=== PATIENT | female | born 1950 | race Caucasian/White ===

== ENCOUNTER 2017-07-25 12:55 | Observation (INO) | payer OTHER ==
[~2017-07-25] VITALS: Ht 172.7 cm; Wt 62.7 kg
[~2017-07-25 12:55] MED LIST: ASPI1TAB PO; ATEN25TA PO; BYDU1INJ SC; EXCETAB81 PO; SYNT150T PO
[2017-07-25] MEDS ORDERED: NS 1,000 ML IV ONE (13:15)
--- NOTE | 2017-07-25 13:31 | REP ---
Clinical: Altered mental status. Comparison: 06/29/2016 . Findings: Age-related atrophy and microvascular ischemic changes are appreciated. The ventricles and sulci are symmetric. Kim-white differentiation is maintained. There is no evidence for acute intracranial hemorrhage, mass/mass effect, pathology or infarction. No extra-axial fluid collection. Calvarium is intact. Paranasal sinuses and mastoid air cells are clear. Impression: Age related atrophy and microvascular ischemic changes. No acute intracranial hemorrhage, infarction, or mass/mass effect. Signed by Dex Howell MD 07/25/2017 01:22 P
--- NOTE | 2017-07-25 13:32 | REP ---
Clinical: Altered mental status. Chest pain . Comparison: 05/27/2017 . Findings: The mediastinum and cardiac silhouette are stable and within normal limits for portable technique. The lung jackson demonstrate chronic stable changes without acute consolidation, effusion, or pneumothorax. Skeletal structures are intact. Evidence for prior mammoplasty. Impression: No acute cardiopulmonary process appreciated. Signed by Dex Howell MD 07/25/2017 01:23 P
[2017-07-25] MEDS ORDERED: LEVO175T2 PO (14:12)
[2017-07-25] MEDS ORDERED: VITA500T PO (14:14)
[2017-07-25] MEDS ORDERED: VITATAB11 PO (14:14)
[2017-07-25 14:31] LABS: BASO % 0.3 % (0.0-1.0); EOS # 0.1 10^3/uL (0.0-0.50); EOS % 0.5 % (0.0-3.0); IMMATURE GRANULOCYTE % 0.3 % (0-0); LYMPH # 1.5 10^3/uL (1.5-4.5); LYMPH % 12.7 % (24.0-44.0); MEAN CORPUSCULAR HEMOGLOBIN 30.2 pg (27.0-33.0); MEAN CORPUSCULAR HGB CONC 33.4 g/dl (32.0-36.5); MEAN CORPUSCULAR VOLUME 90.4 fl (80.0-96.0); MONO # 0.8 10^3/uL (0.0-0.8); MONO % 6.9 % (0.0-5.0); NEUTROPHILS # 9.1 10^3/uL (1.8-7.7); NEUTROPHILS % 79.3 % (36.0-66.0); PLATELET COUNT, AUTOMATED 272 10^3/uL (150-450); RED CELL DISTRIBUTION WIDTH 13.2 % (11.5-14.5); WHITE BLOOD COUNT 11.4 10^3/uL (4.0-10.0)
[2017-07-25] MEDS ORDERED: ATOR1TAB21 PO (14:34)
[2017-07-25 15:01] LABS: ALBUMIN 3.5 GM/DL (3.2-5.2); ALBUMIN/GLOBULIN RATIO 1.13 (1.00-1.93); ALKALINE PHOSPHATASE 90 U/L (45-117); ALT/SGPT 56 U/L (12-78); ANION GAP 6 MEQ/L (8-16); AST/SGOT 75 U/L (7-37); BILIRUBIN,DIRECT 0.1 MG/DL (0.0-0.2); BILIRUBIN,TOTAL 0.4 MG/DL (0.2-1.0); BLOOD UREA NITROGEN 19 MG/DL (7-18); CALCIUM LEVEL 8.1 MG/DL (8.8-10.2); CARBON DIOXIDE LEVEL 28 MEQ/L (21-32); CHLORIDE LEVEL 106 MEQ/L (98-107); CREATININE FOR GFR 0.53 MG/DL (0.55-1.02); GLOMERULAR FILTRATION RATE > 60.0 (>45); GLUCOSE, FASTING 131 MG/DL (80-110); POTASSIUM SERUM 3.9 MEQ/L (3.5-5.1); SODIUM LEVEL 140 MEQ/L (136-145); TOTAL PROTEIN 6.6 GM/DL (6.4-8.2)
[2017-07-25 15:09] LABS: MUCUS, URINE RFX SMALL (NEGATIVE); SPECIFIC GRAVITY UR AUTO RFX 1.019 (1.002-1.035); SQUAM EPITHELIAL CELL UR AURFX 4 /HPF (0-6)
[2017-07-25] MEDS ORDERED: BISACODYL 5 MG TAB PO PRN (15:45)
[2017-07-25] MEDS ORDERED: ONDANSETRON 4MG/2ML VIAL (J2405) IV PRN (15:45)
[2017-07-25] MEDS ORDERED: LORazepam 2 MG/ML VIAL (J2060) IV PRN (16:15)
[2017-07-25 17:42] VITALS: BP 108/53
--- NOTE | 2017-07-25 19:50 | ECGEPIP ---
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
[2017-07-25 20:00] VITALS: BP 122/57
[2017-07-25] MEDS: SENOKOT S TAB PO SCH (20:32)
[2017-07-25 23:59] VITALS: BP_SYST 111; BP_SYST 112; BP_SYST 132; BP_DIAS 57; BP_DIAS 58; BP_DIAS 61
[2017-07-26 04:00] VITALS: BP 113/56
[2017-07-26 04:14] LABS: BASO % 0.4 % (0.0-1.0); EOS # 0.3 10^3/uL (0.0-0.50); EOS % 2.8 % (0.0-3.0); IMMATURE GRANULOCYTE % 0.3 % (0-0); LYMPH # 3.1 10^3/uL (1.5-4.5); LYMPH % 34.5 % (24.0-44.0); MEAN CORPUSCULAR HEMOGLOBIN 30.3 pg (27.0-33.0); MEAN CORPUSCULAR HGB CONC 33.2 g/dl (32.0-36.5); MEAN CORPUSCULAR VOLUME 91.3 fl (80.0-96.0); MONO % 11.2 % (0.0-5.0); NEUTROPHILS # 4.5 10^3/uL (1.8-7.7); NEUTROPHILS % 50.8 % (36.0-66.0); PLATELET COUNT, AUTOMATED 240 10^3/uL (150-450); RED CELL DISTRIBUTION WIDTH 13.3 % (11.5-14.5); WHITE BLOOD COUNT 8.9 10^3/uL (4.0-10.0)
[2017-07-26 04:34] LABS: ANION GAP 6 MEQ/L (8-16); BLOOD UREA NITROGEN 16 MG/DL (7-18); CALCIUM LEVEL 7.8 MG/DL (8.8-10.2); CARBON DIOXIDE LEVEL 29 MEQ/L (21-32); CHLORIDE LEVEL 107 MEQ/L (98-107); CREATININE FOR GFR 0.51 MG/DL (0.55-1.02); GLOMERULAR FILTRATION RATE > 60.0 (>45); GLUCOSE, FASTING 120 MG/DL (80-110); POTASSIUM SERUM 3.6 MEQ/L (3.5-5.1); SODIUM LEVEL 142 MEQ/L (136-145)
[2017-07-26] MEDS ORDERED: LEVOTHYROXINE 150MCG TABLET (0.15MG) PO SCH (06:00)
[2017-07-26 08:00] VITALS: BP 102/52
[2017-07-26 08:49] VITALS: BP_SYST 120; BP_SYST 123; BP_SYST 128; BP_DIAS 56; BP_DIAS 57; BP_DIAS 59
[2017-07-26] MEDS ORDERED: ATORVASTATIN 20 MG TAB PO SCH (09:00)
[2017-07-26] MEDS: SENOKOT S TAB PO SCH (09:01)
[2017-07-26 09:10] LABS: FREE T4 1.14 NG/DL (0.76-1.46)
[2017-07-26] MEDS ORDERED: LEVO150T7 PO (10:01)
--- NOTE | 2017-07-26 10:32 | HPE ---
DATE OF ADMISSION: 07/25/2017 PRIMARY CARE PROVIDER: Juancarlos Dewey MD CHIEF COMPLAINT: Syncopal episode this afternoon around noon with some seizure-like activity on the left side. PAST MEDICAL HISTORY: 1. Diabetes. 2. Hypertension. 3. Hypothyroidism. 4. Syncopal episodes since childhood. 5. History of right transient global amnesia in 2016. HISTORY OF PRESENT ILLNESS: This is a 67-year-old female who has been having episodes of syncope since her childhood from the age of around 15 years, which was attributed to all vasovagal episodes. Her last episode was about 3-4 months ago. She says she has these episodes more in the summer and if she gets too much exposure to heat. Last time she was admitted to the hospital was in June 2016 for transient global amnesia. At that time, she had a full workup including an electroencephalogram (EEG), which was negative. Carotid ultrasound, which showed 60-79% blockage on the right internal carotid and less than 50% blockage on the left carotid artery. MRI of the brain was negative. MRA showed chronic ischemic disease. Patient was also seen by neurologist and follows with neurologist n the clinic. This time, around noon today, her daughter was visiting her and patient was sitting in a rocking chair with little reclination when she suddenly passed out as witness by her daughter with her head rolling to the left and her eyes rolling backwards. There was stiffening of left side of the body and some tonic-clonic movements on the left side. She was shaken by her daughter. She did not wake up and then, after about 2-3 minutes, she slowly started coming around. By that time, Emergency Medical Services (EMS) had already been called. By time the EMS got to the house, she was more awake and coherent, although still seemed a little confused. She did not have any tongue biting, did not have any bowel or bladder incontinence. However, as per daughter, her color was very jane. When EMS stood her up to walk to the stretcher, she again complained of dizziness and lightheadedness. At that time, did repeat her vital signs, which showed her systolic had dropped to 75. She was started on IV fluids, 1 liter bolus and was brought to the emergency room. In the emergency room, her vital signs did not show any orthostatic changes and there was no episodes of hypotension. Patient also tells me that her stomach has been a little upset since last night. She was feeling wheezy and had one episode of vomiting last night and this morning she only had half a banana because her stomach was still queasy. She also had one episode of diarrhea in the morning and one episode of soft stool in the emergency room. The patient had a CT scan done in the emergency department (ED), which was negative for acute events. Her electrocardiogram (EKG) was sinus rhythm with no changes. Her lab tests were all at baseline except for the low thyroid-stimulating hormone (TSH) of 0.014 and her white count was 11.4. Patient is admitted to the hospitalist service for syncope versus seizure. PAST SURGICAL HISTORY: 1. Hysterectomy. 2. Tubal ligation. 3. Breast implants. SOCIAL HISTORY: Patient is a smoker. Drinks about one glass of wine per day. Does not use any illicit drugs. She lives alone recently. Her in March. FAMILY HISTORY: Nothing significant. ALLERGIES: SULFA DRUGS. HOME MEDICATIONS: - vitamin C 500 mg by mouth daily - atenolol 25 mg by mouth daily - atorvastatin 20 mg by mouth daily - vitamin B complex one tablet by mouth daily - Excedrin Extra Strength one tablet by mouth twice a day as needed, pain - Synthroid 175 mcg by mouth daily REVIEW OF SYSTEMS: All 10-point review of systems negative except as mentioned in the HPI. PHYSICAL EXAMINATION: VITAL SIGNS: Temperature 96.9, pulse 58, respiratory rate 18, blood pressure 119/58, pulse oximetry 90% in room air. GENERAL: Patient awake, alert, oriented times three, sitting up in bed in no acute distress. HEENT: Normocephalic, atraumatic. Moist mucous membranes. Anicteric eyes. CHEST: Clear to auscultation. CARDIOVASCULAR: S1, S2, regular. No rub, murmur or gallop. ABDOMEN: Soft, nontender. Bowel sounds present. EXTREMITIES: No edema. LABORATORY DATA: WBC 11.4, hemoglobin 13.5, platelets 272. Sodium 140, potassium 3.9, chloride 106, bicarbonate 28, BUN 19, creatinine 0.53, glucose 131, lactate 1.1. Liver function tests are normal. TSH 0.014. ASSESSMENT AND PLAN: 1. This is a 67-year-old female admitted for syncope versus seizure. This episode seems more in the favor of syncope, though it seems to be more severe than her previous episodes. Patient also did have orthostatic positive through EMS, though we could not document orthostatic here. So probably patient has orthostatic syncope. Patient may have been mildly dehydrated because of not eating well last night and this morning as well as one episode of diarrhea. Will monitor the patient on telemetry for any acute cardiac events. Patient last year had carotid ultrasound done, MRI/MRA brain done and EEG done, so will not order any further workup at this point. 2. Possible seizure, though unlikely because there is no significant episode of confusion or postictal state. However, will keep the patient under seizure precautions and will put her on Ativan as needed. 3. Hypotension. Patient's blood pressure was low with orthostatic changes with EMS. Will hold her atenolol today. 4. Hypothyroid. Patient's TSH is very low. We will reduce the dose of Synthroid. 5. Diabetes. Sugars are well controlled. Patient is not on any medication. 6. Hyperlipidemia. Will continue with atorvastatin. 7. Deep venous thrombosis (DVT) prophylaxis has been ordered. MTDD
--- NOTE | 2017-07-26 12:18 | DS.PDOC ---
Discharge Summary General Date of Admission Jul 25, 2017 at 15:37 Date of Discharge 07/26/17 Primary Care Physician: UBALDO GEIGER M.D. Attending Physician: JOSE MINAYA MD Discharge Summary PROCEDURES PERFORMED DURING STAY: None. ADMITTING/DISCHARGE DIAGNOSES: 1. Syncope 2. Orthostatic hypotension 3. Hypothyroidism COMPLICATIONS/CHIEF COMPLAINT: Syncope. HISTORY OF PRESENT ILLNESS/HOSPITAL COURSE: This is a 67-year-old female who has been having episodes of syncope since her childhood from the age of around 15 years, which was attributed to orthostatic hypotension, possibly vasovagal episodes. Her last episode was about 3-4 months ago. She was last admitted to the hospital in June 2016 for transient global amnesia. At that time, she had a full workup including a negative electroencephalogram (EEG), carotid ultrasound, which showed 60-79% blockage on the right internal carotid and less than 50% blockage on the left carotid artery. MRI of the brain was negative. MRA showed chronic ischemic disease. Patient was also seen by neurologist and follows with neurologist n the clinic. She presented for this admission after her daughter witness her pass out with her head rolling to the left and her eyes rolling backwards. She was arousable after 2-3 by her daughter. EMS was called and on their initial assessment, she was awake, coherent, however she appeared a little confused. She did not have any tongue biting, did not have any bowel or bladder incontinence. EMS noticed she was orthostatic positive. She was started on IV fluids, 1 liter bolus and was brought to the emergency room. On evaluation in the ED, she did not show any orthostatic changes and there was no episodes of hypotension. A CT scan done in the emergency department (ED), which was negative for acute events. Her electrocardiogram ( EKG) was sinus rhythm with no changes. Her lab tests were unremarkable except for the low thyroid-stimulating hormone ( TSH) of 0.014 and her white count was 11.4. Patient is admitted to the hospitalist service for syncope most likely vasovagal, secondary to orthostatic hypotension, from dehydration. Unlikely to be seizure activity . During the hospital stay, she did not experience any episodes of syncope. Her thyroid medications was reduced because of her low TSH. She was monitored overnight on telemetry and she had no cardiac events. Patient was discharged with instruction follow-up with her PCP for her thyroid medication management. Her WBC was normal on day of discharge. Her syncope was most likely secondary to orthostatic hypotension from dehydration, possibly vasovagal, unlikely seizure related. Patient was discharge in high spirit. Patient was excited to go home and had no issues or complaints on day of discharge DISCHARGE MEDICATIONS: Please see below. ALLERGIES: Please see below. PHYSICAL EXAMINATION ON DISCHARGE: Vitals: (see below) General: No acute distress, laying comfortably in bed. HEENT: Moist mucous membranes. Neck: No JVD or lymphadenopathy Cardiac: RRR, No murmurs Pulm: Clear to auscultation b/l. No wheezing, rhonchi Abd: NT/ND + BS Ext: No edema or cyanosis LABORATORY DATA: Please see below. IMAGING: Chest x-ray: 07/25/2017, no acute cardiopulmonary process is appreciated Head CT without contrast, , age-related atrophy and microvascular ischemic changes. No acute intracranial hemorrhages, infarctions, or masses/ mass effect PROGNOSIS: Fair ACTIVITY: As Tolerated. DIET: As tolerated DISCHARGE PLAN: Discharge home DISPOSITION: Home, Self-Care. DISCHARGE INSTRUCTIONS: 1. Stay hydrated 2. Return if she develops any neurological symptoms 3. Follow-up with PCP ITEMS TO FOLLOWUP ON ON OUTPATIENT: 1. Syncope 2. Thyroid medication management DISCHARGE CONDITION: Stable. TIME SPENT ON DISCHARGE: Greater than 30 minutes. Vital Signs/I&Os Vital Signs Date Time Temp Pulse Resp B/P (MAP) Pulse Ox O2 Delivery O2 Flow Rate FiO2 07/26/17 08:49 65 120/56 (77) 60 128/57 (80) 64 123/59 (80) 07/26/17 08:00 98.4 16 96 Room Air I&O- Last 24 Hours up to 6 AM 07/26/17 06:00 Intake Total 0 ml Output Total 0 ml Balance 0 ml Laboratory Data Labs 24H Laboratory Tests 2 07/25/17 14:20: Immature Granulocyte % (Auto) 0.3H, White Blood Count 11.4H, Red Blood Count 4.47, Hemoglobin 13.5, Hematocrit 40.4, Mean Corpuscular Volume 90.4, Mean Corpuscular Hemoglobin 30.2, Mean Corpuscular Hemoglobin Concent 33.4, Red Cell Distribution Width 13.2, Platelet Count 272, Neutrophils (%) (Auto) 79.3H, Lymphocytes (%) (Auto) 12.7L, Monocytes (%) (Auto) 6.9H, Eosinophils (%) (Auto) 0.5, Basophils (%) (Auto) 0.3, Neutrophils # (Auto) 9.1H, Lymphocytes # (Auto) 1.5, Monocytes # (Auto) 0.8, Eosinophils # (Auto) 0.1, Basophils # (Auto) 0.0, Immature Granulocyte # (Auto) 0.0, Nucleated Red Blood Cells % (auto) 0.0, Anion Gap 6L, Glomerular Filtration Rate > 60.0, Lactic Acid Level 1.1, Calcium Level 8.1L, Aspartate Amino Transf (AST/SGOT) 75H, Alanine Aminotransferase (ALT /SGPT) 56, Alkaline Phosphatase 90, Total Bilirubin 0.4, Direct Bilirubin 0.1, Total Creatine Kinase 65, Creatine Kinase MB 1.2, Creatine Kinase MB Relative Index 1.84, Troponin I < 0.02, Total Protein 6.6, Albumin 3.5, Albumin/Globulin Ratio 1.13, Thyroid Stimulating Hormone (TSH) 0.014L 07/25/17 14:58: Urine Color YELLOW, Urine Appearance CLOUDYH, Urine pH 5.0, Urine Specific [place] 1.019, Urine Protein NEGATIVE, Urine Glucose (UA) NEGATIVE, Urine Ketones NEGATIVE, Urine Blood 1+H, Urine Nitrite NEGATIVE, Urine Bilirubin NEGATIVE, Urine Urobilinogen 0.2, Urine Leukocyte Esterase 2+H, Urine WBC (Auto ) 2, Urine RBC (Auto) 2, Urine Hyaline Casts (Auto) 0, Urine Bacteria (Auto) 1+H , Urine Squamous Epithelial Cells 4, Urine Mucus (Auto) SMALL, Urine Sperm (Auto ) 07/26/17 03:14: Immature Granulocyte % (Auto) 0.3H, White Blood Count 8.9, Red Blood Count 3.89L , Hemoglobin 11.8L, Hematocrit 35.5L, Mean Corpuscular Volume 91.3, Mean Corpuscular Hemoglobin 30.3, Mean Corpuscular Hemoglobin Concent 33.2, Red Cell Distribution Width 13.3, Platelet Count 240, Neutrophils (%) (Auto) 50.8, Lymphocytes (%) (Auto) 34.5, Monocytes (%) (Auto) 11.2H, Eosinophils (%) (Auto) 2.8, Basophils (%) (Auto) 0.4, Neutrophils # (Auto) 4.5, Lymphocytes # (Auto) 3.1, Monocytes # (Auto) 1.0H, Eosinophils # (Auto) 0.3, Basophils # (Auto) 0.0, Immature Granulocyte # (Auto) 0.0, Nucleated Red Blood Cells % (auto) 0.0, Anion Gap 6L, Glomerular Filtration Rate > 60.0, Calcium Level 7.8L, Thyroid Stimulating Hormone (TSH) 0.021L, Blood Urea Nitrogen 16, Creatinine 0.51L, Sodium Level 142, Potassium Level 3.6, Chloride Level 107, Carbon Dioxide Level 29, Free Thyroxine 1.14 CBC/BMP Laboratory Tests 07/25/17 14:20 Red Blood Count 4.47, Mean Corpuscular Volume 90.4, Mean Corpuscular Hemoglobin 30.2, Mean Corpuscular Hemoglobin Concent 33.4, Red Cell Distribution Width 13.2 , Neutrophils (%) (Auto) 79.3 H, Lymphocytes (%) (Auto) 12.7 L, Monocytes (%) ( Auto) 6.9 H, Eosinophils (%) (Auto) 0.5, Basophils (%) (Auto) 0.3, Neutrophils # (Auto) 9.1 H, Lymphocytes # (Auto) 1.5, Monocytes # (Auto) 0.8, Eosinophils # (Auto) 0.1, Basophils # (Auto) 0.0 07/26/17 03:14 Red Blood Count 3.89 L, Mean Corpuscular Volume 91.3, Mean Corpuscular Hemoglobin 30.3, Mean Corpuscular Hemoglobin Concent 33.2, Red Cell Distribution Width 13.3, Neutrophils (%) (Auto) 50.8, Lymphocytes (%) (Auto) 34.5, Monocytes (%) (Auto) 11.2 H, Eosinophils (%) (Auto) 2.8, Basophils (%) ( Auto) 0.4, Neutrophils # (Auto) 4.5, Lymphocytes # (Auto) 3.1, Monocytes # (Auto ) 1.0 H, Eosinophils # (Auto) 0.3, Basophils # (Auto) 0.0, Calcium Level 7.8 L Microbiology Microbiology 07/25/17 Urine Culture - Final, Complete Discharge Medications Scheduled Ascorbic Acid (Vitamin C) 500 Mg Tab, 500 MG PO DAILY, (Reported) Atenolol (Atenolol) 25 Mg Tab, 25 MG PO DAILY, (Reported) Atorvastatin Calcium (Atorvastatin Calcium) 20 Mg Tab, 20 MG PO DAILY, (Reported ) B1/B2/B3/B5/B6 (Vitamin B Complex) 1 Tab Tab, 1 TAB PO DAILY, (Reported) Levothyroxine Sodium (Synthroid) 150 Mcg Tab, 150 MCG PO DAILY@06 Scheduled PRN (Excedrin Extra Strength 250-250-65 mg) 1 Tab Tab, 1 TAB PO BID PRN for PAIN, ( Reported) Allergies Coded Allergies: Sulfa Drugs (Unverified Adverse Reaction, Mild, upset stomach, 06/29/16) Sulfa Drugs Cross Reactors (Unverified Adverse Reaction, Mild, upset stomach, 06/29/16) GME ATTESTATION GME ATTESTATION My faculty preceptor for this patient encounter was physically present during the encounter and was fully available. All aspects of the patient interview, examination, medical decision making process, and medical care plan development were reviewed and approved by the faculty preceptor. The faculty preceptor is aware and concurs with the plan as stated in the body of this note and will attest to such by his/her cosignature. ATTENDING NOTE I, Jose Minaya, have both independently examined this patient as well as reviewed the documentation. I have discussed in detail with the resident the findings and plan of treatment as documented in the residents documentation. I will continue to follow the patient and offer further guidance to the patients care as necessary during this hospital stay. CHRISTOPHER RHODES DO Jul 26, 2017 12:17 JOSE MINAYA MD Jul 26, 2017 15:31
== END 2017-07-26 11:20 | disposition home or self-care (01) ==
LOC: M ED 12:55 → EDBD 12:55 → M ED INP 15:37 → M PCU 17:35
PROVIDERS: ADMIT Internal Medicine Nephrology; ATTEND Internal Medicine
DX: I95.1 Orthostatic hypotension (principal); E11.9 Type 2 diabetes mellitus without complications; I10 Essential (primary) hypertension; E03.9 Hypothyroidism, unspecified; E78.5 Hyperlipidemia, unspecified; F17.210 Nicotine dependence, cigarettes, uncomplicated; Z88.2 Allergy status to sulfonamides; Z79.899 Other long term (current) drug therapy
CPT/HCPCS: 36415; 70450; 71010; 80048; 80076; 81001; 82550; 82553; 83605; 84439; 84443; 84480; 84484; 85025; 87086; 93005; 93041; 94760; 99285; G0378

== ENCOUNTER → 2019-02-24 | Outpatient (CLI) | payer MEDICARE ==
[~2019-02-24] MED LIST changes: -ASPI1TAB PO; +ASPI81TA26 PO; +ATOR1TAB21 PO; +LEVO150T7 PO; +LEVO175T2 PO; +VITA500T PO; +VITATAB11 PO
--- NOTE | 2019-02-24 09:27 | REP ---
Clinical: Abnormal liver function tests. Technique: Real time jane scale ultrasound examination using curved array transducer. Findings: Liver and visualized pancreas are normal in appearance and without focal hepatic or pancreatic lesion identified. The gallbladder is unremarkable and without gallstones, wall thickening, or pericholecystic fluid. No biliary ductal dilatation is appreciated and the common bile duct measures 4.8 mm diameter. The right kidney is normal in reniform shape without hydronephrosis and measures 10.2 x 4.9 x 4.2 cm. No ascites. Impression: Normal limited abdominal ultrasound. Electronically Signed by Dex Howell MD 02/24/2019 09:19 A
--- NOTE | 2019-02-24 12:30 | REP ---
BILATERAL MAMMOGRAM WITH 3D TOMOSYNTHESIS, WITH RIGHT BREAST ULTRASOUND: There is no family history of breast cancer. Tyrer-Cuzick lifetime risk of breast cancer 4.2%. The patient complains of pain and some degree of contour abnormality in the upper outer quadrant of the right breast. Bilateral ML and CC views are performed including implant displaced views with 3D tomosynthesis. Comparison made with prior studies, most recently 12/27/2015. There is mild fibroglandular tissue bilaterally. I see no suspicious mass or architectural distortion. No clustered microcalcifications are seen. There is new somewhat ill-defined dense material along the surface of the right breast implant having an appearance compatible with extracapsular rupture of the right breast implant. Real-time sonographic evaluation of the upper outer quadrant of the right breast does demonstrate ill-defined hypoechoic and anechoic areas along the upper outer aspect of the implant compatible with extracapsular rupture. There is no adjacent mass in the visualized parenchyma. IMPRESSION: BIRADS 2: BI-RADS/ACR category 2 mammogram. Benign Findings. ACR 2 benign. No suspicious mass or clustered microcalcifications. There are mammographic and sonographic findings compatible with extracapsular rupture of the right breast implant. This mammogram was interpreted with the aid of an FDA-approved computer-aided detection system. The patient states that she or he has not had a clinical breast exam in over a year. Patient letter requested is M2. Electronically Signed by Blake Kim MD 02/28/2019 05:31 P
== END ==
LOC: M RAD 08:03
PROVIDERS: ATTEND Family Medicine
DX: R94.5 Abnormal results of liver function studies (principal); N64.4 Mastodynia
CPT/HCPCS: 76642; 76705; 77066; G0279

== ENCOUNTER 2019-03-23 17:14 | Emergency (ER) | payer MEDICARE, MEDICAID ==
[~2019-03-23] VITALS: Ht 170.2 cm; Wt 60.9 kg
[2019-03-23] MEDS ORDERED: LEVO112T2 (17:29)
[2019-03-23] MEDS ORDERED: MEMA28CA (17:29)
[2019-03-23] MEDS ORDERED: SERT-155 (17:29)
[2019-03-23] MEDS ORDERED: BUPR300T34 (17:29)
[2019-03-23] MEDS ORDERED: RAMI1CAP24 (17:29)
[2019-03-23 18:38] LABS: BASO # 0.1 10^3/uL (0.0-0.2); BASO % 0.4 % (0.0-1.0); EOS # 0.1 10^3/uL (0.0-0.50); EOS % 0.5 % (0.0-3.0); HEMATOCRIT 41.3 % (36.0-47.0); LYMPH % 7.7 % (24.0-44.0); MEAN CORPUSCULAR HEMOGLOBIN 33.3 pg (27.0-33.0); MEAN CORPUSCULAR HGB CONC 33.9 g/dl (32.0-36.5); MEAN CORPUSCULAR VOLUME 98.3 fl (80.0-96.0); MONO # 1.5 10^3/uL (0.0-0.8); MONO % 11.9 % (0.0-5.0); NEUTROPHILS # 10.1 10^3/uL (1.8-7.7); NEUTROPHILS % 79.1 % (36.0-66.0); PLATELET COUNT, AUTOMATED 261 10^3/uL (150-450); WHITE BLOOD COUNT 12.8 10^3/uL (4.0-10.0)
--- NOTE | 2019-03-23 19:00 | REPVR ---
EXAM: CT Head Without Contrast EXAM DATE/TIME: 03/23/2019 6:31 PM CLINICAL HISTORY: 69 years old, female; Altered mental status/memory loss TECHNIQUE: Imaging protocol: Computed tomography images of the head without contrast. Radiation optimization: All CT scans at this facility use at least one of these dose optimization techniques: automated exposure control; mA and/or kV adjustment per patient size (includes targeted exams where dose is matched to clinical indication); or iterative reconstruction. COMPARISON: CT Head without contrast 07/25/2017 1:07 PM FINDINGS: Brain: Moderate parenchymal atrophy most pronounced in the frontotemporal regions. Mild white matter disease likely age-related. Ventricles: Normal. No ventriculomegaly. Bones/joints: Unremarkable. No acute fracture. Sinuses: Visualized sinuses are unremarkable. No fluid levels. Mastoid air cells: Visualized mastoid air cells are well aerated. No mastoid effusion. Soft tissues: Unremarkable. IMPRESSION: No acute findings. Electronically signed by: Salinas Manriquez On 03/23/2019 19:00:17 PM
[2019-03-23 19:14] LABS: ALBUMIN 3.6 GM/DL (3.2-5.2); ALT/SGPT 41 U/L (12-78); BILIRUBIN,DIRECT 0.4 MG/DL (0.0-0.2); BILIRUBIN,TOTAL 0.8 MG/DL (0.2-1.0); BLOOD UREA NITROGEN 37 MG/DL (7-18); CALCIUM LEVEL 9.7 MG/DL (8.8-10.2); CARBON DIOXIDE LEVEL 23 MEQ/L (21-32); CHLORIDE LEVEL 105 MEQ/L (98-107); CK-MB VALUE MASS 19.6 NG/ML (<3.6); CPK CREATINE PHOSPHOKINASE 707 U/L (26-192); ETHYL ALCOHOL (ETHANOL) < 0.003 % (0.000-0.010); GLOMERULAR FILTRATION RATE > 60.0 (>39); GLUCOSE, FASTING 99 MG/DL (70-100); MB/CK RELATIVE INDEX 2.77 (< OR =4); POTASSIUM SERUM 4.4 MEQ/L (3.5-5.1); SODIUM LEVEL 140 MEQ/L (136-145); THYROID STIMULATING HORMONE 0.011 uIU/ML (0.358-3.740); TOTAL PROTEIN 6.9 GM/DL (6.4-8.2); TROPONIN I < 0.02 NG/ML (< 0.10)
--- NOTE | 2019-03-23 19:52 | REP ---
HISTORY: Altered mental status. COMPARISON: Portable exam of 07/25/2017. AP and lateral views were obtained. There is no change from the prior exam. The technique utilized in obtaining the radiograph has magnified the cardiac silhouette and accentuated the interstitial markings. The superior mediastinal structures are midline. The cardiac silhouette is unremarkable in size, shape, and position. The diaphragmatic surfaces of the lungs are regular, and the costophrenic angles are clear. The pulmonary jackson are clear. The imaged osseous structures are intact. IMPRESSION: There is no acute cardiopulmonary disease. Electronically Signed by Leo Blanco DO 03/24/2019 02:19 P
[2019-03-23 20:42] LABS: AMPHETAMINES LEVEL URINE NEGATIVE (NEGATIVE); BARBITURATES URINE NEGATIVE (NEGATIVE); BENZODIAZEPINES URINE NEGATIVE (NEGATIVE); CANNABINOIDS URINE NEGATIVE (NEGATIVE); COCAINE METABOLITE URINE NEGATIVE (NEGATIVE); METHADONE URINE NEGATIVE (NEGATIVE); OPIATES URINE NEGATIVE (NEGATIVE); PHENCYCLIDINE URINE NEGATIVE (NEGATIVE)
[2019-03-23] MEDS ORDERED: NS 1,000 ML IV ONE (22:00)
[2019-03-23 22:53] VITALS: BP 112/59
--- NOTE | 2019-03-24 05:31 | ECGEPIP ---
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
== END 2019-03-24 00:03 | disposition home or self-care (01) ==
LOC: EDBD 17:14 → M ED 17:14
DX: E86.0 Dehydration (principal); F03.90 Unspecified dementia, unspecified severity, without behavioral disturbance, psychotic disturbance, mood disturbance, and anxiety; I10 Essential (primary) hypertension; E78.5 Hyperlipidemia, unspecified; Z79.899 Other long term (current) drug therapy; Z88.1 Allergy status to other antibiotic agents; Z88.2 Allergy status to sulfonamides; Z88.8 Allergy status to other drugs, medicaments and biological substances; F17.210 Nicotine dependence, cigarettes, uncomplicated
CPT/HCPCS: 36415; 51701; 70450; 71046; 80048; 80076; 80307; 81001; 82550; 82553; 84443; 84484; 85025; 93005; 93041; 94760; 99285; G0480

== ENCOUNTER 2020-03-23 10:14 | Inpatient (IN) | payer MEDICARE ==
[~2020-03-23] VITALS: Ht 162.6 cm; Wt 59.0 kg
[~2020-03-23 10:14] MED LIST changes: +BUPR300T92 PO; +LEVO112T2 PO; +MEMA28CA PO; +RAMI1CAP24 PO; +SERT50TA29 PO; +VITA-243 PO; -VITA500T PO
[2020-03-23] MEDS ORDERED: ASPI81TA86 PO (11:03)
[2020-03-23 11:20] LABS: VENOUS BASE EXCESS -4.2 (-2.0-2.0); VENOUS HCO3 22.3 MEQ/L (23.0-27.0); VENOUS O2 SATURATION 67.1 % (60.0-80.0); VENOUS PARTIAL PRESSURE CO2 46.1 mmHg (38.0-50.0); VENOUS PARTIAL PRESSURE O2 37.6 mmHg (30.0-50.0); VENOUS PH 7.303 UNITS (7.330-7.430); VENOUS TOTAL CO2 23.7 MEQ/L (24.0-28.0)
[2020-03-23 11:34] LABS: BASO # 0.1 10^3/uL (0.0-0.2); BASO % 0.5 % (0.0-1.0); EOS # 0.1 10^3/uL (0.0-0.5); HEMATOCRIT 42.5 % (36.0-47.0); HEMOGLOBIN 13.8 g/dl (12.0-15.5); LYMPH # 0.7 10^3/uL (1.5-5.0); LYMPH % 6.6 % (24.0-44.0); MEAN CORPUSCULAR HEMOGLOBIN 30.1 pg (27.0-33.0); MEAN CORPUSCULAR HGB CONC 32.5 g/dl (32.0-36.5); MEAN CORPUSCULAR VOLUME 92.6 fl (80.0-96.0); MONO # 0.9 10^3/uL (0.0-0.8); MONO % 7.9 % (0.0-5.0); NEUTROPHILS # 9.4 10^3/uL (1.5-8.5); NEUTROPHILS % 83.3 % (36.0-66.0); PLATELET COUNT, AUTOMATED 230 10^3/uL (150-450); RED BLOOD COUNT 4.59 10^6/uL (4.00-5.40); WHITE BLOOD COUNT 11.3 10^3/uL (4.0-10.0)
[2020-03-23 11:43] LABS: BLOOD UREA NITROGEN 17 MG/DL (7-18); CARBON DIOXIDE LEVEL 28 MEQ/L (21-32); CHLORIDE LEVEL 99 MEQ/L (98-107); CK-MB VALUE MASS 8.7 NG/ML (<3.6); CPK CREATINE PHOSPHOKINASE 607 U/L (26-192); CREATININE FOR GFR 1.11 MG/DL (0.55-1.30); GLOMERULAR FILTRATION RATE 51.4 (>39); GLUCOSE, FASTING 493 MG/DL (70-100); MB/CK RELATIVE INDEX 1.43 (< OR =4); POTASSIUM SERUM 4.5 MEQ/L (3.5-5.1); SODIUM LEVEL 132 MEQ/L (136-145); TROPONIN I < 0.02 NG/ML (< 0.10)
--- NOTE | 2020-03-23 11:44 | REPVR ---
PROCEDURE INFORMATION: Exam: XR Lumbosacral Spine, 4 or 5 Views Exam date and time: 03/23/2020 11:20 AM Age: 70 years old Clinical indication: Low back pain; Additional info: Trauma, fell TECHNIQUE: Imaging protocol: XR of the lumbosacral spine, 4 or 5 views. COMPARISON: CR - Chest, 2 view PA, Lat 03/23/2019 6:36:40 PM FINDINGS: Limitations: ECG leads/contacts overlie and partially obscure the anatomy. Vertebrae: The bones are diffusely demineralized. This significantly limits evaluation for fractures. Five [id number] lumbar vertebrae are present. Grade 1 anterolisthesis of L5 on S1. Lumbar vertebral body heights are maintained. Anteriorly wedged compression fracture deformity of the T12 vertebral body with mild loss of height. Multilevel bilateral degenerative facet hypertrophy and sclerosis, most pronounced at the lower lumbar spine. Multilevel lumbar vertebral degenerative endplate osteophytosis. L4-L5 and L5-S1 intervertebral disc space narrowing. Soft tissues: Bilateral breast prostheses. Vasculature: Atherosclerotic calcifications. IMPRESSION: 1. T12 vertebral body compression fracture appears new compared to 03/23/2019. This may be an acute vertebral fracture. Clinical correlation is needed. This can be further evaluated with spine CT. 2. The bones are diffusely demineralized. This significantly limits evaluation for fractures. 3. Grade 1 anterolisthesis of L5 on S1. 4. Multilevel degenerative appearing thoracic and lumbar spondylosis. Electronically signed by: Morris Carbone On 03/23/2020 11:44:11 AM
--- NOTE | 2020-03-23 11:52 | REPVR ---
PROCEDURE INFORMATION: Exam: XR Right Hip with Pelvis when Performed Exam date and time: 03/23/2020 11:20 AM Age: 70 years old Clinical indication: Hip pain; Right hip; Additional info: Trauma, fell TECHNIQUE: Imaging protocol: XR Right hip with pelvis when performed. Views: 2 or 3 views. COMPARISON: No relevant prior studies available. FINDINGS: Limitations: ECG leads/contacts overlie and partially obscure the anatomy. Bones/joints: The bones are diffusely demineralized. This significantly limits evaluation for fractures. Degenerative appearing lumbar spondylosis. No acute pelvic fracture is identified. The sacroiliac joints are unremarkable. The pubic symphysis is unremarkable. No right hip dislocation. The right hip joint space is maintained. Minimal bilateral acetabular osteophytosis. No fracture of the imaged right proximal femur is identified. Soft tissues: Unremarkable as visualized. Vasculature: Vascular calcifications. IMPRESSION: 1. No acute fracture is identified. 2. The bones are diffusely demineralized. This significantly limits evaluation for fractures. Electronically signed by: Morris Carbone On 03/23/2020 11:52:23 AM
[2020-03-23] MEDS ORDERED: NS 1,000 ML IV ONE (12:00)
[2020-03-23] MEDS ORDERED: HumuLIN R (REGULAR) INSULIN (NovoLIN R) **100U/ML** PER UNIT IV ONE (12:00)
[2020-03-23] MEDS ORDERED: CLOTRIMAZOLE 1% VAG CR 45 GM PV ONE (13:00)
[2020-03-23] MEDS ORDERED: FLUCONAZOLE 100 MG TAB PO ONE (13:00)
[2020-03-23] MEDS ORDERED: VITACAP8 PO (13:59)
[2020-03-23] MEDS ORDERED: QUET1TAB7 PO (13:59)
[2020-03-23] MEDS: MICONAZOLE-7 VAGINAL 2% CREAM 47.7 GM PV SCH (14:34)
[2020-03-23] MEDS ORDERED: NORCO, ANEXSIA 5/325MG TABLET (HYDROcodone/ACETAMINOPHEN) PO ONE (15:15)
[2020-03-23] MEDS ORDERED: ACETAMINOPHEN TAB 650MG DOSE (2X325MG) PO PRN (16:45)
[2020-03-23] MEDS ORDERED: GLUCAGON INJ 1MG VIAL SC PRN (17:00)
[2020-03-23] MEDS ORDERED: GLUCOSE 4GM CHEW TABLET PO PRN (17:00)
[2020-03-23] MEDS ORDERED: DEXTROSE 50% 50 ML SYRINGE IV PRN (17:00)
--- NOTE | 2020-03-23 17:19 | REPVR ---
PROCEDURE INFORMATION: Exam: XR Chest, 1 View Exam date and time: 03/23/2020 5:14 PM Age: 70 years old Clinical indication: Other: Leukocytosis; Additional info: AMS, leukocytosis TECHNIQUE: Imaging protocol: XR of the chest Views: 1 view. COMPARISON: CR Chest, 2 view PA, Lat 03/23/2019 6:36 PM FINDINGS: Lungs: Unremarkable. No consolidation. Pleural space: Unremarkable. No pleural effusion. No pneumothorax. Heart/Mediastinum: Unremarkable. No cardiomegaly. Bones/joints: Osteoporosis. Shallow dextroscoliosis. Soft tissues: Bilateral calcified breast implants. IMPRESSION: No acute findings. Electronically signed by: Salinas Manriquez On 03/23/2020 17:19:22 PM
[2020-03-23] MEDS: HumaLOG INSULIN (NovoLOG) PER UNIT SC SCH (17:30)
--- NOTE | 2020-03-23 18:55 | HPEPDOC ---
[facility] Medical History & Physical Date of Admission Mar 23, 2020 Date of Service: Mar 23, 2020 Primary Care Physician: UBALDO GEIGER M.D. Attending Physician: A History and Physical CHIEF COMPLAINT: Agitation, altered mental status, low back pain HISTORY OF PRESENT ILLNESS: 70 yo F with a hx of advanced Alzheimer's dementia, uncontrolled DM2, HTN, history of falls. She lives at home with 24 hour care from home health agency. She is not able to provide history due to dementia, but her son is at bedside. He states that he became concerned when she became acutely agitated, had obvious perineal/vaginal discomfort (constant scratching and rubbing) which is a departure from her baseline. He further described her frequently falling on her backside off the bed when she attempts to get up. He also reports that she had a much increased appetite and has not been taking medications for DM. On arrival to the ED her BG was ~500. VBG showing ph 7.3, AG 5. Xray showing T12 compression fracture, ~20 involvement. She was given 5 units of R insulin. Perineal exam showed significant vaginal and perineal candidal infection. She was given 200 mg of diflucan along with miconazole vaginal cream. She showed near immediate impovement in agitation after miconazole adminstration. PAST MEDICAL HISTORY: 1. Advanced Alzheimer's Dementia 2. DM2. 3. HTN 4. Hypothyroidism PAST SURGICAL HISTORY: non contributory SOCIAL HISTORY: Former smoker. Non etoh use Lives at home, receives 24 hour from home health agency FAMILY HISTORY: non contributory ALLERGIES: Please see below. REVIEW OF SYSTEMS: CONSTITUTIONAL: agitation, confusion. HEENT: none. CARDIOVASCULAR: none. RESPIRATORY: none. GASTROINTESTINAL: none. GENITOURINARY: vaginal, perineal pruritis. SKIN: none. MUSCULOSKELETAL: low back pain . NEUROLOGICAL: confusion, no focal neuro deficits PSYCHIATRIC: confused, advanced dementia. ENDOCRINE: hyperglycemia HEMATOLOGIC/LYMPHATIC: none. HOME MEDICATIONS: Please see below. PHYSICAL EXAMINATION: GENERAL APPEARANCE: calm at time of exam, comfortable in bed. HEENT: PERRLA. CARDIOVASCULAR: RRR, normal S1, S2. LUNGS: CTAB, no rales, no wheezes. ABDOMEN: soft, non tender. MUSCULOSKELETAL: low back pain, mildly tender to palpation at T12. EXTREMITIES: no deformity. NEUROLOGICAL: moving all 4 extremities, no focal deficits. PSYCHIATRIC: confused, not followin commands, advanced dementia. LABORATORY DATA: See below. IMAGING: Lumbar Spine 4 or 5 view IMPRESSION: 1. T12 vertebral body compression fracture appears new compared to 03/23/2019. This may be an acute vertebral fracture. Clinical correlation is needed. This can be further evaluated with spine CT. 2. The bones are diffusely demineralized. This significantly limits evaluation for fractures. 3. Grade 1 anterolisthesis of L5 on S1. 4. Multilevel degenerative appearing thoracic and lumbar spondylosis. XR R hip with pelvis IMPRESSION: 1. No acute fracture is identified. 2. The bones are diffusely demineralized. This significantly limits evaluation for fractures. CXR: wnl, no acute findings. MICROBIOLOGY: Please see below. ASSESSMENT: 70 yo F with a hx of advanced Alzheimer's dementia, uncontrolled DM2, HTN, history of falls. She lives at home with 24 hour care from home health agency. Admitted with AMS, hyperglycemia, T12 compression fx. PLAN: 1. AMS: HHS vs infection. Improved after insulin, treatment of candidiasis. CXR wnl. Check UA. Sitter overnight. 2. Hypergycemia: s/p 5 units regular insulin. Repeat accucheck 189. ISS. Check a1c. Hypoglycemia precautions. Repeat ABG in am. 3. HTN: home meds 4. Compression fracture: suspected T12 vertebral compression fx.PT/OT, ortho eval. Pain control. 5. Alzheimer's Dementia: resume home meds. 6. Candidal vulvovagitinis: continue miconazole ointment. 7. hypothyroid: c/w ome syndthroid 112 mcg. DVT ppx: lovenox 40 mg sc. Dispo: PT/OT eval. Likely return to home with services. Vital Signs Vital Signs Date Time Temp Pulse Resp B/P (MAP) Pulse Ox O2 Delivery O2 Flow Rate FiO2 03/23/20 17:55 98.3 83 20 160/84 (109) 96 03/23/20 15:04 Room Air Laboratory Data Labs 24H Laboratory Tests 2 03/23/20 10:48: Immature Granulocyte % (Auto) 0.7, Neutrophils (%) (Auto) 83.3H, Lymphocytes (%) (Auto) 6.6L, Monocytes (%) (Auto) 7.9H, Eosinophils (%) (Auto) 1.0, Basophils (%) (Auto) 0.5, Neutrophils # (Auto) 9.4H, Lymphocytes # (Auto) 0.7L, Monocytes # (Auto) 0.9H, Eosinophils # (Auto) 0.1, Basophils # (Auto) 0.1, Nucleated Red Blood Cells % (auto) 0.0, Venous Blood pH 7.303L, Venous Blood Partial Pressure CO2 46.1, Venous Blood Partial Pressure O2 37.6, Venous Blood Total Carbon Dioxide 23.7L, Venous Blood HCO3 22.3L, Venous Blood Oxygen Saturation 67.1, Venous Blood Base Excess -4.2L, Anion Gap 5L, Glomerular Filtration Rate 51.4, Calcium Level 9.0, Total Creatine Kinase 607H, Creatine Kinase MB 8.7H, Creatine Kinase MB Relative Index 1.43, Troponin I < 0.02, Thyroid Stimulating Hormone (TSH) 28.800H CBC/BMP Laboratory Tests 03/23/20 10:48 Home Medications Scheduled Ascorbic Acid (Vitamin C) 500 Mg Tab, 500 MG PO DAILY Aspirin (Aspir 81) 81 Mg Tablet.dr, 81 MG PO DAILY Atenolol (Atenolol) 25 Mg Tab, 25 MG PO DAILY Atorvastatin Calcium (Atorvastatin Calcium) 20 Mg Tab, 20 MG PO DAILY Bupropion HCl (Bupropion Xl) 300 Mg Tab.er.24h, 300 MG PO DAILY @ 1600 Levothyroxine Sodium (Levothyroxine Sodium) 112 Mcg Tablet, 112 MCG PO DAILY Memantine HCl (Memantine HCl ER) 28 Mg Cap.spr.24, 28 MG PO DAILY Quetiapine Fumarate (Quetiapine Fumarate) 25 Mg Tablet, 12.5 MG PO QHS Ramipril (Ramipril) 5 Mg Capsule, 5 MG PO DAILY Sertraline HCl (Sertraline HCl) 50 Mg Tablet, 50 MG PO DAILY Vitamin B Complex (Vitamin B Complex) 1 Each Capsule, 1 CAP PO DAILY Allergies Coded Allergies: Sulfa (Sulfonamide Antibiotics) (Verified Allergy, Unknown, 03/23/19) metformin (Verified Adverse Reaction, Mild, nausea, 03/23/19) A-FIB/CHADSVASC A-FIB History Current/History of A-Fib/PAF?: No Current PO Anticoag Therapy: No DEB DUGGAN MD Mar 23, 2020 18:55
[2020-03-23 19:00] VITALS: BP 120/68
[2020-03-23] MEDS: SERTRALINE HCL 50 MG TAB PO SCH (20:00)
[2020-03-23] MEDS: ASPIRIN 81 MG ENTERIC TAB PO SCH (20:00)
[2020-03-23] MEDS: ramipriL 5 MG CAP PO SCH (20:00)
[2020-03-23] MEDS: DOCUSATE SODIUM 100 MG CAP PO SCH (20:01)
[2020-03-23] MEDS: ATORVASTATIN 20 MG TAB PO SCH (20:01)
[2020-03-23] MEDS: buPROPion **XL** TABLET 150MG (WELLBUTRIN XL) PO SCH (20:01)
[2020-03-23] MEDS: atenoloL 25 MG TAB PO SCH (20:03)
[2020-03-23] MEDS: NS 1,000 ML IV SCH (20:20)
[2020-03-23 22:00] VITALS: BP 134/65
[2020-03-24] MEDS: NS 1,000 ML IV SCH ×3 (04:13→21:25)
[2020-03-24 06:00] VITALS: BP 133/75
[2020-03-24] MEDS ORDERED: LEVOTHYROXINE 112MCG TABLET (0.112MG) PO SCH (06:00)
[2020-03-24 06:22] LABS: ABG PARTIAL PRESSURE CO2 37.8 mmHg (35.0-45.0); ABG pH (ARTERIAL) 7.421 UNITS (7.350-7.450)
[2020-03-24 06:28] LABS: ABG PARTIAL PRESSURE O2 43.5 mmHg (75.0-100.0)
[2020-03-24 06:29] LABS: ABG BASE EXCESS -0.2 (-2.0-2.0); ABG O2 SATURATION 80.2 % (95.0-99.0); ABG TOTAL CO2 25.2 MEQ/L (23.0-31.0)
[2020-03-24 06:44] LABS: BASO # 0.1 10^3/uL (0.0-0.2); BASO % 0.7 % (0.0-1.0); EOS # 0.4 10^3/uL (0.0-0.5); EOS % 4.3 % (0.0-3.0); HEMATOCRIT 39.8 % (36.0-47.0); HEMOGLOBIN 13.1 g/dl (12.0-15.5); LYMPH # 1.2 10^3/uL (1.5-5.0); MEAN CORPUSCULAR HEMOGLOBIN 30.4 pg (27.0-33.0); MEAN CORPUSCULAR HGB CONC 32.9 g/dl (32.0-36.5); MEAN CORPUSCULAR VOLUME 92.3 fl (80.0-96.0); MONO # 1.1 10^3/uL (0.0-0.8); MONO % 12.5 % (0.0-5.0); PLATELET COUNT, AUTOMATED 201 10^3/uL (150-450); RED BLOOD COUNT 4.31 10^6/uL (4.00-5.40); WHITE BLOOD COUNT 8.9 10^3/uL (4.0-10.0)
[2020-03-24 06:58] LABS: ALBUMIN 3.2 GM/DL (3.2-5.2); ALT/SGPT 40 U/L (12-78); BILIRUBIN,TOTAL 0.9 MG/DL (0.2-1.0); BLOOD UREA NITROGEN 15 MG/DL (7-18); CALCIUM LEVEL 7.9 MG/DL (8.8-10.2); CARBON DIOXIDE LEVEL 27 MEQ/L (21-32); CHLORIDE LEVEL 104 MEQ/L (98-107); CREATININE FOR GFR 0.72 MG/DL (0.55-1.30); GLOMERULAR FILTRATION RATE > 60.0 (>39); GLUCOSE, FASTING 258 MG/DL (70-100); POTASSIUM SERUM 3.9 MEQ/L (3.5-5.1); SODIUM LEVEL 136 MEQ/L (136-145)
[2020-03-24 08:00] LABS: HEMOGLOBIN A1c 11.9 %
[2020-03-24] MEDS: ASPIRIN 81 MG ENTERIC TAB PO SCH (08:03)
[2020-03-24] MEDS: DOCUSATE SODIUM 100 MG CAP PO SCH ×2 (08:03→21:26)
[2020-03-24] MEDS: ASCORBIC ACID 500 MG TAB PO SCH (08:03)
[2020-03-24] MEDS: ATORVASTATIN 20 MG TAB PO SCH (08:03)
[2020-03-24] MEDS: SERTRALINE HCL 50 MG TAB PO SCH (08:03)
[2020-03-24] MEDS: atenoloL 25 MG TAB PO SCH (08:06)
[2020-03-24] MEDS: ramipriL 5 MG CAP PO SCH (08:06)
[2020-03-24] MEDS: ENOXAPARIN 40MG/0.4ML SYRINGE (J1650 PER 10MG) SC SCH (08:06)
[2020-03-24] MEDS: HumaLOG INSULIN (NovoLOG) PER UNIT SC SCH ×3 (08:07→17:37)
[2020-03-24 14:00] VITALS: BP 154/72
--- NOTE | 2020-03-24 15:18 | IPNPDOC ---
Date Seen The patient was seen on 03/24/20. Progress Note SUBJECTIVE: doing well, no acute events overnight. Advanced dementia, speaking in full sentences, but does not answer appropriately. Denies pain, discomfort. OBJECTIVE PHYSICAL EXAMINATION: VITAL SIGNS: Please see below. HEENT: LUIS MANUEL. CARDIOVASCULAR: RRR, normal S1, S2. LUNGS: CTAB, no rales, no wheezes. ABDOMEN: soft, non tender. MUSCULOSKELETAL: low back pain, mildly tender to palpation at T12. EXTREMITIES: no deformity. NEUROLOGICAL: moving all 4 extremities, no focal deficits. PSYCHIATRIC: confused, not followin commands, advanced dementia. LABORATORY DATA: See below. DVT prophylaxis ordered?: Y ASSESSMENT: 70 yo F with a hx of advanced Alzheimer's dementia, uncontrolled DM2, HTN, history of falls. She lives at home with 24 hour care from home health agency. Admitted with AMS, hyperglycemia, T12 compression fx. PLAN: 1. AMS: HHS vs infection. Improved after insulin, treatment of candidiasis. CXR wnl. Check UA. Sitter overnight. 2. Hypergycemia: ISS. A1c 11.9. Start levemir 10 units qhs. 3. HTN: home meds 4. Compression fracture: suspected T12 vertebral compression fx. PT/OT, will re- eval in am. 5. Alzheimer's Dementia: resume home meds. 6. Candidal vulvovagitinis: continue miconazole ointment. 7. hypothyroid: TSH 28. Increase dose of synthroid to 125 mcg per day. PCP repeat TFTs. 8. Hypoxemia on ABG: pO2 43.5. SpO2 on RA consistently above 96%. Likely venous sample. No dyspnea, no use of respiratory accessory muslces. Monitor saturation, titrate O2 based on SpO2. No supplemental O2 at this time. DVT ppx: lovenox 40 mg sc. Dispo: PT/OT eval. Likely return to home with services. VS, I&O, 24H, [place] Vital Signs/I&O Vital Signs Date Time Temp Pulse Resp B/P (MAP) Pulse Ox O2 Delivery O2 Flow Rate FiO2 03/24/20 14:00 98.2 62 20 154/72 (99) 97 Room Air I&O- Last 24 Hours up to 6 AM 03/24/20 06:00 Intake Total 1366 ml Output Total 650 ml Balance 716 ml Laboratory Data 24H LABS Laboratory Tests 2 03/24/20 05:22: Immature Granulocyte % (Auto) 0.5, Neutrophils (%) (Auto) 68.0H, Lymphocytes (%) (Auto) 14.0L, Monocytes (%) (Auto) 12.5H, Eosinophils (%) (Auto) 4.3H, Basophils (%) (Auto) 0.7, Neutrophils # (Auto) 6.0, Lymphocytes # (Auto) 1.2L, Monocytes # (Auto) 1.1H, Eosinophils # (Auto) 0.4, Basophils # (Auto) 0.1, Nucleated Red Blood Cells % (auto) 0.0, Anion Gap 5L, Glomerular Filtration Rate > 60.0, Calcium Level 7.9L, Total Bilirubin 0.9, Aspartate Amino Transf (AST/SGOT) 40H, Alanine Aminotransferase (ALT/SGPT) 40, Alkaline Phosphatase 98, Total Protein 6.0L, Albumin 3.2, Albumin/Globulin Ratio 1.1L 03/24/20 06:00: Estimated Mean Plasma Glucose 295H, Hemoglobin A1c 11.9 03/24/20 06:05: Blood Gas Bicarbonate Standard 24.0, Arterial Blood pH 7.421, Arterial Blood Partial Pressure CO2 37.8, Arterial Blood Partial Pressure O2 43.5*L, Arterial Blood Total CO2 25.2, Arterial Blood HCO3 24.0, Arterial Blood Base Excess -0.2, Arterial Blood Oxygen Saturation 80.2L CBC/BMP Laboratory Tests 03/24/20 05:22 DEB DUGGAN MD Mar 24, 2020 15:18
[2020-03-24] MEDS: buPROPion **XL** TABLET 150MG (WELLBUTRIN XL) PO SCH (16:23)
[2020-03-24] MEDS: cefTRIAXone SOD 1 GM in D5W MINI-BAG PLUS 50 ML IV SCH (17:38)
[2020-03-24] MEDS: LEVEMIR (INSULIN DETEMIR) 1 UNITS/0.01ML SC SCH (21:25)
[2020-03-24] MEDS: MICONAZOLE-7 VAGINAL 2% CREAM 47.7 GM PV SCH (21:26)
[2020-03-24 22:00] VITALS: BP 131/72
[2020-03-24] MEDS ORDERED: diphenhydrAMINE 25MG CAP PO ONE (23:30)
[2020-03-24] MEDS ORDERED: FLUCONAZOLE 100 MG TAB PO ONE (23:30)
[2020-03-25] MEDS: LEVOTHYROXINE 125MCG TABLET (0.125MG) PO SCH (05:58)
[2020-03-25] MEDS: NS 1,000 ML IV SCH ×3 (05:58→20:31)
[2020-03-25 06:00] VITALS: BP 126/70
[2020-03-25] MEDS: HumaLOG INSULIN (NovoLOG) PER UNIT SC SCH ×4 (07:30→17:29)
[2020-03-25 08:12] LABS: BASO # 0.1 10^3/uL (0.0-0.2); BASO % 0.7 % (0.0-1.0); EOS # 0.3 10^3/uL (0.0-0.5); HEMOGLOBIN 13.8 g/dl (12.0-15.5); LYMPH # 1.6 10^3/uL (1.5-5.0); LYMPH % 15.1 % (24.0-44.0); MEAN CORPUSCULAR HEMOGLOBIN 29.4 pg (27.0-33.0); MEAN CORPUSCULAR HGB CONC 32.1 g/dl (32.0-36.5); MEAN CORPUSCULAR VOLUME 91.7 fl (80.0-96.0); MONO # 1.4 10^3/uL (0.0-0.8); NEUTROPHILS # 7.1 10^3/uL (1.5-8.5); NEUTROPHILS % 67.8 % (36.0-66.0); PLATELET COUNT, AUTOMATED 222 10^3/uL (150-450); RED BLOOD COUNT 4.69 10^6/uL (4.00-5.40); WHITE BLOOD COUNT 10.4 10^3/uL (4.0-10.0)
[2020-03-25 08:54] LABS: ALBUMIN 3.3 GM/DL (3.2-5.2); ALT/SGPT 42 U/L (12-78); BILIRUBIN,TOTAL 0.7 MG/DL (0.2-1.0); BLOOD UREA NITROGEN 7 MG/DL (7-18); CALCIUM LEVEL 8.4 MG/DL (8.8-10.2); CARBON DIOXIDE LEVEL 30 MEQ/L (21-32); CHLORIDE LEVEL 103 MEQ/L (98-107); CREATININE FOR GFR 0.58 MG/DL (0.55-1.30); GLOMERULAR FILTRATION RATE > 60.0 (>39); GLUCOSE, FASTING 110 MG/DL (70-100); POTASSIUM SERUM 3.5 MEQ/L (3.5-5.1); SODIUM LEVEL 139 MEQ/L (136-145); TOTAL PROTEIN 6.5 GM/DL (6.4-8.2)
[2020-03-25] MEDS: ASCORBIC ACID 500 MG TAB PO SCH (08:55)
[2020-03-25] MEDS: SERTRALINE HCL 50 MG TAB PO SCH (08:55)
[2020-03-25] MEDS: ASPIRIN 81 MG ENTERIC TAB PO SCH (08:55)
[2020-03-25] MEDS: atenoloL 25 MG TAB PO SCH (08:55)
[2020-03-25] MEDS: ramipriL 5 MG CAP PO SCH (08:56)
[2020-03-25] MEDS: DOCUSATE SODIUM 100 MG CAP PO SCH ×2 (08:56→20:30)
[2020-03-25] MEDS: ATORVASTATIN 20 MG TAB PO SCH (08:56)
[2020-03-25] MEDS: ENOXAPARIN 40MG/0.4ML SYRINGE (J1650 PER 10MG) SC SCH (08:57)
[2020-03-25 14:00] VITALS: BP 109/53
[2020-03-25] MEDS: buPROPion **XL** TABLET 150MG (WELLBUTRIN XL) PO SCH (16:14)
[2020-03-25] MEDS: cefTRIAXone SOD 1 GM in D5W MINI-BAG PLUS 50 ML IV SCH (17:31)
--- NOTE | 2020-03-25 19:40 | REPVR ---
PROCEDURE INFORMATION: Exam: CT Thoracic Spine Without Contrast Exam date and time: 03/25/2020 7:07 PM Age: 70 years old Clinical indication: Pain in thoracic spine; Additional info: T12 vertebral FX. Area of interest. Per ortho service TECHNIQUE: Imaging protocol: Computed tomography images of the thoracic spine without contrast. Radiation optimization: All CT scans at this facility use at least one of these dose optimization techniques: automated exposure control; mA and/or kV adjustment per patient size (includes targeted exams where dose is matched to clinical indication); or iterative reconstruction. COMPARISON: No relevant prior studies available. FINDINGS: Vertebrae: Mild dextroconvex scoliosis. Mild, non healed, either acute or subacute T12 inferior endplate compression fracture without osseous retropulsion. Mild, chronic T8 vertebral body height loss. Diffuse osseous demineralization. Discs/Spinal canal/Neural foramina: There is [id number] thoracic degenerative disc disease. Soft tissues: Unremarkable. Pleural space: Trace bilateral pleural effusions. Heart: There are coronary artery calcifications. IMPRESSION: Mild, non healed, either acute or subacute T12 inferior endplate compression fracture without osseous retropulsion. Electronically signed by: Alondra Nuñez On 03/25/2020 19:40:59 PM
[2020-03-25] MEDS: MICONAZOLE-7 VAGINAL 2% CREAM 47.7 GM PV SCH (20:31)
[2020-03-25] MEDS: LEVEMIR (INSULIN DETEMIR) 1 UNITS/0.01ML SC SCH (20:46)
--- NOTE | 2020-03-25 21:41 | IPNPDOC ---
Date Seen The patient was seen on 03/25/20. Progress Note Progress Note SUBJECTIVE: doing well, no acute events overnight. Advanced dementia, speaking in full sentences, answers to simple prompt.s. Denies pain, discomfort. OBJECTIVE PHYSICAL EXAMINATION: VITAL SIGNS: Please see below. HEENT: PERRLA. CARDIOVASCULAR: RRR, normal S1, S2. LUNGS: CTAB, no rales, no wheezes. ABDOMEN: soft, non tender. MUSCULOSKELETAL: low back pain, mildly tender to palpation at T12. EXTREMITIES: no deformity. NEUROLOGICAL: moving all 4 extremities, no focal deficits. PSYCHIATRIC: advanced dementia. LABORATORY DATA: See below. CT Thoracic Spine wo contrast IMPRESSION: Mild, non healed, either acute or subacute T12 inferior endplate compression fracture without osseous retropulsion. DVT prophylaxis ordered?: Y ASSESSMENT: 70 yo F with a hx of advanced Alzheimer's dementia, uncontrolled DM2, HTN, history of falls. She lives at home with 24 hour care from home health agency. Admitted with AMS, hyperglycemia, T12 compression fx. PLAN: 1. AMS: HHS vs infection. Improved after insulin, treatment of candidiasis. UA suggestive of UTI. CXR wnl 2. UTI: positive UA. Treating with ceftriaxone (Day 2). Follow up UCx. 3 Hypergycemia: ISS. A1c 11.9. Started levemir 10 units qhs. 4. HTN: home meds 5. Compression fracture: suspected T12 vertebral compression fx. Orthopedic surgery consulted. Dr. Alexandre, discussed. Requested CT thoracic spine wo contrast. Will see patient in am. PT/OT pending ortho consult. 6. Alzheimer's Dementia: resume home meds. 7. Candidal vulvovagitinis: continue miconazole ointment. 8. hypothyroid: TSH 28. Increase dose of synthroid to 125 mcg per day. PCP repeat TFTs. 9. Hypoxemia on ABG: pO2 43.5. SpO2 on RA consistently above 96%. Likely venous sample. No dyspnea, no use of respiratory accessory muslces. Monitor saturation, titrate O2 based on SpO2. No supplemental O2 at this time. DVT ppx: lovenox 40 mg sc. Dispo: PT/OT eval. Likely return to home with services. VS, I&O, 24H, Fishbone Vital Signs/I&O Vital Signs Date Time Temp Pulse Resp B/P (MAP) Pulse Ox O2 Delivery O2 Flow Rate FiO2 03/25/20 14:00 97.1 56 16 109/53 (71) 93 Room Air I&O- Last 24 Hours up to 6 AM 03/25/20 05:59 Intake Total 875 ml Output Total 700 ml Balance 175 ml Laboratory Data 24H LABS Laboratory Tests 2 03/25/20 06:46: Immature Granulocyte % (Auto) 0.4, Neutrophils (%) (Auto) 67.8H, Lymphocytes (%) (Auto) 15.1L, Monocytes (%) (Auto) 13.0H, Eosinophils (%) (Auto) 3.0, Basophils (%) (Auto) 0.7, Neutrophils # (Auto) 7.1, Lymphocytes # (Auto) 1.6, Monocytes # (Auto) 1.4H, Eosinophils # (Auto) 0.3, Basophils # (Auto) 0.1, Nucleated Red Blood Cells % (auto) 0.0, Anion Gap 6L, Glomerular Filtration Rate > 60.0, Calcium Level 8.4L, Total Bilirubin 0.7, Aspartate Amino Transf (AST/SGOT) 40H, Alanine Aminotransferase (ALT/SGPT) 42, Alkaline Phosphatase 100, Total Protein 6.5, Albumin 3.3, Albumin/Globulin Ratio 1.0L CBC/BMP Laboratory Tests 03/25/20 06:46 Microbiology Microbiology 03/24/20 Urine Culture, Received Pending DEB DUGGAN MD Mar 25, 2020 21:41
[2020-03-25 22:00] VITALS: BP 127/62
[2020-03-26] MEDS: LEVOTHYROXINE 125MCG TABLET (0.125MG) PO SCH (05:36)
[2020-03-26] MEDS: NS 1,000 ML IV SCH (05:36)
[2020-03-26 06:00] VITALS: BP 144/84
[2020-03-26 06:29] LABS: BASO # 0.1 10^3/uL (0.0-0.2); BASO % 0.7 % (0.0-1.0); EOS # 0.4 10^3/uL (0.0-0.5); EOS % 4.4 % (0.0-3.0); HEMATOCRIT 40.3 % (36.0-47.0); HEMOGLOBIN 13.4 g/dl (12.0-15.5); LYMPH # 1.5 10^3/uL (1.5-5.0); MEAN CORPUSCULAR HEMOGLOBIN 30.2 pg (27.0-33.0); MEAN CORPUSCULAR HGB CONC 33.3 g/dl (32.0-36.5); MONO # 1.3 10^3/uL (0.0-0.8); MONO % 14.6 % (0.0-5.0); NEUTROPHILS # 5.5 10^3/uL (1.5-8.5); PLATELET COUNT, AUTOMATED 232 10^3/uL (150-450); RED BLOOD COUNT 4.43 10^6/uL (4.00-5.40); WHITE BLOOD COUNT 8.7 10^3/uL (4.0-10.0)
[2020-03-26 06:59] LABS: ALT/SGPT 39 U/L (12-78); BILIRUBIN,TOTAL 0.5 MG/DL (0.2-1.0); BLOOD UREA NITROGEN 11 MG/DL (7-18); CALCIUM LEVEL 8.3 MG/DL (8.8-10.2); CARBON DIOXIDE LEVEL 28 MEQ/L (21-32); CHLORIDE LEVEL 105 MEQ/L (98-107); CREATININE FOR GFR 0.58 MG/DL (0.55-1.30); GLOMERULAR FILTRATION RATE > 60.0 (>39); GLUCOSE, FASTING 87 MG/DL (70-100); POTASSIUM SERUM 3.3 MEQ/L (3.5-5.1); SODIUM LEVEL 140 MEQ/L (136-145)
[2020-03-26] MEDS ORDERED: POTASSIUM CHLORIDE 10 MEQ SR TABLET PO ONE (08:00)
[2020-03-26] MEDS: HumaLOG INSULIN (NovoLOG) PER UNIT SC SCH ×3 (08:58→18:48)
[2020-03-26] MEDS: ASPIRIN 81 MG ENTERIC TAB PO SCH (10:50)
[2020-03-26] MEDS: ATORVASTATIN 20 MG TAB PO SCH (10:50)
[2020-03-26] MEDS: ENOXAPARIN 40MG/0.4ML SYRINGE (J1650 PER 10MG) SC SCH (10:50)
[2020-03-26] MEDS: DOCUSATE SODIUM 100 MG CAP PO SCH ×2 (10:50→20:07)
[2020-03-26] MEDS: ramipriL 5 MG CAP PO SCH (10:51)
[2020-03-26] MEDS: ASCORBIC ACID 500 MG TAB PO SCH (10:51)
[2020-03-26] MEDS: atenoloL 25 MG TAB PO SCH (10:52)
[2020-03-26] MEDS: SERTRALINE HCL 50 MG TAB PO SCH (10:54)
--- NOTE | 2020-03-26 13:06 | IPNPDOC ---
Text Note Date of Service The patient was seen on 03/26/20. NOTE SUBJECTIVE: No acute events overnight. Advanced dementia, speaking in full se ntences but mumbling and difficult to make sense. Does answer simple questions. Denies pain, discomfort. PHYSICAL EXAMINATION: VITAL SIGNS: Please see below. HEENT: PERRLA. CARDIOVASCULAR: RRR, normal S1, S2. Systolic murmur present. LUNGS: CTAB, no rales, no wheezes. ABDOMEN: soft, non tender. BS normal. MUSCULOSKELETAL: low back pain, mildly tender to palpation at T12. EXTREMITIES: no deformity. NEUROLOGICAL: moving all 4 extremities, no focal deficits. PSYCHIATRIC: advanced dementia. LABORATORY DATA: reviewed. CT Thoracic Spine wo contrast IMPRESSION: Mild, non healed, either acute or subacute T12 inferior endplate compression fracture without osseous retropulsion. DVT prophylaxis ordered?: Y ASSESSMENT: 70 yo F with a hx of advanced Alzheimer's dementia, uncontrolled DM2, HTN, history of falls. She lives at home with 24 hour care from home health agency. Admitted with AMS, hyperglycemia, T12 compression fx. Acute metabolic encephalopathy on the background of dementia: Probably due to UTI and mild dehydration from high sugars. Improved after antibiotics. IVf and insulin. Now mental status close to baseline. UTI: E. coli. Treating with ceftriaxone (Day 3). Hyperglycemia: ISS. A1c 11.9. Started levemir 10 units qhs. HTN: home meds Compression fracture: T12 vertebral compression fx. Acute vs subacute.Orthopedic surgery consulted. Dr. Alexandre, discussed. PT/OT pending ortho consult. Alzheimer's Dementia: resume home meds. Candidal vulvovagitinis: continue miconazole ointment. Hypothyroid: TSH 28. Increase dose of synthroid to 125 mcg per day. PCP repeat TFTs. DVT ppx: lovenox 40 mg sc. Dispo: PT/OT eval. Likely return to home with services. VS,Fishbone, I+O VS, Fishbone, I+O Laboratory Tests 03/26/20 05:15 03/26/20 05:27 Vital Signs Date Time Temp Pulse Resp B/P (MAP) Pulse Ox O2 Delivery O2 Flow Rate FiO2 03/26/20 10:52 58 144/84 03/26/20 06:00 98.1 16 93 Room Air I&O- Last 24 Hours up to 6 AM 8/25/20 06:00 Intake Total 2900 ml Balance 2900 ml MARIO ALBERTO SCOTT MD Mar 26, 2020 13:06
[2020-03-26 14:00] VITALS: BP 146/82
[2020-03-26] MEDS: buPROPion **XL** TABLET 150MG (WELLBUTRIN XL) PO SCH (16:25)
[2020-03-26] MEDS: cefTRIAXone SOD 1 GM in D5W MINI-BAG PLUS 50 ML IV SCH (18:48)
[2020-03-26] MEDS: MICONAZOLE-7 VAGINAL 2% CREAM 47.7 GM PV SCH (20:08)
[2020-03-26] MEDS: LEVEMIR (INSULIN DETEMIR) 1 UNITS/0.01ML SC SCH (20:11)
[2020-03-26 22:00] VITALS: BP 140/76
[2020-03-26] MEDS ORDERED: RAMELTEON 8 MG TAB (ROZEREM) PO ONE (23:00)
[2020-03-27] MEDS: LEVOTHYROXINE 125MCG TABLET (0.125MG) PO SCH (05:50)
[2020-03-27 06:00] VITALS: BP 136/72
[2020-03-27 07:06] LABS: HEMATOCRIT 41.3 % (36.0-47.0); HEMOGLOBIN 13.7 g/dl (12.0-15.5); MEAN CORPUSCULAR HEMOGLOBIN 30.1 pg (27.0-33.0); MEAN CORPUSCULAR HGB CONC 33.2 g/dl (32.0-36.5); MEAN CORPUSCULAR VOLUME 90.8 fl (80.0-96.0); PLATELET COUNT, AUTOMATED 259 10^3/uL (150-450); RED BLOOD COUNT 4.55 10^6/uL (4.00-5.40); WHITE BLOOD COUNT 8.6 10^3/uL (4.0-10.0)
[2020-03-27 07:17] LABS: BLOOD UREA NITROGEN 13 MG/DL (7-18); CALCIUM LEVEL 8.2 MG/DL (8.8-10.2); CARBON DIOXIDE LEVEL 29 MEQ/L (21-32); CHLORIDE LEVEL 104 MEQ/L (98-107); CREATININE FOR GFR 0.67 MG/DL (0.55-1.30); GLOMERULAR FILTRATION RATE > 60.0 (>39); GLUCOSE, FASTING 134 MG/DL (70-100); POTASSIUM SERUM 3.7 MEQ/L (3.5-5.1); SODIUM LEVEL 138 MEQ/L (136-145)
[2020-03-27] MEDS: HumaLOG INSULIN (NovoLOG) PER UNIT SC SCH ×3 (10:05→17:37)
[2020-03-27] MEDS: ENOXAPARIN 40MG/0.4ML SYRINGE (J1650 PER 10MG) SC SCH (10:05)
[2020-03-27] MEDS: DOCUSATE SODIUM 100 MG CAP PO SCH ×2 (10:12→22:17)
[2020-03-27] MEDS: SERTRALINE HCL 50 MG TAB PO SCH (10:12)
[2020-03-27] MEDS: ramipriL 5 MG CAP PO SCH (10:12)
[2020-03-27] MEDS: ASPIRIN 81 MG ENTERIC TAB PO SCH (10:13)
[2020-03-27] MEDS: CEFDINIR 300 MG CAP (OMNICEF) PO SCH ×2 (10:13→22:16)
[2020-03-27] MEDS: ATORVASTATIN 20 MG TAB PO SCH (10:13)
[2020-03-27] MEDS: ASCORBIC ACID 500 MG TAB PO SCH (10:13)
[2020-03-27] MEDS: atenoloL 25 MG TAB PO SCH (10:13)
[2020-03-27] MEDS: MOM 30ML SUSPENSION UDC PO PRN (10:14)
--- NOTE | 2020-03-27 13:36 | IPNPDOC ---
Text Note Date of Service The patient was seen on 03/27/20. NOTE SUBJECTIVE: No acute events overnight. Advanced dementia, working with PT. As per family was ambulating without walker at home prior to admission. She does need help with all her ADLS at home. PHYSICAL EXAMINATION: VITAL SIGNS: Please see below. HEENT: PERRLA. CARDIOVASCULAR: RRR, normal S1, S2. Systolic murmur present. LUNGS: CTAB, no rales, no wheezes. ABDOMEN: soft, non tender. BS normal. MUSCULOSKELETAL: low back pain, mildly tender to palpation at T12. EXTREMITIES: no deformity. NEUROLOGICAL: moving all 4 extremities, no focal deficits. PSYCHIATRIC: advanced dementia. LABORATORY DATA: reviewed. CT Thoracic Spine wo contrast IMPRESSION: Mild, non healed, either acute or subacute T12 inferior endplate compression fracture without osseous retropulsion. ASSESSMENT: 70 yo F with a hx of advanced Alzheimer's dementia, uncontrolled DM2, HTN, history of falls. She lives at home with 24 hour care from home health agency. Admitted with AMS, hyperglycemia, T12 compression fx. Acute metabolic encephalopathy on the background of dementia: Probably due to UTI and mild dehydration from high sugars. Improved after antibiotics. IVf and insulin. Now mental status close to baseline. UTI: E. coli. ceftriaxone -- Cefdinir. Diabetes with uncontrolled Hyperglycemia: A1c 11.9. Started levemir will start on glipizide and stop lispro. HTN: home meds atenolol and ramipril HLD: statin Compression fracture: T12 vertebral compression fx. Acute vs subacute. appreciate Dr Alexandre's input. Alzheimer's Dementia: resume home meds. On sertraline and wellbutrin. Candidal vulvovagitinis: continue miconazole ointment. Hypothyroid: TSH 28. Increased dose of synthroid to 125 mcg per day. PCP repeat TFTs. DVT ppx: lovenox 40 mg sc. Dispo: likely will need rehab prior to home VS,Fishbone, I+O VS, Fishbone, I+O Laboratory Tests 03/27/20 06:00 Vital Signs Date Time Temp Pulse Resp B/P (MAP) Pulse Ox O2 Delivery O2 Flow Rate FiO2 03/27/20 10:13 60 03/27/20 10:12 145/75 03/27/20 06:00 98.5 17 96 Room Air I&O- Last 24 Hours up to 6 AM 03/27/20 06:00 Intake Total 1230 ml Balance 1230 ml MARIO ALBERTO SCOTT MD Mar 27, 2020 13:36
[2020-03-27 14:00] VITALS: BP 138/74
[2020-03-27] MEDS: buPROPion **XL** TABLET 150MG (WELLBUTRIN XL) PO SCH (16:18)
[2020-03-27 22:00] VITALS: BP 114/91
[2020-03-27] MEDS: LEVEMIR (INSULIN DETEMIR) 1 UNITS/0.01ML SC SCH (22:17)
[2020-03-27] MEDS: MICONAZOLE-7 VAGINAL 2% CREAM 47.7 GM PV SCH (22:17)
[2020-03-28] MEDS: LEVOTHYROXINE 125MCG TABLET (0.125MG) PO SCH (05:35)
[2020-03-28 06:00] VITALS: BP 115/67
[2020-03-28 06:49] LABS: HEMATOCRIT 42.6 % (36.0-47.0); HEMOGLOBIN 13.8 g/dl (12.0-15.5); MEAN CORPUSCULAR HEMOGLOBIN 29.9 pg (27.0-33.0); MEAN CORPUSCULAR HGB CONC 32.4 g/dl (32.0-36.5); MEAN CORPUSCULAR VOLUME 92.4 fl (80.0-96.0); PLATELET COUNT, AUTOMATED 266 10^3/uL (150-450); RED BLOOD COUNT 4.61 10^6/uL (4.00-5.40); WHITE BLOOD COUNT 7.6 10^3/uL (4.0-10.0)
[2020-03-28 07:16] LABS: BLOOD UREA NITROGEN 19 MG/DL (7-18); CALCIUM LEVEL 8.8 MG/DL (8.8-10.2); CARBON DIOXIDE LEVEL 30 MEQ/L (21-32); CHLORIDE LEVEL 103 MEQ/L (98-107); CREATININE FOR GFR 0.77 MG/DL (0.55-1.30); GLOMERULAR FILTRATION RATE > 60.0 (>39); GLUCOSE, FASTING 136 MG/DL (70-100); SODIUM LEVEL 138 MEQ/L (136-145)
[2020-03-28] MEDS: glipiZIDE *2.5MG* 1/2 TABLET PO SCH ×2 (07:30→16:12)
[2020-03-28] MEDS ORDERED: glipiZIDE (GLUCOTROL) 5 MG TAB PO SCH (09:00)
[2020-03-28] MEDS: atenoloL 25 MG TAB PO SCH (09:00)
[2020-03-28] MEDS ORDERED: DOCUSATE SOD LIQ 100MG/10ML UDC GT SCH (09:00)
[2020-03-28] MEDS: DOCUSATE SODIUM 100 MG CAP PO SCH (09:00)
[2020-03-28] MEDS: MOM 30ML SUSPENSION UDC PO PRN (09:50)
[2020-03-28] MEDS: SERTRALINE HCL 50 MG TAB PO SCH (09:50)
[2020-03-28] MEDS: CEFDINIR 300 MG CAP (OMNICEF) PO SCH ×2 (09:50→22:19)
[2020-03-28] MEDS: ASPIRIN 81 MG ENTERIC TAB PO SCH (09:50)
[2020-03-28] MEDS: ramipriL 5 MG CAP PO SCH (09:50)
[2020-03-28] MEDS: ASCORBIC ACID 500 MG TAB PO SCH (09:50)
[2020-03-28] MEDS: ATORVASTATIN 20 MG TAB PO SCH (09:50)
[2020-03-28] MEDS: ENOXAPARIN 40MG/0.4ML SYRINGE (J1650 PER 10MG) SC SCH (09:51)
[2020-03-28] MEDS: DOCUSATE SOD LIQ 100MG/10ML UDC PO SCH ×2 (11:34→22:19)
[2020-03-28] MEDS ORDERED: ONDANSETRON 4 MG ORAL DISINTEGRATING TAB PO PRN (12:30)
[2020-03-28] MEDS: buPROPion **XL** TABLET 150MG (WELLBUTRIN XL) PO SCH (16:14)
[2020-03-28] MEDS ORDERED: QUEtiapine FUMARATE 25 MG TAB PO ONE (18:45)
[2020-03-28] MEDS ORDERED: LEVEMIR (INSULIN DETEMIR) 1 UNITS/0.01ML SC SCH (21:00)
[2020-03-28] MEDS: MICONAZOLE-7 VAGINAL 2% CREAM 47.7 GM PV SCH (22:08)
[2020-03-28] MEDS: LEVEMIR (INSULIN DETEMIR) 1 UNITS/0.01ML SC SCH (22:12)
[2020-03-29 06:00] VITALS: BP 124/72
[2020-03-29] MEDS: LEVOTHYROXINE 125MCG TABLET (0.125MG) PO SCH (06:08)
[2020-03-29] MEDS: atenoloL 25 MG TAB PO SCH ×2 (09:00→10:07)
[2020-03-29] MEDS: ramipriL 5 MG CAP PO SCH (10:06)
[2020-03-29] MEDS: DOCUSATE SOD LIQ 100MG/10ML UDC PO SCH ×2 (10:06→23:44)
[2020-03-29] MEDS: glipiZIDE *2.5MG* 1/2 TABLET PO SCH ×2 (10:06→17:38)
[2020-03-29] MEDS: ASPIRIN 81 MG ENTERIC TAB PO SCH (10:07)
[2020-03-29] MEDS: SERTRALINE HCL 50 MG TAB PO SCH (10:07)
[2020-03-29] MEDS: ASCORBIC ACID 500 MG TAB PO SCH (10:07)
[2020-03-29] MEDS: ATORVASTATIN 20 MG TAB PO SCH (10:07)
[2020-03-29] MEDS: ENOXAPARIN 40MG/0.4ML SYRINGE (J1650 PER 10MG) SC SCH (10:08)
[2020-03-29] MEDS: buPROPion **XL** TABLET 150MG (WELLBUTRIN XL) PO SCH (17:38)
[2020-03-29] MEDS: MICONAZOLE-7 VAGINAL 2% CREAM 47.7 GM PV SCH (23:45)
[2020-03-29] MEDS: LEVEMIR (INSULIN DETEMIR) 1 UNITS/0.01ML SC SCH (23:45)
[2020-03-30] MEDS: LEVOTHYROXINE 125MCG TABLET (0.125MG) PO SCH (05:51)
[2020-03-30 06:00] VITALS: BP 129/74
[2020-03-30] MEDS: QUEtiapine FUMARATE 12.5 MG HALF-TAB PO SCH ×2 (09:00→23:49)
[2020-03-30] MEDS: ATORVASTATIN 20 MG TAB PO SCH (10:00)
[2020-03-30] MEDS: ASPIRIN 81 MG ENTERIC TAB PO SCH (10:00)
[2020-03-30] MEDS: glipiZIDE *2.5MG* 1/2 TABLET PO SCH ×2 (10:00→17:57)
[2020-03-30] MEDS: atenoloL 25 MG TAB PO SCH (10:03)
[2020-03-30] MEDS: SERTRALINE HCL 50 MG TAB PO SCH (10:04)
[2020-03-30] MEDS: ASCORBIC ACID 500 MG TAB PO SCH (10:04)
[2020-03-30] MEDS: ENOXAPARIN 40MG/0.4ML SYRINGE (J1650 PER 10MG) SC SCH (10:04)
[2020-03-30] MEDS: ramipriL 5 MG CAP PO SCH (10:04)
[2020-03-30] MEDS: DOCUSATE SOD LIQ 100MG/10ML UDC PO SCH ×2 (10:04→23:51)
[2020-03-30] MEDS: buPROPion **XL** TABLET 150MG (WELLBUTRIN XL) PO SCH (17:56)
[2020-03-30] MEDS: RAMELTEON 8 MG TAB (ROZEREM) PO SCH (23:49)
[2020-03-30] MEDS: LEVEMIR (INSULIN DETEMIR) 1 UNITS/0.01ML SC SCH (23:50)
[2020-03-30] MEDS: ACETAMINOPHEN 650MG ER TAB (TYLENOL ARTHRITIS) PO SCH (23:50)
[2020-03-31] MEDS: ACETAMINOPHEN 650MG ER TAB (TYLENOL ARTHRITIS) PO SCH (05:34)
[2020-03-31] MEDS: LEVOTHYROXINE 125MCG TABLET (0.125MG) PO SCH (05:46)
[2020-03-31 06:00] VITALS: BP 153/72
[2020-03-31] MEDS: glipiZIDE *2.5MG* 1/2 TABLET PO SCH ×2 (09:25→18:13)
[2020-03-31] MEDS: ramipriL 5 MG CAP PO SCH (09:26)
[2020-03-31] MEDS: ASCORBIC ACID 500 MG TAB PO SCH (09:26)
[2020-03-31] MEDS: ATORVASTATIN 20 MG TAB PO SCH (09:28)
[2020-03-31] MEDS: atenoloL 25 MG TAB PO SCH (09:28)
[2020-03-31] MEDS: ASPIRIN 81 MG ENTERIC TAB PO SCH (09:28)
[2020-03-31] MEDS: SERTRALINE HCL 50 MG TAB PO SCH (09:28)
[2020-03-31] MEDS: QUEtiapine FUMARATE 12.5 MG HALF-TAB PO SCH ×2 (09:28→21:53)
[2020-03-31] MEDS: ENOXAPARIN 40MG/0.4ML SYRINGE (J1650 PER 10MG) SC SCH (09:28)
[2020-03-31] MEDS: DOCUSATE SOD LIQ 100MG/10ML UDC PO SCH ×2 (09:28→21:53)
[2020-03-31] MEDS: buPROPion 75 MG TAB PO SCH (21:53)
[2020-03-31] MEDS: ACETAMINOPHEN 500 MG TAB PO SCH (21:54)
[2020-03-31] MEDS: RAMELTEON 8 MG TAB (ROZEREM) PO SCH (21:54)
[2020-03-31] MEDS: LEVEMIR (INSULIN DETEMIR) 1 UNITS/0.01ML SC SCH (21:54)
[2020-04-01] MEDS: LEVOTHYROXINE 125MCG TABLET (0.125MG) PO SCH (05:44)
[2020-04-01 06:00] VITALS: BP 141/76
[2020-04-01] MEDS: DOCUSATE SOD LIQ 100MG/10ML UDC PO SCH ×2 (08:50→21:47)
[2020-04-01] MEDS: ENOXAPARIN 40MG/0.4ML SYRINGE (J1650 PER 10MG) SC SCH (08:51)
[2020-04-01] MEDS: ASCORBIC ACID 500 MG TAB PO SCH (08:51)
[2020-04-01] MEDS: ASPIRIN 81 MG ENTERIC TAB PO SCH (08:51)
[2020-04-01] MEDS: atenoloL 25 MG TAB PO SCH (08:51)
[2020-04-01] MEDS: ATORVASTATIN 20 MG TAB PO SCH (08:52)
[2020-04-01] MEDS: ACETAMINOPHEN 500 MG TAB PO SCH ×2 (08:52→21:48)
[2020-04-01] MEDS: ramipriL 5 MG CAP PO SCH (09:02)
[2020-04-01] MEDS: glipiZIDE *2.5MG* 1/2 TABLET PO SCH ×2 (09:02→17:54)
[2020-04-01] MEDS: buPROPion 75 MG TAB PO SCH ×2 (09:02→21:48)
[2020-04-01] MEDS: SERTRALINE HCL 50 MG TAB PO SCH (09:03)
[2020-04-01] MEDS: QUEtiapine FUMARATE 12.5 MG HALF-TAB PO SCH ×2 (09:03→21:48)
[2020-04-01] MEDS: RAMELTEON 8 MG TAB (ROZEREM) PO SCH (21:48)
[2020-04-01] MEDS: LEVEMIR (INSULIN DETEMIR) 1 UNITS/0.01ML SC SCH (21:49)
[2020-04-02] MEDS: LEVOTHYROXINE 125MCG TABLET (0.125MG) PO SCH (05:52)
[2020-04-02 06:00] VITALS: BP 130/81
[2020-04-02] MEDS: ASCORBIC ACID 500 MG TAB PO SCH (08:22)
[2020-04-02] MEDS: glipiZIDE *2.5MG* 1/2 TABLET PO SCH ×2 (08:22→17:43)
[2020-04-02] MEDS: DOCUSATE SOD LIQ 100MG/10ML UDC PO SCH ×2 (08:23→21:26)
[2020-04-02] MEDS: QUEtiapine FUMARATE 12.5 MG HALF-TAB PO SCH ×2 (08:23→21:26)
[2020-04-02] MEDS: buPROPion 75 MG TAB PO SCH ×2 (08:24→21:27)
[2020-04-02] MEDS: ATORVASTATIN 20 MG TAB PO SCH (08:24)
[2020-04-02] MEDS: ASPIRIN 81 MG ENTERIC TAB PO SCH (08:24)
[2020-04-02] MEDS: SERTRALINE HCL 50 MG TAB PO SCH (08:24)
[2020-04-02] MEDS: ACETAMINOPHEN 500 MG TAB PO SCH ×2 (08:27→21:27)
[2020-04-02] MEDS: atenoloL 25 MG TAB PO SCH (08:30)
[2020-04-02] MEDS: ramipriL 5 MG CAP PO SCH (08:34)
[2020-04-02] MEDS: ENOXAPARIN 40MG/0.4ML SYRINGE (J1650 PER 10MG) SC SCH (08:34)
[2020-04-02] MEDS: RAMELTEON 8 MG TAB (ROZEREM) PO SCH (21:27)
[2020-04-02] MEDS: LEVEMIR (INSULIN DETEMIR) 1 UNITS/0.01ML SC SCH (21:28)
[2020-04-03] MEDS: LEVOTHYROXINE 125MCG TABLET (0.125MG) PO SCH (05:41)
[2020-04-03 06:00] VITALS: BP 130/70
[2020-04-03] MEDS: SERTRALINE HCL 50 MG TAB PO SCH (09:01)
[2020-04-03] MEDS: ACETAMINOPHEN 500 MG TAB PO SCH ×2 (09:02→21:11)
[2020-04-03] MEDS: atenoloL 25 MG TAB PO SCH (09:02)
[2020-04-03] MEDS: ASPIRIN 81 MG ENTERIC TAB PO SCH (09:03)
[2020-04-03] MEDS: ASCORBIC ACID 500 MG TAB PO SCH (09:03)
[2020-04-03] MEDS: ATORVASTATIN 20 MG TAB PO SCH (09:03)
[2020-04-03] MEDS: MOM 30ML SUSPENSION UDC PO PRN (09:04)
[2020-04-03] MEDS: DOCUSATE SOD LIQ 100MG/10ML UDC PO SCH ×2 (09:04→21:09)
[2020-04-03] MEDS: ENOXAPARIN 40MG/0.4ML SYRINGE (J1650 PER 10MG) SC SCH (09:04)
[2020-04-03] MEDS: QUEtiapine FUMARATE 12.5 MG HALF-TAB PO SCH ×2 (09:09→21:10)
[2020-04-03] MEDS: glipiZIDE *2.5MG* 1/2 TABLET PO SCH ×2 (09:09→17:43)
[2020-04-03] MEDS: ramipriL 5 MG CAP PO SCH (09:10)
[2020-04-03] MEDS: buPROPion 75 MG TAB PO SCH ×2 (09:16→21:10)
[2020-04-03] MEDS: RAMELTEON 8 MG TAB (ROZEREM) PO SCH (21:10)
[2020-04-03] MEDS: LEVEMIR (INSULIN DETEMIR) 1 UNITS/0.01ML SC SCH (21:12)
[2020-04-04 06:00] VITALS: BP 104/58
[2020-04-04] MEDS: LEVOTHYROXINE 125MCG TABLET (0.125MG) PO SCH (06:08)
[2020-04-04 08:17] VITALS: BP 129/65
[2020-04-04] MEDS: SERTRALINE HCL 50 MG TAB PO SCH (08:26)
[2020-04-04] MEDS: ASCORBIC ACID 500 MG TAB PO SCH (08:27)
[2020-04-04] MEDS: buPROPion 75 MG TAB PO SCH (08:27)
[2020-04-04] MEDS: QUEtiapine FUMARATE 12.5 MG HALF-TAB PO SCH (08:27)
[2020-04-04] MEDS: ATORVASTATIN 20 MG TAB PO SCH (08:27)
[2020-04-04] MEDS: glipiZIDE *2.5MG* 1/2 TABLET PO SCH (08:28)
[2020-04-04] MEDS: ramipriL 5 MG CAP PO SCH (08:28)
[2020-04-04] MEDS: ACETAMINOPHEN 500 MG TAB PO SCH (08:28)
[2020-04-04] MEDS: ENOXAPARIN 40MG/0.4ML SYRINGE (J1650 PER 10MG) SC SCH (08:29)
[2020-04-04] MEDS: DOCUSATE SOD LIQ 100MG/10ML UDC PO SCH (08:29)
[2020-04-04 08:30] VITALS: BP 129/65
[2020-04-04] MEDS: ASPIRIN 81 MG ENTERIC TAB PO SCH (08:30)
[2020-04-04] MEDS: atenoloL 25 MG TAB PO SCH (08:30)
--- NOTE | 2020-04-04 09:45 | CR ---
DATE: 03/23/2020 INDICATION: T12 compression fracture. HISTORY OF PRESENT ILLNESS: Patient is a 70-year-old female with significant dementia, who sustained a fall. She was having complaints of back pain and brought to the Emergency Department. She lives at home with some aids that come in. History was obtained from the daughter. X-rays of the hip and lumbar spine in the Emergency Department revealed no fractures of the hip, but there was a mild compression fracture at T12, which appears acute. The ER physician felt that the patient was too agitated to sit through a CT scan. When I spoke to the patient, she was not answering questions appropriately, but she was pleasant. I am unable to ascertain if she is having pain, although she does deny it at this time. She denies numbness and tingling in her legs. For the patient's full past medical history, past surgical history, medications, allergies, social history and review of systems; please see the admitting hospitalist H&P. PHYSICAL EXAMINATION: GENERAL: An elderly female, in no distress. She is not oriented to person, place or time. She is pleasant. CARDIOVASCULAR: 2+ DP pulse. PULMONARY: Non-labored breathing. ABDOMEN: Nondistended. MUSCULOSKELETAL: Patient will wiggle her toes and her ankles, but unable to score her motor strength due to inability to follow precise commands. Patient refused to allow me to palpate the lumbar spine spinous processes. Unable to assess sensation to light touch, although patient does react to light touch, so this is presumed to be at least grossly intact. IMAGING STUDIES: X-rays of the hip and lumbar spine were obtained in the ER; available for my review. No fractures of the hip. There is a mild compression fracture at T12 with no obvious retropulsion. IMPRESSION & PLAN: Lydia has a T12 compression fracture. I discussed the situation with the patient's daughter, who is her healthcare proxy. In this situation, there will be collapse of the T12 vertebral body whether we brace or not, but most likely less collapse with the brace. That being said, the appropriate brace in his case would be a TLSO and the daughter thinks it is going to be a huge struggle to get the patient to keep the brace on, which is what I was afraid she would say. So really big picture, since the patient does not normally use any assistive devices, she will have to use a walker and she can weight bear as tolerated. She can ambulate without a brace as long as her pain is controlled. If patient is having severe pain and inability to mobilize, we would then order a TLSO. I recommended to the daughter that the patient follow-up in the [facility] with either Giuseppe or Kelvin, our PAs, within 7-10 days for a repeat x-ray of the lumbar and thoracic spine and we can assess if there is any significant collapse. If the patient is refusing a brace and there is no significant change, I think we can just closely follow this every two weeks with x-rays, however if there is significant collapse, then we would have to try a brace at that point. The daughter is fully on board with that plan. She understands the rationale for not immediately starting with the brace. She also understands and accepts that if the patient falls without a brace, there is a higher risk for further injury. Patient will remain under the care of the hospitalist. She can be discharged to rehab or [facility] per social worker masters and physical therapy recommendations. Again, weightbearing as tolerated with a walker. If the patient currently is not taking any Vitamin D, she should take 5,000 units daily for the next three months. She should be screened for osteoporosis by her primary care provider and treated as indicated. If there are any further concerns, please re-consult the on-call orthopedic physician. JAMA
--- NOTE | 2020-04-04 09:56 | CR ---
DATE: 03/26/2020 CHIEF COMPLAINT: T12 compression fracture. HISTORY OF PRESENT ILLNESS: A 70-year-old female with a past history of advanced Alzheimers dementia. Per the hospitalist notes, she had a number of falls and normally gets 24-hour care from a home health agency. Her son was not at the bedside the first thing when I saw her. PAST MEDICAL HISTORY: Includes advanced Alzheimers dementia, type 2 diabetes, hypertension, hypothyroidism. MEDICATIONS: Include Vitamin C, ASA, Atenolol, Atorvastatin, Bupropion, Levothyroxine, Amantadine, Quetiapine, Ramipril, Sertraline, Vitamin B. ALLERGIES: Sulfa and Metformin. SOCIAL HISTORY: Former smoker, no ETOH use. She lives at home, receives 24-hour care. PHYSICAL EXAMINATION: A 70-year-old female in no acute distress. She is lying supine in bed. She arouses easily. She responds to questioning, but inappropriately. She is able to follow some directions. There is no pain with palpation in the cervical, thoracic or lumbar spine. No obvious gaps. No obvious bruising. Normal sensation throughout the lower extremities. L2 to S1 normal sensation she states. She has normal motor function L2 to S1, and 5/5 strength. Plantars downgoing. Reflexes equivocal. Normal pedal pulses. Feet are warm and well perfused. IMAGING STUDIES: X-rays and CT scan was reviewed of the thoracolumbar spine. This shows mild non-healed either acute or subacute T12 inferior end-plate compression fracture without osseous retropulsion as well as mild chronic T8 vertebral body height loss, diffuse demineralization. ASSESSMENT & PLAN: This 70-year-old female has a T12 compression fracture without retropulsion or obvious neurologic deficits as well as past history of advanced dementia. My recommendation would be nonsurgical management with rest, mobilization, weightbearing as tolerated using a walker, PT and OT assessment as well as braces if needed and pain control and medical management per the hospitalist service. I will follow while in the hospital. JAMA
--- NOTE | 2020-04-04 10:50 | DS.PDOC ---
Discharge Summary General Date of Admission Mar 23, 2020 at 16:45 Date of Discharge 04/04/20 Attending Physician: DEB DUGGAN MD Discharge Summary PROCEDURES PERFORMED DURING STAY: [None]. ADMITTING DIAGNOSES: AMS DM2 T12 Vertebral Compression fracture HTN Alzheimer's Dementia Candidal vulvovaginitis Hypothoidism DISCHARGE DIAGNOSES: AMS DM2 T12 Vertebral Compression fracture HTN Alzheimer's Dementia Candidal vulvovaginitis UTI Hypothoidism COMPLICATIONS/CHIEF COMPLAINT: Alzheimer's Dementia With Behavioral Disturbance. HISTORY OF PRESENT ILLNESS: 70 yo F with a hx of advanced Alzheimer's dementia, uncontrolled DM2, HTN, history of falls. She lives at home with 24 hour care from home health agency. She is not able to provide history due to dementia, but her son is at bedside. He states that he became concerned when she became acutely agitated, had obvious perineal/vaginal discomfort (constant scratching and rubbing) which is a departure from her baseline. He further described her frequently falling on her backside off the bed when she attempts to get up. He also reports that she had a much increased appetite and has not been taking me dications for DM. On arrival to the ED her BG was ~500. VBG showing ph 7.3, AG 5. Xray showing T12 compression fracture, ~20% involvement. She was given 5 units of R insulin. Perineal exam showed significant vaginal and perineal candidal infection. She was given 200 mg of diflucan along with miconazole vaginal cream. She showed near immediate improvement in agitation after miconazo le administration. HOSPITAL COURSE: Patient was admitted for management of hyperglycemia, workup of AMS. UA showed evidence for UTI, culture positive for E coli. AMS was likely due to acute metabolic encephalopathy as a consequence of UTI and hyperglycemia exacerbated by reduced PO intake leading to dehydration. She was treated with ceftriaxone and cefdinir for a total of 7 days of therapy. Vulvovaginal candidiasis was treated with diflucan and miconazole cream. Of note, her TSH was noted to be elevated to 28, therefore her daily synthroid dose was increased to 125 mcg/day. Her blood sugars were controlled with levemir. Orthopedic surgery was consulted for evaluation of the vertebral T12 compression fracture. Ultimately, conservative management was recommended. Subsequent to treatment of UTI and hyperglycemia, patient's mentation was observed close to baseline. Patient was evaluated by PT and OT and was deemed to benefit from additional assistance on discharge. She was changed to [facility] statuts pending approval for placement. Discharged to [facility]. DISCHARGE MEDICATIONS: Please see below. ALLERGIES: Please see below. PHYSICAL EXAMINATION ON DISCHARGE: VITAL SIGNS: Please see below. CONSTITUTIONAL: NAD, comfortable sitting upright in chair HEENT: PERRLA. CARDIOVASCULAR: RRR, normal S1, S2. ABDOMEN: soft, non tender. BS normal. MUSCULOSKELETAL: low back pain, mildly tender to palpation at T12. EXTREMITIES: no deformity. NEUROLOGICAL: moving all 4 extremities, no focal deficits. PSYCHIATRIC: advanced dementia. LABORATORY DATA: Please see below. IMAGING: CT thoracic spine: 03/25/20 IMPRESSION: Mild, non healed, either acute or subacute T12 inferior endplate compression fracture without osseous retropulsion. CXR: 03/23/20 IMPRESSION: No acute findings. XR R Hip with Pelvis: IMPRESSION: 1. No acute fracture is identified. 2. The bones are diffusely demineralized. This significantly limits evaluation for fractures. Lumbar Spine X-Ray: 03/23/20 IMPRESSION: 1. T12 vertebral body compression fracture appears new compared to 03/23/2019. This may be an acute vertebral fracture. Clinical correlation is needed. This can be further evaluated with spine CT. 2. The bones are diffusely demineralized. This significantly limits evaluation for fractures. 3. Grade 1 anterolisthesis of L5 on S1. 4. Multilevel degenerative appearing thoracic and lumbar spondylosis. PROGNOSIS: fair ACTIVITY: [As tolerated]. DIET: consistent carbohydrate DISCHARGE PLAN: discharge to higher level of supervision DISPOSITION: DC to [facility] DISCHARGE INSTRUCTIONS: 1. Monitor BG with accucheks AC ad HS 2. Follow up with PCP 3-5 days 3. Continue with PT on DC ITEMS TO FOLLOWUP ON ON OUTPATIENT: 1. Repeat TFTs in 4-6 weeks. DISCHARGE CONDITION: [Stable]. TIME SPENT ON DISCHARGE: Greater than 30 minutes. Vital Signs/I&Os Vital Signs Date Time Temp Pulse Resp B/P (MAP) Pulse Ox O2 Delivery O2 Flow Rate FiO2 04/04/20 08:30 56 129/65 04/04/20 08:17 16 04/04/20 06:00 97.8 99 Room Air I&O- Last 24 Hours up to 6 AM 04/04/20 05:59 Intake Total 720 ml Output Total 0 ml Balance 720 ml Microbiology Microbiology 9/2/20 Respiratory Virus Panel (PCR) ([facility]) - Final, Complete Discharge Medications Scheduled Acetaminophen (Acetaminophen) 500 Mg Tablet, 1,000 MG PO BID Ascorbic Acid (Vitamin C) 500 Mg Tab, 500 MG PO DAILY, (Reported) Aspirin (Aspir 81) 81 Mg Tablet.dr, 81 MG PO DAILY, (Reported) Atenolol (Atenolol) 25 Mg Tab, 25 MG PO DAILY, (Reported) Atorvastatin Calcium (Atorvastatin Calcium) 20 Mg Tab, 20 MG PO DAILY, (Reported) Bupropion HCl (Bupropion Xl) 300 Mg Tab.er.24h, 300 MG PO DAILY, (Reported) @ 1600 Insulin Detemir (Levemir) 100 Unit/1 Ml Vial, 5 UNITS SC QHS Levothyroxine Sodium (Levothyroxine Sodium) 125 Mcg Tablet, 125 MCG PO DAILY@0600 Memantine HCl (Memantine HCl ER) 28 Mg Cap.spr.24, 28 MG PO DAILY, (Reported) Quetiapine Fumarate (Quetiapine Fumarate) 25 Mg Tablet, 12.5 MG PO QHS, (Reported) Ramelteon (Ramelteon) 8 Mg Tablet, 8 MG PO QHS Ramipril (Ramipril) 5 Mg Capsule, 5 MG PO DAILY, (Reported) Sertraline HCl (Sertraline HCl) 50 Mg Tablet, 50 MG PO DAILY, (Reported) Vitamin B Complex (Vitamin B Complex) 1 Each Capsule, 1 CAP PO DAILY, (Reported) Scheduled PRN Magnesium Hydroxide (Milk of Magnesia) 400 Mg/5 Ml Oral.susp, 30 ML PO DAILY PRN for CONSTIPATION Allergies Coded Allergies: Sulfa (Sulfonamide Antibiotics) (Verified Allergy, Unknown, 03/23/19) metformin (Verified Adverse Reaction, Mild, nausea, 03/23/19) EDB DUGGAN MD Apr 04, 2020 10:50
[2020-04-04] MEDS ORDERED: MOM30SS2 PO (11:03)
[2020-04-04] MEDS ORDERED: LEVO125T4 PO (11:03)
[2020-04-04] MEDS ORDERED: INSUDET SC (11:03)
[2020-04-04] MEDS ORDERED: GLUC1INJ21 SC (11:03)
[2020-04-04] MEDS ORDERED: RAME8TAB2 PO (11:03)
[2020-04-04] MEDS ORDERED: ACET-683 PO (11:03)
== END 2020-04-04 13:46 | DRG 637 ==
LOC: M ED 10:14 → EDBD 10:14 → M ED INP 16:45 → ENRESERV 17:10 → M MSPAV 18:24
PROVIDERS: ADMIT Family Medicine; ATTEND Family Medicine
DX: E11.65 Type 2 diabetes mellitus with hyperglycemia (principal); G93.41 Metabolic encephalopathy; F02.81 Dementia in other diseases classified elsewhere, unspecified severity, with behavioral disturbance; N39.0 Urinary tract infection, site not specified; E03.9 Hypothyroidism, unspecified; I10 Essential (primary) hypertension; B96.29 Other Escherichia coli [E. coli] as the cause of diseases classified elsewhere; G30.9 Alzheimer's disease, unspecified; R29.6 Repeated falls; B37.3 Candidiasis of vulva and vagina; E86.0 Dehydration; M48.54XD Collapsed vertebra, not elsewhere classified, thoracic region, subsequent encounter for fracture with routine healing; Z79.82 Long term (current) use of aspirin; Z79.899 Other long term (current) drug therapy; Z88.2 Allergy status to sulfonamides; Z88.8 Allergy status to other drugs, medicaments and biological substances

== ENCOUNTER → 2020-04-10 | Outpatient (REF) ==
[~2020-04-10] MED LIST changes: +ACET-683 PO; +ASPI81TA86 PO; +GLUC1INJ21 SC; +INSUDET SC; +LEVO125T4 PO; +MOM30SS2 PO; +QUET1TAB7 PO; +RAME8TAB2 PO; +VITACAP8 PO
[2020-04-10 10:53] LABS: HEMATOCRIT 43.5 % (36.0-47.0); HEMOGLOBIN 14.1 g/dl (12.0-15.5); MEAN CORPUSCULAR HEMOGLOBIN 30.4 pg (27.0-33.0); MEAN CORPUSCULAR HGB CONC 32.4 g/dl (32.0-36.5); MEAN CORPUSCULAR VOLUME 93.8 fl (80.0-96.0); PLATELET COUNT, AUTOMATED 371 10^3/uL (150-450); RED BLOOD COUNT 4.64 10^6/uL (4.00-5.40); WHITE BLOOD COUNT 7.5 10^3/uL (4.0-10.0)
[2020-04-10 11:18] LABS: BLOOD UREA NITROGEN 23 MG/DL (7-18); CALCIUM LEVEL 8.9 MG/DL (8.8-10.2); CARBON DIOXIDE LEVEL 29 MEQ/L (21-32); CHLORIDE LEVEL 100 MEQ/L (98-107); CREATININE FOR GFR 0.71 MG/DL (0.55-1.30); GLOMERULAR FILTRATION RATE > 60.0 (>39); GLUCOSE, FASTING 206 MG/DL (70-100); SODIUM LEVEL 134 MEQ/L (136-145)
== END ==
PROVIDERS: ATTEND Internal Medicine
DX: I10 Essential (primary) hypertension (principal)

== ENCOUNTER → 2020-04-17 | Outpatient (REF) ==
[2020-04-17 10:46] LABS: HEMATOCRIT 39.8 % (36.0-47.0); MEAN CORPUSCULAR HGB CONC 32.7 g/dl (32.0-36.5); MEAN CORPUSCULAR VOLUME 91.9 fl (80.0-96.0); PLATELET COUNT, AUTOMATED 313 10^3/uL (150-450); RED BLOOD COUNT 4.33 10^6/uL (4.00-5.40); WHITE BLOOD COUNT 9.8 10^3/uL (4.0-10.0)
[2020-04-17 11:14] LABS: POTASSIUM SERUM 4.7 MEQ/L (3.5-5.1)
== END ==
PROVIDERS: ATTEND Physician Assistant
DX: I10 Essential (primary) hypertension (principal)

== ENCOUNTER 2020-11-09 08:45 | Emergency (ER) | payer MEDICARE ==
[~2020-11-09 08:45] MED LIST changes: -QUET1TAB7 PO; +QUET25TA3 PO
[2020-11-09] MEDS ORDERED: BUPR150T12 (09:01)
[2020-11-09] MEDS ORDERED: RISATAB3 (09:01)
[2020-11-09] MEDS ORDERED: QUET25TA3 PO (09:21)
[2020-11-09 09:25] LABS: BASO # 0.1 10^3/uL (0.0-0.2); BASO % 0.7 % (0.0-1.0); EOS # 0.3 10^3/uL (0.0-0.5); EOS % 4.8 % (0.0-3.0); HEMOGLOBIN 11.6 g/dl (12.0-15.5); LYMPH # 1.4 10^3/uL (1.5-5.0); LYMPH % 19.1 % (24.0-44.0); MEAN CORPUSCULAR HEMOGLOBIN 28.6 pg (27.0-33.0); MEAN CORPUSCULAR HGB CONC 31.4 g/dl (32.0-36.5); MEAN CORPUSCULAR VOLUME 91.1 fl (80.0-96.0); MONO # 0.8 10^3/uL (0.0-0.8); MONO % 11.5 % (2.0-8.0); NEUTROPHILS # 4.5 10^3/uL (1.5-8.5); NEUTROPHILS % 63.6 % (36.0-66.0); PLATELET COUNT, AUTOMATED 217 10^3/uL (150-450); RED BLOOD COUNT 4.06 10^6/uL (4.00-5.40); WHITE BLOOD COUNT 7.1 10^3/uL (4.0-10.0)
--- NOTE | 2020-11-09 09:33 | REP ---
INDICATION: fall. COMPARISON: 03/23/2019. TECHNIQUE: CT BRAIN PERFORMED IN THE AXIAL PLANE. CORONAL RECONSTRUCTION IMAGES ARE PERFORMED. FINDINGS: Moderate atrophy is again noted. There is no midline shift or mass effect. There are mild chronic periventricular small vessel ischemic changes in the white matter bilaterally, symmetrically. There is no acute intracranial hemorrhage or extra-axial fluid collection. Vascular calcifications are seen in the carotid siphons bilaterally. There is mild fluid or mucosal thickening in the posterior left sphenoid sinus. No other opacification is seen of the paranasal sinuses or mastoid air cells. No skull fracture is seen. IMPRESSION: Stable chronic changes with no evidence of acute intracranial hemorrhage, midline shift or mass effect. No evidence of skull fracture. <Electronically signed by Blake Kim > 11/09/20 [id number]
--- NOTE | 2020-11-09 09:41 | REP ---
INDICATION: fall. COMPARISON: None. TECHNIQUE: CT cervical spine performed in the axial plane, with sagittal and coronal reconstruction images performed. FINDINGS: There is no acute compression fracture or malalignment. There is no prevertebral soft tissue swelling. There is moderate spurring of C4 through C6 with mild disc space narrowing at C4-5 and C5-6.. There is normal cervical lordosis. There is no abnormal density in the spinal canal. IMPRESSION: No evidence of acute fracture or dislocation.Degenerative changes. <Electronically signed by Blake Kim > 11/09/20 0914
--- NOTE | 2020-11-09 09:44 | REP ---
INDICATION: fall. COMPARISON: 03/23/2020. TECHNIQUE: SINGLE PORTABLE AP VIEW OF THE CHEST WAS PERFORMED. FINDINGS: THERE IS NO ACUTE INFILTRATE OR PULMONARY EDEMA. LUNGS ARE CLEAR. HEART IS NOT SIGNIFICANTLY ENLARGED. MEDIASTINAL SILHOUETTE IS UNREMARKABLE. THE VISUALIZED OSSEOUS STRUCTURES ARE INTACT. IMPRESSION: NO ACUTE PULMONARY DISEASE. <Electronically signed by Blake Kim > 11/09/20 [id number]
[2020-11-09 09:50] LABS: ALT/SGPT 23 U/L (12-78); BILIRUBIN,TOTAL 0.4 MG/DL (0.2-1.0); BLOOD UREA NITROGEN 21 MG/DL (7-18); CALCIUM LEVEL 8.3 MG/DL (8.8-10.2); CARBON DIOXIDE LEVEL 27 MEQ/L (21-32); CHLORIDE LEVEL 108 MEQ/L (98-107); CK-MB VALUE MASS 1.1 NG/ML (<3.6); CPK CREATINE PHOSPHOKINASE 64 U/L (26-192); CREATININE FOR GFR 0.76 MG/DL (0.55-1.30); GLOMERULAR FILTRATION RATE > 60.0 (>39); GLUCOSE, FASTING 155 MG/DL (70-100); MB/CK RELATIVE INDEX 1.72 (< OR =4); POTASSIUM SERUM 4.4 MEQ/L (3.5-5.1); SODIUM LEVEL 141 MEQ/L (136-145); TROPONIN I < 0.02 NG/ML (< 0.10)
[2020-11-09 10:13] VITALS: BP 133/78
--- NOTE | 2020-11-10 15:35 | ECGEPIP ---
[facility] - ED Test Date: 2020-11-09 Pat Name: JOHANNA GRIER Department: Room: - Gender: Female Staff Scientist: : 1950 Requested By: Judith Hernandez Order Number: [id number] Reading MD: Kulwant Baxter Measurements Intervals [place] Rate: 53 P: 40 TX: 146 QRS: 58 QRSD: 116 T: 40 QT: 480 QTc: 450 Interpretive Statements Sinus bradycardia Incomplete right bundle branch block similar to tracing done 03-23-19 with decreased rate Electronically Signed on 11-10-2020 15:34:58 EDT by Kulwant Baxter
== END 2020-11-09 10:26 | disposition home or self-care (01) ==
LOC: M ED 08:45 → EDBD 08:45 → M ED 10:26
DX: F03.90 Unspecified dementia, unspecified severity, without behavioral disturbance, psychotic disturbance, mood disturbance, and anxiety (principal); W19.XXXA Unspecified fall, initial encounter; Y92.009 Unspecified place in unspecified non-institutional (private) residence as the place of occurrence of the external cause; Y93.9 Activity, unspecified; Y99.9 Unspecified external cause status; R00.1 Bradycardia, unspecified; I45.19 Other right bundle-branch block; E11.65 Type 2 diabetes mellitus with hyperglycemia; I10 Essential (primary) hypertension; G43.909 Migraine, unspecified, not intractable, without status migrainosus; E07.9 Disorder of thyroid, unspecified; Z91.81 History of falling; Z87.891 Personal history of nicotine dependence; M25.78 Osteophyte, vertebrae; Z79.4 Long term (current) use of insulin; Z79.82 Long term (current) use of aspirin; Z79.899 Other long term (current) drug therapy; Z88.2 Allergy status to sulfonamides; Z88.8 Allergy status to other drugs, medicaments and biological substances

== ENCOUNTER 2021-03-15 14:14 | Emergency (ER) | payer MEDICARE ==
[~2021-03-15 14:14] MED LIST changes: +BUPR150T12; +QUET1TAB17 PO; -QUET25TA3 PO; +RISATAB3 PO
[2021-03-15] MEDS ORDERED: LIDOCAINE 2% 5ML JELLY UROJET TOP ONE (14:20)
[2021-03-15] MEDS ORDERED: OLANZapine 5 MG TAB PO ONE (14:40)
--- NOTE | 2021-03-15 15:26 | REP ---
INDICATION: CHEST PAIN. COMPARISON: 07/25/2017 TECHNIQUE: AP view FINDINGS: The lungs are clear. The heart is not enlarged. There is no failure or pleural effusion. IMPRESSION: No active process. No interval change. <Electronically signed by Kale Dominguez > 03/15/21 1527
[2021-03-15 15:32] LABS: VENOUS BASE EXCESS 0.6 (-2.0-2.0); VENOUS HCO3 28.4 MEQ/L (23.0-27.0); VENOUS O2 SATURATION 54.2 % (60.0-80.0); VENOUS PARTIAL PRESSURE CO2 60.1 mmHg (38.0-50.0); VENOUS PARTIAL PRESSURE O2 28.7 mmHg (30.0-50.0); VENOUS PH 7.293 UNITS (7.330-7.430); VENOUS TOTAL CO2 30.3 MEQ/L (24.0-28.0)
[2021-03-15 15:39] LABS: BASO # 0.1 10^3/uL (0.0-0.2); BASO % 0.3 % (0.0-1.0); EOS # 0.3 10^3/uL (0.0-0.5); EOS % 1.8 % (0.0-3.0); HEMATOCRIT 40.7 % (36.0-47.0); LYMPH # 1.3 10^3/uL (1.5-5.0); LYMPH % 8.1 % (24.0-44.0); MEAN CORPUSCULAR HEMOGLOBIN 29.5 pg (27.0-33.0); MEAN CORPUSCULAR HGB CONC 31.9 g/dl (32.0-36.5); MEAN CORPUSCULAR VOLUME 92.3 fl (80.0-96.0); MONO # 1.3 10^3/uL (0.0-0.8); MONO % 7.8 % (2.0-8.0); NEUTROPHILS # 13.3 10^3/uL (1.5-8.5); NEUTROPHILS % 81.6 % (36.0-66.0); PLATELET COUNT, AUTOMATED 248 10^3/uL (150-450); RED BLOOD COUNT 4.41 10^6/uL (4.00-5.40); WHITE BLOOD COUNT 16.3 10^3/uL (4.0-10.0)
[2021-03-15 16:09] LABS: ALBUMIN 3.7 GM/DL (3.2-5.2); ALT/SGPT 33 U/L (12-78); BILIRUBIN,DIRECT 0.1 MG/DL (0.0-0.2); BILIRUBIN,TOTAL 0.4 MG/DL (0.2-1.0); BLOOD UREA NITROGEN 23 MG/DL (7-18); CALCIUM LEVEL 8.5 MG/DL (8.8-10.2); CARBON DIOXIDE LEVEL 26 MEQ/L (21-32); CHLORIDE LEVEL 110 MEQ/L (98-107); CK-MB VALUE MASS 1.7 NG/ML (<3.6); CPK CREATINE PHOSPHOKINASE 161 U/L (26-192); CREATININE FOR GFR 0.84 MG/DL (0.55-1.30); FREE T4 0.98 NG/DL (0.76-1.46); GLOMERULAR FILTRATION RATE > 60.0 (>39); GLUCOSE, FASTING 103 MG/DL (70-100); MB/CK RELATIVE INDEX 1.06 (< OR =4); NT-PRO BNP 142 PG/ML (<125); POTASSIUM SERUM 4.3 MEQ/L (3.5-5.1); SODIUM LEVEL 141 MEQ/L (136-145); TROPONIN I < 0.02 NG/ML (< 0.10)
[2021-03-15 16:20] LABS: RSV AMPLIFICATION NEGATIVE (NEGATIVE)
[2021-03-15] MEDS ORDERED: ASPI81TA26 PO (17:06)
[2021-03-15] MEDS ORDERED: LEVE1INJ5 SC (17:06)
[2021-03-15] MEDS ORDERED: BUPR150T5 PO (17:06)
[2021-03-15] MEDS ORDERED: LEVO125T41 PO (17:06)
[2021-03-15] MEDS ORDERED: HOME MED LIST COMPLETE! XX SCH (17:10)
[2021-03-15 17:46] VITALS: BP 123/51
--- NOTE | 2021-03-16 08:35 | ECGEPIP ---
[facility] - ED Test Date: 2021-03-15 Pat Name: JOHANNA GRIER Department: Room: - Gender: Female [employer] Ret[employer] Specialist: FRANCISCO JAVIER : 1950 Requested By: THAI NEIL Order Number: [id number] Reading MD: Epi Rome Measurements Intervals [place] Rate: 50 P: 20 ND: 158 QRS: 49 QRSD: 120 T: 34 QT: 470 QTc: 428 Interpretive Statements Sinus bradycardia INCOMPLETE RIGHT BUNDLE BRANCH BLOCK POOR R WAVE PROGRESSION SIMILAR TO 11/09/20 Electronically Signed on 03-16-2021 8:35:38 EDT by Epi Rome
== END 2021-03-15 17:59 | disposition home or self-care (01) ==
LOC: M ED 14:14
DX: G30.9 Alzheimer's disease, unspecified (principal); F02.80 Dementia in other diseases classified elsewhere, unspecified severity, without behavioral disturbance, psychotic disturbance, mood disturbance, and anxiety; R00.1 Bradycardia, unspecified; I45.19 Other right bundle-branch block; E11.9 Type 2 diabetes mellitus without complications; I10 Essential (primary) hypertension; E03.9 Hypothyroidism, unspecified; E78.00 Pure hypercholesterolemia, unspecified; Z87.440 Personal history of urinary (tract) infections; Z85.820 Personal history of malignant melanoma of skin; Z79.899 Other long term (current) drug therapy; Z88.2 Allergy status to sulfonamides; Z88.8 Allergy status to other drugs, medicaments and biological substances

== ENCOUNTER 2021-05-21 12:47 | Inpatient (IN) | payer MEDICARE ==
[~2021-05-21 12:47] MED LIST changes: +BUPR150T5 PO; +LEVE1INJ5 SC; +LEVO125T41 PO; -MEMA28CA PO; +MEMA28CA12 PO
[2021-05-21] MEDS ORDERED: NS 500 ML IV ONE ×2 (13:10→15:25)
[2021-05-21 13:24] LABS: BASO # 0.1 10^3/uL (0.0-0.2); BASO % 0.5 % (0.0-1.0); EOS # 0.2 10^3/uL (0.0-0.5); EOS % 1.2 % (0.0-3.0); HEMATOCRIT 35.6 % (36.0-47.0); LYMPH # 1.7 10^3/uL (1.5-5.0); LYMPH % 10.4 % (24.0-44.0); MEAN CORPUSCULAR HEMOGLOBIN 28.2 pg (27.0-33.0); MEAN CORPUSCULAR HGB CONC 30.9 g/dl (32.0-36.5); MEAN CORPUSCULAR VOLUME 91.3 fl (80.0-96.0); MONO # 1.3 10^3/uL (0.0-0.8); MONO % 8.4 % (2.0-8.0); NEUTROPHILS # 12.7 10^3/uL (1.5-8.5); NEUTROPHILS % 79.2 % (36.0-66.0); PLATELET COUNT, AUTOMATED 296 10^3/uL (150-450)
[2021-05-21 13:42] LABS: INR 1.02; PROTHROMBIN TIME 13.8 SECONDS (12.7-14.5)
--- NOTE | 2021-05-21 13:44 | ECGEPIP ---
[facility] - ED Test Date: 2021-05-21 Pat Name: JOHANNA GRIER Department: Room: - Gender: Female Graphics Intern: JMark : 1950 Requested By: Maggie Parham Order Number: [id number] Reading MD: Judith Hernandez Measurements Intervals [place] Rate: 57 P: 67 [place]: 146 QRS: 63 QRSD: 114 T: 27 QT: 464 QTc: 451 Interpretive Statements Sinus bradycardia Incomplete right bundle branch block irbbb similar 03/15/21 Electronically Signed on 05-21-2021 13:43:29 EDT by Judith Hernandze
--- NOTE | 2021-05-21 13:57 | REP ---
INDICATION: Syncope/near-syncope. COMPARISON: 03/15/2021 the latest prior also portable TECHNIQUE: Portable FINDINGS: The technique utilized in obtaining the radiograph has magnified the cardiac silhouette and accentuated the interstitial markings. The cardiomediastinal silhouette lung jackson are stable. No acute patchy parenchymal opacities or pleural effusions have developed. The heart is not enlarged. There is no significant change in the osseous structures. IMPRESSION: Stable chest <Electronically signed by Leo Blanco > 05/21/21 [id number]
--- OUTSIDE RECORDS SUMMARY | 2021-05-21 13:58 | CCD | Continuity of Care Document ---
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 Onset: 015 Hypothyroidism Juancarlos Dewey M.D. Onset: 05/21/2015 Mild recurrent major depression Juancarlos Dewey M.D. Onset: 05/21/2015 Hyperlipidemia Juancarlos Dewey M.D. Onset: 05/21/2015 Essential hypertension Juancarlos Dewey M.D. Onset: 5 Nausea Juancarlos Dewey M.D. Onset: 08/08/2015 Social History Type Date Description Comments Sex Unknown ETOH Use Consumes 2 glasses of wine per w [place] Tobacco Use Start: Unknown End: Unknown Patient is a former smoker Quit March 2019 (formerly smoked on and off since the age of 28, early 2019 smoked 1 pack a week) Allergies, Adverse Reactions, Alerts Active Allergies Criticality Reaction | Severity Comments Date Metformin Unable to assess criticality Mild, Nausea Nausea 06/23/2013 Sulfa (Sulfonamide Antibiotics) Unable to assess criticality Mil d, Nausea gi upset 06/23/2013 Medications Active Medications SIG Qnty Indications Ordering Provide r Date Macrobid 100mg Capsules 1 tablet by mouth twice daily x 10 days 20caps Juancarlos Dewey M.D. 03/04 Tobramycin-Dexamethasone 0.3-0.1% Suspension 1 drop left eye three times a day x 7 days 2.500ml Anusha Morales, ANP 11/07/2020 One Touch Ultra Test Strips DMT2 test 1-3 times a day 100ungarry Dewey M.D. 08/28/2020 Onetouch II Test Strips Misc test twice daily e11.9 100ungarry Dewey M.D. 08/28/2020 Pen [place] 31G X 5 mm Misc injection 30 units bid,titrate as needed 200ungarry Dewey M.D. 08/28/2020 Fluconazole 150mg Tablets 1 tablet x1, repeat in 3 days 2tamauricio Dewey M.D. 06/06/2020 Lipitor 20mg Tablets 1 by mouth every day 30tamauricio Dewey M.D. 05/17/2020 Bupropion Hydrochloride ER (SR) 150mg Tablets ER 12HR 1 by mouth every day 30tamauricio Dewey M.D. 05/17/2020 Levothyroxine Sodium 125mcg Tablet s 1 by mouth every day 90tamauricio Dewey M.D. 05/03/2020 Levemir Flextouch 10 0Unit/ML Solution Pen-Inject inject 15 units twice a day 45ml Juancarlos rodriguez M.D. 05/03/2020 Onetouch Ultra 2 w/Device Kit test twice a day and as directed, e11.9 1ungarry Dewey M.D. 04/30/2020 Onetouch Ultrasoft Lancets Misc test twice a day e11.9 200ungarry Dewey M.D. 0 Seroquel 25mg Tablets 1/2 tablet PO in the Am and 1 tablet PO QHS 45tamauricio Dewey M.D. 03/03 Jennifer-bid Probiotic Tablets Take One Tablet By Mouth Every Other Day @8Am 45tamauricio Perez MD 06/02/2019 Aspirin Adult Low Dose 81mg Tablet s DR 1 by mouth every day 30wilfred Dewey M.D. 01/26/20 19 Sertraline HCL 50mg Tablets 1 by mouth every day. 90wilfred Dewey M.D. 06/28/2018 Namenda XR 28mg Caps ER 24HR 1 by mouth every day jaime Dewey M.D. 08/13/2017 Atenolol 25mg Tablets 1 by mouth every day yumiko Dewey M.D. 07/07/2016 Ramipril 5mg Capsules 1 tablet by mouth daily jaime Dewey M.D. Vitamin B Complex Tablets 1 by mouth every day 30wilfred Dewey M.D. Medications Administered in Office Medication SIG Qnty Indications Ordering Provider Date Administration Of Flu Vaccine Inj hakeem Dewey M.D. 07/06/2019 Administration Of Flu Vaccine Inj hakeem Dewey M.D. 05/23/2018 Therapeutic Injection Injection Unknown 11/05/2017 Administration Of Flu Vaccine Inj hakeem Dewey M.D. 05/05/2016 Administration Of Flu Vaccine Inj hakeem Dewey M.D. 05/21/2015 Immunizations CPT Code Status Date Vaccine Lot # 28389 Given 07/06/2019 Influenza Vaccin e Quadrivalent Preser/Antibiotic Free Im Use 199090 61036 Given 05/23/2018 Influenza Virus Vaccine, Quadrivalent (Cciiv4), Derived From Cell [id number] Q2037 Given 05/05/2016 Fluvirin Virus Vaccine 68054 01 Q2037 Given 05/21/2015 Fluvirin Virus Vaccine 14062 01 95659 Given 04/26/2014 Influenza Virus Vaccine 20832 Given 12/27/2013 Pneumovax 23 83471 Given 12/27/2013 Adacel- Tetanus Diphtheria P ertussis (Age64 & Under) 47101 Given 05/10/2013 Influenza Virus Vaccine 79024 Given 06/13/2012 Influenza Virus Vaccine 75988 Given 05/02/2008 Influenza Virus Vaccine 93786 Refused 04/26/2014 Zoster Vaccine 76781 Refused 10/31/2008 Adacel- Tetanus Diphtheria P ertussis (Age64 & Under) Vital Signs Date Vital Result Comment 04/03/2021 11:43am BP Systolic 130 mmHg BP Diastolic 80 mmHg Heart Rate 82 /min Height 67 inches 5'7" Weight 149.00 lb BMI (Body Mass Index) 23.3 kg/m2 11/20/2020 3:02pm BP Systolic 136 mmHg BP Diastolic 80 mmHg Heart Rate 76 /min Height 67 inches 5'7" Weight 163.00 lb BMI (Body Mass Index) 25.5 kg/m2 Results Test Acquired Date Facility Test Result H/L Range Note Complete Blood Count 04/03/2021 [facility] Hand Crocheter: Dr Gabo [place] [address] [phone] WBC 15.2 x10*3/UL High 4.1 - 10.9 1 RBC 4.05 x10*6/UL Low 4.20 - 6.30 Hemoglobin 11.7 g/dL Low 12.0 - 18.0 Hematocrit 34.6 % Low 37.0 - 51.0 MCV 85.5 fL 80.0 - 97.0 MCH 29.1 pg 26.0 - 32.0 MCHC 34.0 g/dL 31.0 - 38.0 RDW 12.8 % 11.6 - 13.7 PLT 382 x10*3/UL 140 - 440 MPV 8.1 FL 7.8 - 11.0 Lymph % 10.2 % 10.0 - 58.5 Mid % 3.6 % 1.7 - 9.3 Neut % 86.2 % 37.0 - 92.0 Lymph # 1.5 x10*3/UL 0.6 - 4.1 Mid # 0.6 x10*3/UL 0.1 - 0.6 Neut # 13.1 x10*3/UL High 2.0 - 7.8 Comprehensive Chem Profile 04/03/2021 [facility] Hand Crocheter: Dr Gabo [place] [address] [phone] Glucose 172 mg/dL High 74 - 99 2 BUN 23 mg/dL High 7 - 18 Creatinine 1.2 mg/dL 0.6 - 1.3 Sodium 139 mEq/L 136 - 145 Potassium 4.5 mEq/L 3.5 - 5.1 Chloride 103 mEq/L 98 - 107 Carbon Dioxide 27 mEq/L 21 - 32 Calcium 9.1 mg/dL 8.5 - 10.1 Alk. Phosphatase 100 mg/dL 46 - 116 Total Bilirubin 0.7 mg/dL 0.2 - 1.0 Ast (Sgot) 18 U/L 15 - 37 Alt (SGPT) 24 U/L 12 - 78 Albumin 3.5 g/dL 3.4 - 5.0 Total Protein 6.9 g/dL 6.4 - 8.2 A/G Ratio 1.03 CALC 1.00 - 1.90 GFR 44 mL/min Low >60 GFR 53 mL/min Low >60 3 A1c 04/03/2021 [facility] Hand Crocheter: [place] [address] [phone] Hba1c 8.4 % High <5.7 4 Est Avg Glucose 194 mg/dL High 60 - 110 Laboratory test finding 04/03/2021 [facility] Hand Crocheter: Dr Gabo [place] [address] [phone] Thyroid Stimulating Hormone 3.55 uIU/mL 0.3 6 - 3.74 CBC With Differential 03/15/2021 [facility] [address] [place] [address] [phone] White Blood Count 16.3 10 High 4.0-10.0 Red Blood Count 4.41 10 Normal 4.00-5.40 Hemoglobin 13.0 g/dL Normal 12.0-15.5 Hematocrit 40.7 % Normal 36.0-47.0 Mean Corpuscular Volume 92.3 fl Normal 80.0-96.0 Mean Corpuscular Hemoglobin 29.5 pg Normal 27.0-33.0 Mean Corpuscular HGB Conc 31.9 g/dL Low 32.0-36.5 Red Cell Distribution Width 13.3 % Normal 11.5-14.5 Platelet Count, Automated 248 10 Normal 150-450 Neutrophils % 81.6 % High 36.0-66.0 Lymph % 8.1 % Low 24.0-44.0 Childress % 7.8 % Normal 2.0-8.0 Eos % 1.8 % Normal 0.0-3.0 Baso % 0.3 % Normal 0.0-1.0 Immature Granulocyte % 0.4 % Normal 0-3.0 Nucleated Red Blood Cell % 0.0 % Normal 0-0 Neutrophils # 13.3 10 High 1.5-8.5 Lymph # 1.3 10 Low 1.5-5.0 Childress # 1.3 10 High 0.0-0.8 Eos # 0.3 10 Normal 0.0-0.5 Baso # 0.1 10 Normal 0.0-0.2 Laboratory test finding 03/15/2021 [facility] [address] [place] [address] [phone] NT-Pro BNP 142 pg/mL High <125 Thyroid Stimulating Hormone 3.980 uIU/ML High 0.358-3.740 Free T4 0.98 ng/dL Normal 0.76-1.46 Basic Metabolic Profile 03/15/[address] [address] [phone] Glucose, Fasting 103 mg/dL High 70-100 Blood Urea Nitrogen 23 mg/dL High 7-18 Creatinine For GFR 0.84 mg/dL Normal 0.55-1.30 Glomerular Filtration Rate > 60.0 Normal >39 5 Sodium Level 141 mEq/L Normal 136-145 Potassium Serum 4.3 mEq/L Normal 3.5-5.1 Chloride Level 110 mEq/L High 98-107 Carbon Dioxide Level 26 mEq/L Normal 21-32 Anion Gap 5 mEq/L Low 8-16 Calcium Level 8.5 mg/dL Low 8.8-10.2 Liver Profile 03/15/2021 [facility] [address] [place] [address] [phone] Ast/Sgot 28 U/L Normal 7-37 Alt/SGPT 33 U/L Normal 12-78 Alkaline Phosphatase 93 U/L Normal 45-117 Bilirubin,Total 0.4 mg/dL Normal 0.2-1.0 Bilirubin,Direct 0.1 mg/dL Normal 0.0-0.2 Total Protein 7.0 GM/DL Normal 6.4-8.2 Albumin 3.7 GM/DL Normal 3.2-5.2 Albumin/Globulin Ratio 1.1 Low 1.2-2.2 Cardiac Marker Panel 03/15/[address] [facility] [address] [place] [address] [phone] CPK Creatine Phosphokinase 161 U/L Normal 26-19 2 CK-MB Value Mass 1.7 NG/ML Normal <3.6 MB/CK Relative Index 1.06 Normal < Or =4 6 Troponin I < 0.02 NG/ML Normal < 0.10 7 Venous Blood Gas 03/15/[address] [facility] [address] [place] [address] [phone] Venous PH 7.293 units Low 7.330-7.430 Venous Partial Pressure Co2 60.1 mmHg High 38.0-50.0 Venous Partial Pressure O2 28.7 mmHg Low 30.0-50.0 Venous Total Co2 30.3 mEq/L High 24.0-28.0 Venous Hco3 28.4 mEq/L High 23.0-27.0 Venous Base Excess 0.6 Normal -2.0-2.0 Venous Standard Hco3 24.0 mEq/L Normal Venous O2 Saturation 54.2 % Low 60.0-80.0 Ua W/ Reflex To Culture 03/15/2021 [facility] [address] [place] [address] [phone] Appearance, Urine RFX HAZY Normal Clear Color, Urine RFX MODE Normal Yellow PH,Urine RFX 5.0 units Normal 5.0-9.0 Specific Vendor Ur Auto RFX 1.024 Normal 1.002-1.035 Protein, Urine Auto RFX NEGATIVE mg/dL Normal Negative Glucose, Urine (Ua) Auto RFX NEGATIVE mg/dL Normal Negative Ketone, Urine Auto RFX NEGATIVE mg/dL Normal Negative Urobilinogen, Urine Auto RFX 0.2 mg/dL Normal 0.0-2.0 Bilirubin, Urine Auto RFX 1+ High Negative Nitrite, Urine Auto RFX NEGATIVE Normal Negative Leukocyte Esterase Ur Auto RFX NEGATIVE Normal Negative Blood, Urine Blood RFX NEGATIVE Normal Negative WBC, Urine Auto RFX 2 /HPF Normal 0-3 RBC, Urine Auto RFX 0 /HPF Normal 0-3 Bacteria, Urine Auto RFX NEGATIVE Normal Negative Squam Epithelial Cell Ur Aurfx 1 /HPF Normal 0-6 Mucus, Urine RFX SMALL Normal Negative Hyaline Cast, Urine Auto RFX 3 /LPF Normal 0-1 Influenza A/B RSV Covid Amp 03/15/2021 [facility] [address] [place] [address] [phone] Influenza A Amplification NEGATIVE Normal Negati ve 8 Influenza B Amplification NEGATIVE Normal Negative 9 RSV Amplification NEGATIVE Normal Negative 10 Sars Covid-19 Amplification NEGATIVE Normal Negative 11 Blood Culture 03/15/2021 [facility] [address] [place] [address] [phone] Blood Culture No growth after <SEE NOTE> 12 Blood Culture 03/15/2021 [facility] [address] [place] [address] [phone] Blood Culture No growth after <SEE NOTE> 13 Comprehensive Chem Profile 11/20/2020 [facility] Hand Crocheter: [place] [address] [phone] Glucose 223 mg/dL High 74 - 99 14 BUN 16 mg/dL 7 - 18 Creatinine 0.9 mg/dL 0.6 - 1.3 Sodium 136 mEq/L 136 - 145 Potassium 4.5 mEq/L 3.5 - 5.1 Chloride 102 mEq/L 98 - 107 Carbon Dioxide 29 mEq/L 21 - 32 Calcium 8.9 mg/dL 8.5 - 10.1 Alk. Phosphatase 155 mg/dL High 46 - 116 Total Bilirubin 0.3 mg/dL 0.2 - 1.0 Ast (Sgot) 19 U/L 15 - 37 Alt (SGPT) 27 U/L 12 - 78 Albumin 3.8 g/dL 3.4 - 5.0 Total Protein 7.8 g/dL 6.4 - 8.2 A/G Ratio 0.95 CALC Low 1.00 - 1.90 GFR >= 60 mL/min >60 GFR >= 60 mL/min >60 15 A1c 11/20/2020 [facility] Hand Crocheter: [place] [address] [phone] Hba1c 9.7 % High <5.7 16 Est Avg Glucose 232 mg/dL High 60 - 110 Laboratory test finding 11/20/2020 [facility] Hand Crocheter: [place] [address] [phone] Thyroid Stimulating Hormone 0.32 uIU/mL Low 0.3 6 - 3.74 CBC With Differential 11/09/[address] [address] [phone] White Blood Count 7.1 10 Normal 4.0-10.0 Red Blood Count 4.06 10 Normal 4.00-5.40 Hemoglobin 11.6 g/dL Low 12.0-15.5 Hematocrit 37.0 % Normal 36.0-47.0 Mean Corpuscular Volume 91.1 fl Normal 80.0-96.0 Mean Corpuscular Hemoglobin 28.6 pg Normal 27.0-33.0 Mean Corpuscular HGB Conc 31.4 g/dL Low 32.0-36.5 Red Cell Distribution Width 12.7 % Normal 11.5-14.5 Platelet Count, Automated 217 10 Normal 150-450 Neutrophils % 63.6 % Normal 36.0-66.0 Lymph % 19.1 % Low 24.0-44.0 Childress % 11.5 % High 2.0-8.0 Eos % 4.8 % High 0.0-3.0 Baso % 0.7 % Normal 0.0-1.0 Immature Granulocyte % 0.3 % Normal 0-3.0 Nucleated Red Blood Cell % 0.0 % Normal 0-0 Neutrophils # 4.5 10 Normal 1.5-8.5 Lymph # 1.4 10 Low 1.5-5.0 Childress # 0.8 10 Normal 0.0-0.8 Eos # 0.3 10 Normal 0.0-0.5 Baso # 0.1 10 Normal 0.0-0.2 Comprehensive Metabolic Profil 11/09/[address] [address] [phone] Glucose, Fasting 155 mg/dL High 70-100 Blood Urea Nitrogen 21 mg/dL High 7-18 Creatinine For GFR 0.76 mg/dL Normal 0.55-1.30 Glomerular Filtration Rate > 60.0 Normal >39 1 7 Sodium Level 141 mEq/L Normal 136-145 Potassium Serum 4.4 mEq/L Normal 3.5-5.1 18 Chloride Level 108 mEq/L High 98-107 Carbon Dioxide Level 27 mEq/L Normal 21-32 Anion Gap 6 mEq/L Low 8-16 Calcium Level 8.3 mg/dL Low 8.8-10.2 Ast/Sgot 20 U/L Normal 7-37 Alt/SGPT 23 U/L Normal 12-78 Alkaline Phosphatase 133 U/L High 45-117 Bilirubin,Total 0.4 mg/dL Normal 0.2-1.0 Total Protein 6.0 GM/DL Low 6.4-8.2 Albumin 3.0 GM/DL Low 3.2-5.2 Albumin/Globulin Ratio 1.0 Low 1.2-2.2 Cardiac Marker Panel 11/09/2020 [facility] enter [address] [place] [address] [phone] CPK Creatine Phosphokinase 64 U/L Normal 26-19 2 CK-MB Value Mass 1.1 NG/ML Normal <3.6 MB/CK Relative Index 1.72 Normal < Or =4 19 Troponin I < 0.02 NG/ML Normal < 0.10 20 1 NOTE: RESULT VERIFIED. 2 100-125 mg/dL PRE-DIABET ES/FASTING >126 mg/dL DIABETES/FASTING 3 CHRONIC KIDNEY DISEASE STAGI NG PER NKF STAGE I & II GFR >= 60 NORMAL TO MILDLY DECREASED STAGE III GFR 30-59 MODERATELY DECREASED STAGE IV GFR 15-29 SEVERELY DECREASED STAGE V GFR <15 VERY LITTLE GFR LEFT ESRD GFR <15 ON RECLAIMER 4 Lab Result Notes: Pre-Diabetes 5.7 - 6.4 % Diabetes = or > 6.5% 5 Units are mL/min/1.73 m2 Chronic Kidney Disease Staging per NKF: Stage I & II GFR >=60 Normal to Mildly Decreased Stage III GFR 30-59 Moderately Decreased Stage IV GFR 15-29 Severely Decreased Stage V GFR <15 Very Little GFR Left ESRD GFR <15 on RECLAIMER 6 DIAGNOSIS CRITERIA MMB ng/ml Relative Index (RI) NON-AMI < or = 5 N/A ANTON ZONE > 5 < or = 4 AMI > 5 > 4 7 Troponin I Reference Interva l for [employer] LOCI: 99th Percentile= 0.00-0.045 ng/ml Risk Stratification: <= 0.10 ng/ml Decreased Risk for Adverse Clinical Events. 0.10-1.50 ng/ml Increased Risk for Adv erse Clinical Events. Evaluation of additional criterion and/or repeat testing in 2-6 hours is suggested to rule out myocardial damage. >= 1.50 ng/ml Indicative of Myocardial Injury. 8 Negative results do not prec lude influenza or RSV virus infection and should not be used as the sole basis for treatment or other patient management decisions. 9 Negative results do not prec lude influenza or RSV virus infection and should not be used as the sole basis for treatment or other patient management decisions. 10 Negative results do not prec lude influenza or RSV virus infection and should not be used as the sole basis for treatment or other patient management decisions. 11 A false negative result may occur if a specimen is improperly collected, transported or handled. False negative results may also occur if inadequate numbers of organisms are present in the specimen. As with any molecular test, mutations within the target regions of Xpert Xpress SARS-CoV-2 could affect primer and/or probe binding resulting in failure to detect the presence of virus. This test cannot rule out diseases caused by other bacterial or viral pathogens. DISCLAIMER: Testing was performed using the [employer] SARS-CoV-2 test. This test was developed and its performance characteristics determined by [employer]. This test has not been FDA cleared or approved. This test has been authorized by FDA under an Emergency Use Authorization (EUA). This test is only authorized for the duration of time the declaration that circumstances exist justifying the authorization of the emergency use of in vitro diagnostic tests for detection of SARS-CoV-2 virus and/or diagnosis of COVID-19 infection under section 564(b)(1) of the Act, 21 U.S.C. 360bbb-3(b)(1), unless the authorization is terminated or revoked sooner. 12 No growth after 72 hours . A ll specimens observed for 5 days. Results final at that time. No growth after 48 hours . All specimens observed for 5 days. Results final at that time. No growth after 24 hours . All specimens observed for 5 days. Results final at that time. NO GROWTH AFTER 5 DAYS 13 No growth after 72 hours . A ll specimens observed for 5 days. Results final at that time. No growth after 48 hours . All specimens observed for 5 days. Results final at that time. No growth after 24 hours . All specimens observed for 5 days. Results final at that time. NO GROWTH AFTER 5 DAYS 14 100-125 mg/dL PRE-DIABET ES/FASTING >126 mg/dL DIABETES/FASTING 15 CHRONIC KIDNEY DISEASE STAGI NG PER NKF STAGE I & II GFR >= 60 NORMAL TO MILDLY DECREASED STAGE III GFR 30-59 MODERATELY DECREASED STAGE IV GFR 15-29 SEVERELY DECREASED STAGE V GFR <15 VERY LITTLE GFR LEFT ESRD GFR <15 ON RECLAIMER 16 Lab Result Notes: Pre-Diabetes 5.7 - 6.4 % Diabetes = or > 6.5% 17 Units are mL/min/1.73 m2 Chronic Kidney Disease Staging per NKF: Stage I & II GFR >=60 Normal to Mildly Decreased Stage III GFR 30-59 Moderately Decreased Stage IV GFR 15-29 Severely Decreased Stage V GFR <15 Very Little GFR Left ESRD GFR <15 on RECLAIMER 18 Testing was performed on a S LIGHTLY hemolyzed specimen. Suggest recollection of specimen for more accurate test results. 19 DIAGNOSIS CRITERIA MMB ng/ml Relative Index (RI) NON-AMI < or = 5 N/A ANTON ZONE > 5 < or = 4 AMI > 5 > 4 20 Troponin I Reference Interva l for [employer] LOCI: 99th Percentile= 0.00-0.045 ng/ml Risk Stratification: <= 0.10 ng/ml Decreased Risk for Adverse Clinical Events. 0.10-1.50 ng/ml Increased Risk for Adv erse Clinical Events. Evaluation of additional criterion and/or repeat testing in 2-6 hours is suggested to rule out myocardial damage. >= 1.50 ng/ml Indicative of Myocardial Injury. Procedures Date Code Description Status 11/20/2020 [id number] Office/Outpatient Established Mo d MDM 30-39 Min Completed 02/24/2019 [id number] Mammogram Completed 12/27/2015 [id number] Mammogram Completed 05/06/2015 [id number] Mammogram Completed 09/10/2014 [id number] Colonoscopy Completed 04/25/2007 [id number] Bone Mineral Density Test Comple The Extraordinaries Description No Information Available Encounters Type Date Location Provider Dx Diagnosis Office Visit 11/20/2020 3[facility]p [facility] G30.9 Alzheimer's disease, unspecified F02.81 Dementia in oth diseases cla ssd elswhr w behavioral disturb E11.65 Type 2 diabetes mellitus wit h hyperglycemia E03.9 Hypothyroidism, unspecified I10 Essential (primary) hyperten terrence F41.9 Anxiety disorder, unspecifie d I73.9 Peripheral vascular disease, unspecified E78.5 Hyperlipidemia, unspecified Assessments Date Code Description Provider 04/03/2021 G30.9 Alzheimer's disease, unspecified Juancarlos Dewey M.D. 04/03/2021 E11.65 Type 2 diabetes mellitus with hy perglycemia Juancarlos Dewey M.D. 04/03/2021 E03.9 Hypothyroidism, unspecified Laila Dewey M.D. 04/03/2021 I10 Essential (primary) hypertension Juancarlos Dewey M.D. 04/03/2021 F41.9 Anxiety disorder, unspecified Tony Dewey M.D. 04/03/2021 I73.9 Peripheral vascular disease, uns pecified Juancarlos Dewey M.D. 04/03/2021 N39.0 Urinary tract infection, site no t specified Juancarlos Dewey M.D. 11/20/2020 G30.9 Alzheimer's disease, unspecified Juancarlos Dewey M.D. 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 11/20/2020 E11.65 Type 2 diabetes mellitus with hy perglycemia Juancarlos Dewey M.D. 11/20/2020 E03.9 Hypothyroidism, unspecified Laila Dewey M.D. 11/20/2020 I10 Essential (primary) hypertension Juancarlos Dewey M.D. 11/20/2020 F41.9 Anxiety disorder, unspecified Tony Dewey M.D. 11/20/2020 I73.9 Peripheral vascular disease, uns pecified Juancarlos Dewey M.D. 11/20/2020 E78.5 Hyperlipidemia, unspecified Laila Dewey M.D. Plan of Treatment Future Appointment(s):* 08/06/2021 11:30 am - Juancarlos Dewey M.D. at [facility] 11/20/2020 - Juancarlos Dewey M.D.* G30.9 Alzheimer's disease, unspecified * F02.81 Dementia in oth diseases classd elswhr w behavioral disturb * E11.65 Type 2 diabetes mellitus with hyperglycemia * E03.9 Hypothyroidism, unspecified * I10 Essential (primary) hypertension * F41.9 Anxiety disorder, unspecified * I73.9 Peripheral vascular disease, unspecified * E78.5 Hyperlipidemia, unspecified * * Comments:* 1. Alzheimer's disease: Severe and without acknowledgement of her daughter who is here. She is pleasant but intermittently cooperative. Family wishes to focus on quality of life and keep home with caretakers. Will continue to work on this and limit issues of pain or discomfort. 2. Type 2 diabetes mellitus with hyperglycemia: Long discussion of use of insulin and blood sugars. Will change Levemir to BID and increase dose since BS's in 300's at times. Will get list in 1-2 weeks to titrate. Due to quality of life issues, she is eating high sugar foods regularly. 3. Hypothyroidism: Await labs, ER labs discussed and daughter will follow up on those drawn today. 4. Hypertension: Stable on present medication, will continue and monitor.5. Anxiety disorder: Appears to be generally doing well on her current regimen, will monitor.6. Peripheral vascular disease: No clear abnormalities. Family decided against follow up with Dr. Lazcano unless urgent. 7. Hyperlipidemia: Has done well prior, will check at next visit.8. 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 This is a significant challenge at this point, but she does have care givers around the clock. Ongoing cares: Daughter Dina and head custodian Ashleigh present and explain they wish to avoid interventions when possible due to stress on patient. Right breast implant with occasional discomfort and we discussed, but will mon itor for significant issues before any intervention or consultation with plastics. I am going to see her again in 4 months with CMP and lipids. If she has new problems or issues sooner she will let us know. Functional Status Description No Information Available Mental Status Description No Information Available Referrals Description No Information Available
--- OUTSIDE RECORDS SUMMARY | 2021-05-21 13:58 | CCD | Continuity of Care Document ---
Author Author Lydia GEIGER M.D. Organization Unknown Address [address] [address] Phone [phone] Care Team Providers Care Sumo Wrestler Name Role Phone Juancarlos Geiger MD AUTM [phone] 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 Onset: 015 Hypothyroidism Juancarlos Geiger M.D. Onset: 05/21/2015 Mild recurrent major depression Juancarlos Geiger M.D. Onset: 05/21/2015 Hyperlipidemia Juancarlos Geiger M.D. Onset: 05/21/2015 Essential hypertension Juancarlos Geiger M.D. Onset: 5 Nausea Juancarlos Geiger M.D. Onset: 08/08/2015 Social History Type Date Description Comments Sex Unknown ETOH Use Consumes 2 glasses of wine per w [place] Tobacco Use Start: Unknown End: Unknown Patient [...] twice daily x 10 days 20caps Juancarlos Geiger M.D. 03/04 Tobramycin-Dexamethasone 0.3-0.1% Suspension 1 drop left eye three times a day x 7 days 2.500ml Anusha Morales, ANP 11/07/2020 One Touch Ultra Test Strips DMT2 test 1-3 times a day 100ungarry Geiger M.D. 08/28/2020 Onetouch II Test Strips Misc test twice daily e11.9 100ungarry Geiger M.D. 08/28/2020 Pen [place] 31G X 5 mm Misc injection 30 units bid,titrate as needed 200ungarry Geiger M.D. 08/28/2020 Fluconazole 150mg Tablets 1 tablet x1, repeat in 3 days 2tamauricio Geiger M.D. 06/06/2020 Lipitor 20mg Tablets 1 by mouth every day 30tamauricio Geiger M.D. 05/17/2020 Bupropion Hydrochloride ER (SR) 150mg Tablets ER 12HR 1 by mouth every day 30tamauricio Geiger M.D. 05/17/2020 Levothyroxine Sodium 125mcg Tablet s 1 by mouth every day 90tabs Juancarlos Geiger M.D. 05/03/2020 Levemir Flextouch 10 0Unit/ML Solution Pen-Inject inject 15 units twice a day 45ml Juancarlos rodriguez M.D. 05/03/2020 Onetouch Ultra 2 w/Device Kit test twice a day and as directed, e11.9 1ungarry Geiger M.D. 04/30/2020 Onetouch Ultrasoft Lancets Misc test twice a day e11.9 200ungarry Geiger M.D. 0 Seroquel 25mg Tablets 1/2 tablet PO in the Am and 1 tablet PO QHS 45tamauricio Geiger M.D. 03/03 Jennifer-bid Probiotic Tablets Take One Tablet By Mouth Every Other Day @8Am 45tamauricio Perez MD 06/02/2019 Aspirin Adult Low Dose 81mg Tablet s DR 1 by mouth every day 30wilfred Geiger M.D. 01/26/20 19 Sertraline HCL 50mg Tablets 1 by mouth every day. 90wilfred Geiger M.D. 06/28/2018 Namenda XR 28mg Caps ER 24HR 1 by mouth every day jaime Geiger M.D. 08/13/2017 Atenolol 25mg Tablets 1 by mouth every day yumiko Geiger M.D. 07/07/2016 Ramipril 5mg Capsules 1 tablet by mouth daily jaime Geiger M.D. Vitamin B Complex Tablets 1 by mouth every day 30wilfred Geiegr M.D. Medications Administered in Office Medication SIG Qnty Indications Ordering Provider Date Administration Of Flu Vaccine Inj hakeem Geiger M.D. 07/06/2019 Administration Of Flu Vaccine Inj hakeem Geiger M.D. 05/23/2018 Therapeutic Injection Injection Unknown 11/05/2017 Administration Of Flu Vaccine Inj hakeem Geiger M.D. 05/05/2016 Administration Of Flu Vaccine Inj hakeem Geiger M.D. 05/21/2015 Immunizations CPT Code Status Date Vaccine Lot # 76505 Given 07/06/2019 Influenza Vaccin e Quadrivalent Preser/Antibiotic Free Im Use [id number] 55422 Given 05/23/2018 Influenza Virus Vaccine, Quadrivalent (Cciiv4), Derived From Cell [id number] Q2037 Given 05/05/2016 Fluvirin Virus Vaccine [id number] 01 Q2037 Given 05/21/2015 Fluvirin Virus Vaccine 50490 01 22071 Given 04/26/2014 Influenza Virus Vaccine 07709 Given 12/27/2013 Pneumovax 23 48357 Given 12/27/2013 Adacel- Tetanus Diphtheria P ertussis (Age64 & Under) 91311 Given 05/10/2013 Influenza Virus Vaccine 29688 Given 06/13/2012 Influenza Virus Vaccine 61103 Given 05/02/2008 Influenza Virus Vaccine 35985 Refused 04/26/2014 Zoster Vaccine 20472 Refused 10/31/2008 Adacel- Tetanus Diphtheria P ertussis [...] Date Facility Test Result H/L Range Note Ua Dipstick Only 04/04/2021 [facility] Nursery Nurse: [place] [address] [phone] Urine Color YELLOW Yellow 1 Urine Appearance CLOUDY Abnormal Clear Urine PH 6.0 units 5.0 - 9.0 Urine Specific [place] 1.015 1.005 - 1.030 Urine Leukocytes MODERATE Abnormal Negative Urine Blood LARGE Abnormal Negative Urine Protein 2+ Abnormal Negative -Trace Urine Glucose NEGATIVE mg/dL Negative Urine Nitrite POSITIVE Abnormal Negative Urine Ketone 5 mg/dL mg/dL Abnormal Negative Urine Bilirubin NEGATIVE Negative Urine Urobilinogen 0.2 mg/dL 0.2 - 1.0 Complete Blood Count 04/03/2021 [facility] Nursery Nurse: [place] [address] [phone] WBC 15.2 x10*3/UL High 4.1 - 10.9 2 RBC 4.05 x10*6/UL Low 4.20 - 6.30 [...] 2.0 - 7.8 Comprehensive Chem Profile 04/03/2021 [facility] Nursery Nurse: Dr Gabo Perez [place], [place] [id number] [phone] Glucose 172 mg/dL High 74 - 99 3 BUN 23 mg/dL High 7 - 18 [...] Low >60 GFR 53 mL/min Low >60 4 A1c 04/03/2021 [facility] Nursery Nurse: [place] [address] [phone] Hba1c 8.4 % High <5.7 5 Est Avg Glucose 194 mg/dL High 60 - 110 Laboratory test finding 04/03/[address] [facility] Nursery Nurse: [place] [address] [phone] Thyroid Stimulating Hormone 3.55 uIU/mL 0.3 6 - 3.74 CBC With Differential 03/15/2021 [facility] [address] [place] [address] [phone] White Blood Count 16.3 10 High 4.0-10.0 [...] 36.0-66.0 Lymph % 8.1 % Low 24.0-44.0 Stone % 7.8 % Normal 2.0-8.0 Eos % 1.8 % Normal 0.0-3.0 Baso % 0.3 % Normal 0.0-1.0 Immature Granulocyte % 0.4 % Normal 0-3.0 Nucleated Red Blood Cell % 0.0 % Normal 0-0 Neutrophils # 13.3 10 High 1.5-8.5 Lymph # 1.3 10 Low 1.5-5.0 Stone # 1.3 10 High 0.0-0.8 Eos # 0.3 10 Normal 0.0-0.5 Baso # 0.1 10 Normal 0.0-0.2 Laboratory test finding 03/15/[address] [address] [phone] NT-Pro BNP 142 pg/mL High <125 Thyroid Stimulating Hormone 3.980 uIU/ML High 0.358-3.740 Free T4 0.98 ng/dL Normal 0.76-1.46 Basic Metabolic Profile 03/15/[address] [id number] [phone] Glucose, Fasting 103 mg/dL High 70-100 Blood Urea Nitrogen 23 mg/dL High 7-18 Creatinine For GFR 0.84 mg/dL Normal 0.55-1.30 Glomerular Filtration Rate > 60.0 Normal >39 6 Sodium Level 141 mEq/L Normal 136-145 Potassium Serum 4.3 mEq/L Normal 3.5-5.1 Chloride Level 110 mEq/L High 98-107 Carbon Dioxide Level 26 mEq/L Normal 21-32 Anion Gap 5 mEq/L Low 8-16 Calcium Level 8.5 mg/dL Low 8.8-10.2 Liver Profile 03/15/2021 [facility] [address] [place] [address] [phone] Ast/Sgot 28 U/L Normal 7-37 Alt/SGPT 33 U/L Normal 12-78 Alkaline Phosphatase 93 U/L Normal 45-117 Bilirubin,Total 0.4 mg/dL Normal 0.2-1.0 Bilirubin,Direct 0.1 mg/dL Normal 0.0-0.2 Total Protein 7.0 GM/DL Normal 6.4-8.2 Albumin 3.7 GM/DL Normal 3.2-5.2 Albumin/Globulin Ratio 1.1 Low 1.2-2.2 Cardiac Marker Panel 03/15/2021 [facility] enter [address] [place] [address] [phone] CPK Creatine Phosphokinase 161 U/L Normal 26-19 2 CK-MB Value Mass 1.7 NG/ML Normal <3.6 MB/CK Relative Index 1.06 Normal < Or =4 7 Troponin I < 0.02 NG/ML Normal < 0.10 8 Venous Blood Gas 03/15/2021 [facility] [address] [place] [address] [phone] Venous PH 7.293 units Low 7.330-7.430 Venous Partial Pressure Co2 60.1 mmHg High 38.0-50.0 Venous Partial Pressure O2 28.7 mmHg Low 30.0-50.0 Venous Total Co2 30.3 mEq/L High 24.0-28.0 Venous Hco3 28.4 mEq/L High 23.0-27.0 Venous Base Excess 0.6 Normal -2.0-2.0 Venous Standard Hco3 24.0 mEq/L Normal Venous O2 Saturation 54.2 % Low 60.0-80.0 Ua W/ Reflex To Culture 03/15/2021 [facility] [address] [place] [address] [phone] Appearance, Urine RFX HAZY Normal Clear Color, Urine RFX MODE Normal Yellow PH,Urine RFX 5.0 units Normal 5.0-9.0 Specific [place] Ur Auto RFX 1.024 Normal 1.002-1.035 Protein, [...] 0-1 Influenza A/B RSV Covid Amp 03/15/2021 [facility] [address] [place], [place] [id number] [phone] Influenza A Amplification NEGATIVE Normal Negati ve 9 Influenza B Amplification NEGATIVE Normal Negative 10 RSV Amplification NEGATIVE Normal Negative 11 Sars Covid-19 Amplification NEGATIVE Normal Negative 12 Blood Culture 03/15/2021 [facility] [address] [place], [place] [address] [phone] Blood Culture No growth after <SEE NOTE> 13 Blood Culture 03/15/2021 [facility] [address] [place], [place] [id number] [phone] Blood Culture No growth after <SEE NOTE> 14 Comprehensive Chem Profile 11/20/2020 [facility] Nurse: Dr Gabo Perez [place], [place] [id number] [phone] Glucose 223 mg/dL High 74 - 99 15 BUN 16 mg/dL 7 - 18 Creatinine [...] mL/min >60 GFR >= 60 mL/min >60 16 A1c 11/20/2020 [facility] Nursery Nurse: [place] [address] [phone] Hba1c 9.7 % High <5.7 17 Est Avg Glucose 232 mg/dL High 60 - 110 Laboratory test finding 11/20/[address] [facility] Nursery Nurse: [place] [address] [phone] Thyroid Stimulating Hormone 0.32 uIU/mL Low 0.3 6 - 3.74 CBC With Differential 11/09/2020 [facility] [id number] [place] [address] [phone] White Blood Count 7.1 10 Normal 4.0-10.0 [...] 36.0-66.0 Lymph % 19.1 % Low 24.0-44.0 Stone % 11.5 % High 2.0-8.0 Eos % 4.8 % High 0.0-3.0 Baso % 0.7 % Normal 0.0-1.0 Immature Granulocyte % 0.3 % Normal 0-3.0 Nucleated Red Blood Cell % 0.0 % Normal 0-0 Neutrophils # 4.5 10 Normal 1.5-8.5 Lymph # 1.4 10 Low 1.5-5.0 Stone # 0.8 10 Normal 0.0-0.8 Eos # 0.3 10 Normal 0.0-0.5 Baso # 0.1 10 Normal 0.0-0.2 Comprehensive Metabolic Profil 11/09/2020 [place] [id number] [place] [id number] [phone] Glucose, Fasting 155 mg/dL High 70-100 Blood Urea Nitrogen 21 mg/dL High 7-18 Creatinine For GFR 0.76 mg/dL Normal 0.55-1.30 Glomerular Filtration Rate > 60.0 Normal >39 1 8 Sodium Level 141 mEq/L Normal 136-145 Potassium Serum 4.4 mEq/L Normal 3.5-5.1 19 Chloride Level 108 mEq/L High 98-107 Carbon [...] 1.0 Low 1.2-2.2 Cardiac Marker Panel 11/09/2020 [facility] enter [address] [place] [address] [phone] CPK Creatine Phosphokinase 64 U/L Normal 26-19 2 CK-MB Value Mass 1.1 NG/ML Normal <3.6 MB/CK Relative Index 1.72 Normal < Or =4 20 Troponin I < 0.02 NG/ML Normal < 0.10 21 1 on macrobid 2 NOTE: RESULT VERIFIED. 3 100-125 mg/dL PRE-DIABET ES/FASTING >126 mg/dL DIABETES/FASTING 4 CHRONIC KIDNEY DISEASE STAGI NG PER NKF STAGE I & II GFR >= 60 NORMAL TO MILDLY DECREASED STAGE III GFR 30-59 MODERATELY DECREASED STAGE IV GFR 15-29 SEVERELY DECREASED STAGE V GFR <15 VERY LITTLE GFR LEFT ESRD GFR <15 ON ACCOUNTING INSTRUCTOR 5 Lab Result Notes: Pre-Diabetes 5.7 - 6.4 % Diabetes = or > 6.5% 6 Units are mL/min/1.73 m2 Chronic Kidney Disease Staging per NKF: Stage I & II GFR >=60 Normal to Mildly Decreased Stage III GFR 30-59 Moderately Decreased Stage IV GFR 15-29 Severely Decreased Stage V GFR <15 Very Little GFR Left ESRD GFR <15 on ACCOUNTING INSTRUCTOR 7 DIAGNOSIS CRITERIA MMB ng/ml Relative Index (RI) NON-AMI < or = 5 N/A ANTON ZONE > 5 < or = 4 AMI > 5 > 4 8 Troponin I Reference Interva l for Embly LOCI: 99th Percentile= 0.00-0.045 ng/ml Risk Stratification: <= 0.10 ng/ml Decreased Risk for Adverse Clinical Events. 0.10-1.50 ng/ml Increased Risk for Adv erse Clinical Events. Evaluation of additional criterion and/or repeat testing in 2-6 hours is suggested to rule out myocardial damage. >= 1.50 ng/ml Indicative of Myocardial Injury. 9 Negative results do not prec lude influenza or RSV virus infection and should not be used as the sole basis for treatment or other patient management decisions. 10 Negative results do not prec lude influenza or RSV virus infection and should not be used as the sole basis for treatment or other patient management decisions. 11 Negative results do not prec lude influenza or RSV virus infection and should not be used as the sole basis for treatment or other patient management decisions. 12 A false negative result may occur if [...] pathogens. DISCLAIMER: Testing was performed using the [employer] SARS-CoV-2 test. This test was developed and its performance characteristics determined by [employer]. This test has not been FDA cleared [...] the authorization is terminated or revoked sooner. 13 No growth after 72 hours . A ll specimens observed for 5 days. Results final at that time. No growth after 48 hours . All specimens observed for 5 days. Results final at that time. No growth after 24 hours . All specimens observed for 5 days. Results final at that time. NO GROWTH AFTER 5 DAYS 14 No growth after 72 hours . A ll specimens observed for 5 days. Results final at that time. No growth after 48 hours . All specimens observed for 5 days. Results final at that time. No growth after 24 hours . All specimens observed for 5 days. Results final at that time. NO GROWTH AFTER 5 DAYS 15 100-125 mg/dL PRE-DIABET ES/FASTING >126 mg/dL DIABETES/FASTING 16 CHRONIC KIDNEY DISEASE STAGI NG PER NKF STAGE I & II GFR >= 60 NORMAL TO MILDLY DECREASED STAGE III GFR 30-59 MODERATELY DECREASED STAGE IV GFR 15-29 SEVERELY DECREASED STAGE V GFR <15 VERY LITTLE GFR LEFT ESRD GFR <15 ON ACCOUNTING INSTRUCTOR 17 Lab Result Notes: Pre-Diabetes 5.7 - 6.4 % Diabetes = or > 6.5% 18 Units are mL/min/1.73 m2 Chronic Kidney Disease Staging per NKF: Stage I & II GFR >=60 Normal to Mildly Decreased Stage III GFR 30-59 Moderately Decreased Stage IV GFR 15-29 Severely Decreased Stage V GFR <15 Very Little GFR Left ESRD GFR <15 on ACCOUNTING INSTRUCTOR 19 Testing was performed on a S LIGHTLY hemolyzed specimen. Suggest recollection of specimen for more accurate test results. 20 DIAGNOSIS CRITERIA MMB ng/ml Relative Index (RI) NON-AMI < or = 5 N/A ANTON ZONE > 5 < or = 4 AMI > 5 > 4 21 Troponin I Reference Interva l for Embly LOCI: 99th Percentile= 0.00-0.045 ng/ml Risk Stratification: <= 0.10 ng/ml Decreased Risk for Adverse Clinical Events. 0.10-1.50 ng/ml Increased Risk for Adv erse Clinical Events. Evaluation of additional criterion and/or repeat testing in 2-6 hours is suggested to rule out myocardial damage. >= 1.50 ng/ml Indicative of Myocardial Injury. Procedures Date Code Description Status 04/03/2021 66627 Office/Outpatient Established Mo d MDM 30-39 Min Completed 11/20/2020 [id number] Office/Outpatient Established Mo d MDM 30-39 Min Completed 02/24/2019 [id number] Mammogram Completed 12/27/2015 [id number] Mammogram Completed 05/06/2015 [id number] Mammogram Completed 09/10/2014 [id number] Colonoscopy Completed 04/25/2007 [id number] Bone Mineral Density Test Comple Fashion Playtes Description No Information Available Encounters Type Date Location Provider Dx Diagnosis Office Visit 04/03/2021 11:30a [facility] F02.80 Dementia in oth diseases classd elswhr w /o behavrl disturb G30.9 Alzheimer's disease, unspeci fied N39.0 Urinary tract infection, sit e not specified E11.65 Type 2 diabetes mellitus wit h hyperglycemia E03.9 Hypothyroidism, unspecified I10 Essential (primary) hyperten terrence F41.9 Anxiety disorder, unspecifie d I73.9 Peripheral vascular disease, unspecified Office Visit 11/20/2020 3:00p [facility] G30.9 Alzheimer's disease, unspecified F02.81 Dementia in oth diseases cla ssd elswhr w behavioral disturb E11.65 Type 2 diabetes mellitus wit h hyperglycemia E03.9 Hypothyroidism, unspecified I10 Essential (primary) hyperten terrence F41.9 Anxiety disorder, unspecifie d I73.9 Peripheral vascular disease, unspecified E78.5 Hyperlipidemia, unspecified Assessments Date Code Description Provider 04/03/2021 F02.80 Dementia in other di seases classified elsewhere without behavioral disturbance Juancarlos Geiger M.D. 04/03/2021 G30.9 Alzheimer's disease, unspecified Juancarlos Geiger M.D. 04/03/2021 N39.0 Urinary tract infection, site no t specified Juancarlos Geiger M.D. 04/03/2021 E11.65 Type 2 diabetes mellitus with hy perglycemia Juancarlos Geiger M.D. 04/03/2021 E03.9 Hypothyroidism, unspecified Laila Geiger M.D. 04/03/2021 I10 Essential (primary) hypertension Juancarlos Geiger M.D. 04/03/2021 F41.9 Anxiety disorder, unspecified Tony Geiger M.D. 04/03/2021 I73.9 Peripheral vascular disease, uns pecified Juancarlos Geiger M.D. 11/20/2020 G30.9 Alzheimer's disease, unspecified Juancarlos Geiger M.D. 11/20/2020 F02.81 Dementia in other di seases classified elsewhere with behavioral disturbance Juancarlos Geiger M.D. 11/20/2020 E11.65 Type 2 diabetes mellitus with hy perglycemia Juancarlos Geiger M.D. 11/20/2020 E03.9 Hypothyroidism, unspecified Laila Geiger M.D. 11/20/2020 I10 Essential (primary) hypertension Juancarlos Geiger M.D. 11/20/2020 F41.9 Anxiety disorder, unspecified Tony Geiger M.D. 11/20/2020 I73.9 Peripheral vascular disease, uns loraified Juancarlos Geiger M.D. 11/20/2020 E78.5 Hyperlipidemia, unspecified Laila Geiger M.D. Plan of Treatment Future Appointment(s):* 08/06/2021 11:30 am - [facility] 11/20/2020 - Juancarlos Geiger M.D.* G30.9 Alzheimer's disease, unspecified * F02.81 [...] classed elsewhere w behavioral disturb: Follows with [facility] and will continue appropriate follow up to optimize care. This is a significant challenge at this point, but she does have care givers around the clock. Ongoing cares: Daughter Dina and instructor extension work Ashleigh present and explain they wish to [...]
--- OUTSIDE RECORDS SUMMARY | 2021-05-21 13:58 | CCD | Continuity of Care Document ---
Author Author Lab Schedule, Lydia Rudolph Organization Unknown Address [address] [address] Phone Unavailable Care Team Providers Care Exhibition Specialist Name Role Phone Juancarlos Dewey MD AUTM [phone] [facility] AUTM Problems Active Problems Provider Date [...] Consumes 2 glasses of wine per w [place] Tobacco Use Start: Unknown End: Unknown Patient [...] SIG Qnty Indications Ordering Provide r Date Cipro 500mg Tablets 1 by mouth twice a day x 7 days 14tamauricio Dewey M.D. 04/15/2021 Tobramycin-Dexamethasone 0.3-0.1% Suspension 1 drop left eye three times a day x 7 days 2.500ml Anusha Morales, ANP 11/07/2020 One Touch Ultra Test Strips DMT2 test 1-3 times a day 100ungarry Dewey M.D. 08/28/2020 Onetouch II Test Strips Misc test twice daily e11.9 100ungarry Dewey M.D. 08/28/2020 Pen Grandy 31G X 5 mm Misc injection 30 units bid,titrate as needed 200ungarry Dewey M.D. 08/28/2020 Fluconazole 150mg Tablets 1 tablet x1, repeat in 3 days 2wilfred Dewey M.D. 06/06/2020 Lipitor 20mg Tablets 1 [...] 5mg Capsules 1 tablet by mouth daily 90pam Dewey M.D. Vitamin B Complex Tablets 1 by mouth every day 30wilfred Dewey M.D. History Medications Macrobid 100mg Capsules 1 tablet by mouth twice daily x 10 days 20pam Dewey M.D. 03/04 - 04/15/2021 Medications Administered in Office Medication SIG Qnty Indications Ordering Provider Date Administration Of Flu Vaccine Inj hakeem Dewey M.D. 07/06/2019 Administration Of Flu Vaccine Inj hakeem Dewey M.D. 05/23/2018 Therapeutic Injection Injection Unknown 11/05/2017 Administration Of Flu Vaccine Inj hakeem Dewey M.D. 05/05/2016 Administration Of Flu Vaccine Inj hakeem Dewey M.D. 05/21/2015 Immunizations CPT Code Status Date Vaccine Lot # [id number] Given 07/06/2019 Influenza Vaccin e Quadrivalent Preser/Antibiotic Free Im Use [id number] 09828 Given 05/23/2018 Influenza Virus Vaccine, Quadrivalent ([id number]), Derived From Cell [id number] Q2037 Given 05/05/2016 Fluvirin Virus Vaccine 78620 01 Q2037 Given 05/21/2015 Fluvirin Virus Vaccine 09654 01 98897 Given 04/26/2014 Influenza Virus Vaccine 98477 Given 12/27/2013 Pneumovax 23 86921 Given 12/27/2013 Adacel- Tetanus Diphtheria P ertussis (Age64 & Under) 63701 Given 05/10/2013 Influenza Virus Vaccine 54288 Given 06/13/2012 Influenza Virus Vaccine 68316 Given 05/02/2008 Influenza Virus Vaccine 24098 Refused 04/26/2014 Zoster Vaccine 12518 Refused 10/31/2008 Adacel- Tetanus Diphtheria P ertussis [...] H/L Range Note Ua Dipstick Only 04/04/2021 [facility] Special Assets Officer: [place] [address] [phone] Urine Color YELLOW Yellow 1 Urine Appearance CLOUDY Abnormal Clear Urine PH 6.0 units 5.0 - 9.0 Urine Specific [place] 1.015 1.005 - 1.030 Urine Leukocytes MODERATE Abnormal Negative Urine Blood LARGE Abnormal Negative Urine Protein 2+ Abnormal Negative -Trace Urine Glucose NEGATIVE mg/dL Negative Urine Nitrite POSITIVE Abnormal Negative Urine Ketone 5 mg/dL mg/dL Abnormal Negative Urine Bilirubin NEGATIVE Negative Urine Urobilinogen 0.2 mg/dL 0.2 - 1.0 Complete Blood Count 04/03/2021 [facility] Special Assets Officer: [place] [address] [phone] WBC 15.2 x10*3/UL High 4.1 - 10.9 [...] 2.0 - 7.8 Comprehensive Chem Profile 04/03/2021 [facility] Special Assets Officer: [place] [address] [phone] Glucose 172 mg/dL High 74 - 99 [...] 53 mL/min Low >60 4 A1c 04/03/2021 [facility] Special Assets Officer: [place] [address] [phone] Hba1c 8.4 % High <5.7 5 Est Avg Glucose 194 mg/dL High 60 - 110 Laboratory test finding 04/03/2021 [facility] Special Assets Officer: [place] [address] [phone] Thyroid Stimulating Hormone 3.55 uIU/mL 0.3 6 - 3.74 CBC With Differential 03/15/2021 [facility] [address] [place] [address] [phone] White Blood Count 16.3 10 High 4.0-10.0 [...] 36.0-66.0 Lymph % 8.1 % Low 24.0-44.0 Brown % 7.8 % Normal 2.0-8.0 Eos % 1.8 % Normal 0.0-3.0 Baso % 0.3 % Normal 0.0-1.0 Immature Granulocyte % 0.4 % Normal 0-3.0 Nucleated Red Blood Cell % 0.0 % Normal 0-0 Neutrophils # 13.3 10 High 1.5-8.5 Lymph # 1.3 10 Low 1.5-5.0 Brown # 1.3 10 High 0.0-0.8 Eos # 0.3 10 Normal 0.0-0.5 Baso # 0.1 10 Normal 0.0-0.2 Laboratory test finding 03/15/[address] [address] [phone] NT-Pro BNP 142 pg/mL High <125 Thyroid Stimulating Hormone 3.980 uIU/ML High 0.358-3.740 Free T4 0.98 ng/dL Normal 0.76-1.46 Basic Metabolic Profile 03/15/[address] [id number] [phone] Glucose, Fasting 103 mg/dL High 70-100 Blood [...] 8.5 mg/dL Low 8.8-10.2 Liver Profile 03/15/2021 [facility] [address] [place] [address] [phone] Ast/Sgot 28 U/L Normal 7-37 Alt/SGPT 33 U/L Normal 12-78 Alkaline Phosphatase 93 U/L Normal 45-117 Bilirubin,Total 0.4 mg/dL Normal 0.2-1.0 Bilirubin,Direct 0.1 mg/dL Normal 0.0-0.2 Total Protein 7.0 GM/DL Normal 6.4-8.2 Albumin 3.7 GM/DL Normal 3.2-5.2 Albumin/Globulin Ratio 1.1 Low 1.2-2.2 Cardiac Marker Panel 03/15/[address] [address] [phone] CPK Creatine Phosphokinase 161 U/L Normal 26-19 2 CK-MB Value Mass 1.7 NG/ML Normal <3.6 MB/CK Relative Index 1.06 Normal < Or =4 7 Troponin I < 0.02 NG/ML Normal < 0.10 8 Venous Blood Gas 03/15/2021 [place] [id number] [phone] Venous PH 7.293 units Low 7.330-7.430 Venous Partial Pressure Co2 60.1 mmHg High 38.0-50.0 Venous Partial Pressure O2 28.7 mmHg Low 30.0-50.0 Venous Total Co2 30.3 mEq/L High 24.0-28.0 Venous Hco3 28.4 mEq/L High 23.0-27.0 Venous Base Excess 0.6 Normal -2.0-2.0 Venous Standard Hco3 24.0 mEq/L Normal Venous O2 Saturation 54.2 % Low 60.0-80.0 Ua W/ Reflex To Culture 03/15/[address] [address] [phone] Appearance, Urine RFX HAZY Normal Clear Color, Urine RFX MODE Normal Yellow PH,Urine RFX 5.0 units Normal 5.0-9.0 Specific [place] Ur Auto RFX 1.024 Normal 1.002-1.035 Protein, [...] 0-1 Influenza A/B RSV Covid Amp 03/15/[address] [facility] [address] [place] [place], [place] [id number] [phone] Influenza A Amplification NEGATIVE Normal Negati ve 9 Influenza B Amplification NEGATIVE Normal Negative 10 RSV Amplification NEGATIVE Normal Negative 11 Sars Covid-19 Amplification NEGATIVE Normal Negative 12 Blood Culture 03/15/2021 [facility] [address] [place], [place] [id number] [phone] Blood Culture No growth after <SEE NOTE> 13 Blood Culture 03/15/2021 [facility] [address] [place], [place] [id number] [phone] Blood Culture No growth after <SEE NOTE> 14 Comprehensive Chem Profile 11/20/2020 [facility] Special Assets Officer: [place] [address] [phone] Glucose 223 mg/dL High 74 - 99 [...] >= 60 mL/min >60 16 A1c 11/20/2020 [facility] Special Assets Officer: [place] [address] [phone] Hba1c 9.7 % High <5.7 17 Est Avg Glucose 232 mg/dL High 60 - 110 Laboratory test finding 11/20/2020 [facility] Special Assets Officer: [place] [address] [phone] Thyroid Stimulating Hormone 0.32 uIU/mL Low 0.3 6 - 3.74 CBC With Differential 11/09/[address] [address] [phone] White Blood Count 7.1 10 Normal 4.0-10.0 [...] 36.0-66.0 Lymph % 19.1 % Low 24.0-44.0 Brown % 11.5 % High 2.0-8.0 Eos % 4.8 % High 0.0-3.0 Baso % 0.7 % Normal 0.0-1.0 Immature Granulocyte % 0.3 % Normal 0-3.0 Nucleated Red Blood Cell % 0.0 % Normal 0-0 Neutrophils # 4.5 10 Normal 1.5-8.5 Lymph # 1.4 10 Low 1.5-5.0 Brown # 0.8 10 Normal 0.0-0.8 Eos # 0.3 10 Normal 0.0-0.5 Baso # 0.1 10 Normal 0.0-0.2 Comprehensive Metabolic Profil 11/09/2020 [facility] [address] [place] [address] [phone] Glucose, Fasting 155 mg/dL High 70-100 Blood [...] 1.0 Low 1.2-2.2 Cardiac Marker Panel 11/09/2020 [facility] [address] [place] [address] [phone] CPK Creatine Phosphokinase 64 U/L Normal 26-19 [...] LITTLE GFR LEFT ESRD GFR <15 ON [employer] PRO[employer] LEADER 5 Lab Result Notes: Pre-Diabetes 5.7 - 6.4 % Diabetes = or > 6.5% 6 Units are mL/min/1.73 m2 Chronic Kidney Disease Staging per NKF: Stage I & II GFR >=60 Normal to Mildly Decreased Stage III GFR 30-59 Moderately Decreased Stage IV GFR 15-29 Severely Decreased Stage V GFR <15 Very Little GFR Left ESRD GFR <15 on [employer] PRO[employer] LEADER 7 DIAGNOSIS CRITERIA MMB ng/ml Relative Index (RI) NON-AMI < or = 5 N/A ANTON ZONE > 5 < or = 4 AMI > 5 > 4 8 Troponin I Reference Interva l for [employer] [place] LOCI: 99th Percentile= 0.00-0.045 ng/ml Risk Stratification: [...] pathogens. DISCLAIMER: Testing was performed using the [employer] SARS-CoV-2 test. This test was developed and its performance characteristics determined by [employer]. This test has not been FDA cleared [...] LITTLE GFR LEFT ESRD GFR <15 ON [employer]IFIC [employer] PROJECT LEADER 17 Lab Result Notes: Pre-Diabetes 5.7 - 6.4 % Diabetes = or > 6.5% 18 Units are mL/min/1.73 m2 Chronic Kidney Disease Staging per NKF: Stage I & II GFR >=60 Normal to Mildly Decreased Stage III GFR 30-59 Moderately Decreased Stage IV GFR 15-29 Severely Decreased Stage V GFR <15 Very Little GFR Left ESRD GFR <15 on [employer] PROJECT LEADER 19 Testing was performed on a S LIGHTLY hemolyzed specimen. Suggest recollection of specimen for more accurate test results. 20 DIAGNOSIS CRITERIA MMB ng/ml Relative Index (RI) NON-AMI < or = 5 N/A ANTON ZONE > 5 < or = 4 AMI > 5 > 4 21 Troponin I Reference Interva l for [employer] LOCI: 99th Percentile= 0.00-0.045 ng/ml Risk Stratification: <= 0.10 ng/ml Decreased Risk for Adverse Clinical Events. 0.10-1.50 ng/ml Increased Risk for Adv erse Clinical Events. Evaluation of additional criterion and/or repeat testing in 2-6 hours is suggested to rule out myocardial damage. >= 1.50 ng/ml Indicative of Myocardial Injury. Procedures Date Code Description Status 04/03/2021 27981 Office/Outpatient Established Mo d MDM 30-39 Min Completed 11/20/2020 76618 Office/Outpatient Established Mo d MDM 30-39 Min Completed 02/24/2019 [id number] Mammogram Completed 12/27/2015 [id number] Mammogram Completed 05/06/2015 [id number] Mammogram Completed 09/10/2014 [id number] Colonoscopy Completed 04/25/2007 [id number] Bone Mineral Density Test Comple [email or web address] Description No Information Available Encounters Type Date Location Provider Dx Diagnosis Office Visit 04/03/2021 11:30a [facility] F02.80 Dementia in oth diseases classd elswhr w /o behavrl disturb G30.9 Alzheimer's disease, unspeci fied N39.0 Urinary tract infection, sit e not specified E11.65 Type 2 diabetes mellitus wit h hyperglycemia E03.9 Hypothyroidism, unspecified I10 Essential (primary) hyperten terrence F41.9 Anxiety disorder, unspecifie d I73.9 Peripheral vascular disease, unspecified Office Visit 11/20/2020 3:00p [facility] G30.9 Alzheimer's disease, unspecified F02.81 Dementia in oth diseases cla ssd elswhr w behavioral disturb E11.65 Type 2 diabetes mellitus wit h hyperglycemia E03.9 Hypothyroidism, unspecified I10 Essential (primary) hyperten terrence F41.9 Anxiety disorder, unspecifie d I73.9 Peripheral vascular disease, unspecified E78.5 Hyperlipidemia, unspecified Assessments Date Code Description Provider 04/04/2021 N39.0 Urinary tract infection, site no t specified Juancarlos Dewey M.D. 04/04/2021 N39.0 Urinary tract infection, site no t specified Lab Schedule 04/03/2021 F02.80 Dementia in other di seases classified elsewhere without behavioral disturbance Juancarlos Dewey M.D. 04/03/2021 G30.9 Alzheimer's disease, unspecified Juancarlos Dewey M.D. 04/03/2021 N39.0 Urinary tract infection, site no t specified Juancarlos Dewey M.D. 04/03/2021 E11.65 Type 2 diabetes mellitus with hy perglycemia Juancarlos Dewey M.D. 04/03/2021 E03.9 Hypothyroidism, unspecified Laila Dewey M.D. 04/03/2021 I10 Essential (primary) hypertension Juancarlos Dewey M.D. 04/03/2021 F41.9 Anxiety disorder, unspecified Tony Dewey M.D. 04/03/2021 I73.9 Peripheral vascular disease, uns pecified Juancarlos Dewey M.D. 11/20/2020 G30.9 Alzheimer's disease, [...] 11:30 am - Juancarlos Dewey M.D. at [facility] 11/20/2020 - Juancarlos Dewey M.D.* [...] classed elsewhere w behavioral disturb: Follows with [facility] and will continue appropriate follow up to optimize care. This is a significant challenge at this point, but she does have care givers around the clock. Ongoing cares: Daughter Dina and sander wooden penc[employer] Ashleigh present and explain they wish to [...]
[2021-05-21 13:59] LABS: ALBUMIN 3.1 GM/DL (3.2-5.2); ALT/SGPT 19 U/L (12-78); BILIRUBIN,DIRECT 0.1 MG/DL (0.0-0.2); BILIRUBIN,TOTAL 0.4 MG/DL (0.2-1.0); BLOOD UREA NITROGEN 24 MG/DL (7-18); CALCIUM LEVEL 8.9 MG/DL (8.8-10.2); CARBON DIOXIDE LEVEL 28 MEQ/L (21-32); CHLORIDE LEVEL 108 MEQ/L (98-107); CK-MB VALUE MASS 1.5 NG/ML (<3.6); CPK CREATINE PHOSPHOKINASE 119 U/L (26-192); CREATININE FOR GFR 1.02 MG/DL (0.55-1.30); ETHYL ALCOHOL (ETHANOL) < 0.003 % (0.000-0.010); FREE T4 1.16 NG/DL (0.76-1.46); GLOMERULAR FILTRATION RATE 56.6 (>39); GLUCOSE, FASTING 218 MG/DL (70-100); MB/CK RELATIVE INDEX 1.26 (< OR =4); POTASSIUM SERUM 5.1 MEQ/L (3.5-5.1); SALICYLATE LEVEL < 1.7 MG/DL (5.0-30.0); SODIUM LEVEL 138 MEQ/L (136-145); THYROID STIMULATING HORMONE 0.917 uIU/ML (0.358-3.740); TOTAL PROTEIN 6.5 GM/DL (6.4-8.2); TROPONIN I < 0.02 NG/ML (< 0.10)
--- OUTSIDE RECORDS SUMMARY | 2021-05-21 13:59 | CCD | Continuity of Care Document ---
Author Author Lydia GEIGER M.D. Organization Unknown Address [address] [address] Phone [phone] Care Team Providers Care Tree Killer Name Role Phone Juancarlos Geiger MD AUTM [phone] [facility] AUTM Problems Active Problems Provider Date [...] Consumes 2 glasses of wine per w [place] Tobacco Use Start: Unknown End: Unknown Patient [...] 1 tablet by mouth twice daily x 5 days hay Perez MD 03/04 Tobramycin-Dexamethasone 0.3-0.1% Suspension 1 drop left eye three times a day x 7 days 2.500ml CALVIN Santzio 11/07/2020 One Touch Ultra Test Strips DMT2 test 1-3 times a day 100ungarry Geiger M.D. 08/28/2020 Onetouch II Test Strips Misc test twice daily e11.9 100ungarry Geiger M.D. 08/28/2020 Pen [place] 31G X 5 mm Misc injection 30 units bid,titrate as needed 200ungarry Geiger M.D. 08/28/2020 Fluconazole 150mg Tablets 1 tablet x1, repeat in 3 days 2tamauricio Geiger M.D. 06/06/2020 Lipitor 20mg Tablets 1 by mouth every day 30tabs Juancarlos Geiger M.D. 05/17/2020 Bupropion Hydrochloride ER (SR) [...] Tablet By Mouth Every Other Day @8Am 45wilfred Perez MD 06/02/2019 Aspirin Adult Low Dose [...] Tablets 1 by mouth every day 30wilfred Geiger M.D. Medications Administered in Office Medication SIG Qnty Indications Ordering Provider Date Administration Of Flu Vaccine Inj hakeem Geiger M.D. 07/06/2019 Administration Of Flu Vaccine Inj hakeem Geiger M.D. 05/23/2018 Therapeutic Injection Injection Unknown 11/05/2017 Administration Of Flu Vaccine Inj hakeem Geiger M.D. 05/05/2016 Administration Of Flu Vaccine Inj hakeem Geiger M.D. 05/21/2015 Immunizations CPT Code Status Date Vaccine Lot # 16075 Given 07/06/2019 Influenza Vaccin e Quadrivalent Preser/Antibiotic Free Im Use [id number] [id number] Given 05/23/2018 Influenza Virus Vaccine, Quadrivalent (Cciiv4), Derived From Cell [id number] Q2037 Given 05/05/2016 Fluvirin Virus Vaccine [id number] 01 Q2037 Given 05/21/2015 Fluvirin Virus Vaccine 03631 01 33027 Given 04/26/2014 Influenza Virus Vaccine 18823 Given 12/27/2013 Pneumovax 23 80317 Given 12/27/2013 Adacel- Tetanus Diphtheria P ertussis (Age64 & Under) 51745 Given 05/10/2013 Influenza Virus Vaccine 38351 Given 06/13/2012 Influenza Virus Vaccine 29385 Given 05/02/2008 Influenza Virus Vaccine 62960 Refused 04/26/2014 Zoster Vaccine 69073 Refused 10/31/2008 Adacel- Tetanus Diphtheria P ertussis [...] Date Facility Test Result H/L Range Note Blood Culture 03/15/2021 [facility] [address] [place] [address] [phone] Blood Culture No growth after <SEE NOTE> 1 Blood Culture 03/15/[address] [address] [phone] Blood Culture No growth after <SEE NOTE> 2 Influenza A/B RSV Covid Amp 03/15/[address] [address] [phone] Influenza A Amplification NEGATIVE Normal Negati ve 3 Influenza B Amplification NEGATIVE Normal Negative 4 RSV Amplification NEGATIVE Normal Negative 5 Sars Covid-19 Amplification NEGATIVE Normal Negative 6 Ua W/ Reflex To Culture 03/15/[address] [address] [phone] Appearance, Urine RFX HAZY Normal Clear Color, Urine RFX MODE Normal Yellow PH,Urine RFX 5.0 units Normal 5.0-9.0 Specific [place] Ur Auto RFX 1.024 Normal 1.002-1.035 Protein, [...] Urine Auto RFX 3 /LPF Normal 0-1 Venous Blood Gas 03/15/2021 [facility] [address] [place], [place] [address] [phone] Venous PH 7.293 units Low 7.330-7.430 Venous Partial Pressure Co2 60.1 mmHg High 38.0-50.0 Venous Partial Pressure O2 28.7 mmHg Low 30.0-50.0 Venous Total Co2 30.3 mEq/L High 24.0-28.0 Venous Hco3 28.4 mEq/L High 23.0-27.0 Venous Base Excess 0.6 Normal -2.0-2.0 Venous Standard Hco3 24.0 mEq/L Normal Venous O2 Saturation 54.2 % Low 60.0-80.0 CBC With Differential 03/15/2021 [address] [place] [address] [phone] White Blood Count 16.3 10 High 4.0-10.0 [...] 36.0-66.0 Lymph % 8.1 % Low 24.0-44.0 Campbell % 7.8 % Normal 2.0-8.0 Eos % 1.8 % Normal 0.0-3.0 Baso % 0.3 % Normal 0.0-1.0 Immature Granulocyte % 0.4 % Normal 0-3.0 Nucleated Red Blood Cell % 0.0 % Normal 0-0 Neutrophils # 13.3 10 High 1.5-8.5 Lymph # 1.3 10 Low 1.5-5.0 Campbell # 1.3 10 High 0.0-0.8 Eos # 0.3 10 Normal 0.0-0.5 Baso # 0.1 10 Normal 0.0-0.2 Cardiac Marker Panel 03/15/2021 [facility] enter [address] [place] [address] [phone] CPK Creatine Phosphokinase 161 U/L Normal 26-19 2 CK-MB Value Mass 1.7 NG/ML Normal <3.6 MB/CK Relative Index 1.06 Normal < Or =4 7 Troponin I < 0.02 NG/ML Normal < 0.10 8 Liver Profile 03/15/2021 [facility] n[facility] [address] [place] [address] [phone] Ast/Sgot 28 U/L Normal 7-37 Alt/SGPT 33 U/L Normal 12-78 Alkaline Phosphatase 93 U/L Normal 45-117 Bilirubin,Total 0.4 mg/dL Normal 0.2-1.0 Bilirubin,Direct 0.1 mg/dL Normal 0.0-0.2 Total Protein 7.0 GM/DL Normal 6.4-8.2 Albumin 3.7 GM/DL Normal 3.2-5.2 Albumin/Globulin Ratio 1.1 Low 1.2-2.2 Basic Metabolic Profile 03/15/[address] [address] [phone] Glucose, Fasting 103 mg/dL High 70-100 Blood Urea Nitrogen 23 mg/dL High 7-18 Creatinine For GFR 0.84 mg/dL Normal 0.55-1.30 Glomerular Filtration Rate > 60.0 Normal >39 9 Sodium Level 141 mEq/L Normal 136-145 Potassium Serum 4.3 mEq/L Normal 3.5-5.1 Chloride Level 110 mEq/L High 98-107 Carbon Dioxide Level 26 mEq/L Normal 21-32 Anion Gap 5 mEq/L Low 8-16 Calcium Level 8.5 mg/dL Low 8.8-10.2 Laboratory test finding 03/15/2021 [address] [place] [address] [phone] NT-Pro BNP 142 pg/mL High <125 Thyroid Stimulating Hormone 3.980 uIU/ML High 0.358-3.740 Free T4 0.98 ng/dL Normal 0.76-1.46 Comprehensive Chem Profile 11/20/2020 [facility], letha Marketing Research Intern: [place] [address] [phone] Glucose 223 mg/dL High 74 - 99 10 BUN 16 mg/dL 7 - 18 Creatinine [...] mL/min >60 GFR >= 60 mL/min >60 11 A1c 11/20/2020 [facility] , Marketing Research Intern: [place] [address] [phone] Hba1c 9.7 % High <5.7 12 Est Avg Glucose 232 mg/dL High 60 - 110 Laboratory test finding 11/20/2020 [facility] [employer] Marketing Research Intern: [place] [address] [phone] Thyroid Stimulating Hormone 0.32 uIU/mL Low 0.3 6 - 3.74 CBC With Differential 11/09/2020 [facility] [address] [place] [address] [phone] White Blood Count 7.1 10 Normal 4.0-10.0 [...] 36.0-66.0 Lymph % 19.1 % Low 24.0-44.0 Campbell % 11.5 % High 2.0-8.0 Eos % 4.8 % High 0.0-3.0 Baso % 0.7 % Normal 0.0-1.0 Immature Granulocyte % 0.3 % Normal 0-3.0 Nucleated Red Blood Cell % 0.0 % Normal 0-0 Neutrophils # 4.5 10 Normal 1.5-8.5 Lymph # 1.4 10 Low 1.5-5.0 Campbell # 0.8 10 Normal 0.0-0.8 Eos # 0.3 10 Normal 0.0-0.5 Baso # 0.1 10 Normal 0.0-0.2 Comprehensive Metabolic Profil 11/09/[address] [address] [phone] Glucose, Fasting 155 mg/dL High 70-100 Blood Urea Nitrogen 21 mg/dL High 7-18 Creatinine For GFR 0.76 mg/dL Normal 0.55-1.30 Glomerular Filtration Rate > 60.0 Normal >39 1 3 Sodium Level 141 mEq/L Normal 136-145 Potassium Serum 4.4 mEq/L Normal 3.5-5.1 14 Chloride Level 108 mEq/L High 98-107 Carbon [...] 1.2-2.2 Cardiac Marker Panel 11/09/2020 [facility] enter [address] [place] [address] [phone] CPK Creatine Phosphokinase 64 U/L Normal 26-19 2 CK-MB Value Mass 1.1 NG/ML Normal <3.6 MB/CK Relative Index 1.72 Normal < Or =4 15 Troponin I < 0.02 NG/ML Normal < 0.10 16 1 No growth after 72 hours . A ll specimens observed for 5 days. Results final at that time. No growth after 48 hours . All specimens observed for 5 days. Results final at that time. No growth after 24 hours . All specimens observed for 5 days. Results final at that time. NO GROWTH AFTER 5 DAYS 2 No growth after 72 hours . A ll specimens observed for 5 days. Results final at that time. No growth after 48 hours . All specimens observed for 5 days. Results final at that time. No growth after 24 hours . All specimens observed for 5 days. Results final at that time. NO GROWTH AFTER 5 DAYS 3 Negative results do not prec lude influenza or RSV virus infection and should not be used as the sole basis for treatment or other patient management decisions. 4 Negative results do not prec lude influenza or RSV virus infection and should not be used as the sole basis for treatment or other patient management decisions. 5 Negative results do not prec lude influenza or RSV virus infection and should not be used as the sole basis for treatment or other patient management decisions. 6 A false negative result may occur if [...] pathogens. DISCLAIMER: Testing was performed using the [employer] SARS-CoV-2 test. This test was developed and its performance characteristics determined by [employer]. This test has not been FDA cleared [...] the authorization is terminated or revoked sooner. 7 DIAGNOSIS CRITERIA MMB ng/ml Relative Index (RI) NON-AMI < or = 5 N/A ANTON ZONE > 5 < or = 4 AMI > 5 > 4 8 Troponin I Reference Interva l for Siemens Sh[place] LOCI: 99th Percentile= 0.00-0.045 ng/ml Risk Stratification: <= 0.10 ng/ml Decreased Risk for Adverse Clinical Events. 0.10-1.50 ng/ml Increased Risk for Adv erse Clinical Events. Evaluation of additional criterion and/or repeat testing in 2-6 hours is suggested to rule out myocardial damage. >= 1.50 ng/ml Indicative of Myocardial Injury. 9 Units are mL/min/1.73 m2 Chronic Kidney Disease Staging per NKF: Stage I & II GFR >=60 Normal to Mildly Decreased Stage III GFR 30-59 Moderately Decreased Stage IV GFR 15-29 Severely Decreased Stage V GFR <15 Very Little GFR Left ESRD GFR <15 on DRUM TENDER 10 100-125 mg/dL PRE-DIABET ES/FASTING >126 mg/dL DIABETES/FASTING 11 CHRONIC KIDNEY DISEASE STAGI NG PER NKF STAGE I & II GFR >= 60 NORMAL TO MILDLY DECREASED STAGE III GFR 30-59 MODERATELY DECREASED STAGE IV GFR 15-29 SEVERELY DECREASED STAGE V GFR <15 VERY LITTLE GFR LEFT ESRD GFR <15 ON DRUM TENDER 12 Lab Result Notes: Pre-Diabetes 5.7 - 6.4 % Diabetes = or > 6.5% 13 Units are mL/min/1.73 m2 Chronic Kidney Disease Staging per NKF: Stage I & II GFR >=60 Normal to Mildly Decreased Stage III GFR 30-59 Moderately Decreased Stage IV GFR 15-29 Severely Decreased Stage V GFR <15 Very Little GFR Left ESRD GFR <15 on DRUM TENDER 14 Testing was performed on a S LIGHTLY hemolyzed specimen. Suggest recollection of specimen for more accurate test results. 15 DIAGNOSIS CRITERIA MMB ng/ml Relative Index (RI) NON-AMI < or = 5 N/A ANTON ZONE > 5 < or = 4 AMI > 5 > 4 16 Troponin I Reference Interva l for Siemens Shallowater LOCI: 99th Percentile= 0.00-0.045 ng/ml Risk Stratification: <= 0.10 ng/ml Decreased Risk for Adverse Clinical Events. 0.10-1.50 ng/ml Increased Risk for Adv erse Clinical Events. Evaluation of additional criterion and/or repeat testing in 2-6 hours is suggested to rule out myocardial damage. >= 1.50 ng/ml Indicative of Myocardial Injury. Procedures Date Code Description Status 11/20/2020 [address]65[address] Office/Outpatient Established Mo d MDM 30-39 Min Completed 02/24/2019 [id number] Mammogram Completed 12/27/2015 [id number] Mammogram Completed 05/06/2015 [id number] Mammogram Completed 09/10/2014 [id number] Colonoscopy Completed 04/25/2007 [id number] Bone Mineral Density Test Comple [place] Description No Information Available Encounters Type Date Location Provider Dx Diagnosis Office Visit 11/20/2020 3:00p [facility] Juancarlos Geiger M.D. G30.9 Alzheimer's disease, unspecified F02.81 Dementia in oth diseases cla ssd elswhr w behavioral disturb E11.65 Type 2 diabetes mellitus wit h hyperglycemia E03.9 Hypothyroidism, unspecified I10 Essential (primary) hyperten terrence F41.9 Anxiety disorder, unspecifie d I73.9 Peripheral vascular disease, unspecified E78.5 Hyperlipidemia, unspecified Assessments Date Code Description Provider 04/03/2021 G30.9 Alzheimer's disease, unspecified Juancarlos Geiger M.D. 04/03/2021 E11.65 Type 2 [...] disease, uns pecified Juancarlos Geiger M.D. 11/20/2020 E78.5 Hyperlipidemia, unspecified Laila Geiger M.D. Plan of Treatment No Information Available Functional Status Description No Information Available Mental Status Description No Information Available Referrals Description No Information Available
--- OUTSIDE RECORDS SUMMARY | 2021-05-21 13:59 | CCD | Continuity of Care Document ---
Author Author Lydia GEIGER M.D. Organization Unknown Address [address] [address] Phone [phone] Care Team Providers Care Behavioral Instructor Name Role Phone Juancarlos Geiger MD AUTM [phone] [facility] AUTM Problems Active Problems Provider [...] Consumes 2 glasses of wine per w [place] Tobacco Use Start: Unknown End: Unknown Patient [...] a day x 7 days 2.500ml CALVIN Santizo 11/07/2020 One Touch Ultra Test Strips DMT2 test 1-3 times a day 100ungarry Geiger M.D. 08/28/2020 Onetouch II Test Strips Misc test twice daily e11.9 100ungarry Geiger M.D. 08/28/2020 Pen [place] 31G X 5 mm Misc injection 30 units bid,titrate as needed 200ungarry Geiger M.D. 08/28/2020 Fluconazole 150mg Tablets 1 tablet x1, repeat in 3 days 2tamauricio Geiger M.D. 06/06/2020 Lipitor 20mg Tablets 1 by mouth every day 30tabs Juancarlos Geiger M.D. 05/17/2020 Bupropion Hydrochloride ER (SR) 150mg Tablets ER 12HR 1 by mouth every day 30tamauricio Gieger M.D. 05/17/2020 Levothyroxine Sodium 125mcg Tablet s [...] CPT Code Status Date Vaccine Lot # 68766 Given 07/06/2019 Influenza Vaccin e Quadrivalent Preser/Antibiotic Free Im Use [id number] 98016 Given 05/23/2018 Influenza Virus Vaccine, Quadrivalent (Cciiv4), Derived From Cell [id number] Q2037 Given 05/05/2016 Fluvirin Virus Vaccine 07543 01 Q2037 Given 05/21/2015 Fluvirin Virus Vaccine 76939 01 61532 Given 04/26/2014 Influenza Virus Vaccine 61562 Given 12/27/2013 Pneumovax 23 36308 Given 12/27/2013 Adacel- Tetanus Diphtheria P ertussis (Age64 & Under) [address] Given 05/10/2013 Influenza Virus Vaccine 97761 Given 06/13/2012 Influenza Virus Vaccine 99678 Given 05/02/2008 Influenza Virus Vaccine 87860 Refused 04/26/2014 Zoster Vaccine 31008 Refused 10/31/2008 Adacel- Tetanus Diphtheria P ertussis [...] Result H/L Range Note Blood Culture 03/15/2021 [facility] [address] [place] [address] [phone] Blood Culture No growth after <SEE NOTE> 1 Blood Culture 03/15/[address] [address] [phone] Blood Culture No growth after <SEE NOTE> 2 Influenza A/B RSV Covid Amp 03/15/[address] [address] [phone] Influenza A Amplification NEGATIVE Normal Negati ve 3 Influenza B Amplification NEGATIVE Normal Negative 4 RSV Amplification NEGATIVE Normal Negative 5 Sars Covid-19 Amplification NEGATIVE Normal Negative 6 Ua W/ Reflex To Culture 03/15/[address] [address] [phone] Appearance, Urine RFX HAZY Normal Clear Color, Urine RFX MODE Normal Yellow PH,Urine RFX 5.0 units Normal 5.0-9.0 Specific [place] Ur Auto RFX 1.024 Normal 1.002-1.035 Protein, [...] /LPF Normal 0-1 Venous Blood Gas 03/15/2021 [facility] nter [address] [place], [place] [address] [phone] Venous PH 7.293 units Low 7.330-7.430 Venous Partial Pressure Co2 60.1 mmHg High 38.0-50.0 Venous Partial Pressure O2 28.7 mmHg Low 30.0-50.0 Venous Total Co2 30.3 mEq/L High 24.0-28.0 Venous Hco3 28.4 mEq/L High 23.0-27.0 Venous Base Excess 0.6 Normal -2.0-2.0 Venous Standard Hco3 24.0 mEq/L Normal Venous O2 Saturation 54.2 % Low 60.0-80.0 CBC With Differential 03/15/2021 [address] [place] [address] [phone] White Blood Count 16.3 10 High 4.0-10.0 [...] 36.0-66.0 Lymph % 8.1 % Low 24.0-44.0 [place] % 7.8 % Normal 2.0-8.0 Eos % 1.8 % Normal 0.0-3.0 Baso % 0.3 % Normal 0.0-1.0 Immature Granulocyte % 0.4 % Normal 0-3.0 Nucleated Red Blood Cell % 0.0 % Normal 0-0 Neutrophils # 13.3 10 High 1.5-8.5 Lymph # 1.3 10 Low 1.5-5.0 [place] # 1.3 10 High 0.0-0.8 Eos # 0.3 10 Normal 0.0-0.5 Baso # 0.1 10 Normal 0.0-0.2 Cardiac Marker Panel 03/15/2021 [facility] enter [address] [place] [address] [phone] CPK Creatine Phosphokinase 161 U/L Normal 26-19 2 CK-MB Value Mass 1.7 NG/ML Normal <3.6 MB/CK Relative Index 1.06 Normal < Or =4 7 Troponin I < 0.02 NG/ML Normal < 0.10 8 Liver Profile 03/15/2021 [facility] nter [address] [place] [address] [phone] Ast/Sgot 28 U/L Normal 7-37 Alt/SGPT 33 U/L Normal 12-78 Alkaline Phosphatase 93 U/L Normal 45-117 Bilirubin,Total 0.4 mg/dL Normal 0.2-1.0 Bilirubin,Direct 0.1 mg/dL Normal 0.0-0.2 Total Protein 7.0 GM/DL Normal 6.4-8.2 Albumin 3.7 GM/DL Normal 3.2-5.2 Albumin/Globulin Ratio 1.1 Low 1.2-2.2 Basic Metabolic Profile 03/15/[address] [address] [phone] Glucose, Fasting 103 mg/dL High 70-100 Blood [...] mg/dL Low 8.8-10.2 Laboratory test finding 03/15/2021 [address] [place] [address] [phone] NT-Pro BNP 142 pg/mL High <125 Thyroid Stimulating Hormone 3.980 uIU/ML High 0.358-3.740 Free T4 0.98 ng/dL Normal 0.76-1.46 Comprehensive Chem Profile 11/20/2020 [place] [employer] driver, letha Pin Sorter And Bagger: [place] [address] [phone] Glucose 223 mg/dL High 74 - 99 [...] >= 60 mL/min >60 11 A1c 11/20/2020 [place] Dom , Pin Sorter And Bagger: [place] [address] [phone] Hba1c 9.7 % High <5.7 12 Est Avg Glucose 232 mg/dL High 60 - 110 Laboratory test finding 11/20/2020 [place] [employer] [facility] [facility] Pin Sorter And Bagger: [place] [address] [phone] Thyroid Stimulating Hormone 0.32 uIU/mL Low 0.3 6 - 3.74 CBC With Differential 11/09/2020 [facility] [address] [place] [address] [phone] White Blood Count 7.1 10 Normal 4.0-10.0 [...] 36.0-66.0 Lymph % 19.1 % Low 24.0-44.0 [place] % 11.5 % High 2.0-8.0 Eos % 4.8 % High 0.0-3.0 Baso % 0.7 % Normal 0.0-1.0 Immature Granulocyte % 0.3 % Normal 0-3.0 Nucleated Red Blood Cell % 0.0 % Normal 0-0 Neutrophils # 4.5 10 Normal 1.5-8.5 Lymph # 1.4 10 Low 1.5-5.0 [place] # 0.8 10 Normal 0.0-0.8 Eos # 0.3 10 Normal 0.0-0.5 Baso # 0.1 10 Normal 0.0-0.2 Comprehensive Metabolic Profil 11/09/[address] [address] [phone] Glucose, Fasting 155 mg/dL High 70-100 Blood [...] 1.0 Low 1.2-2.2 Cardiac Marker Panel 11/09/2020 [facility] enter [address] [place] [address] [phone] CPK Creatine Phosphokinase 64 U/L Normal 26-19 [...] pathogens. DISCLAIMER: Testing was performed using the [employer] SARS-CoV-2 test. This test was developed and its performance characteristics determined by [employer]. This test has not been FDA cleared [...] Troponin I Reference Interva l for Siemens [place] LOCI: 99th Percentile= 0.00-0.045 ng/ml Risk Stratification: [...] Little GFR Left ESRD GFR <15 on ELEMENTARY ART TEACHER 10 100-125 mg/dL PRE-DIABET ES/FASTING >126 mg/dL DIABETES/FASTING 11 CHRONIC KIDNEY DISEASE STAGI NG PER NKF STAGE I & II GFR >= 60 NORMAL TO MILDLY DECREASED STAGE III GFR 30-59 MODERATELY DECREASED STAGE IV GFR 15-29 SEVERELY DECREASED STAGE V GFR <15 VERY LITTLE GFR LEFT ESRD GFR <15 ON ELEMENTARY ART TEACHER 12 Lab Result Notes: Pre-Diabetes 5.7 - 6.4 % Diabetes = or > 6.5% 13 Units are mL/min/1.73 m2 Chronic Kidney Disease Staging per NKF: Stage I & II GFR >=60 Normal to Mildly Decreased Stage III GFR 30-59 Moderately Decreased Stage IV GFR 15-29 Severely Decreased Stage V GFR <15 Very Little GFR Left ESRD GFR <15 on ELEMENTARY ART TEACHER 14 Testing was performed on a S LIGHTLY hemolyzed specimen. Suggest recollection of specimen for more accurate test results. 15 DIAGNOSIS CRITERIA MMB ng/ml Relative Index (RI) NON-AMI < or = 5 N/A ANTON ZONE > 5 < or = 4 AMI > 5 > 4 16 Troponin I Reference Interva l for Siemens [place] LOCI: 99th Percentile= 0.00-0.045 ng/ml Risk Stratification: <= 0.10 ng/ml Decreased Risk for Adverse Clinical Events. 0.10-1.50 ng/ml Increased Risk for Adv erse Clinical Events. Evaluation of additional criterion and/or repeat testing in 2-6 hours is suggested to rule out myocardial damage. >= 1.50 ng/ml Indicative of Myocardial Injury. Procedures Date Code Description Status 11/20/2020 [id number] Office/Outpatient Established Mo d MDM 30-39 Min Completed 02/24/2019 [id number] Mammogram Completed 12/27/2015 [id number] Mammogram Completed 05/06/2015 [id number] Mammogram Completed 09/10/2014 [id number] Colonoscopy Completed 04/25/2007 [id number] Bone Mineral Density Test Comple [place] Description No Information Available Encounters Type Date Location Provider Dx Diagnosis Office Visit 11/20/2020 3:00p [facility] Juancarlos Geiger M.D. G30.9 Alzheimer's [...]
--- OUTSIDE RECORDS SUMMARY | 2021-05-21 13:59 | CCD | Continuity of Care Document ---
Author Author Lydia GEIGER M.D. Organization Unknown Address [address] [address] Phone [phone] Care Team Providers Care Woodworking Bench Carpenter Name Role Phone Juancarlos Geiger MD AUTM [phone] [facility] AUTM Problems Active Problems Provider Date [...] Consumes 2 glasses of wine per w [place] Tobacco Use Start: Unknown End: Unknown Patient [...] daily e11.9 100ungarry Geiger M.D. 08/28/2020 Pen [place] 31G X 5 mm Misc injection 30 [...] CPT Code Status Date Vaccine Lot # 22815 Given 07/06/2019 Influenza Vaccin e Quadrivalent Preser/Antibiotic Free Im Use [id number] 01371 Given 05/23/2018 Influenza Virus Vaccine, Quadrivalent (Cciiv4), Derived From Cell [id number] Q2037 Given 05/05/2016 Fluvirin Virus Vaccine 25618 01 Q2037 Given 05/21/2015 Fluvirin Virus Vaccine 99085 01 64599 Given 04/26/2014 Influenza Virus Vaccine 57947 Given 12/27/2013 Pneumovax 23 28334 Given 12/27/2013 Adacel- Tetanus Diphtheria P ertussis (Age64 & Under) 72607 Given 05/10/2013 Influenza Virus Vaccine 36158 Given 06/13/2012 Influenza Virus Vaccine 35211 Given 05/02/2008 Influenza Virus Vaccine 83834 Refused 04/26/2014 Zoster Vaccine 88739 Refused 10/31/2008 Adacel- Tetanus Diphtheria P ertussis [...] Result H/L Range Note Blood Culture 03/15/2021 [facility] [address] [place] [address] [phone] Blood Culture No growth after <SEE NOTE> 1 Blood Culture 03/15/[address] [address] [phone] Blood Culture No growth after <SEE NOTE> 2 Influenza A/B RSV Covid Amp 03/15/[address] [address] [phone] Influenza A Amplification NEGATIVE Normal Negati ve 3 Influenza B Amplification NEGATIVE Normal Negative 4 RSV Amplification NEGATIVE Normal Negative 5 Sars Covid-19 Amplification NEGATIVE Normal Negative 6 Ua W/ Reflex To Culture 03/15/[address] [address] [phone] Appearance, Urine RFX HAZY Normal Clear Color, Urine RFX MODE Normal Yellow PH,Urine RFX 5.0 units Normal 5.0-9.0 Specific [place] Ur Auto RFX 1.024 Normal 1.002-1.035 Protein, [...] /LPF Normal 0-1 Venous Blood Gas 03/15/2021 [facility] nter [address] [place], [place] [address] [phone] Venous PH 7.293 units Low 7.330-7.430 Venous Partial Pressure Co2 60.1 mmHg High 38.0-50.0 Venous Partial Pressure O2 28.7 mmHg Low 30.0-50.0 Venous Total Co2 30.3 mEq/L High 24.0-28.0 Venous Hco3 28.4 mEq/L High 23.0-27.0 Venous Base Excess 0.6 Normal -2.0-2.0 Venous Standard Hco3 24.0 mEq/L Normal Venous O2 Saturation 54.2 % Low 60.0-80.0 CBC With Differential 03/15/2021 [address] [place] [address] [phone] White Blood Count 16.3 10 High 4.0-10.0 [...] 36.0-66.0 Lymph % 8.1 % Low 24.0-44.0 [place] % 7.8 % Normal 2.0-8.0 Eos % 1.8 % Normal 0.0-3.0 Baso % 0.3 % Normal 0.0-1.0 Immature Granulocyte % 0.4 % Normal 0-3.0 Nucleated Red Blood Cell % 0.0 % Normal 0-0 Neutrophils # 13.3 10 High 1.5-8.5 Lymph # 1.3 10 Low 1.5-5.0 [place] # 1.3 10 High 0.0-0.8 Eos # 0.3 10 Normal 0.0-0.5 Baso # 0.1 10 Normal 0.0-0.2 Cardiac Marker Panel 03/15/2021 [facility] enter [address] [place] [address] [phone] CPK Creatine Phosphokinase 161 U/L Normal 26-19 2 CK-MB Value Mass 1.7 NG/ML Normal <3.6 MB/CK Relative Index 1.06 Normal < Or =4 7 Troponin I < 0.02 NG/ML Normal < 0.10 8 Liver Profile 03/15/2021 [facility] nter [address] [place] [address] [phone] Ast/Sgot 28 U/L Normal 7-37 Alt/SGPT 33 U/L Normal 12-78 Alkaline Phosphatase 93 U/L Normal 45-117 Bilirubin,Total 0.4 mg/dL Normal 0.2-1.0 Bilirubin,Direct 0.1 mg/dL Normal 0.0-0.2 Total Protein 7.0 GM/DL Normal 6.4-8.2 Albumin 3.7 GM/DL Normal 3.2-5.2 Albumin/Globulin Ratio 1.1 Low 1.2-2.2 Basic Metabolic Profile 03/15/[address] [address] [phone] Glucose, Fasting 103 mg/dL High 70-100 Blood [...] mg/dL Low 8.8-10.2 Laboratory test finding 03/15/2021 [address] [place] [address] [phone] NT-Pro BNP 142 pg/mL High <125 Thyroid Stimulating Hormone 3.980 uIU/ML High 0.358-3.740 Free T4 0.98 ng/dL Normal 0.76-1.46 Comprehensive Chem Profile 11/20/2020 [place] [employer] driver, letha Field Manager: [place] [address] [phone] Glucose 223 mg/dL High 74 - 99 [...] >= 60 mL/min >60 11 A1c 11/20/2020 [place] , Field Manager: [place] [address] [phone] Hba1c 9.7 % High <5.7 12 Est Avg Glucose 232 mg/dL High 60 - 110 Laboratory test finding 11/20/2020 [place] [employer] Field Manager: [place] [address] [phone] Thyroid Stimulating Hormone 0.32 uIU/mL Low 0.3 6 - 3.74 CBC With Differential 11/09/2020 [facility] [address] [place] [address] [phone] White Blood Count 7.1 10 Normal 4.0-10.0 [...] 36.0-66.0 Lymph % 19.1 % Low 24.0-44.0 [place] % 11.5 % High 2.0-8.0 Eos % 4.8 % High 0.0-3.0 Baso % 0.7 % Normal 0.0-1.0 Immature Granulocyte % 0.3 % Normal 0-3.0 Nucleated Red Blood Cell % 0.0 % Normal 0-0 Neutrophils # 4.5 10 Normal 1.5-8.5 Lymph # 1.4 10 Low 1.5-5.0 [place] # 0.8 10 Normal 0.0-0.8 Eos # 0.3 10 Normal 0.0-0.5 Baso # 0.1 10 Normal 0.0-0.2 Comprehensive Metabolic Profil 11/09/[address] [address] [phone] Glucose, Fasting 155 mg/dL High 70-100 Blood [...] 1.0 Low 1.2-2.2 Cardiac Marker Panel 11/09/2020 [facility] enter [address] [place] [address] [phone] CPK Creatine Phosphokinase 64 U/L Normal 26-19 [...] pathogens. DISCLAIMER: Testing was performed using the [employer] SARS-CoV-2 test. This test was developed and its performance characteristics determined by [employer]. This test has not been FDA cleared [...] Troponin I Reference Interva l for Siemens [place] LOCI: 99th Percentile= 0.00-0.045 ng/ml Risk Stratification: [...] Little GFR Left ESRD GFR <15 on LEGAL SUPPORT MANAGER 10 100-125 mg/dL PRE-DIABET ES/FASTING >126 mg/dL DIABETES/FASTING 11 CHRONIC KIDNEY DISEASE STAGI NG PER NKF STAGE I & II GFR >= 60 NORMAL TO MILDLY DECREASED STAGE III GFR 30-59 MODERATELY DECREASED STAGE IV GFR 15-29 SEVERELY DECREASED STAGE V GFR <15 VERY LITTLE GFR LEFT ESRD GFR <15 ON LEGAL SUPPORT MANAGER 12 Lab Result Notes: Pre-Diabetes 5.7 - 6.4 % Diabetes = or > 6.5% 13 Units are mL/min/1.73 m2 Chronic Kidney Disease Staging per NKF: Stage I & II GFR >=60 Normal to Mildly Decreased Stage III GFR 30-59 Moderately Decreased Stage IV GFR 15-29 Severely Decreased Stage V GFR <15 Very Little GFR Left ESRD GFR <15 on LEGAL SUPPORT MANAGER 14 Testing was performed on a S LIGHTLY hemolyzed specimen. Suggest recollection of specimen for more accurate test results. 15 DIAGNOSIS CRITERIA MMB ng/ml Relative Index (RI) NON-AMI < or = 5 N/A ANTON ZONE > 5 < or = 4 AMI > 5 > 4 16 Troponin I Reference Interva l for Siemens [place] LOCI: 99th Percentile= 0.00-0.045 ng/ml Risk Stratification: <= 0.10 ng/ml Decreased Risk for Adverse Clinical Events. 0.10-1.50 ng/ml Increased Risk for Adv erse Clinical Events. Evaluation of additional criterion and/or repeat testing in 2-6 hours is suggested to rule out myocardial damage. >= 1.50 ng/ml Indicative of Myocardial Injury. Procedures Date Code Description Status 11/20/2020 31729 Office/Outpatient Established Mo d MDM 30-39 Min Completed 02/24/2019 [id number] Mammogram Completed 12/27/2015 [id number] Mammogram Completed 05/06/2015 [id number] Mammogram Completed 09/10/2014 [id number] Colonoscopy Completed 04/25/2007 [id number] Bone Mineral Density Test Comple [employer] Description No Information Available Encounters Type Date Location Provider Dx Diagnosis Office Visit 11/20/2020 3:00p [facility] Juancarlos Geiger M.D. G30.9 Alzheimer's [...]
--- OUTSIDE RECORDS SUMMARY | 2021-05-21 13:59 | CCD | Continuity of Care Document ---
Author Author Lydia GEIGER M.D. 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 Onset: 015 Hypothyroidism Juancarlos Geiegr M.D. Onset: 05/21/2015 Mild recurrent major depression Juancarlos Geiger M.D. Onset: 05/21/2015 Hyperlipidemia Juancarlos Geiger M.D. Onset: 05/21/2015 Essential hypertension Juancarlos Geiger M.D. Onset: 5 Nausea Juancarlos Geiger M.D. Onset: 08/08/2015 Social History Type Date Description Comments Sex Unknown ETOH Use Consumes 2 glasses of wine per w [place] Tobacco Use Start: Unknown End: Unknown Patient [...] daily e11.9 100ungarry Geiger M.D. 08/28/2020 Pen [place] 31G X 5 mm Misc injection 30 [...] 1 by mouth every day 90tabs Juancarlos eGiger M.D. 05/03/2020 Levemir Flextouch 10 0Unit/ML Solution [...] CPT Code Status Date Vaccine Lot # 68130 Given 07/06/2019 Influenza Vaccin e Quadrivalent Preser/Antibiotic Free Im Use 564358 82989 Given 05/23/2018 Influenza Virus Vaccine, Quadrivalent (Cciiv4), Derived From Cell 678368 Q2037 Given 05/05/2016 Fluvirin Virus Vaccine 18111 01 Q2037 Given 05/21/2015 Fluvirin Virus Vaccine 96231 01 39224 Given 04/26/2014 Influenza Virus Vaccine 17611 Given 12/27/2013 Pneumovax 23 66188 Given 12/27/2013 Adacel- Tetanus Diphtheria P ertussis (Age64 & Under) 60575 Given 05/10/2013 Influenza Virus Vaccine 86728 Given 06/13/2012 Influenza Virus Vaccine 88711 Given 05/02/2008 Influenza Virus Vaccine 54836 Refused 04/26/2014 Zoster Vaccine 25207 Refused 10/31/2008 Adacel- Tetanus Diphtheria P ertussis [...] Result H/L Range Note Blood Culture 03/15/2021 [facility] [address] [place] [address] [phone] Blood Culture No growth after <SEE NOTE> 1 Blood Culture 03/15/[address] [address] [phone] Blood Culture No growth after <SEE NOTE> 2 Influenza A/B RSV Covid Amp 03/15/[address] [address] [phone] Influenza A Amplification NEGATIVE Normal Negati ve 3 Influenza B Amplification NEGATIVE Normal Negative 4 RSV Amplification NEGATIVE Normal Negative 5 Sars Covid-19 Amplification NEGATIVE Normal Negative 6 Ua W/ Reflex To Culture 03/15/[address] [address] [phone] Appearance, Urine RFX HAZY Normal Clear Color, Urine RFX MODE Normal Yellow PH,Urine RFX 5.0 units Normal 5.0-9.0 Specific [place] Ur Auto RFX 1.024 Normal 1.002-1.035 Protein, [...] /LPF Normal 0-1 Venous Blood Gas 03/15/2021 [facility] nter [address] [place], [place] [address] [phone] Venous PH 7.293 units Low 7.330-7.430 Venous Partial Pressure Co2 60.1 mmHg High 38.0-50.0 Venous Partial Pressure O2 28.7 mmHg Low 30.0-50.0 Venous Total Co2 30.3 mEq/L High 24.0-28.0 Venous Hco3 28.4 mEq/L High 23.0-27.0 Venous Base Excess 0.6 Normal -2.0-2.0 Venous Standard Hco3 24.0 mEq/L Normal Venous O2 Saturation 54.2 % Low 60.0-80.0 CBC With Differential 03/15/2021 [address] [place] [address] [phone] White Blood Count 16.3 10 High 4.0-10.0 [...] 36.0-66.0 Lymph % 8.1 % Low 24.0-44.0 [place] % 7.8 % Normal 2.0-8.0 Eos % 1.8 % Normal 0.0-3.0 Baso % 0.3 % Normal 0.0-1.0 Immature Granulocyte % 0.4 % Normal 0-3.0 Nucleated Red Blood Cell % 0.0 % Normal 0-0 Neutrophils # 13.3 10 High 1.5-8.5 Lymph # 1.3 10 Low 1.5-5.0 [place] # 1.3 10 High 0.0-0.8 Eos # 0.3 10 Normal 0.0-0.5 Baso # 0.1 10 Normal 0.0-0.2 Cardiac Marker Panel 03/15/2021 [facility] enter [address] [place] [address] [phone] CPK Creatine Phosphokinase 161 U/L Normal 26-19 2 CK-MB Value Mass 1.7 NG/ML Normal <3.6 MB/CK Relative Index 1.06 Normal < Or =4 7 Troponin I < 0.02 NG/ML Normal < 0.10 8 Liver Profile 03/15/2021 [facility] nter [address] [place] [address] [phone] Ast/Sgot 28 U/L Normal 7-37 Alt/SGPT 33 U/L Normal 12-78 Alkaline Phosphatase 93 U/L Normal 45-117 Bilirubin,Total 0.4 mg/dL Normal 0.2-1.0 Bilirubin,Direct 0.1 mg/dL Normal 0.0-0.2 Total Protein 7.0 GM/DL Normal 6.4-8.2 Albumin 3.7 GM/DL Normal 3.2-5.2 Albumin/Globulin Ratio 1.1 Low 1.2-2.2 Basic Metabolic Profile 03/15/[address] [address] [phone] Glucose, Fasting 103 mg/dL High 70-100 Blood [...] mg/dL Low 8.8-10.2 Laboratory test finding 03/15/2021 [address] [place] [address] [phone] NT-Pro BNP 142 pg/mL High <125 Thyroid Stimulating Hormone 3.980 uIU/ML High 0.358-3.740 Free T4 0.98 ng/dL Normal 0.76-1.46 Comprehensive Chem Profile 11/20/2020 [facility] Armida driver, letha Heel Cover Splitter: [place] [address] [phone] Glucose 223 mg/dL High 74 - 99 [...] >= 60 mL/min >60 11 A1c 11/20/2020 [facility] , Heel Cover Splitter: [place] [address] [phone] Hba1c 9.7 % High <5.7 12 Est Avg Glucose 232 mg/dL High 60 - 110 Laboratory test finding 11/20/2020 [facility] [employer]eth[employer], [employer] Heel Cover Splitter: [place] [address] [phone] Thyroid Stimulating Hormone 0.32 uIU/mL Low 0.3 6 - 3.74 CBC With Differential 11/09/2020 [facility] [address] [place] [address] [phone] White Blood Count 7.1 10 Normal 4.0-10.0 [...] 36.0-66.0 Lymph % 19.1 % Low 24.0-44.0 [place] % 11.5 % High 2.0-8.0 Eos % 4.8 % High 0.0-3.0 Baso % 0.7 % Normal 0.0-1.0 Immature Granulocyte % 0.3 % Normal 0-3.0 Nucleated Red Blood Cell % 0.0 % Normal 0-0 Neutrophils # 4.5 10 Normal 1.5-8.5 Lymph # 1.4 10 Low 1.5-5.0 [place] # 0.8 10 Normal 0.0-0.8 Eos # 0.3 10 Normal 0.0-0.5 Baso # 0.1 10 Normal 0.0-0.2 Comprehensive Metabolic Profil 11/09/[address] [address] [phone] Glucose, Fasting 155 mg/dL High 70-100 Blood [...] 1.0 Low 1.2-2.2 Cardiac Marker Panel 11/09/2020 [facility] enter [address] [place] [address] [phone] CPK Creatine Phosphokinase 64 U/L Normal 26-19 [...] pathogens. DISCLAIMER: Testing was performed using the [employer] SARS-CoV-2 test. This test was developed and its performance characteristics determined by [employer]. This test has not been FDA cleared [...] Troponin I Reference Interva l for Siemens [place] LOCI: 99th Percentile= 0.00-0.045 ng/ml Risk Stratification: [...] Little GFR Left ESRD GFR <15 on LEAD JAVASCRIPT ENGINEER 10 100-125 mg/dL PRE-DIABET ES/FASTING >126 mg/dL DIABETES/FASTING 11 CHRONIC KIDNEY DISEASE STAGI NG PER NKF STAGE I & II GFR >= 60 NORMAL TO MILDLY DECREASED STAGE III GFR 30-59 MODERATELY DECREASED STAGE IV GFR 15-29 SEVERELY DECREASED STAGE V GFR <15 VERY LITTLE GFR LEFT ESRD GFR <15 ON LEAD JAVASCRIPT ENGINEER 12 Lab Result Notes: Pre-Diabetes 5.7 - 6.4 % Diabetes = or > 6.5% 13 Units are mL/min/1.73 m2 Chronic Kidney Disease Staging per NKF: Stage I & II GFR >=60 Normal to Mildly Decreased Stage III GFR 30-59 Moderately Decreased Stage IV GFR 15-29 Severely Decreased Stage V GFR <15 Very Little GFR Left ESRD GFR <15 on LEAD JAVASCRIPT ENGINEER 14 Testing was performed on a S LIGHTLY hemolyzed specimen. Suggest recollection of specimen for more accurate test results. 15 DIAGNOSIS CRITERIA MMB ng/ml Relative Index (RI) NON-AMI < or = 5 N/A ANTON ZONE > 5 < or = 4 AMI > 5 > 4 16 Troponin I Reference Interva l for Siemens [place] LOCI: 99th Percentile= 0.00-0.045 ng/ml Risk Stratification: <= 0.10 ng/ml Decreased Risk for Adverse Clinical Events. 0.10-1.50 ng/ml Increased Risk for Adv erse Clinical Events. Evaluation of additional criterion and/or repeat testing in 2-6 hours is suggested to rule out myocardial damage. >= 1.50 ng/ml Indicative of Myocardial Injury. Procedures Date Code Description Status 11/20/2020 62955 Office/Outpatient Established Mo d MDM 30-39 Min Completed 02/24/2019 [id number] Mammogram Completed 12/27/2015 [id number] Mammogram Completed 05/06/2015 [id number] Mammogram Completed 09/10/2014 [id number] Colonoscopy Completed 04/25/2007 [id number] Bone Mineral Density Test Comple [employer] Description No Information Available Encounters Type Date Location Provider Dx Diagnosis Office Visit 11/20/2020 3:00p [facility] Juancarlos Geiger M.D. G30.9 Alzheimer's [...]
--- OUTSIDE RECORDS SUMMARY | 2021-05-21 13:59 | CCD | Continuity of Care Document ---
Author Author Lydia GEIGER M.D. Organization Unknown Address [address] [address] Phone [phone] Care Team Providers Care Riveter Hand Name Role Phone Juancarlos Geiger MD AUTM [phone] [facility] AUTM Problems Active Problems Provider [...] Consumes 2 glasses of wine per w [place] Tobacco Use Start: Unknown End: Unknown Patient [...] daily e11.9 100ungarry Geiger M.D. 08/28/2020 Pen [place] 31G X 5 mm Misc injection 30 [...] CPT Code Status Date Vaccine Lot # [id number] Given 07/06/2019 Influenza Vaccin e Quadrivalent Preser/Antibiotic Free Im Use [id number] 13559 Given 05/23/2018 Influenza Virus Vaccine, Quadrivalent (Cciiv4), Derived From Cell [id number] Q2037 Given 05/05/2016 Fluvirin Virus Vaccine 81718 01 Q2037 Given 05/21/2015 Fluvirin Virus Vaccine 68247 01 67410 Given 04/26/2014 Influenza Virus Vaccine 74259 Given 12/27/2013 Pneumovax 23 20425 Given 12/27/2013 Adacel- Tetanus Diphtheria P ertussis (Age64 & Under) 72610 Given 05/10/2013 Influenza Virus Vaccine 04749 Given 06/13/2012 Influenza Virus Vaccine 41227 Given 05/02/2008 Influenza Virus Vaccine 64172 Refused 04/26/2014 Zoster Vaccine 70001 Refused 10/31/2008 Adacel- Tetanus Diphtheria P ertussis [...] Result H/L Range Note Blood Culture 03/15/2021 [facility] [address] [place] [address] [phone] Blood Culture No growth after <SEE NOTE> 1 Blood Culture 03/15/[address] [address] [phone] Blood Culture No growth after <SEE NOTE> 2 Influenza A/B RSV Covid Amp 03/15/[address] [address] [phone] Influenza A Amplification NEGATIVE Normal Negati ve 3 Influenza B Amplification NEGATIVE Normal Negative 4 RSV Amplification NEGATIVE Normal Negative 5 Sars Covid-19 Amplification NEGATIVE Normal Negative 6 Ua W/ Reflex To Culture 03/15/[address] [address] [phone] Appearance, Urine RFX HAZY Normal Clear Color, Urine RFX MODE Normal Yellow PH,Urine RFX 5.0 units Normal 5.0-9.0 Specific [place] Ur Auto RFX 1.024 Normal 1.002-1.035 Protein, [...] /LPF Normal 0-1 Venous Blood Gas 03/15/2021 [facility] nter [address] [place], [place] [address] [phone] Venous PH 7.293 units Low 7.330-7.430 Venous Partial Pressure Co2 60.1 mmHg High 38.0-50.0 Venous Partial Pressure O2 28.7 mmHg Low 30.0-50.0 Venous Total Co2 30.3 mEq/L High 24.0-28.0 Venous Hco3 28.4 mEq/L High 23.0-27.0 Venous Base Excess 0.6 Normal -2.0-2.0 Venous Standard Hco3 24.0 mEq/L Normal Venous O2 Saturation 54.2 % Low 60.0-80.0 CBC With Differential 03/15/2021 [address] [place] [address] [phone] White Blood Count 16.3 10 High 4.0-10.0 [...] 36.0-66.0 Lymph % 8.1 % Low 24.0-44.0 [place] % 7.8 % Normal 2.0-8.0 Eos % 1.8 % Normal 0.0-3.0 Baso % 0.3 % Normal 0.0-1.0 Immature Granulocyte % 0.4 % Normal 0-3.0 Nucleated Red Blood Cell % 0.0 % Normal 0-0 Neutrophils # 13.3 10 High 1.5-8.5 Lymph # 1.3 10 Low 1.5-5.0 [place] # 1.3 10 High 0.0-0.8 Eos # 0.3 10 Normal 0.0-0.5 Baso # 0.1 10 Normal 0.0-0.2 Cardiac Marker Panel 03/15/2021 [facility] enter [address] [place] [address] [phone] CPK Creatine Phosphokinase 161 U/L Normal 26-19 2 CK-MB Value Mass 1.7 NG/ML Normal <3.6 MB/CK Relative Index 1.06 Normal < Or =4 7 Troponin I < 0.02 NG/ML Normal < 0.10 8 Liver Profile 03/15/2021 [facility] nter [address] [place] [address] [phone] Ast/Sgot 28 U/L Normal 7-37 Alt/SGPT 33 U/L Normal 12-78 Alkaline Phosphatase 93 U/L Normal 45-117 Bilirubin,Total 0.4 mg/dL Normal 0.2-1.0 Bilirubin,Direct 0.1 mg/dL Normal 0.0-0.2 Total Protein 7.0 GM/DL Normal 6.4-8.2 Albumin 3.7 GM/DL Normal 3.2-5.2 Albumin/Globulin Ratio 1.1 Low 1.2-2.2 Basic Metabolic Profile 03/15/[address] [address] [phone] Glucose, Fasting 103 mg/dL High 70-100 Blood [...] mg/dL Low 8.8-10.2 Laboratory test finding 03/15/2021 [address] [place] [address] [phone] NT-Pro BNP 142 pg/mL High <125 Thyroid Stimulating Hormone 3.980 uIU/ML High 0.358-3.740 Free T4 0.98 ng/dL Normal 0.76-1.46 Comprehensive Chem Profile 11/20/2020 [facility] Armida driver, 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 [employer] Crew Member: [place] [address] [phone] Glucose 223 mg/dL High 74 - 99 [...] >= 60 mL/min >60 11 A1c 11/20/2020 [facility] , Honest [employer] Crew Member: [place] [address] [phone] Hba1c 9.7 % High <5.7 12 Est Avg Glucose 232 mg/dL High 60 - 110 Laboratory test finding 11/20/2020 [facility] [employer]est [employer] Crew Member: [place] [address] [phone] Thyroid Stimulating Hormone 0.32 uIU/mL Low 0.3 6 - 3.74 CBC With Differential 11/09/2020 [facility] [address] [place] [address] [phone] White Blood Count 7.1 10 Normal 4.0-10.0 [...] 36.0-66.0 Lymph % 19.1 % Low 24.0-44.0 [place] % 11.5 % High 2.0-8.0 Eos % 4.8 % High 0.0-3.0 Baso % 0.7 % Normal 0.0-1.0 Immature Granulocyte % 0.3 % Normal 0-3.0 Nucleated Red Blood Cell % 0.0 % Normal 0-0 Neutrophils # 4.5 10 Normal 1.5-8.5 Lymph # 1.4 10 Low 1.5-5.0 [place] # 0.8 10 Normal 0.0-0.8 Eos # 0.3 10 Normal 0.0-0.5 Baso # 0.1 10 Normal 0.0-0.2 Comprehensive Metabolic Profil 11/09/[address] [address] [phone] Glucose, Fasting 155 mg/dL High 70-100 Blood [...] 1.0 Low 1.2-2.2 Cardiac Marker Panel 11/09/2020 [facility] enter [address] [place] [address] [phone] CPK Creatine Phosphokinase 64 U/L Normal 26-19 [...] pathogens. DISCLAIMER: Testing was performed using the [employer] SARS-CoV-2 test. This test was developed and its performance characteristics determined by [employer]. This test has not been FDA cleared [...] Troponin I Reference Interva l for Siemens [place] LOCI: 99th Percentile= 0.00-0.045 ng/ml Risk Stratification: [...] Little GFR Left ESRD GFR <15 on DEALER SALES MANAGER 10 100-125 mg/dL PRE-DIABET ES/FASTING >126 mg/dL DIABETES/FASTING 11 CHRONIC KIDNEY DISEASE STAGI NG PER NKF STAGE I & II GFR >= 60 NORMAL TO MILDLY DECREASED STAGE III GFR 30-59 MODERATELY DECREASED STAGE IV GFR 15-29 SEVERELY DECREASED STAGE V GFR <15 VERY LITTLE GFR LEFT ESRD GFR <15 ON DEALER SALES MANAGER 12 Lab Result Notes: Pre-Diabetes 5.7 - 6.4 % Diabetes = or > 6.5% 13 Units are mL/min/1.73 m2 Chronic Kidney Disease Staging per NKF: Stage I & II GFR >=60 Normal to Mildly Decreased Stage III GFR 30-59 Moderately Decreased Stage IV GFR 15-29 Severely Decreased Stage V GFR <15 Very Little GFR Left ESRD GFR <15 on DEALER SALES MANAGER 14 Testing was performed on a S LIGHTLY hemolyzed specimen. Suggest recollection of specimen for more accurate test results. 15 DIAGNOSIS CRITERIA MMB ng/ml Relative Index (RI) NON-AMI < or = 5 N/A ANTON ZONE > 5 < or = 4 AMI > 5 > 4 16 Troponin I Reference Interva l for Siemens [place] LOCI: 99th Percentile= 0.00-0.045 ng/ml Risk Stratification: <= 0.10 ng/ml Decreased Risk for Adverse Clinical Events. 0.10-1.50 ng/ml Increased Risk for Adv erse Clinical Events. Evaluation of additional criterion and/or repeat testing in 2-6 hours is suggested to rule out myocardial damage. >= 1.50 ng/ml Indicative of Myocardial Injury. Procedures Date Code Description Status 11/20/2020 [id number] Office/Outpatient Established Mo d MDM 30-39 Min Completed 02/24/2019 [id number] Mammogram Completed 12/27/2015 [id number] Mammogram Completed 05/06/2015 [id number] Mammogram Completed 09/10/2014 [id number] Colonoscopy Completed 04/25/2007 [id number] Bone Mineral Density Test Comple [employer] Description No Information Available Encounters Type Date Location Provider Dx Diagnosis Office Visit 11/20/2020 3:00p [facility] Juancarlos Geiger M.D. G30.9 Alzheimer's [...]
--- OUTSIDE RECORDS SUMMARY | 2021-05-21 13:59 | CCD | Continuity of Care Document ---
Author Author Lydia GEIGER M.D. Organization Unknown Address [address] [address] Phone [phone] Care Team Providers Care Behavioral Scientist Name Role Phone Juancarlos Geiger MD AUTM [phone] [facility] AUTM [phone] Problems Active Problems Provider Date Hypothyroidism due [...] Consumes 2 glasses of wine per w kake Tobacco Use Start: Unknown End: Unknown Patient [...] daily e11.9 100ungarry Geiger M.D. 08/28/2020 [place] 31G X 5 mm Misc injection 30 [...] CPT Code Status Date Vaccine Lot # [id number] Given 07/06/2019 Influenza Vaccin e Quadrivalent Preser/Antibiotic Free Im Use [id number] 11223 Given 05/23/2018 Influenza Virus Vaccine, Quadrivalent (Cciiv4), Derived From Cell [id number] Q2037 Given 05/05/2016 Fluvirin Virus Vaccine 05222 01 Q2037 Given 05/21/2015 Fluvirin Virus Vaccine 90848 01 05775 Given 04/26/2014 Influenza Virus Vaccine 00089 Given 12/27/2013 Pneumovax 23 46247 Given 12/27/2013 Adacel- Tetanus Diphtheria P ertussis (Age64 & Under) 62161 Given 05/10/2013 Influenza Virus Vaccine 08772 Given 06/13/2012 Influenza Virus Vaccine 52874 Given 05/02/2008 Influenza Virus Vaccine 78947 Refused 04/26/2014 Zoster Vaccine 58977 Refused 10/31/2008 Adacel- Tetanus Diphtheria P ertussis [...] Result H/L Range Note Blood Culture 03/15/2021 [facility] [address] [place] [address] [phone] Blood Culture No growth after <SEE NOTE> 1 Blood Culture 03/15/[address] [address] [phone] Blood Culture No growth after <SEE NOTE> 2 Influenza A/B RSV Covid Amp 03/15/[address] [address] [phone] Influenza A Amplification NEGATIVE Normal Negati ve 3 Influenza B Amplification NEGATIVE Normal Negative 4 RSV Amplification NEGATIVE Normal Negative 5 Sars Covid-19 Amplification NEGATIVE Normal Negative 6 Ua W/ Reflex To Culture 03/15/[address] [address] [phone] Appearance, Urine RFX HAZY Normal Clear Color, Urine RFX MODE Normal Yellow PH,Urine RFX 5.0 units Normal 5.0-9.0 Specific [place] Ur Auto RFX 1.024 Normal 1.002-1.035 Protein, [...] /LPF Normal 0-1 Venous Blood Gas 03/15/2021 [facility] nter [address] [place], [place] [id number] [phone] Venous PH 7.293 units Low 7.330-7.430 Venous Partial Pressure Co2 60.1 mmHg High 38.0-50.0 Venous Partial Pressure O2 28.7 mmHg Low 30.0-50.0 Venous Total Co2 30.3 mEq/L High 24.0-28.0 Venous Hco3 28.4 mEq/L High 23.0-27.0 Venous Base Excess 0.6 Normal -2.0-2.0 Venous Standard Hco3 24.0 mEq/L Normal Venous O2 Saturation 54.2 % Low 60.0-80.0 CBC With Differential 03/15/2021 [address] [place] [address] [phone] White Blood Count 16.3 10 High 4.0-10.0 [...] 36.0-66.0 Lymph % 8.1 % Low 24.0-44.0 Dane % 7.8 % Normal 2.0-8.0 Eos % 1.8 % Normal 0.0-3.0 Baso % 0.3 % Normal 0.0-1.0 Immature Granulocyte % 0.4 % Normal 0-3.0 Nucleated Red Blood Cell % 0.0 % Normal 0-0 Neutrophils # 13.3 10 High 1.5-8.5 Lymph # 1.3 10 Low 1.5-5.0 Dane # 1.3 10 High 0.0-0.8 Eos # 0.3 10 Normal 0.0-0.5 Baso # 0.1 10 Normal 0.0-0.2 Cardiac Marker Panel 03/15/2021 [facility] enter [address] [place] [address] [phone] CPK Creatine Phosphokinase 161 U/L Normal 26-19 2 CK-MB Value Mass 1.7 NG/ML Normal <3.6 MB/CK Relative Index 1.06 Normal < Or =4 7 Troponin I < 0.02 NG/ML Normal < 0.10 8 Liver Profile 03/15/2021 [facility] nter [address] [place] [address] [phone] Ast/Sgot 28 U/L Normal 7-37 Alt/SGPT 33 U/L Normal 12-78 Alkaline Phosphatase 93 U/L Normal 45-117 Bilirubin,Total 0.4 mg/dL Normal 0.2-1.0 Bilirubin,Direct 0.1 mg/dL Normal 0.0-0.2 Total Protein 7.0 GM/DL Normal 6.4-8.2 Albumin 3.7 GM/DL Normal 3.2-5.2 Albumin/Globulin Ratio 1.1 Low 1.2-2.2 Basic Metabolic Profile 03/15/[address] [address] [phone] Glucose, Fasting 103 mg/dL High 70-100 Blood [...] mg/dL Low 8.8-10.2 Laboratory test finding 03/15/2021 [address] [place] [address] [phone] NT-Pro BNP 142 pg/mL High <125 Thyroid Stimulating Hormone 3.980 uIU/ML High 0.358-3.740 Free T4 0.98 ng/dL Normal 0.76-1.46 Comprehensive Chem Profile 11/20/2020 [facility] Arm[employer] driver, letha Research Program Manager: [place] [address] [phone] Glucose 223 mg/dL High 74 - 99 [...] >= 60 mL/min >60 11 A1c 11/20/2020 [facility] Dom , Research Program Manager: [place] [address] [phone] Hba1c 9.7 % High <5.7 12 Est Avg Glucose 232 mg/dL High 60 - 110 Laboratory test finding 11/20/2020 [facility] [employer] Research Program Manager: [place] [address] [phone] Thyroid Stimulating Hormone 0.32 uIU/mL Low 0.3 6 - 3.74 CBC With Differential 11/09/2020 [facility] [address] [place] [address] [phone] White Blood Count 7.1 10 Normal 4.0-10.0 [...] 36.0-66.0 Lymph % 19.1 % Low 24.0-44.0 Dane % 11.5 % High 2.0-8.0 Eos % 4.8 % High 0.0-3.0 Baso % 0.7 % Normal 0.0-1.0 Immature Granulocyte % 0.3 % Normal 0-3.0 Nucleated Red Blood Cell % 0.0 % Normal 0-0 Neutrophils # 4.5 10 Normal 1.5-8.5 Lymph # 1.4 10 Low 1.5-5.0 Dane # 0.8 10 Normal 0.0-0.8 Eos # 0.3 10 Normal 0.0-0.5 Baso # 0.1 10 Normal 0.0-0.2 Comprehensive Metabolic Profil 11/09/[address] [address] [phone] Glucose, Fasting 155 mg/dL High 70-100 Blood [...] 1.0 Low 1.2-2.2 Cardiac Marker Panel 11/09/2020 [facility] enter [address] [place] [address] [phone] CPK Creatine Phosphokinase 64 U/L Normal 26-19 [...] pathogens. DISCLAIMER: Testing was performed using the [employer] SARS-CoV-2 test. This test was developed and its performance characteristics determined by [employer]. This test has not been FDA cleared [...] Troponin I Reference Interva l for Siemens [place] LOCI: 99th Percentile= 0.00-0.045 ng/ml Risk Stratification: [...] Little GFR Left ESRD GFR <15 on COMBAT SYSTEMS OPERATOR 10 100-125 mg/dL PRE-DIABET ES/FASTING >126 mg/dL DIABETES/FASTING 11 CHRONIC KIDNEY DISEASE STAGI NG PER NKF STAGE I & II GFR >= 60 NORMAL TO MILDLY DECREASED STAGE III GFR 30-59 MODERATELY DECREASED STAGE IV GFR 15-29 SEVERELY DECREASED STAGE V GFR <15 VERY LITTLE GFR LEFT ESRD GFR <15 ON COMBAT SYSTEMS OPERATOR 12 Lab Result Notes: Pre-Diabetes 5.7 - 6.4 % Diabetes = or > 6.5% 13 Units are mL/min/1.73 m2 Chronic Kidney Disease Staging per NKF: Stage I & II GFR >=60 Normal to Mildly Decreased Stage III GFR 30-59 Moderately Decreased Stage IV GFR 15-29 Severely Decreased Stage V GFR <15 Very Little GFR Left ESRD GFR <15 on COMBAT SYSTEMS OPERATOR 14 Testing was performed on a S LIGHTLY hemolyzed specimen. Suggest recollection of specimen for more accurate test results. 15 DIAGNOSIS CRITERIA MMB ng/ml Relative Index (RI) NON-AMI < or = 5 N/A ANTON ZONE > 5 < or = 4 AMI > 5 > 4 16 Troponin I Reference Interva l for Siemens [place] LOCI: 99th Percentile= 0.00-0.045 ng/ml Risk Stratification: <= 0.10 ng/ml Decreased Risk for Adverse Clinical Events. 0.10-1.50 ng/ml Increased Risk for Adv erse Clinical Events. Evaluation of additional criterion and/or repeat testing in 2-6 hours is suggested to rule out myocardial damage. >= 1.50 ng/ml Indicative of Myocardial Injury. Procedures Date Code Description Status 11/20/2020 [address]4588 Office/Outpatient Established Mo d MDM 30-39 Min Completed 02/24/2019 [id number] Mammogram Completed 12/27/2015 [id number] Mammogram Completed 05/06/2015 [id number] Mammogram Completed 09/10/2014 [id number] Colonoscopy Completed 04/25/2007 [id number] Bone Mineral Density Test Comple [employer] Description No Information Available Encounters Type Date Location Provider Dx Diagnosis Office Visit 11/20/2020 3:00p [facility] Juancarlos Geiger M.D. G30.9 Alzheimer's [...]
--- OUTSIDE RECORDS SUMMARY | 2021-05-21 13:59 | CCD ---
Continuity of Care Document (CCD) Created on: 04/03/2021 Lydia Holliday External Reference #: [id number] Sex: Female Author Author Lydia GEIGER M.D. Organization Unknown Address [address] [address] Phone [phone] Care Team Providers Care It Help Desk Associate Name Role Phone Juancarlos Geiger MD AUTM [phone] [facility] AUTM Problems Active Problems Provider [...] Consumes 2 glasses of wine per w [place] Tobacco Use Start: Unknown End: Unknown Patient [...] daily e11.9 100ungarry Geiger M.D. 08/28/2020 Pen [place] 31G X 5 mm Misc injection 30 [...] CPT Code Status Date Vaccine Lot # [id number] Given 07/06/2019 Influenza Vaccin e Quadrivalent Preser/Antibiotic Free Im Use 675191 98591 Given 05/23/2018 Influenza Virus Vaccine, Quadrivalent (Cciiv4), Derived From Cell [id number] Q2037 Given 05/05/2016 Fluvirin Virus Vaccine 51616 01 Q2037 Given 05/21/2015 Fluvirin Virus Vaccine 03261 01 81576 Given 04/26/2014 Influenza Virus Vaccine 68401 Given 12/27/2013 Pneumovax 23 64379 Given 12/27/2013 Adacel- Tetanus Diphtheria P ertussis (Age64 & Under) 68822 Given 05/10/2013 Influenza Virus Vaccine 12065 Given 06/13/2012 Influenza Virus Vaccine 41203 Given 05/02/2008 Influenza Virus Vaccine 32344 Refused 04/26/2014 Zoster Vaccine 18014 Refused 10/31/2008 Adacel- Tetanus Diphtheria P ertussis [...] Result H/L Range Note Blood Culture 03/15/2021 [facility] [address] [address] [phone] Blood Culture No growth after <SEE NOTE> 1 Blood Culture 03/15/[address] [address] [phone] Blood Culture No growth after <SEE NOTE> 2 Influenza A/B RSV Covid Amp 03/15/[address] [address] [phone] Influenza A Amplification NEGATIVE Normal Negati ve 3 Influenza B Amplification NEGATIVE Normal Negative 4 RSV Amplification NEGATIVE Normal Negative 5 Sars Covid-19 Amplification NEGATIVE Normal Negative 6 Ua W/ Reflex To Culture 03/15/[address] [address] [phone] Appearance, Urine RFX HAZY Normal Clear Color, Urine RFX MODE Normal Yellow PH,Urine RFX 5.0 units Normal 5.0-9.0 Specific [place] Ur Auto RFX 1.024 Normal 1.002-1.035 Protein, [...] /LPF Normal 0-1 Venous Blood Gas 03/15/2021 [facility] nter [address] [place], [place] [address] [phone] Venous PH 7.293 units Low 7.330-7.430 Venous Partial Pressure Co2 60.1 mmHg High 38.0-50.0 Venous Partial Pressure O2 28.7 mmHg Low 30.0-50.0 Venous Total Co2 30.3 mEq/L High 24.0-28.0 Venous Hco3 28.4 mEq/L High 23.0-27.0 Venous Base Excess 0.6 Normal -2.0-2.0 Venous Standard Hco3 24.0 mEq/L Normal Venous O2 Saturation 54.2 % Low 60.0-80.0 CBC With Differential 03/15/2021 [address] [place] [address] [phone] White Blood Count 16.3 10 High 4.0-10.0 [...] 36.0-66.0 Lymph % 8.1 % Low 24.0-44.0 [place] % 7.8 % Normal 2.0-8.0 Eos % 1.8 % Normal 0.0-3.0 Baso % 0.3 % Normal 0.0-1.0 Immature Granulocyte % 0.4 % Normal 0-3.0 Nucleated Red Blood Cell % 0.0 % Normal 0-0 Neutrophils # 13.3 10 High 1.5-8.5 Lymph # 1.3 10 Low 1.5-5.0 [place] # 1.3 10 High 0.0-0.8 Eos # 0.3 10 Normal 0.0-0.5 Baso # 0.1 10 Normal 0.0-0.2 Cardiac Marker Panel 03/15/2021 [facility] enter [address] [place] [address] [phone] CPK Creatine Phosphokinase 161 U/L Normal 26-19 2 CK-MB Value Mass 1.7 NG/ML Normal <3.6 MB/CK Relative Index 1.06 Normal < Or =4 7 Troponin I < 0.02 NG/ML Normal < 0.10 8 Liver Profile 03/15/2021 [facility] nter [address] [place] [address] [phone] Ast/Sgot 28 U/L Normal 7-37 Alt/SGPT 33 U/L Normal 12-78 Alkaline Phosphatase 93 U/L Normal 45-117 Bilirubin,Total 0.4 mg/dL Normal 0.2-1.0 Bilirubin,Direct 0.1 mg/dL Normal 0.0-0.2 Total Protein 7.0 GM/DL Normal 6.4-8.2 Albumin 3.7 GM/DL Normal 3.2-5.2 Albumin/Globulin Ratio 1.1 Low 1.2-2.2 Basic Metabolic Profile 03/15/[address] [address] [phone] Glucose, Fasting 103 mg/dL High 70-100 Blood [...] mg/dL Low 8.8-10.2 Laboratory test finding 03/15/2021 [address] [place] [address] [phone] NT-Pro BNP 142 pg/mL High <125 Thyroid Stimulating Hormone 3.980 uIU/ML High 0.358-3.740 Free T4 0.98 ng/dL Normal 0.76-1.46 Comprehensive Chem Profile 11/20/2020 [facility] letha Herrera Sheep Sticker: [place] [address] [phone] Glucose 223 mg/dL High 74 - 99 [...] >= 60 mL/min >60 11 A1c 11/20/2020 [facility] Dom , letha Sheep Sticker: [place] [address] [phone] Hba1c 9.7 % High <5.7 12 Est Avg Glucose 232 mg/dL High 60 - 110 Laboratory test finding 11/20/2020 [facility] [employer] Sheep Sticker: [place] [address] [phone] Thyroid Stimulating Hormone 0.32 uIU/mL Low 0.3 6 - 3.74 CBC With Differential 11/09/2020 [facility] [address] [place] [address] [phone] White Blood Count 7.1 10 Normal 4.0-10.0 [...] 36.0-66.0 Lymph % 19.1 % Low 24.0-44.0 [place] % 11.5 % High 2.0-8.0 Eos % 4.8 % High 0.0-3.0 Baso % 0.7 % Normal 0.0-1.0 Immature Granulocyte % 0.3 % Normal 0-3.0 Nucleated Red Blood Cell % 0.0 % Normal 0-0 Neutrophils # 4.5 10 Normal 1.5-8.5 Lymph # 1.4 10 Low 1.5-5.0 [place] # 0.8 10 Normal 0.0-0.8 Eos # 0.3 10 Normal 0.0-0.5 Baso # 0.1 10 Normal 0.0-0.2 Comprehensive Metabolic Profil 11/09/2020 [place] [address] [phone] Glucose, Fasting 155 mg/dL High 70-100 Blood [...] 1.0 Low 1.2-2.2 Cardiac Marker Panel 11/09/2020 [facility] enter [address] [place] [address] [phone] CPK Creatine Phosphokinase 64 U/L Normal 26-19 [...] pathogens. DISCLAIMER: Testing was performed using the [employer] SARS-CoV-2 test. This test was developed and its performance characteristics determined by [employer]. This test has not been FDA cleared [...] Troponin I Reference Interva l for Siemens [place] LOCI: 99th Percentile= 0.00-0.045 ng/ml Risk Stratification: [...] Little GFR Left ESRD GFR <15 on OPTIMIZATION SPECIALIST 10 100-125 mg/dL PRE-DIABET ES/FASTING >126 mg/dL DIABETES/FASTING 11 CHRONIC KIDNEY DISEASE STAGI NG PER NKF STAGE I & II GFR >= 60 NORMAL TO MILDLY DECREASED STAGE III GFR 30-59 MODERATELY DECREASED STAGE IV GFR 15-29 SEVERELY DECREASED STAGE V GFR <15 VERY LITTLE GFR LEFT ESRD GFR <15 ON OPTIMIZATION SPECIALIST 12 Lab Result Notes: Pre-Diabetes 5.7 - 6.4 % Diabetes = or > 6.5% 13 Units are mL/min/1.73 m2 Chronic Kidney Disease Staging per NKF: Stage I & II GFR >=60 Normal to Mildly Decreased Stage III GFR 30-59 Moderately Decreased Stage IV GFR 15-29 Severely Decreased Stage V GFR <15 Very Little GFR Left ESRD GFR <15 on OPTIMIZATION SPECIALIST 14 Testing was performed on a S LIGHTLY hemolyzed specimen. Suggest recollection of specimen for more accurate test results. 15 DIAGNOSIS CRITERIA MMB ng/ml Relative Index (RI) NON-AMI < or = 5 N/A ANTON ZONE > 5 < or = 4 AMI > 5 > 4 16 Troponin I Reference Interva l for [place] LOCI: 99th Percentile= 0.00-0.045 ng/ml Risk Stratification: <= 0.10 ng/ml Decreased Risk for Adverse Clinical Events. 0.10-1.50 ng/ml Increased Risk for Adv erse Clinical Events. Evaluation of additional criterion and/or repeat testing in 2-6 hours is suggested to rule out myocardial damage. >= 1.50 ng/ml Indicative of Myocardial Injury. Procedures Date Code Description Status 11/20/2020 43502 Office/Outpatient Established Mo d MDM 30-39 Min Completed 02/24/2019 [id number] Mammogram Completed 12/27/2015 [id number] Mammogram Completed 05/06/2015 [id number] Mammogram Completed 09/10/2014 [id number] Colonoscopy Completed 04/25/2007 [id number] Bone Mineral Density Test Comple [employer] Description No Information Available Encounters Type Date Location Provider Dx Diagnosis Office Visit 11/20/2020 3:00p [facility] Juancarlos Geiger M.D. G30.9 Alzheimer's [...]
--- OUTSIDE RECORDS SUMMARY | 2021-05-21 14:00 | CCD ---
Author Author [facility] Organization [facility] Address Unknown Phone Unavailable Care Team Providers Care Bonding Molder Name Role Phone Yamila Dewey MD Unavailable Unavailable Yamila Dewey MD Unavailable Unavailable Yamila Dewey MD Unavailable Unavailable Yamila Dewey MD Unavailable Unavailable Yamila Dewey MD Unavailable Unavailable Yamila Dewey MD Unavailable Unavailable Yamila Dewey MD Unavailable Unavailable Yamila Dewey MD Unavailable Unavailable Yamila eDwey MD Unavailable Unavailable Yamila Dewey MD Unavailable Unavailable Yamila Dewey MD Unavailable Unavailable Yamila Dewey MD Unavailable Unavailable Yamila Dewey MD Unavailable Unavailable Yamila Dewey MD Unavailable Unavailable Yamila Dewey MD Unavailable Unavailable Yamila Dewey MD Unavailable Unavailable Yamila Dewey MD Unavailable Unavailable Yamila Dewey MD Unavailable Unavailable Yamila Dewey MD Unavailable Unavailable Yamila Dewey MD Unavailable Unavailable Yamila Dewey MD Unavailable Unavailable Yamila Dewey MD Unavailable Unavailable Yamila Dewey MD Unavailable Unavailable Yamila Dewey MD Unavailable Unavailable Yamila Dewey MD Unavailable Unavailable Yamila Dewey MD Unavailable Unavailable Yamila Dewey MD Unavailable Unavailable Yamila Dewey MD Unavailable Unavailable Yamila Dewey MD Unavailable Unavailable Yamila Dewey MD Unavailable Unavailable Yamila Dewey MD Unavailable Unavailable Yamila Dewey MD Unavailable Unavailable Yamila Dewey MD Unavailable Unavailable Yamila Dewey MD Unavailable Unavailable Yamila Dewey MD Unavailable Unavailable White, F Juancarlos Unavailable Unavailable White, F Juancarlos Unavailable Unavailable White, F Juancarlos MD Unavailable Unavailable White, F Juancarlos MD Unavailable Unavailable White, F Juancarlos Unavailable Unavailable White, F Juancarlos Unavailable Unavailable White, F Juancarlos Unavailable Unavailable White, F Juancarlos Unavailable Unavailable White, F Juancarlos MD Unavailable Unavailable White, F Juancarlos Unavailable Unavailable White, F Juancarlos MD Unavailable Unavailable White, F Juancarlos Unavailable Unavailable White, F Juancarlos Unavailable Unavailable White, F Juancarlos Unavailable Unavailable White, F Juancarlos Unavailable Unavailable White, F Juancarlos MD Unavailable Unavailable White, F Juancarlos MD Unavailable Unavailable White, F Juancarlos MD Unavailable Unavailable White, F Juancarlos MD Unavailable Unavailable White, F Juancarlos Unavailable Unavailable White, F Juancarlos Unavailable Unavailable White, F Juancarlos Unavailable Unavailable White, F Juancarlos Unavailable Unavailable White, F Juancarlos MD Unavailable Unavailable White, F Juancarlos Unavailable Unavailable White, F Juancarlos Unavailable Unavailable White, F Juancarlos Unavailable Unavailable White, F Juancarlos Unavailable Unavailable White, F Juancarlos Unavailable Unavailable White, F Juancarlos Unavailable Unavailable White, F Juancarlos Unavailable Unavailable White, F Juancarlos Unavailable Unavailable White, F Juancarlos Unavailable Unavailable White, F Juancarlos Unavailable Unavailable White, F Juancarlos Unavailable Unavailable White, F Juancarlos Unavailable Unavailable White, F Juancarlos Unavailable Unavailable White, F Juancarlos Unavailable Unavailable White, F Juancarlos Unavailable Unavailable White, F Juancarlos Unavailable Unavailable White, F Juancarlos Unavailable Unavailable White, F Juancarlos Unavailable Unavailable George, Anahy RECEIVING AND PROCESSING SUPERVISOR Unavailable Unavailable George, Anahy RECEIVING AND PROCESSING SUPERVISOR Unavailable Unavailable George, Anahy RECEIVING AND PROCESSING SUPERVISOR Unavailable Unavailable George, Anahy RECEIVING AND PROCESSING SUPERVISOR Unavailable Unavailable George, Anahy RECEIVING AND PROCESSING SUPERVISOR Unavailable Unavailable Geogre, Anahy RECEIVING AND PROCESSING SUPERVISOR Unavailable Unavailable George, Anahy RECEIVING AND PROCESSING SUPERVISOR Unavailable Unavailable George, Anahy RECEIVING AND PROCESSING SUPERVISOR Unavailable Unavailable George, Anahy RECEIVING AND PROCESSING SUPERVISOR Unavailable Unavailable George, Anahy RECEIVING AND PROCESSING SUPERVISOR Unavailable Unavailable George, Anahy RECEIVING AND PROCESSING SUPERVISOR Unavailable Unavailable George, Anahy RECEIVING AND PROCESSING SUPERVISOR Unavailable Unavailable George, Anahy RECEIVING AND PROCESSING SUPERVISOR Unavailable Unavailable George, Anahy RECEIVING AND PROCESSING SUPERVISOR Unavailable Unavailable George, Anahy RECEIVING AND PROCESSING SUPERVISOR Unavailable Unavailable George, Anahy RECEIVING AND PROCESSING SUPERVISOR Unavailable Unavailable George, Anahy RECEIVING AND PROCESSING SUPERVISOR Unavailable Unavailable George, Anahy RECEIVING AND PROCESSING SUPERVISOR Unavailable Unavailable George, Anahy RECEIVING AND PROCESSING SUPERVISOR Unavailable Unavailable George, Anahy RECEIVING AND PROCESSING SUPERVISOR Unavailable Unavailable George, Anahy RECEIVING AND PROCESSING SUPERVISOR Unavailable Unavailable George, Anahy RECEIVING AND PROCESSING SUPERVISOR Unavailable Unavailable George, Anahy RECEIVING AND PROCESSING SUPERVISOR Unavailable Unavailable George, Naahy RECEIVING AND PROCESSING SUPERVISOR Unavailable Unavailable George, Anahy RECEIVING AND PROCESSING SUPERVISOR Unavailable Unavailable George, Anahy RECEIVING AND PROCESSING SUPERVISOR Unavailable Unavailable George, Anahy RECEIVING AND PROCESSING SUPERVISOR Unavailable Unavailable George, Anahy RECEIVING AND PROCESSING SUPERVISOR Unavailable Unavailable George, Anahy RECEIVING AND PROCESSING SUPERVISOR Unavailable Unavailable George, Anahy RECEIVING AND PROCESSING SUPERVISOR Unavailable Unavailable George, Anahy RECEIVING AND PROCESSING SUPERVISOR Unavailable Unavailable George, Anahy RECEIVING AND PROCESSING SUPERVISOR Unavailable Unavailable George, Anahy RECEIVING AND PROCESSING SUPERVISOR Unavailable Unavailable George, Anahy RECEIVING AND PROCESSING SUPERVISOR Unavailable Unavailable George, Anahy RECEIVING AND PROCESSING SUPERVISOR Unavailable Unavailable Re-disclosure Warning The records that you are about to access may contain information from federally-assisted alcohol or drug abuse programs. If such information is present, then the following federally mandated warning applies: This information has been disclosed to you from records protected by federal confidentiality rules (42 CFR part 2). The federal rules prohibit you from making any further disclosure of this information unless further disclosure is expressly permitted by the written consent of the person to whom it pertains or as otherwise permitted by 42 CFR part 2. A general authorization for the release of medical or other information is NOT sufficient for this purpose. The Federal rules restrict any use of the information to criminally investigate or prosecute any alcohol or drug abuse patient.The records that you are about to access may contain highly sensitive health information, the redisclosure of which is protected by Article 27-F of the [facility] Public Health law. If you continue you may have access to information: Regarding HIV / AIDS; Provided by facilities licensed or operated by the [facility] Office of Mental Health; or Provided by the [facility] Office for People With Developmental Disabilities. If such information is present, then the following [facility] mandated warning applies: This information has been disclosed to you from confidential records which are protected by state law. State law prohibits you from making any further disclosure of this information without the specific written consent of the person to whom it pertains, or as otherwise permitted by law. Any unauthorized further disclosure in violation of state law may result in a fine or [place] [facility] sentence or both. A general authorization for the release of medical or other information is NOT sufficient authorization for further disc losure. Family History Family Member Name Family Member Gender Family Member Status Date o f Status Description Data Source(s) Unknown Female Problem [facility] ([facility]) Unknown Unknown Problem [facility] ([facility] Unknown Unknown Problem [facility] ([facility]) Unknown Female Problem [facility] ([facility]) Encounters Encounter Providers Location Date Indications Data Source(s ) Outpatient Attender: Juancarlos Farias 04/03 11:30:00 AM EDT [facility] ([facility] ) Outpatient Attender: Juancarlos Farias 11/20 03:00:00 PM EDT [facility] ([facility] ) Outpatient Attender: Anahy Farias 02:40:00 PM EDT [facility] ([facility] ) Medications Medication Brand Name Start Date Product Form Dose Route Admi nistrative Instructions Pharmacy Instructions Status Indications Reaction Description Data Source(s) Ciprofloxacin 500 MG Oral Tablet [Cipro] Cipro 04/15/2021 12:00: 00 AM EDT ORAL active [facility] NITROFURANTOIN, MACROCRYSTALS 25 MG / Ni trofurantoin, Monohydrate 75 MG Oral Capsule [Macrobid] Macrobid 03/04/2021 12:00:00 AM EDT ORAL completed [facility] ([facility] ) Dexamethasone 1 MG/ML / Tobramycin 3 MG/ML Ophthalmic Suspension Tobramycin-Dexamethasone 11/07/2020 12:00:00 AM EDT OPHTHALMIC active [facility] ([facility] ) Pen Stanford 08/28/2020 12:00:00 AM EST active [facility] ([facility]) Onetouch II Test Strips 08/28/2020 12:00:00 AM EST active [facility] ([facility]) One Touch Ultra Test Strips 08/28/2020 12:00:00 AM EST active [facility] ([facility]) NITROFURANTOIN, MACROCRYSTALS 25 MG / Ni trofurantoin, Monohydrate 75 MG Oral Capsule [Macrobid] Macrobid 08/13/2020 12:00:00 AM EST ORAL completed [facility] ([facility] ) Fluconazole 150 MG Oral Tablet Fluconazole 06/06/2020 12:00:00 AM EST active [facility] ([facility]) atorvastatin 20 MG Oral Tablet [Lipitor] Lipitor 05/17/2020 12:00: 00 AM EDT ORAL active [facility] ([facility]) 12 HR Bupropion Hydrochloride 150 MG Extended Release Oral Tablet Bupropion Hydrochloride ER (SR) 05/17/2020 12:00:00 AM EDT ORAL a ctive [facility] ([facility]) 3 ML insulin detemir 100 UNT/ML Pen Injector [Levemir] Levem ir Flextouch 05/03/2020 12:00:00 AM EDT active [facility] ([facility]) Levothyroxine Sodium 0.125 MG Oral Tablet Levothyroxine Sodi um 05/03/2020 12:00:00 AM EDT ORAL active M EDENT ([facility]) Onetouch Ultrasoft Lancets 04/30/2020 12:00:00 AM EDT active [facility] ([facility]) Onetouch Ultra 2 04/30/2020 12:00:00 AM EDT a ctive [facility] ([facility]) Lancets Micro Thin 33G 04/29/2020 12:00:00 AM EDT completed [facility] ([facility]) Contour Next Blood Glucose Test 04/24/2020 12:00:00 AM EDT completed [facility] ([facility]) Levothyroxine Sodium 0.112 MG Oral Tablet Levothyroxine Sodi um 04/09/2020 12:00:00 AM EDT ORAL completed [facility] ([facility]) 24 HR Bupropion Hydrochloride 150 MG Extended Release Oral T ablet BUPROPION HCL 04/04/2020 12:00:00 AM EDT tablet extended release 24 hr 5 TAKE ONE TABLET BY MOUTH EVERY DAY TAKE ONE TABLET BY MOUTH EVERY DAY SOLD: 04/05/2020 [facility] Insurance Providers Payer name Policy type / Coverage type Policy ID Covered republican ID Covered republican's relationship to bowman Policy Bowman Plan Information [facility] FEDERAL [id number] SP [id number] [place] 302/307 [id number] SP [id number] MEDICARE BLUE PPO [id number] SP [id number] BCBS [place] 306/806 [id number] SP [id number] [place] 306/806 [id number] SP [id number] BCBS [place] PPO 302/307 [id number] SP [id number] MEDICARE [id number] SP [id number] T BS [place] Medigap Part [id number] Self Pma Ins (WC) Workers Compensation [id number] Self MEDICARE [id number] SP [id number] A Medicare Blue Ppo Commercial [id number] Self [id number] Medicare Natl Govt Servic Medicare Primary [id number] Self [id number] Medicare Blue Ppo Commercial [id number] Self [id number] Medicare Natl Govt Servic Medicare Primary [id number] Self [id number] [facility] Advantage Commercial [id number] Self Todays Option Medicare Commercial [id number] Self [id number] Tod[employer] Option Medicare Commercial [id number] Self [id number] [employer] Option Medicare Commercial [id number] Self [id number] Tod[employer] Option Medicare Commercial [id number] Self [id number] Tod[employer] Option Medicare Commercial [id number] Self [id number] [employer] Option Medicare Commercial [id number] Self [id number] Tod[employer] Option Medicare Commercial [id number] Self [id number] Tod[employer] Option Medicare Commercial [id number] Self [id number] Tod[employer] Option Medicare Commercial [id number] Self [id number] Wellcare/Todays Optmcr Commercial [id number] Self [id number] WELLCARE [id number] SP [id number] TODAYS OPTION MEDICARE [id number] Marlyn [id number] MEDICARE BLUE PPO 306 [id number] SP [id number] BS Medicare Blue Ppo/Hmo Commercial [id number] Self Today's Option Medicare Commercial [id number] Self [id number] TODAYS OPTIONS [id number] SP [id number] TODAYS OPTIONS [id number] SP [id number] MEDICARE [id number] SP [id number] T WELLCARE [id number] SP [id number] MEDICAID [id number] SP [id number] MEDICAID [id number] S [id number] WELLCARE O [id number] S [id number] BS [facility] Part B [id number] Self MEDICARE [id number] SP [id number] TODAYS OPTION MEDICARE [id number] Marlyn [id number] Problems, Conditions, and Diagnoses No Information Surgeries/Procedures Procedure Description Date Indications Data Source(s) OFFICE OUTPATIENT VISIT 25 MINUTES 04/03/2021 12:00:00 AM EDT [facility] ([facility]) OFFICE OUTPATIENT VISIT 25 MINUTES 11/20/2020 12:00:00 AM EDT [facility] ([facility]) Results ID Date Data Source [id number] 04/04/2021 10:52:00 AM EDT [facility] ([facility]) Name Value Range Interpretation Code Description Data Allie rce(s) Supporting Document(s) Urine Appearance Laboratory test result Abnormal (applies to non-numeric results) [facility] ([facility]) on macrobid Urine Color Laboratory test result MED[facility] T ([facility]) on macrobid Specific gravity of Urine 1.015 1.005-1.030 [facility] ([facility]) on macrobid Urine PH 6.0 units 5.0-9.0 [facility]) on macrobid Urine Blood Laboratory test result Abnormal (applies to non-numeric results) [facility] ([facility]) on macrobid Urine Leukocytes Laboratory test result Abnormal (applies to non-numeric results) [facility] ([facility]) on macrobid Glucose [Presence] in Urine Laboratory test result [facility] ([facility]) on macrobid Urine Protein Laboratory test result 0-0 Abnormal (applies to non-numeric results) [facility] ([facility]) on macrobid Urine Ketone Laboratory test result Abnormal (applies to non-numeric results) [facility] ([facility]) on macrobid Urine Nitrite Laboratory test result Abnormal (applies to non-numeric results) [facility] ([facility]) on macrobid Bilirubin.total [Mass/volume] in Serum or Plasma Laboratory test resu lt [facility]) on macrobid Urine Urobilinogen 0.2 mg/dL 0.2-1.0 [facility] ([facility]) on macrobid ID Date Data Source [id number] 04/03/2021 12:17:00 PM EDT [facility] ([facility]) Name Value Range Interpretation Code Description Data Allie rce(s) Supporting Document(s) Thyrotropin [Units/volume] in Serum or Plasma by Detec tion limit <= 0.05 mIU/L 3.55 uIU/mL 0.36-3.74 [facility] ([facility] ) ID Date Data Source [id number] 04/03/2021 12:17:00 PM EDT [facility]) Name Value Range Interpretation Code Description Data Allie rce(s) Supporting Document(s) Hemoglobin A1c/Hemoglobin.total in Blood 8.4 % [facility] ([facility]) Lab Result Notes: Pre-Diabetes 5.7 - 6.4 % Diabetes = or > 6.5% Glucose mean value [Mass/volume] in Blood Estimated fr om glycated hemoglobin 194 mg/dL 60-110 [facility] ([facility] ) ID Date Data Source [id number] 04/03/2021 12:17:00 PM EDT [facility] ([facility]) Name Value Range Interpretation Code Description Data Allie rce(s) Supporting Document(s) Urea nitrogen [Mass/volume] in Serum or Plasma 23 mg/dL 7-18 [facility] ([facility]) Glucose [Mass/volume] in Serum or Plasma 172 mg/dL 74-99 [facility] ([facility]) 100-125 mg/dL PRE-DIABETES/FASTING >126 mg/dL DIABETES/FASTING Sodium [Moles/volume] in Serum or Plasma 139 meq/L 136-145 [facility] ([facility]) Potassium [Moles/volume] in Serum or Plasma 4.5 meq/L 3.5-5.1 [facility] ([facility]) Creatinine 1.2 mg/dL 0.6-1.3 [facility] ([facility]) Chloride [Moles/volume] in Serum or Plasma 103 meq/L 98-107 [facility] ([facility]) Carbon dioxide, total [Moles/volume] in Serum or Plasma 27 meq/L 21 -32 [facility] ([facility]) Calcium [Mass/volume] in Serum or Plasma 9.1 mg/dL 8.5-10.1 [facility] ([facility]) Alkaline phosphatase isoenzyme [Units/volume] in Serum or Pl asma 100 mg/dL 46-116 [facility] ([facility]) Aspartate aminotransferase [Enzymatic activity/volume] in Serum or Plasma 18 U/L 15-37 [facility] ([facility] ) Total Bilirubin 0.7 mg/dL 0.2-1.0 [facility] ([facility]) Alanine aminotransferase [Enzymatic activity/volume] in Seru m or Plasma 24 U/L 12-78 [facility] ([facility]) Albumin [Mass/volume] in Serum or Plasma 3.5 g/dL 3.4-5.0 [facility] ([facility]) Proteinase 3 Ab [Units/volume] in Serum 6.9 g/dL 6.4-8.2 [facility] ([facility]) A/G Ratio 1.03 CALC 1.00-1.90 [facility]) Glomerular filtration rate/1.73 sq M pre dicted among non-blacks [Volume Rate/Area] in Serum or Plasma by Creatinine-based formula (MDRD) 44 mL/min [facility] ([facility]) Glomerular filtration rate/1.73 sq M pre dicted among blacks [Volume Rate/Area] in Serum or Plasma by Creatinine-based formula (MDRD) 53 mL/min [facility] ([facility]) <content>CHRONIC KIDNEY DISEASE STAGING PER NKF</content>
<content></content>
<content>STAGE I & II GFR >= 60 NORMAL TO MILDLY DECREASED</content>
<content>STAGE III GFR 30-59 MODERATELY DECREASED</content>
<content>STAGE IV GFR 15-29 SEVERELY DECREASED</content>
<content>STAGE V GFR <15 VERY LITTLE GFR LEFT</content>
<content>ESRD GFR <15 ON VFX ARTIST</content>
<content></content> ID Date Data Source [id number] 04/03/2021 12:17:00 PM EDT [facility] ([facility]) Name Value Range Interpretation Code Description Data Allie rce(s) Supporting Document(s) Leukocytes [#/volume] in Blood by Automated count 15.2 x10*3/UL 4.1-1 0.9 [facility] ([facility]) NOTE: RESULT VERIFIED. Erythrocytes [#/volume] in Blood by Automated count 4.05 x10*6/UL 4.2 0-6.30 [facility] ([facility]) Hemoglobin [Mass/volume] in Blood 11.7 g/dL 12.0-18.0 [facility] Hematocrit [Volume Fraction] of Blood by Automated count 34.6 % 3 7.0-51.0 [facility] ([facility]) MCH 29.1 pg 26.0-32.0 [facility] MCV 85.5 fL 80.0-97.0 [facility] Erythrocyte distribution width [Ratio] by Automated count 12.8 % 11.6-13.7 [facility] ([facility]) MCHC 34.0 g/dL 31.0-38.0 [facility]) MPV 8.1 FL 7.8-11.0 [facility] Lymph % 10.2 % 10.0-58.5 [facility] Platelets [#/volume] in Blood by Automated count 382 x10*3/UL 140-440 [facility] ([facility]) Neut % 86.2 % 37.0-92.0 [facility] Mid % 3.6 % 1.7-9.3 [facility] Lymph # 1.5 x10*3/UL 0.6-4.1 [facility] ([facility]) Mid # 0.6 x10*3/UL 0.1-0.6 [facility] ([facility]) Neut # 13.1 x10*3/UL 2.0-7.8 [facility] ([facility]) ID Date Data Source [id number] 03/15/2021 04:13:[address] [facility]) Name Value Range Interpretation Code Description Data Allie rce(s) Supporting Document(s) Blood Culture Laboratory test result [facility] ([facility]) No growth after 72 hours . All specimens observed for 5 days. Results final at that time. No growth after 48 hours . All specimens observed for 5 days. Results final at that time. No growth after 24 hours . All specimens observed for 5 days. Results final at that time. NO GROWTH AFTER 5 DAYS ID Date Data Source [id number] 03/15/2021 04:03:00 PM EDT [facility] ([facility]) Name Value Range Interpretation Code Description Data Allie rce(s) Supporting Document(s) Blood Culture Laboratory test result [facility] ([facility]) No growth after 72 hours . All specimens observed for 5 days. Results final at that time. No growth after 48 hours . All specimens observed for 5 days. Results final at that time. No growth after 24 hours . All specimens observed for 5 days. Results final at that time. NO GROWTH AFTER 5 DAYS ID Date Data Source [id number] 03/15/2021 03:37:00 PM EDT [facility] ([facility]) Name Value Range Interpretation Code Description Data Allie rce(s) Supporting Document(s) Influenza B Amplification Laboratory test result [facility] Negative results do not preclude influen za or RSV virus infection and should not be used as the sole basis for treatment or other patient management decisions. Influenza A Amplification Laboratory test result [facility] Negative results do not preclude influen za or RSV virus infection and should not be used as the sole basis for treatment or other patient management decisions. RSV Amplification Laboratory test result [facility] Negative results do not preclude influen za or RSV virus infection and should not be used as the sole basis for treatment or other patient management decisions. Laboratory test finding (navigational concept) Laboratory test result [facility] ([facility]) A false negative result may occur if a s pecimen is improperly collected, transported or handled. False [...] pathogens. DISCLAIMER: Testing was performed using the [employer] SARS-CoV-2 test. This test was developed and its performance characteristics determined by [employer]. This test has not been FDA cleared [...] the authorization is terminated or revoked sooner. ID Date Data Source [id number] 03/15/2021 03:37:00 PM EDT [facility] Name Value Range Interpretation Code Description Data Allie rce(s) Supporting Document(s) SARS coronavirus 2 RNA [Presence] in Res piratory specimen by LETI with probe detection NEGATIVE [facility] This lab was ordered by [facility] a nd reported by [facility]. ID Date Data Source [id number] 03/15/2021 03:35:00 PM EDT [facility] Name Value Range Interpretation Code Description Data Allie rce(s) Supporting Document(s) Appearance, Urine RFX Laboratory test result [facility] [facility]) Color, Urine RFX Laboratory test result [facility] PH,Urine RFX 5.0 units 5.0-9.0 [facility] ([facility]) Specific [place] Ur Auto RFX 1.024 1.002-1.035 [facility] Protein, Urine Auto RFX Laboratory test result [facility] Glucose, Urine (Ua) Auto RFX Laboratory test result [facility] ([facility]) Ketone, Urine Auto RFX Laboratory test result [facility] ([facility]) Bilirubin, Urine Auto RFX Laboratory test result [facility] Urobilinogen, Urine Auto RFX 0.2 mg/dL 0.0-2.0 [facility] ([facility] Nitrite, Urine Auto RFX Laboratory test result [facility] ([facility]) Leukocyte Esterase Ur Auto RFX Laboratory test result [facility] ([facility] Blood, Urine Blood RFX Laboratory test result [facility] RBC, Urine Auto RFX 0 /HPF 0-3 [facility] ([facility]) WBC, Urine Auto RFX 2 /HPF 0-3 [facility] ([facility]) Bacteria, Urine Auto RFX Laboratory test result [facility] Squam Epithelial Cell Ur Aurfx 1 /HPF 0-6 [facility] ([facility] Mucus, Urine RFX Laboratory test result [facility] ([facility] Hyaline Cast, Urine Auto RFX 3 /LPF 0-1 M [facility] ID Date Data Source [id number] 03/15/2021 03:17:00 PM EDT [facility] ([facility] Name Value Range Interpretation Code Description Data Allie rce(s) Supporting Document(s) Venous PH 7.293 units 7.330-7.430 [facility] ([facility]) Venous Partial Pressure Co2 60.1 mmHg 38.0-50.0 [facility] ([facility]) Venous Total Co2 30.3 meq/L 24.0-28.0 [facility] ([facility]) Venous Partial Pressure O2 28.7 mmHg 30.0-50.0 [facility] ([facility]) Venous Base Excess 0.6 [facility] ([facility]) Venous Hco3 28.4 meq/L 23.0-27.0 [facility] ([facility]) Venous Standard Hco3 24.0 meq/L [facility] ( [facility]) Venous O2 Saturation 54.2 % 60.0-80.0 [facility] ([facility]) ID Date Data Source [id number] 03/15/2021 02:20:00 PM EDT [facility]) Name Value Range Interpretation Code Description Data Allie rce(s) Supporting Document(s) CPK Creatine Phosphokinase 161 U/L 26-192 [facility] ([facility]) CK-MB Value Mass 1.7 ng/mL [facility] ([facility]) MB/CK Relative Index 1.06 [facility] ([facility]) <content>DIAGNOSIS CRITERIA</content>
<content>MMB ng/ml Relative Index (RI)</content>
<content>NON-AMI < or = 5 N/A</content>
<content>ANTON ZONE > 5 < or = 4</content>
<content>AMI > 5 > 4</content>
<content></content> Troponin I Laboratory test result [facility] <content>Troponin I Reference Interval f or Siemens [place] LOCI:</content>
<content></content>
<content>99th Percentile= 0.00-0.045 ng/ml</content>
<content></content>
<content>Risk Stratification:</content>
<content><= 0.10 ng/ml Decreased Risk for Adverse Clinical</content>
<content>Events.</content>
<content>0.10-1.50 ng/ml Increased Risk for Adverse Clinical</content>
<content>Events. Evaluation of additional</content>
<content>criterion and/or repeat testing in 2-6</content>
<content>hours is suggested to rule out myocardial</content>
<content>damage.</content>
<content>>= 1.50 ng/ml Indicative of Myocardial Injury.</content>
<content></content> ID Date Data Source [id number] 03/15/2021 02:20:00 PM EDT [facility] Name Value Range Interpretation Code Description Data Allie rce(s) Supporting Document(s) Alt/SGPT 33 U/L 12-78 [facility] ([facility]) Ast/Sgot 28 U/L 7-37 [facility] ([facility]) Bilirubin,Total 0.4 mg/dL 0.2-1.0 [facility] ([facility]) Alkaline Phosphatase 93 U/L 45-117 [facility] ([facility] Total Protein 7.0 GM/DL 6.4-8.2 [facility] ([facility]) Bilirubin,Direct 0.1 mg/dL 0.0-0.2 [facility] ([facility]) Albumin 3.7 GM/DL 3.2-5.2 [facility] ([facility]) Albumin/Globulin Ratio 1.1 1.2-2.2 [facility] ([facility]) ID Date Data Source [id number] 03/15/2021 02:20:00 PM EDT [facility] ([facility]) Name Value Range Interpretation Code Description Data Allie rce(s) Supporting Document(s) Glucose, Fasting 103 mg/dL 70-100 [facility] ([facility]) Blood Urea Nitrogen 23 mg/dL 7-18 [facility] ([facility]) Glomerular Filtration Rate Laboratory test result [facility] ([facility]) <content>Units are mL/min/1.73 m2</content>
<content></content>
<content>Chronic Kidney Disease Staging per NKF:</content>
<content></content>
<content>Stage I & II GFR >=60 Normal to Mildly Decreased</content>
<content>Stage III GFR 30- 59 Moderately Decreased</content>
<content>Stage IV GFR 15-29 Severely Decreased</content>
<content>Stage V GFR <15 Very Little GFR Left</content>
<content>ESRD GFR <15 on VFX ARTIST</content>
<content></content> Creatinine For GFR 0.84 mg/dL 0.55-1.30 [facility] ([facility]) Sodium Level 141 meq/L 136-145 [facility] ([facility]) Chloride Level 110 meq/L 98-107 [facility] ([facility]) Potassium Serum 4.3 meq/L 3.5-5.1 [facility] ([facility]) Carbon Dioxide Level 26 meq/L 21-32 [facility] ( [facility] Anion Gap 5 meq/L 8-16 [facility]) Calcium Level 8.5 mg/dL 8.8-10.2 [facility] ([facility]) ID Date Data Source [id number] 03/15/2021 02:20:00 PM EDT [facility] ([facility]) Name Value Range Interpretation Code Description Data Allie rce(s) Supporting Document(s) Natriuretic peptide.B prohormone N-Terminal [Mass/volu me] in Serum or Plasma 142 pg/mL [facility] ([facility] ) Thyrotropin [Units/volume] in Serum or Plasma by Detec tion limit <= 0.05 mIU/L 3.980 uIU/ML 0.358-3.740 [facility] ([facility] ) Thyroxine (T4) free [Mass/volume] in Serum or Plasma 0.98 ng/dL 0.76- 1.46 [facility] ([facility]) ID Date Data Source [id number] 03/15/2021 02:20:00 PM EDT [facility] ([facility]) Name Value Range Interpretation Code Description Data Allie rce(s) Supporting Document(s) White Blood Count 16.3 10 4.0-10.0 [facility] ([facility]) Red Blood Count 4.41 10 4.00-5.40 [facility] ([facility]) Hemoglobin 13.0 g/dL 12.0-15.5 [facility]) Mean Corpuscular Volume 92.3 fl 80.0-96.0 [facility] ([facility]) Hematocrit 40.7 % 36.0-47.0 [facility] Mean Corpuscular Hemoglobin 29.5 pg 27.0-33.0 [facility] ([facility]) Mean Corpuscular HGB Conc 31.9 g/dL 32.0-36.5 [facility] ([facility]) Red Cell Distribution Width 13.3 % 11.5-14.5 [facility] ([facility]) Neutrophils % 81.6 % 36.0-66.0 [facility] ([facility]) Platelet Count, Automated 248 10 150-450 [facility] ([facility]) Eos % 1.8 % 0.0-3.0 [facility]) Lymph % 8.1 % 24.0-44.0 [facility]) Menard % 7.8 % 2.0-8.0 [facility]) Immature Granulocyte % 0.4 % 0-3.0 [facility] ([facility]) Baso % 0.3 % 0.0-1.0 [facility]) Neutrophils # 13.3 10 1.5-8.5 [facility] ([facility]) Nucleated Red Blood Cell % 0.0 % 0-0 [facility] ([facility]) Menard # 1.3 10 0.0-0.8 [facility]) Lymph # 1.3 10 1.5-5.0 [facility]) Eos # 0.3 10 0.0-0.5 [facility]) Baso # 0.1 10 0.0-0.2 [facility]) ID Date Data Source [id number] 11/20/2020 02:41:00 PM EDT [facility] ([facility]) Name Value Range Interpretation Code Description Data Allie rce(s) Supporting Document(s) Thyrotropin [Units/volume] in Serum or Plasma by Detec tion limit <= 0.05 mIU/L 0.32 uIU/mL 0.36-3.74 [facility] ([facility] ) ID Date Data Source [id number] 11/20/2020 02:41:00 PM EDT [facility] ([facility]) Name Value Range Interpretation Code Description Data Allie rce(s) Supporting Document(s) Hemoglobin A1c/Hemoglobin.total in Blood 9.7 % [facility] ([facility] Lab Result Notes: Pre-Diabetes 5.7 - 6.4 % Diabetes = or > 6.5% Glucose mean value [Mass/volume] in Blood Estimated fr om glycated hemoglobin 232 mg/dL 60-110 [facility] ([facility] ) ID Date Data Source [id number] 11/20/2020 02:41:00 PM EDT [facility] ([facility]) Name Value Range Interpretation Code Description Data Allie rce(s) Supporting Document(s) Urea nitrogen [Mass/volume] in Serum or Plasma 16 mg/dL 7-18 [facility] ([facility]) Creatinine 0.9 mg/dL 0.6-1.3 [facility] Glucose [Mass/volume] in Serum or Plasma 223 mg/dL 74-99 [facility] ([facility]) 100-125 mg/dL PRE-DIABETES/FASTING >126 mg/dL DIABETES/FASTING Potassium [Moles/volume] in Serum or Plasma 4.5 meq/L 3.5-5.1 [facility] ([facility]) Sodium [Moles/volume] in Serum or Plasma 136 meq/L 136-145 [facility] ([facility]) Calcium [Mass/volume] in Serum or Plasma 8.9 mg/dL 8.5-10.1 [facility] ([facility]) Chloride [Moles/volume] in Serum or Plasma 102 meq/L 98-107 [facility] ([facility]) Carbon dioxide, total [Moles/volume] in Serum or Plasma 29 meq/L 21 -32 [facility] ([facility]) Aspartate aminotransferase [Enzymatic activity/volume] in Serum or Plasma 19 U/L 15-37 [facility] ([facility] ) Total Bilirubin 0.3 mg/dL 0.2-1.0 [facility] ([facility] Alkaline phosphatase isoenzyme [Units/volume] in Serum or Pl asma 155 mg/dL 46-116 [facility] ([facility]) Albumin [Mass/volume] in Serum or Plasma 3.8 g/dL 3.4-5.0 [facility] ([facility]) Alanine aminotransferase [Enzymatic activity/volume] in Seru m or Plasma 27 U/L 12-78 [facility] ([facility]) Proteinase 3 Ab [Units/volume] in Serum 7.8 g/dL 6.4-8.2 [facility] ([facility]) A/G Ratio 0.95 CALC 1.00-1.90 [facility] ([facility]) Glomerular filtration rate/1.73 sq M pre dicted among blacks [Volume Rate/Area] in Serum or Plasma by Creatinine-based formula (MDRD) Laboratory test result [facility] ([facility]) <content>CHRONIC KIDNEY DISEASE STAGING PER NKF</content>
<content></content>
<content>STAGE I & II GFR >= 60 NORMAL TO MILDLY DECREASED</content>
<content>STAGE III GFR 30-59 MODERATELY DECREASED</content>
<content>STAGE IV GFR 15-29 SEVERELY DECREASED</content>
<content>STAGE V GFR <15 VERY LITTLE GFR LEFT</content>
<content>ESRD GFR <15 ON VFX ARTIST</content>
<content></content> Glomerular filtration rate/1.73 sq M pre dicted among non-blacks [Volume Rate/Area] in Serum or Plasma by Creatinine-based formula (MDRD) Laboratory test result [facility] ([facility] ) ID Date Data Source [id number] 11/09/2020 09:02:00 AM EDT [facility] ([facility] Name Value Range Interpretation Code Description Data Allie rce(s) Supporting Document(s) CPK Creatine Phosphokinase 64 U/L 26-192 [facility] ([facility]) MB/CK Relative Index 1.72 [facility] ([facility]) <content>DIAGNOSIS CRITERIA</content>
<content>MMB ng/ml Relative Index (RI)</content>
<content>NON-AMI < or = 5 N/A</content>
<content>ANTON ZONE > 5 < or = 4</content>
<content>AMI > 5 > 4</content>
<content></content> CK-MB Value Mass 1.1 ng/mL [facility] ([facility]) Troponin I Laboratory test result [facility] ([facility]) <content>Troponin I Reference Interval f or Siemens [place] LOCI:</content>
<content></content>
<content>99th Percentile= 0.00-0.045 ng/ml</content>
<content></content>
<content>Risk Stratification:</content>
<content><= 0.10 ng/ml Decreased Risk for Adverse Clinical</content>
<content>Events.</content>
<content>0.10-1.50 ng/ml Increased Risk for Adverse Clinical</content>
<content>Events. Evaluation of additional</content>
<content>criterion and/or repeat testing in 2-6</content>
<content>hours is suggested to rule out myocardial</content>
<content>damage.</content>
<content>>= 1.50 ng/ml Indicative of Myocardial Injury.</content>
<content></content> ID Date Data Source [id number] 11/09/2020 09:02:00 AM EDT [facility] ([facility]) Name Value Range Interpretation Code Description Data Allie rce(s) Supporting Document(s) Glucose, Fasting 155 mg/dL 70-100 [facility] ([facility]) Blood Urea Nitrogen 21 mg/dL 7-18 [facility] ([facility]) Creatinine For GFR 0.76 mg/dL 0.55-1.30 [facility] ([facility]) Glomerular Filtration Rate Laboratory test result [facility] ([facility] <content>Units are mL/min/1.73 m2</content>
<content></content>
<content>Chronic Kidney Disease Staging per NKF:</content>
<content></content>
<content>Stage I & II GFR >=60 Normal to Mildly Decreased</content>
<content>Stage III GFR 30-59 Moderately Decreased</content>
<content>Stage IV GFR 15-29 Severely Decreased</content>
<content>Stage V GFR <15 Very Little GFR Left</content>
<content>ESRD GFR <15 on VFX ARTIST</content>
<content></content> Sodium Level 141 meq/L 136-145 [facility] ([facility]) Potassium Serum 4.4 meq/L 3.5-5.1 [facility] ([facility]) Testing was performed on a SLIGHTLY hemo lyzed specimen. Suggest recollection of specimen for more accurate test results. Carbon Dioxide Level 27 meq/L 21-32 [facility] ([facility]) Chloride Level 108 meq/L 98-107 [facility] ([facility]) Anion Gap 6 meq/L 8-16 [facility] ([facility]) Calcium Level 8.3 mg/dL 8.8-10.2 [facility] ([facility]) Ast/Sgot 20 U/L 7-37 [facility] ([facility]) Alt/SGPT 23 U/L 12-78 [facility]) Alkaline Phosphatase 133 U/L 45-117 [facility] ([facility] Total Protein 6.0 GM/DL 6.4-8.2 [facility] ([facility]) Albumin 3.0 GM/DL 3.2-5.2 [facility] ([facility]) Bilirubin,Total 0.4 mg/dL 0.2-1.0 [facility] ([facility]) Albumin/Globulin Ratio 1.0 1.2-2.2 [facility] ([facility]) ID Date Data Source [id number] 11/09/2020 09:02:00 AM EDT [facility] ([facility]) Name Value Range Interpretation Code Description Data Allie rce(s) Supporting Document(s) White Blood Count 7.1 10 4.0-10.0 [facility] ([facility]) Red Blood Count 4.06 10 4.00-5.40 [facility] ([facility]) Hematocrit 37.0 % 36.0-47.0 [facility]) Hemoglobin 11.6 g/dL 12.0-15.5 [facility]) Mean Corpuscular HGB Conc 31.4 g/dL 32.0-36.5 [facility] ([facility]) Mean Corpuscular Volume 91.1 fl 80.0-96.0 [facility] ([facility]) Mean Corpuscular Hemoglobin 28.6 pg 27.0-33.0 [facility] ([facility]) Red Cell Distribution Width 12.7 % 11.5-14.5 [facility] ([facility]) Platelet Count, Automated 217 10 150-450 [facility] ([facility]) Neutrophils % 63.6 % 36.0-66.0 [facility]) Menard % 11.5 % 2.0-8.0 [facility]) Lymph % 19.1 % 24.0-44.0 [facility]) Eos % 4.8 % 0.0-3.0 [facility]) Baso % 0.7 % 0.0-1.0 [facility]) Nucleated Red Blood Cell % 0.0 % 0-0 [facility] ([facility]) Immature Granulocyte % 0.3 % 0-3.0 [facility] ([facility]) Neutrophils # 4.5 10 1.5-8.5 [facility]) Lymph # 1.4 10 1.5-5.0 [facility]) Menard # 0.8 10 0.0-0.8 [facility]) Eos # 0.3 10 0.0-0.5 [facility]) Baso # 0.1 10 0.0-0.2 [facility]) ID Date Data Source [id number] 09/02/2020 12:00:00 AM EST [facility] Juancarlos Dewey MD Patient Name: JOHANNA [id number] [facility] Date of : 1950[place] [address] Date [facility] Exam: [facility] [place] [address] Fax: [phone] EXAM: HIP LEFT UNILATERAL (COMPLETE) X-RAYCLINICAL INFORMATION: Pain after a fall.Two views. These images were obtained using digital radiography.No acute fracture or dislocation is seen. Mild arthritic changes are seenat the hip joint with mild joint space narrowing and subchondral sclerosis.IMPRESSION:Mild degenerative changes. No fracture or dislocation.KIMBERLY Mercer/Kit you for referring JOHANNA GRIER to our office. Electronically Signed - CAREN ANTON MD 09/03/20 16:38 Name Value Range Interpretation Code Description Data Allie rce(s) Supporting Document(s) ID Date Data Source [id number] 08/28/2020 02:27:00 PM EST [facility] ([facility]) Name Value Range Interpretation Code Description Data Allie rce(s) Supporting Document(s) Thyrotropin [Units/volume] in Serum or Plasma by Detec tion limit <= 0.05 mIU/L 0.13 uIU/mL 0.36-3.74 [facility] ([facility] ) ID Date Data Source [id number] 08/28/2020 02:27:00 PM EST [facility] ([facility]) Name Value Range Interpretation Code Description Data Allie rce(s) Supporting Document(s) Hemoglobin A1c/Hemoglobin.total in Blood 9.1 % [facility] ([facility] Lab Result Notes: Pre-Diabetes 5.7 - 6.4 % Diabetes = or > 6.5% Glucose mean value [Mass/volume] in Blood Estimated fr om glycated hemoglobin 214 mg/dL 60-110 [facility] ([facility] ) ID Date Data Source [id number] 08/28/2020 02:27:00 PM EST [facility] ([facility]) Name Value Range Interpretation Code Description Data Allie rce(s) Supporting Document(s) Glucose [Mass/volume] in Serum or Plasma 283 mg/dL 74-99 [facility] ([facility]) 100-125 mg/dL PRE-DIABETES/FASTING >126 mg/dL DIABETES/FASTING Urea nitrogen [Mass/volume] in Serum or Plasma 22 mg/dL 7-18 [facility] ([facility]) Creatinine 1.0 mg/dL 0.6-1.3 [facility] ([facility]) Potassium [Moles/volume] in Serum or Plasma 4.4 meq/L 3.5-5.1 [facility] ([facility]) Sodium [Moles/volume] in Serum or Plasma 136 meq/L 136-145 [facility] ([facility]) Carbon dioxide, total [Moles/volume] in Serum or Plasma 32 meq/L 21 -32 [facility] ([facility]) Chloride [Moles/volume] in Serum or Plasma 98 meq/L 98-107 [facility] Alkaline phosphatase isoenzyme [Units/volume] in Serum or Pl asma 146 mg/dL 46-116 [facility] ([facility]) NOTE: RESULT VERIFIED. Calcium [Mass/volume] in Serum or Plasma 8.9 mg/dL 8.5-10.1 [facility] ([facility]) Aspartate aminotransferase [Enzymatic activity/volume] in Serum or Plasma 21 U/L 15-37 [facility] ([facility] Total Bilirubin 0.3 mg/dL 0.2-1.0 [facility] ([facility] Albumin [Mass/volume] in Serum or Plasma 3.5 g/dL 3.4-5.0 [facility] ([facility]) Alanine aminotransferase [Enzymatic activity/volume] in Seru m or Plasma 29 U/L 12-78 [facility] ([facility]) Proteinase 3 Ab [Units/volume] in Serum 7.3 g/dL 6.4-8.2 [facility] ([facility] A/G Ratio 0.92 CALC 1.00-1.90 [facility] ([facility]) Glomerular filtration rate/1.73 sq M pre dicted among non-blacks [Volume Rate/Area] in Serum or Plasma by Creatinine-based formula (MDRD) 55 mL/min [facility] ([facility] Glomerular filtration rate/1.73 sq M pre dicted among blacks [Volume Rate/Area] in Serum or Plasma by Creatinine-based formula (MDRD) Laboratory test result [facility] <content>CHRONIC KIDNEY DISEASE STAGING PER NKF</content>
<content></content>
<content>STAGE I & II GFR >= 60 NORMAL TO MILDLY DECREASED</content>
<content>STAGE III GFR 30-59 MODERATELY DECREASED</content>
<content>STAGE IV GFR 15-29 SEVERELY DECREASED</content>
<content>STAGE V GFR <15 VERY LITTLE GFR LEFT</content>
<content>ESRD GFR <15 ON VFX ARTIST</content>
<content></content> ID Date Data Source [id number] 08/28/2020 02:27:00 PM EST [facility] ([facility] Name Value Range Interpretation Code Description Data Allie rce(s) Supporting Document(s) Leukocytes [#/volume] in Blood by Automated count 8.5 x10*3/UL 4.1-10 .9 [facility] ([facility]) Erythrocytes [#/volume] in Blood by Automated count 4.34 x10*6/UL 4.2 0-6.30 [facility] Hemoglobin [Mass/volume] in Blood 12.9 g/dL 12.0-18.0 [facility] ([facility] Hematocrit [Volume Fraction] of Blood by Automated count 37.3 % 3 7.0-51.0 [facility] ([facility]) MCV 85.9 fL 80.0-97.0 [facility] ([facility]) MCHC 34.5 g/dL 31.0-38.0 [facility] MCH 29.7 pg 26.0-32.0 [facility] ([facility]) MPV 8.2 FL 7.8-11.0 [facility] ([facility]) Erythrocyte distribution width [Ratio] by Automated count 12.9 % 11.6-13.7 [facility] ([facility] Platelets [#/volume] in Blood by Automated count 261 x10*3/UL 140-440 [facility] Lymph % 24.4 % 10.0-58.5 [facility] ([facility]) Mid % 8.6 % 1.7-9.3 [facility] ([facility]) Neut % 67.0 % 37.0-92.0 [facility] ([facility]) Lymph # 2.0 x10*3/UL 0.6-4.1 [facility] ([facility]) Neut # 5.7 x10*3/UL 2.0-7.8 [facility] ([facility]) Mid # 0.8 x10*3/UL 0.1-0.6 [facility] ([facility]) ID Date Data Source [id number] 08/28/2020 02:27:00 PM EST [facility] ([facility] Name Value Range Interpretation Code Description Data Allie rce(s) Supporting Document(s) Hemoglobin A1c/Hemoglobin.total in Blood Laboratory test result [facility] ([facility] Thyrotropin [Units/volume] in Serum or Plasma by Detec tion limit <= 0.05 mIU/L Laboratory test result [facility] ([facility]) Procedure Social History No Information Vital Signs ID Date Data Source UNK Name Value Range Interpretation Code Description Data Source(s) Systolic blood pressure 130 mm[Hg] 130 mm[Hg] M [facility] ([facility]) Diastolic blood pressure 80 mm[Hg] 80 mm[Hg] [facility] ([facility]) Heart rate 82 /min 82 /min [facility] ([facility]) Body height 67 [in_i] 67 [in_i] [facility] ([facility]) 5'7" Body weight 149.00 [lb_av] 149.00 [lb_av] [facility] ([facility]) Body mass index (BMI) [Ratio] 23.3 kg/m2 23.3 k g/m2 [facility] ([facility]) Heart rate 76 /min 76 /min [facility] ([facility]) Body height 67 [in_i] 67 [in_i] [facility] [facility]) 5'7" Body weight 163.00 [lb_av] 163.00 [lb_av] MEDEN T ([facility]) Body mass index (BMI) [Ratio] 25.5 kg/m2 25.5 k g/m2 MEDENT ([facility]) Systolic blood pressure 136 mm[Hg] 136 mm[Hg] M EDENT ([facility]) Diastolic blood pressure 80 mm[Hg] 80 mm[Hg] MEDENT ([facility]) Body height 67 [in_i] 67 [in_i] MEDENT ([facility]) 5'7" Body weight 154.00 [lb_av] 154.00 [lb_av] MEDEN T ([facility]) Body mass index (BMI) [Ratio] 24.1 kg/m2 24.1 k g/m2 MEDENT ([facility]) Systolic blood pressure 138 mm[Hg] 138 mm[Hg] M EDENT ([facility]) Diastolic blood pressure 80 mm[Hg] 80 mm[Hg] MEDENT ([facility]) Heart rate 72 /min 72 /min MEDENT ([facility]) Systolic blood pressure 136 mm[Hg] 136 mm[Hg] M EDENT ([facility]) RT Arm Diastolic blood pressure 70 mm[Hg] 70 mm[Hg] MEDENT ([facility]) RT Arm Heart rate 58 /min 58 /min MEDENT ([facility]) Body weight 147.00 [lb_av] 147.00 [lb_av] MEDEN T ([facility]) Oxygen saturation in Arterial blood by Pulse oximetry --post exerci se 97 % 97 % LUZ ([facility]) Air
--- NOTE | 2021-05-21 14:46 | REPVR ---
PROCEDURE INFORMATION: Exam: CT Head Without Contrast Exam date and time: 05/21/2021 1:36 PM Age: 71 years old Clinical indication: Syncope and collapse TECHNIQUE: Imaging protocol: Computed tomography of the head without contrast. Radiation optimization: All CT scans at this facility use at least one of these dose optimization techniques: automated exposure control; mA and/or kV adjustment per patient size (includes targeted exams where dose is matched to clinical indication); or iterative reconstruction. COMPARISON: CT Head without contrast 11/09/2020 9:05 AM FINDINGS: Brain: There is no acute intracranial hemorrhage, cerebral edema, or midline shift. Chronic microvascular ischemic changes are seen in the periventricular white matter. Age-related cerebral and cerebellar volume loss is present. Cerebral ventricles: Moderate ex vacuo dilation of the lateral and third ventricles is noted. Paranasal sinuses: There is no acute sinusitis. Mastoid air cells: The mastoid air cells are clear. Orbital cavity: The included orbital structures are unremarkable. Vasculature: Atherosclerotic calcifications are seen involving the cavernous carotid arteries. Bones/joints: No acute fracture. Soft tissues: Unremarkable. IMPRESSION: 1. No acute intracranial abnormality. 2. Atrophy and chronic deep white matter ischemic changes. Electronically signed by: Inocente Baez On 05/21/2021 14:46:07 PM
[2021-05-21 15:16] LABS: AMPHETAMINES LEVEL URINE NEGATIVE (NEGATIVE); BARBITURATES URINE NEGATIVE (NEGATIVE); BENZODIAZEPINES URINE NEGATIVE (NEGATIVE); CANNABINOIDS URINE NEGATIVE (NEGATIVE); COCAINE METABOLITE URINE NEGATIVE (NEGATIVE); METHADONE URINE NEGATIVE (NEGATIVE); OPIATES URINE NEGATIVE (NEGATIVE); PHENCYCLIDINE URINE NEGATIVE (NEGATIVE)
[2021-05-21] MEDS ORDERED: CIPROFLOXACIN 400 MG in IV 1 EA IV ONE (16:00)
[2021-05-21] MEDS ORDERED: CIPR500T39 PO (16:34)
[2021-05-21] MEDS ORDERED: NS 1,000 ML IV ONE (17:20)
[2021-05-21 18:29] LABS: RSV AMPLIFICATION NEGATIVE (NEGATIVE)
--- NOTE | 2021-05-21 19:16 | HPEPDOC ---
General Date of Admission 05/21/21 Date of Service: May 21, 2021 Chief Complaint The patient is a 71-year-old female admitted with a reason for visit of Blood Pressure Issues. Source: Family, RN/MD History of Present Illness 71 yo F with a hx of advanced Alzheimer's dementia, DM2, HTN, history of falls with T12 compression fx. She lives at home with 24 hour care from home health agency was brought to the emergency room after a syncopal episode at home while she was sitting on the toilet having a bowel movement. She had slumped over and became nonresponsive home health aide called EMS. On arrival of the EMS they found her blood pressure to be in 60s patient was started on IV fluids and brought to the emergency. By the time she reached the emergency room she got a 1-1/2 L of fluid and her blood pressure had improved. Work-up in the ED showed elevated WBC and dirty UA. Patient was diagnosed with a UTI and given a dose of ciprofloxacin. The plan was to send her home with p.o. ciprofloxacin however in the process of being of going home she had 2 more syncopal episodes where she rolled up her eyes and became nonresponsive lasting for a few seconds. Blood p ressure was again noted to be low in 80s. So the patient was admitted for syncope, hypotension and urinary tract infection. No history could be gotten from the patient due to dementia. No family or caregiver at bedside. All history taken from ED physician and chart review. Home Medications Scheduled Aspirin (Aspirin EC) 81 Mg Tablet.dr, 81 MG PO DAILY, (Reported) Atenolol (Atenolol) 25 Mg Tab, 25 MG PO DAILY, (Reported) Atorvastatin Calcium (Atorvastatin Calcium) 20 Mg Tab, 20 MG PO DAILY, (Reported) Bupropion Hcl (Bupropion HCl Sr) 150 Mg Tab.sr.12h, 150 MG PO DAILY, (Reported) Ciprofloxacin HCl (Ciprofloxacin HCl) 500 Mg Tablet, 500 MG PO BID Insulin Detemir (Levemir Flextouch) 100 Unit/1 Ml Insuln.pen, 15 UNIT SC BID, (Reported) L.acidoph/L.bulg/B.bif/S.therm (Jennifer-Bid Caplet) 1 Each Tablet, 1 TAB PO Q2D, (Reported) Levothyroxine Sodium (Levoxyl) 125 Mcg Tablet, 125 MCG PO DAILY, (Reported) Memantine HCl (Memantine HCl ER) 28 Mg Cap.spr.24, 28 MG PO DAILY, (Reported) Quetiapine Fumarate (Quetiapine Fumarate) 25 Mg Tablet, 25 MG PO QHS, (Reported) Quetiapine Fumarate (Quetiapine Fumarate) 25 Mg Tablet, 12.5 MG PO DAILY, (Reported) Ramipril (Ramipril) 5 Mg Capsule, 5 MG PO DAILY, (Reported) Sertraline HCl (Sertraline HCl) 50 Mg Tablet, 50 MG PO DAILY, (Reported) Vitamin B Complex (Vitamin B Complex) 1 Each Capsule, 1 CAP PO DAILY, (Reported) Allergies Coded Allergies: Sulfa (Sulfonamide Antibiotics) (Verified Allergy, Unknown, 03/23/19) metformin (Verified Adverse Reaction, Mild, nausea, 03/23/19) Past Medical History Medical History Alzheimer's dementia, DM2, HTN, history of falls with T12 compression fx, history of vasovagal syncopal episodes since age of 15, Surgical History 1. Hysterectomy. 2. Tubal ligation. 3. Breast implants. Family History No significant family history documented in the chart. Patient cannot give any history due to dementia Social History * Smoker: former Smoker Alcohol: Denies Drugs: denies A-FIB/CHADSVASC A-FIB History Current/History of A-Fib/PAF?: No Review of Systems Constitutional: Denies: Chills, Fever Eyes: Reports: Pain Pulmonary: Denies: Dyspnea, Cough Cardiovascular: Denies: Orthopnea, Paroxysmal Noc. Dyspnea, Edema Gastrointestinal: Denies: Vomiting, Abdominal Pain, Diarrhea Genitourinary: Reports: Incontinence Psych: Reports: Memory Issues Other systems No further review of system could be done due to dementia Physical Examination General Exam: Positive: Alert, Other (Confused talking nonsensical words and sentences.) ENT Exam: Positive: Atraumatic, Mucous membr. moist/pink, Pharynx Normal Neck Exam: Positive: Supple; Negative: JVD, thyromegaly Chest Exam: Positive: Clear to auscultation, Normal air movement Heart Exam: Positive: Rate Normal, Regular Rhythm, Normal S1, Normal S2; Negative: Murmurs, Rubs Abdomen Exam: Positive: Normal bowel sounds, Soft; Negative: Tenderness Extremity Exam: Negative: Clubbing, Cyanosis, Edema Neuro Exam: Positive: Other (Moving all 4 extremities but does not follow commands. Speech is mostly mumbled garbled soft and nonsensical.) Psych Exam: Negative: Memory Intact, Oriented x 3 Vital Signs Vital Signs Date Time Temp Pulse Resp B/P (MAP) Pulse Ox O2 Delivery O2 Flow Rate FiO2 05/21/21 16:48 98.4 05/21/21 16:32 76 95 Room Air 05/21/21 16:31 111/55 (73) 05/21/21 12:58 16 Laboratory Data Labs 24H Laboratory Tests 2 05/21/21 13:00: Prothrombin Time 13.8, Prothromb Time International Ratio 1.02, Activated P artial Thromboplast Time 22.0L 05/21/21 13:09: Immature Granulocyte % (Auto) 0.3, Neutrophils (%) (Auto) 79.2H, Lymphocytes (%) (Auto) 10.4L, Monocytes (%) (Auto) 8.4H, Eosinophils (%) (Auto) 1.2, Basophils (%) (Auto) 0.5, Neutrophils # (Auto) 12.7H, Lymphocytes # (Auto) 1.7, Monocytes # (Auto) 1.3H, Eosinophils # (Auto) 0.2, Basophils # (Auto) 0.1, Nucleated Red Blood Cells % (auto) 0.0, Anion Gap 2L, Glomerular Filtration Rate 56.6, Lactic Acid Level 1.7, Calcium Level 8.9, Magnesium Level 2.0, Total Bilirubin 0.4, Direct Bilirubin 0.1, Aspartate Amino Transf (AST/SGOT) 12, Alanine Aminotransferase (ALT/SGPT) 19, Alkaline Phosphatase 99, Total Creatine Kinase 119, Creatine Kinase MB 1.5, Creatine Kinase MB Relative Index 1.26, Troponin I < 0.02, Total Protein 6.5, Albumin 3.1L, Albumin/Globulin Ratio 0.9L, Thyroid Stimulating Hormone (TSH) 0.917, Free Thyroxine 1.16, Salicylates Level < 1.7L, Acetaminophen Level 12.0, Ethyl Alcohol Level < 0.003 05/21/21 14:30: Urine Color YELLOW, Urine Appearance CLOUDYH, Urine pH 5.0, Urine Specific Gra vity 1.016, Urine Protein NEGATIVE, Urine Glucose (UA) 2+H, Urine Ketones NEGATIVE, Urine Blood NEGATIVE, Urine Nitrite POSITIVEH, Urine Bilirubin NEGATIVE, Urine Urobilinogen 0.2, Urine Leukocyte Esterase 3+H, Urine WBC (Auto) TNTCH, Urine RBC (Auto) 2, Urine Hyaline Casts (Auto) 0, Urine Bacteria (Auto) 1+H, Urine Squamous Epithelial Cells 0, Urine Mucus (Auto) SMALL, Urine Sperm (Auto) , Urine Opiates Screen NEGATIVE, Urine Methadone Screen NEGATIVE, Urine Barbiturates Screen NEGATIVE, Urine Phencyclidine Screen NEGATIVE, Urine Amphetamines Screen NEGATIVE, Urine Benzodiazepines Screen NEGATIVE, Urine Cocaine Metabolite Screen NEGATIVE, Urine Cannabinoids Screen NEGATIVE 05/21/21 17:30: CBC/BMP Laboratory Tests 05/21/21 13:09 Microbiology Microbiology 05/21/21 Urine Culture, Received Pending 05/21/21 Blood Culture, Received Pending 05/21/21 Blood Culture, Received Pending Assessment/Plan 71 yo F with a hx of advanced Alzheimer's dementia, DM2, HTN, history of falls with T12 compression fx. She lives at home with 24 hour care from home health agency was brought to the emergency room after a syncopal episode at home while she was sitting on the toilet having a bowel movement. She had slumped over and became nonresponsive home health aide called EMS. On arrival of the EMS they found her blood pressure to be in 60s patient was started on IV fluids and brought to the emergency. By the time she reached the emergency room she got a 1-1/2 L of fluid and her blood pressure had improved. Work-up in the ED showed elevated WBC and dirty UA. Patient was diagnosed with a UTI and given a dose of ciprofloxacin. The plan was to send her home with p.o. ciprofloxacin however on the process of being of going home she had 2 more syncopal episodes where she rolled up her eyes and became nonresponsive lasting for a few seconds. Blood pressure was again noted to be low in 80s. So the patient was admitted for syncopal, hypertension and urinary tract infection. UTI: We will give ceftriaxone Vasovagal syncope vs orthostatic syncope While sitting on the toilet when the episode happened and her blood pressure was low as measured by EMS. Has had episodes of syncope since the age of 15 years as per chart review Diabetes We will continue with Levemir 10 units twice daily HTN Will hold home meds atenolol and ramipril as had documented hypotension with EMS and in the ED. HLD statin Alzheimer's Dementia: On sertraline and wellbutrin and memantine Hypothyroid: Continue same Plan / VTE VTE Prophylaxis Ordered?: Yes Adrianna Suarez MD May 21, 2021 18:18
--- OUTSIDE RECORDS SUMMARY | 2021-05-21 19:43 | CCD ---
Author Author [facility] Organization [facility] Address Unknown Phone Unavailable Care Team Providers Care Computer Operations Technician Name Role Phone Yamila Dewey MD Unavailable [...] White, F Juancarlos Unavailable Unavailable George, Anahy HEAVY FORGER Unavailable Unavailable George, Anahy HEAVY FORGER Unavailable Unavailable George, Anahy HEAVY FORGER Unavailable Unavailable George, Anahy HEAVY FORGER Unavailable Unavailable George, Anahy HEAVY FORGER Unavailable Unavailable George, Anahy HEAVY FORGER Unavailable Unavailable George, Anahy HEAVY FORGER Unavailable Unavailable George, Anahy HEAVY FORGER Unavailable Unavailable George, Anahy HEAVY FORGER Unavailable Unavailable George, Anahy HEAVY FORGER Unavailable Unavailable George, Anahy HEAVY FORGER Unavailable Unavailable George, Anahy HEAVY FORGER Unavailable Unavailable George, Anahy HEAVY FORGER Unavailable Unavailable George, Anahy HEAVY FORGER Unavailable Unavailable George, Anahy HEAVY FORGER Unavailable Unavailable George, Anahy HEAVY FORGER Unavailable Unavailable George, Anahy HEAVY FORGER Unavailable Unavailable George, Anahy HEAVY FORGER Unavailable Unavailable George, Anahy HEAVY FORGER Unavailable Unavailable George, Anahy HEAVY FORGER Unavailable Unavailable George, Anahy HEAVY FORGER Unavailable Unavailable George, Anahy HEAVY FORGER Unavailable Unavailable George, Anahy HEAVY FORGER Unavailable Unavailable George, Anahy HEAVY FORGER Unavailable Unavailable George, Anahy HEAVY FORGER Unavailable Unavailable George, Anahy HEAVY FORGER Unavailable Unavailable George, Anahy HEAVY FORGER Unavailable Unavailable George, Anahy HEAVY FORGER Unavailable Unavailable George, Anahy HEAVY FORGER Unavailable Unavailable George, Anahy HEAVY FORGER Unavailable Unavailable George, Anahy HEAVY FORGER Unavailable Unavailable George, Anahy HEAVY FORGER Unavailable Unavailable George, Anahy HEAVY FORGER Unavailable Unavailable George, Anahy HEAVY FORGER Unavailable Unavailable George, Anahy HEAVY FORGER Unavailable Unavailable Re-disclosure Warning The records that [...] is protected by Article 27-F of the [facility] Public Health law. If you continue you may have access to information: Regarding HIV / AIDS; Provided by facilities licensed or operated by the [facility] Office of Mental Health; or Provided by the [facility] Office for People With Developmental Disabilities. If such information is present, then the following [facility] mandated warning applies: This information has [...] law may result in a fine or custodial sentence or both. A general authorization for the release of medical or other information is NOT sufficient authorization for further disc losure. Family History Family Member Name Family Member Gender Family Member Status Date o f Status Description Data Source(s) Unknown Female Problem [facility] ([facility]) Unknown Unknown Problem [facility] ([facility] Unknown Unknown Problem [facility] ([facility] Unknown Female Problem [facility] ([facility]) Encounters Encounter Providers Location Date Indications Data Source(s ) Outpatient Attender: Juancarlos Farias 04/03 11:30:00 AM EDT [facility] ([facility] ) Outpatient Attender: Juancarlos Farias 11/20 03:00:00 PM EDT [facility] ([facility] ) Outpatient Attender: Anahy Farias 02:40:00 PM EDT [facility] ([facility] ) Medications Medication Brand Name Start Date Product Form Dose Route Admi nistrative Instructions Pharmacy Instructions Status Indications Reaction Description Data Source(s) Ciprofloxacin 500 MG Oral Tablet [Cipro] Cipro 04/15/2021 12:00: 00 AM EDT ORAL active [facility] NITROFURANTOIN, MACROCRYSTALS 25 MG / Ni trofurantoin, Monohydrate 75 MG Oral Capsule [Macrobid] Macrobid 03/04/2021 12:00:00 AM EDT ORAL completed [facility] ([facility] ) Dexamethasone 1 MG/ML / Tobramycin 3 MG/ML Ophthalmic Suspension Tobramycin-Dexamethasone 11/07/2020 12:00:00 AM EDT OPHTHALMIC active [facility] ([facility] ) Pen [place] 08/28/2020 12:00:00 AM EST active [facility] ([facility]) Onetouch II Test Strips 08/28/2020 12:00:00 AM EST active [facility] ([facility]) One Touch Ultra Test Strips 08/28/2020 12:00:00 AM EST active [facility] ([facility]) NITROFURANTOIN, MACROCRYSTALS 25 MG / Ni trofurantoin, Monohydrate 75 MG Oral Capsule [Macrobid] Macrobid 08/13/2020 12:00:00 AM EST ORAL completed [facility] ([facility] ) Fluconazole 150 MG Oral Tablet Fluconazole 06/06/2020 12:00:00 AM EST active [facility] ([facility]) atorvastatin 20 MG Oral Tablet [Lipitor] Lipitor 05/17/2020 12:00: 00 AM EDT ORAL active [facility] ([facility]) 12 HR Bupropion Hydrochloride 150 MG Extended Release Oral Tablet Bupropion Hydrochloride ER (SR) 05/17/2020 12:00:00 AM EDT ORAL a ctive [facility] ([facility]) 3 ML insulin detemir 100 UNT/ML Pen Injector [Levemir] Levem ir Flextouch 05/03/2020 12:00:00 AM EDT active [facility] ([facility]) Levothyroxine Sodium 0.125 MG Oral Tablet Levothyroxine Sodi um 05/03/2020 12:00:00 AM EDT ORAL active M EDENT ([facility]) Onetouch Ultrasoft Lancets 04/30/2020 12:00:00 AM EDT active [facility] ([facility]) Onetouch Ultra 2 04/30/2020 12:00:00 AM EDT a ctive [facility] ([facility]) Lancets Micro Thin 33G 04/29/2020 12:00:00 AM EDT completed [facility] ([facility]) Contour Next Blood Glucose Test 04/24/2020 12:00:00 AM EDT completed [facility] ([facility]) Levothyroxine Sodium 0.112 MG Oral Tablet Levothyroxine Sodi um 04/09/2020 12:00:00 AM EDT ORAL completed [facility] ([facility]) 24 HR Bupropion Hydrochloride 150 MG Extended Release Oral T ablet BUPROPION HCL 04/04/2020 12:00:00 AM EDT tablet extended release 24 hr 5 TAKE ONE TABLET BY MOUTH EVERY DAY TAKE ONE TABLET BY MOUTH EVERY DAY SOLD: 04/05/2020 [facility] Insurance Providers Payer name Policy type / Coverage type Policy ID Covered libertarian ID Covered libertarian's relationship to bowman Policy Bowman Plan Information [facility] FEDERAL [id number] SP [id number] [place]/307 [id number] SP [id number] MEDICARE BLUE PPO 306 [id number] SP [id number] [place] 306/806 [id number] SP [id number] [place] 306/806 [id number] SP [id number] [place]BS [place] 302/307 [id number] SP [id number] MEDICARE [id number] SP [id number] T BS [place] Medigap Part [id number] Self Pma Ins (WC) Workers Compensation [id number] Self MEDICARE [id number] SP [id number] A Medicare Blue Ppo Commercial [id number] Self [id number] Medicare Natl Govt Servic Medicare Primary [id number] Self [id number] Medicare Blue Ppo Commercial [id number] Self [id number] Medicare Natl Govt Servic Medicare Primary [id number] Self [id number] [facility] Advantage Commercial [id number] Self Todays Option Medicare Commercial [id number] Self [id number] Tod[employer] Option Medicare Commercial [id number] Self [id number] [employer] Medicare Commercial [id number] Self [id number] Tod[employer] Option Medicare Commercial [id number] Self [id number] [employer] Medicare Commercial [id number] Self [id number] [employer] Medicare Commercial [id number] Self [id number] Tod[employer] Option Medicare Commercial [id number] Self [id number] Tod[employer] Option Medicare Commercial [id number] Self [id number] Todays Option Medicare Commercial [id number] Self [id number] Wellcare/Todays Optmcr Commercial [id number] Self [id number] WELLCARE [id number] SP [id number] TODAYS OPTION MEDICARE [id number] Marlyn [id number] MEDICARE BLUE PPO 306 [id number] SP [id number] BS Medicare Blue Ppo/Hmo Commercial [id number] Self Today's Option Medicare Commercial [id number] Self [id number] TODAYS OPTIONS [id number] SP [id number] TODAYS OPTIONS [id number] SP [id number] MEDICARE [id number] SP [id number] T WELLCARE [id number] SP [id number] MEDICAID [id number] SP [id number] MEDICAID [id number] S [id number] WELLCARE O [id number] S [id number] BS [facility] Part B [id number] Self MEDICARE [id number] SP [id number] TODAYS OPTION MEDICARE [id number] Marlyn [id number] Problems, Conditions, and Diagnoses No Information Surgeries/Procedures Procedure Description Date Indications Data Source(s) OFFICE OUTPATIENT VISIT 25 MINUTES 04/03/2021 12:00:00 AM EDT [facility] ([facility]) OFFICE OUTPATIENT VISIT 25 MINUTES 11/20/2020 12:00:00 AM EDT [facility] ([facility]) Results ID Date Data Source [id number] 04/04/2021 10:52:00 AM EDT [facility] ([facility]) Name Value Range Interpretation Code Description Data Allie rce(s) Supporting Document(s) Urine Appearance Laboratory test result Abnormal (applies to non-numeric results) [facility] ([facility]) on macrobid Urine Color Laboratory test result MED[facility] T ([facility]) on macrobid Specific gravity of Urine 1.015 1.005-1.030 ME D[facility] ([facility]) on macrobid Urine PH 6.0 units 5.0-9.0 [facility]) on macrobid Urine Blood Laboratory test result Abnormal (applies to non-numeric results) [facility] ([facility]) on macrobid Urine Leukocytes Laboratory test result Abnormal (applies to non-numeric results) [facility] ([facility]) on macrobid Glucose [Presence] in Urine Laboratory test result [facility] ([facility]) on macrobid Urine Protein Laboratory test result 0-0 Abnormal (applies to non-numeric results) [facility] ([facility]) on macrobid Urine Ketone Laboratory test result Abnormal (applies to non-numeric results) [facility] ([facility]) on macrobid Urine Nitrite Laboratory test result Abnormal (applies to non-numeric results) [facility] ([facility]) on macrobid Bilirubin.total [Mass/volume] in Serum or Plasma Laboratory test resu lt [facility] on macrobid Urine Urobilinogen 0.2 mg/dL 0.2-1.0 [facility] ([facility]) on macrobid ID Date Data Source [id number] 04/03/2021 12:17:00 PM EDT [facility] ([facility]) Name Value Range Interpretation Code Description Data Allie rce(s) Supporting Document(s) Thyrotropin [Units/volume] in Serum or Plasma by Detec tion limit <= 0.05 mIU/L 3.55 uIU/mL 0.36-3.74 [facility] ([facility] ) ID Date Data Source [id number] 04/03/2021 12:17:00 PM EDT [facility]) Name Value Range Interpretation Code Description Data Lalie rce(s) Supporting Document(s) Hemoglobin A1c/Hemoglobin.total in Blood 8.4 % [facility] ([facility]) Lab Result Notes: Pre-Diabetes 5.7 - 6.4 % Diabetes = or > 6.5% Glucose mean value [Mass/volume] in Blood Estimated fr om glycated hemoglobin 194 mg/dL 60-110 [facility] ([facility] ) ID Date Data Source [id number] 04/03/2021 12:17:00 PM EDT [facility] ([facility]) Name Value Range Interpretation Code Description Data Allie rce(s) Supporting Document(s) Urea nitrogen [Mass/volume] in Serum or Plasma 23 mg/dL 7-18 [facility]) Glucose [Mass/volume] in Serum or Plasma 172 mg/dL 74-99 [facility] ([facility] 100-125 mg/dL PRE-DIABETES/FASTING >126 mg/dL DIABETES/FASTING Sodium [Moles/volume] in Serum or Plasma 139 meq/L 136-145 [facility]) Potassium [Moles/volume] in Serum or Plasma 4.5 meq/L 3.5-5.1 [facility] ([facility]) Creatinine 1.2 mg/dL 0.6-1.3 [facility] Chloride [Moles/volume] in Serum or Plasma 103 meq/L 98-107 [facility] ([facility]) Carbon dioxide, total [Moles/volume] in Serum or Plasma 27 meq/L 21 -32 [facility] ([facility]) Calcium [Mass/volume] in Serum or Plasma 9.1 mg/dL 8.5-10.1 [facility] ([facility]) Alkaline phosphatase isoenzyme [Units/volume] in Serum or Pl asma 100 mg/dL 46-116 [facility] ([facility]) Aspartate aminotransferase [Enzymatic activity/volume] in Serum or Plasma 18 U/L 15-37 [facility] ([facility] ) Total Bilirubin 0.7 mg/dL 0.2-1.0 [facility] ([facility]) Alanine aminotransferase [Enzymatic activity/volume] in Seru m or Plasma 24 U/L 12-78 [facility] ([facility]) Albumin [Mass/volume] in Serum or Plasma 3.5 g/dL 3.4-5.0 [facility] ([facility]) Proteinase 3 Ab [Units/volume] in Serum 6.9 g/dL 6.4-8.2 [facility] ([facility]) A/G Ratio 1.03 CALC 1.00-1.90 [facility]) Glomerular filtration rate/1.73 sq M pre dicted among non-blacks [Volume Rate/Area] in Serum or Plasma by Creatinine-based formula (MDRD) 44 mL/min [facility] ([facility]) Glomerular filtration rate/1.73 sq M pre dicted among blacks [Volume Rate/Area] in Serum or Plasma by Creatinine-based formula (MDRD) 53 mL/min [facility] ([facility]) <content>CHRONIC KIDNEY DISEASE STAGING PER NKF</content>
<content></content>
<content>STAGE I & II GFR >= 60 NORMAL TO MILDLY DECREASED</content>
<content>STAGE III GFR 30-59 MODERATELY DECREASED</content>
<content>STAGE IV GFR 15-29 SEVERELY DECREASED</content>
<content>STAGE V GFR <15 VERY LITTLE GFR LEFT</content>
<content>ESRD GFR <15 ON ELEVATOR MECHANIC</content>
<content></content> ID Date Data Source [id number] 04/03/2021 12:17:00 PM EDT [facility] ([facility]) Name Value Range Interpretation Code Description Data Allie rce(s) Supporting Document(s) Leukocytes [#/volume] in Blood by Automated count 15.2 x10*3/UL 4.1-1 0.9 [facility] ([facility]) NOTE: RESULT VERIFIED. Erythrocytes [#/volume] in Blood by Automated count 4.05 x10*6/UL 4.2 0-6.30 [facility] ([facility]) Hemoglobin [Mass/volume] in Blood 11.7 g/dL 12.0-18.0 [facility] Hematocrit [Volume Fraction] of Blood by Automated count 34.6 % 3 7.0-51.0 [facility] ([facility]) MCH 29.1 pg 26.0-32.0 [facility] MCV 85.5 fL 80.0-97.0 [facility] Erythrocyte distribution width [Ratio] by Automated count 12.8 % 11.6-13.7 [facility] ([facility]) MCHC 34.0 g/dL 31.0-38.0 [facility] MPV 8.1 FL 7.8-11.0 [facility] Lymph % 10.2 % 10.0-58.5 [facility] Platelets [#/volume] in Blood by Automated count 382 x10*3/UL 140-440 [facility] ([facility]) Neut % 86.2 % 37.0-92.0 [facility] Mid % 3.6 % 1.7-9.3 [facility] Lymph # 1.5 x10*3/UL 0.6-4.1 [facility] ([facility]) Mid # 0.6 x10*3/UL 0.1-0.6 [facility] ([facility]) Neut # 13.1 x10*3/UL 2.0-7.8 [facility] ([facility]) ID Date Data Source [id number] 03/15/2021 04:13:00 PM EDT [facility]) Name Value Range Interpretation Code Description Data Allie rce(s) Supporting Document(s) Blood Culture Laboratory test result [facility] ([facility]) No growth after 72 hours . All specimens observed for 5 days. Results final at that time. No growth after 48 hours . All specimens observed for 5 days. Results final at that time. No growth after 24 hours . All specimens observed for 5 days. Results final at that time. NO GROWTH AFTER 5 DAYS ID Date Data Source [id number] 03/15/2021 04:03:00 PM EDT [facility] ([facility]) Name Value Range Interpretation Code Description Data Allie rce(s) Supporting Document(s) Blood Culture Laboratory test result [facility] ([facility]) No growth after 72 hours . All specimens observed for 5 days. Results final at that time. No growth after 48 hours . All specimens observed for 5 days. Results final at that time. No growth after 24 hours . All specimens observed for 5 days. Results final at that time. NO GROWTH AFTER 5 DAYS ID Date Data Source [id number] 03/15/2021 03:37:00 PM EDT [facility] ([facility]) Name Value Range Interpretation Code Description Data Allie rce(s) Supporting Document(s) Influenza B Amplification Laboratory test result [facility]) Negative results do not preclude influen za or RSV virus infection and should not be used as the sole basis for treatment or other patient management decisions. Influenza A Amplification Laboratory test result [facility] Negative results do not preclude influen za or RSV virus infection and should not be used as the sole basis for treatment or other patient management decisions. RSV Amplification Laboratory test result [facility] Negative results do not preclude influen za or RSV virus infection and should not be used as the sole basis for treatment or other patient management decisions. Laboratory test finding (navigational concept) Laboratory test result [facility] ([facility]) A false negative result may occur [...] pathogens. DISCLAIMER: Testing was performed using the [employer] SARS-CoV-2 test. This test was developed and its performance characteristics determined by [employer]. This test has not been FDA cleared [...] or revoked sooner. ID Date Data Source [id number] 03/15/2021 03:37:00 PM EDT [facility] Name Value Range Interpretation Code Description Data Allie rce(s) Supporting Document(s) SARS coronavirus 2 RNA [Presence] in Res piratory specimen by LETI with probe detection NEGATIVE [facility] This lab was ordered by [facility] a nd reported by [facility]. ID Date Data Source [id number] 03/15/2021 03:35:00 PM EDT [facility] ([facility] Name Value Range Interpretation Code Description Data Allie rce(s) Supporting Document(s) Appearance, Urine RFX Laboratory test result [facility] ([facility]) Color, Urine RFX Laboratory test result [facility] PH,Urine RFX 5.0 units 5.0-9.0 [facility] ([facility]) Specific [place] Ur Auto RFX 1.024 1.002-1.035 [facility] Protein, Urine Auto RFX Laboratory test result [facility] Glucose, Urine (Ua) Auto RFX Laboratory test result [facility] ([facility]) Ketone, Urine Auto RFX Laboratory test result [facility] ([facility]) Bilirubin, Urine Auto RFX Laboratory test result [facility] Urobilinogen, Urine Auto RFX 0.2 mg/dL 0.0-2.0 [facility] Nitrite, Urine Auto RFX Laboratory test result [facility] Leukocyte Esterase Ur Auto RFX Laboratory test result [facility] Blood, Urine Blood RFX Laboratory test result [facility] RBC, Urine Auto RFX 0 /HPF 0-3 [facility] ([facility]) WBC, Urine Auto RFX 2 /HPF 0-3 [facility] ([facility]) Bacteria, Urine Auto RFX Laboratory test result [facility] Squam Epithelial Cell Ur Aurfx 1 /HPF 0-6 [facility] Mucus, Urine RFX Laboratory test result [facility] Hyaline Cast, Urine Auto RFX 3 /LPF 0-1 M [facility] ID Date Data Source [id number] 03/15/2021 03:17:00 PM EDT [facility] ([facility] Name Value Range Interpretation Code Description Data Allie rce(s) Supporting Document(s) Venous PH 7.293 units 7.330-7.430 [facility]) Venous Partial Pressure Co2 60.1 mmHg 38.0-50.0 [facility] ([facility]) Venous Total Co2 30.3 meq/L 24.0-28.0 [facility]) Venous Partial Pressure O2 28.7 mmHg 30.0-50.0 [facility] ([facility]) Venous Base Excess 0.6 [facility] ([facility]) Venous Hco3 28.4 meq/L 23.0-27.0 [facility] ([facility]) Venous Standard Hco3 24.0 meq/L [facility] ( [facility]) Venous O2 Saturation 54.2 % 60.0-80.0 [facility]) ID Date Data Source [id number] 03/15/2021 02:20:00 PM EDT [facility] Name Value Range Interpretation Code Description Data Allie rce(s) Supporting Document(s) CPK Creatine Phosphokinase 161 U/L 26-192 [facility] ([facility]) CK-MB Value Mass 1.7 ng/mL [facility] ([facility]) MB/CK Relative Index 1.06 [facility]) <content>DIAGNOSIS CRITERIA</content>
<content>MMB ng/ml Relative Index (RI)</content>
<content>NON-AMI < or = 5 N/A</content>
<content>ANTON ZONE > 5 < or = 4</content>
<content>AMI > 5 > 4</content>
<content></content> Troponin I Laboratory test result [facility] ([facility]) <content>Troponin I Reference Interval f or [employer] [place] LOCI:</content>
<content></content>
<content>99th Percentile= 0.00-0.045 ng/ml</content>
<content></content>
<content>Risk Stratification:</content>
<content><= 0.10 ng/ml Decreased Risk for Adverse Clinical</content>
<content>Events.</content>
<content>0.10-1.50 ng/ml Increased Risk for Adverse Clinical</content>
<content>Events. Evaluation of additional</content>
<content>criterion and/or repeat testing in 2-6</content>
<content>hours is suggested to rule out myocardial</content>
<content>damage.</content>
<content>>= 1.50 ng/ml Indicative of Myocardial Injury.</content>
<content></content> ID Date Data Source [id number] 03/15/2021 02:20:00 PM EDT [facility] Name Value Range Interpretation Code Description Data Allie rce(s) Supporting Document(s) Alt/SGPT 33 U/L 12-78 [facility] ([facility]) Ast/Sgot 28 U/L 7-37 [facility] ([facility]) Bilirubin,Total 0.4 mg/dL 0.2-1.0 [facility] ([facility]) Alkaline Phosphatase 93 U/L 45-117 [facility] ([facility] Total Protein 7.0 GM/DL 6.4-8.2 [facility] ([facility]) Bilirubin,Direct 0.1 mg/dL 0.0-0.2 [facility] ([facility]) Albumin 3.7 GM/DL 3.2-5.2 [facility] ([facility]) Albumin/Globulin Ratio 1.1 1.2-2.2 [facility] ([facility]) ID Date Data Source [id number] 03/15/2021 02:20:00 PM EDT [facility] ([facility]) Name Value Range Interpretation Code Description Data Allie rce(s) Supporting Document(s) Glucose, Fasting 103 mg/dL 70-100 [facility] ([facility]) Blood Urea Nitrogen 23 mg/dL 7-18 [facility] ([facility]) Glomerular Filtration Rate Laboratory test result [facility] center) <content>Units are mL/min/1.73 m2</content>
<content></content>
<content>Chronic Kidney Disease Staging per NKF:</content>
<content></content>
<content>Stage I & II GFR >=60 Normal to Mildly Decreased</content>
<content>Stage III GFR 30- 59 Moderately Decreased</content>
<content>Stage IV GFR 15-29 Severely Decreased</content>
<content>Stage V GFR <15 Very Little GFR Left</content>
<content>ESRD GFR <15 on ELEVATOR MECHANIC</content>
<content></content> Creatinine For GFR 0.84 mg/dL 0.55-1.30 [facility] ([facility]) Sodium Level 141 meq/L 136-145 [facility] ([facility]) Chloride Level 110 meq/L 98-107 [facility] ([facility]) Potassium Serum 4.3 meq/L 3.5-5.1 [facility] ([facility]) Carbon Dioxide Level 26 meq/L 21-32 [facility] Anion Gap 5 meq/L 8-16 [facility] [facility]) Calcium Level 8.5 mg/dL 8.8-10.2 [facility] ([facility]) ID Date Data Source [id number] 03/15/2021 02:20:00 PM EDT [facility] ([facility]) Name Value Range Interpretation Code Description Data Allie rce(s) Supporting Document(s) Natriuretic peptide.B prohormone N-Terminal [Mass/volu me] in Serum or Plasma 142 pg/mL [facility] ([facility] ) Thyrotropin [Units/volume] in Serum or Plasma by Detec tion limit <= 0.05 mIU/L 3.980 uIU/ML 0.358-3.740 [facility] ([facility] ) Thyroxine (T4) free [Mass/volume] in Serum or Plasma 0.98 ng/dL 0.76- 1.46 [facility] ([facility]) ID Date Data Source [id number] 03/15/2021 02:20:00 PM EDT [facility] ([facility]) Name Value Range Interpretation Code Description Data Lalie rce(s) Supporting Document(s) White Blood Count 16.3 10 4.0-10.0 [facility] ([facility]) Red Blood Count 4.41 10 4.00-5.40 [facility] ([facility]) Hemoglobin 13.0 g/dL 12.0-15.5 [facility]) Mean Corpuscular Volume 92.3 fl 80.0-96.0 [facility] ([facility]) Hematocrit 40.7 % 36.0-47.0 [facility] [facility] Mean Corpuscular Hemoglobin 29.5 pg 27.0-33.0 [facility] ([facility]) Mean Corpuscular HGB Conc 31.9 g/dL 32.0-36.5 MEDE NT ([facility]) Red Cell Distribution Width 13.3 % 11.5-14.5 [facility] ([facility]) Neutrophils % 81.6 % 36.0-66.0 [facility] ([facility]) Platelet Count, Automated 248 10 150-450 MEDE NT ([facility]) Eos % 1.8 % 0.0-3.0 [facility] [facility]) Lymph % 8.1 % 24.0-44.0 [facility] [facility]) [place] % 7.8 % 2.0-8.0 [facility] ([place] [facility]) Immature Granulocyte % 0.4 % 0-3.0 [facility] ([facility]) Baso % 0.3 % 0.0-1.0 [facility] ([place] [facility]) Neutrophils # 13.3 10 1.5-8.5 [facility] ([facility]) Nucleated Red Blood Cell % 0.0 % 0-0 [facility] ([facility]) [place] # 1.3 10 0.0-0.8 [facility] ([place] [facility]) Lymph # 1.3 10 1.5-5.0 [facility] [facility]) Eos # 0.3 10 0.0-0.5 [facility] ([place] [facility]) Baso # 0.1 10 0.0-0.2 [facility] [facility] ID Date Data Source [id number] 11/20/2020 02:41:00 PM EDT [facility] ([facility]) Name Value Range Interpretation Code Description Data Allie rce(s) Supporting Document(s) Thyrotropin [Units/volume] in Serum or Plasma by Detec tion limit <= 0.05 mIU/L 0.32 uIU/mL 0.36-3.74 [facility] ([facility] ) ID Date Data Source [id number] 11/20/2020 02:41:00 PM EDT [facility] ([facility]) Name Value Range Interpretation Code Description Data Allie rce(s) Supporting Document(s) Hemoglobin A1c/Hemoglobin.total in Blood 9.7 % [facility] Lab Result Notes: Pre-Diabetes 5.7 - 6.4 % Diabetes = or > 6.5% Glucose mean value [Mass/volume] in Blood Estimated fr om glycated hemoglobin 232 mg/dL 60-110 [facility] ID Date Data Source [id number] 11/20/2020 02:41:00 PM EDT [facility] ([facility]) Name Value Range Interpretation Code Description Data Allie rce(s) Supporting Document(s) Urea nitrogen [Mass/volume] in Serum or Plasma 16 mg/dL 7-18 [facility] ([facility]) Creatinine 0.9 mg/dL 0.6-1.3 [facility] ([facility] Glucose [Mass/volume] in Serum or Plasma 223 mg/dL 74-99 [facility] ([facility]) 100-125 mg/dL PRE-DIABETES/FASTING >126 mg/dL DIABETES/FASTING Potassium [Moles/volume] in Serum or Plasma 4.5 meq/L 3.5-5.1 [facility] ([facility]) Sodium [Moles/volume] in Serum or Plasma 136 meq/L 136-145 [facility] ([facility]) Calcium [Mass/volume] in Serum or Plasma 8.9 mg/dL 8.5-10.1 [facility] ([facility]) Chloride [Moles/volume] in Serum or Plasma 102 meq/L 98-107 [facility] ([facility]) Carbon dioxide, total [Moles/volume] in Serum or Plasma 29 meq/L 21 -32 [facility] ([facility]) Aspartate aminotransferase [Enzymatic activity/volume] in Serum or Plasma 19 U/L 15-37 [facility] ([facility] ) Total Bilirubin 0.3 mg/dL 0.2-1.0 [facility] ([facility] Alkaline phosphatase isoenzyme [Units/volume] in Serum or Pl asma 155 mg/dL 46-116 [facility] ([facility]) Albumin [Mass/volume] in Serum or Plasma 3.8 g/dL 3.4-5.0 [facility] ([facility]) Alanine aminotransferase [Enzymatic activity/volume] in Seru m or Plasma 27 U/L 12-78 [facility] Proteinase 3 Ab [Units/volume] in Serum 7.8 g/dL 6.4-8.2 [facility] ([facility]) A/G Ratio 0.95 CALC 1.00-1.90 [facility] [facility]) Glomerular filtration rate/1.73 sq M pre dicted among blacks [Volume Rate/Area] in Serum or Plasma by Creatinine-based formula (MDRD) Laboratory test result [facility] <content>CHRONIC KIDNEY DISEASE STAGING PER NKF</content>
<content></content>
<content>STAGE I & II GFR >= 60 NORMAL TO MILDLY DECREASED</content>
<content>STAGE III GFR 30-59 MODERATELY DECREASED</content>
<content>STAGE IV GFR 15-29 SEVERELY DECREASED</content>
<content>STAGE V GFR <15 VERY LITTLE GFR LEFT</content>
<content>ESRD GFR <15 ON ELEVATOR MECHANIC</content>
<content></content> Glomerular filtration rate/1.73 sq M pre dicted among non-blacks [Volume Rate/Area] in Serum or Plasma by Creatinine-based formula (MDRD) Laboratory test result [facility] ([facility] ) ID Date Data Source [id number] 11/09/2020 09:02:00 AM EDT [facility] Name Value Range Interpretation Code Description Data Allie rce(s) Supporting Document(s) CPK Creatine Phosphokinase 64 U/L 26-192 [facility] ([facility]) MB/CK Relative Index 1.72 [facility] ([facility]) <content>DIAGNOSIS CRITERIA</content>
<content>MMB ng/ml Relative Index (RI)</content>
<content>NON-AMI < or = 5 N/A</content>
<content>ANTON ZONE > 5 < or = 4</content>
<content>AMI > 5 > 4</content>
<content></content> CK-MB Value Mass 1.1 ng/mL [facility]) Troponin I Laboratory test result [facility] ([facility]) <content>Troponin I Reference Interval f or [employer] [place] LOCI:</content>
<content></content>
<content>99th Percentile= 0.00-0.045 ng/ml</content>
<content></content>
<content>Risk Stratification:</content>
<content><= 0.10 ng/ml Decreased Risk for Adverse Clinical</content>
<content>Events.</content>
<content>0.10-1.50 ng/ml Increased Risk for Adverse Clinical</content>
<content>Events. Evaluation of additional</content>
<content>criterion and/or repeat testing in 2-6</content>
<content>hours is suggested to rule out myocardial</content>
<content>damage.</content>
<content>>= 1.50 ng/ml Indicative of Myocardial Injury.</content>
<content></content> ID Date Data Source [id number] 11/09/2020 09:02:00 AM EDT [facility] ([facility]) Name Value Range Interpretation Code Description Data Allie rce(s) Supporting Document(s) Glucose, Fasting 155 mg/dL 70-100 [facility] ([facility]) Blood Urea Nitrogen 21 mg/dL 7-18 [facility]) Creatinine For GFR 0.76 mg/dL 0.55-1.30 [facility] ([facility]) Glomerular Filtration Rate Laboratory test result [facility] <content>Units are mL/min/1.73 m2</content>
<content></content>
<content>Chronic Kidney Disease Staging per NKF:</content>
<content></content>
<content>Stage I & II GFR >=60 Normal to Mildly Decreased</content>
<content>Stage III GFR 30-59 Moderately Decreased</content>
<content>Stage IV GFR 15-29 Severely Decreased</content>
<content>Stage V GFR <15 Very Little GFR Left</content>
<content>ESRD GFR <15 on ELEVATOR MECHANIC</content>
<content></content> Sodium Level 141 meq/L 136-145 [facility] ([facility]) Potassium Serum 4.4 meq/L 3.5-5.1 [facility] ([facility]) Testing was performed on a SLIGHTLY hemo lyzed specimen. Suggest recollection of specimen for more accurate test results. Carbon Dioxide Level 27 meq/L 21-32 [facility] ([facility]) Chloride Level 108 meq/L 98-107 [facility] ([facility]) Anion Gap 6 meq/L 8-16 [facility] [facility]) Calcium Level 8.3 mg/dL 8.8-10.2 [facility] ([facility]) Ast/Sgot 20 U/L 7-37 [facility] [facility] Alt/SGPT 23 U/L 12-78 [facility] [facility] Alkaline Phosphatase 133 U/L 45-117 [facility] ([facility] Total Protein 6.0 GM/DL 6.4-8.2 [facility] ([facility]) Albumin 3.0 GM/DL 3.2-5.2 [facility] [facility] Bilirubin,Total 0.4 mg/dL 0.2-1.0 [facility] ([facility]) Albumin/Globulin Ratio 1.0 1.2-2.2 [facility] ([facility]) ID Date Data Source [id number] 11/09/2020 09:02:00 AM EDT [facility] ([facility]) Name Value Range Interpretation Code Description Data Allie rce(s) Supporting Document(s) White Blood Count 7.1 10 4.0-10.0 [facility] ([facility]) Red Blood Count 4.06 10 4.00-5.40 [facility] ([facility]) Hematocrit 37.0 % 36.0-47.0 [facility] [facility]) Hemoglobin 11.6 g/dL 12.0-15.5 [facility] [facility]) Mean Corpuscular HGB Conc 31.4 g/dL 32.0-36.5 [facility] ([facility]) Mean Corpuscular Volume 91.1 fl 80.0-96.0 [facility] ([facility]) Mean Corpuscular Hemoglobin 28.6 pg 27.0-33.0 [facility] ([facility]) Red Cell Distribution Width 12.7 % 11.5-14.5 [facility] ([facility]) Platelet Count, Automated 217 10 150-450 [facility] ([facility]) Neutrophils % 63.6 % 36.0-66.0 [facility]) [place] % 11.5 % 2.0-8.0 [facility] [facility]) Lymph % 19.1 % 24.0-44.0 [facility] [facility]) Eos % 4.8 % 0.0-3.0 [facility] [facility]) Baso % 0.7 % 0.0-1.0 [facility] [facility]) Nucleated Red Blood Cell % 0.0 % 0-0 [facility] ([facility]) Immature Granulocyte % 0.3 % 0-3.0 [facility] ([facility]) Neutrophils # 4.5 10 1.5-8.5 [facility]) Lymph # 1.4 10 1.5-5.0 [facility] [facility]) [place] # 0.8 10 0.0-0.8 [facility] [facility]) Eos # 0.3 10 0.0-0.5 [facility] [facility]) Baso # 0.1 10 0.0-0.2 [facility] [facility]) ID Date Data Source [id number] 09/02/2020 12:00:00 AM EST [facility] Juancarlos Dewey MD Patient Name: JOHANNA [id number] [facility] Date of : 1950[place] [address] [facility]: [facility] [place] [id number] Fax: [phone] EXAM: HIP LEFT UNILATERAL (COMPLETE) [...] rce(s) Supporting Document(s) ID Date Data Source [id number] 08/28/2020 02:27:00 PM EST [facility] ([facility]) Name Value Range Interpretation Code Description Data Allie rce(s) Supporting Document(s) Thyrotropin [Units/volume] in Serum or Plasma by Detec tion limit <= 0.05 mIU/L 0.13 uIU/mL 0.36-3.74 [facility] ([facility] ) ID Date Data Source [id number] 08/28/2020 02:27:00 PM EST [facility] ([facility]) Name Value Range Interpretation Code Description Data Allie rce(s) Supporting Document(s) Hemoglobin A1c/Hemoglobin.total in Blood 9.1 % [facility] [facility] Lab Result Notes: Pre-Diabetes 5.7 - 6.4 % Diabetes = or > 6.5% Glucose mean value [Mass/volume] in Blood Estimated fr om glycated hemoglobin 214 mg/dL 60-110 [facility] ([facility] ) ID Date Data Source [id number] 08/28/2020 02:27:00 PM EST [facility] ([facility]) Name Value Range Interpretation Code Description Data Allie rce(s) Supporting Document(s) Glucose [Mass/volume] in Serum or Plasma 283 mg/dL 74-99 [facility] ([facility]) 100-125 mg/dL PRE-DIABETES/FASTING >126 mg/dL DIABETES/FASTING Urea nitrogen [Mass/volume] in Serum or Plasma 22 mg/dL 7-18 [facility] ([facility]) Creatinine 1.0 mg/dL 0.6-1.3 [facility] ([facility]) Potassium [Moles/volume] in Serum or Plasma 4.4 meq/L 3.5-5.1 [facility] ([facility]) Sodium [Moles/volume] in Serum or Plasma 136 meq/L 136-145 [facility] ([facility]) Carbon dioxide, total [Moles/volume] in Serum or Plasma 32 meq/L 21 -32 [facility] ([facility]) Chloride [Moles/volume] in Serum or Plasma 98 meq/L 98-107 [facility] Alkaline phosphatase isoenzyme [Units/volume] in Serum or Pl asma 146 mg/dL 46-116 [facility] ([facility]) NOTE: RESULT VERIFIED. Calcium [Mass/volume] in Serum or Plasma 8.9 mg/dL 8.5-10.1 [facility] ([facility]) Aspartate aminotransferase [Enzymatic activity/volume] in Serum or Plasma 21 U/L 15-37 [facility] ([facility] Total Bilirubin 0.3 mg/dL 0.2-1.0 [facility] ([facility] Albumin [Mass/volume] in Serum or Plasma 3.5 g/dL 3.4-5.0 [facility] ([facility]) Alanine aminotransferase [Enzymatic activity/volume] in Seru m or Plasma 29 U/L 12-78 [facility] Proteinase 3 Ab [Units/volume] in Serum 7.3 g/dL 6.4-8.2 [facility] A/G Ratio 0.92 CALC 1.00-1.90 [facility] [facility]) Glomerular filtration rate/1.73 sq M pre dicted among non-blacks [Volume Rate/Area] in Serum or Plasma by Creatinine-based formula (MDRD) 55 mL/min [facility] Glomerular filtration rate/1.73 sq M pre dicted among blacks [Volume Rate/Area] in Serum or Plasma by Creatinine-based formula (MDRD) Laboratory test result [facility] ([facility]) <content>CHRONIC KIDNEY DISEASE STAGING PER NKF</content>
<content></content>
<content>STAGE I & II GFR >= 60 NORMAL TO MILDLY DECREASED</content>
<content>STAGE III GFR 30-59 MODERATELY DECREASED</content>
<content>STAGE IV GFR 15-29 SEVERELY DECREASED</content>
<content>STAGE V GFR <15 VERY LITTLE GFR LEFT</content>
<content>ESRD GFR <15 ON ELEVATOR MECHANIC</content>
<content></content> ID Date Data Source [id number] 08/28/2020 02:27:00 PM EST [facility] ([facility] Name Value Range Interpretation Code Description Data Allie rce(s) Supporting Document(s) Leukocytes [#/volume] in Blood by Automated count 8.5 x10*3/UL 4.1-10 .9 [facility] ([facility]) Erythrocytes [#/volume] in Blood by Automated count 4.34 x10*6/UL 4.2 0-6.30 [facility] Hemoglobin [Mass/volume] in Blood 12.9 g/dL 12.0-18.0 [facility] Hematocrit [Volume Fraction] of Blood by Automated count 37.3 % 3 7.0-51.0 [facility] ([facility]) MCV 85.9 fL 80.0-97.0 [facility] ([facility]) MCHC 34.5 g/dL 31.0-38.0 [facility] MCH 29.7 pg 26.0-32.0 [facility] ([facility]) MPV 8.2 FL 7.8-11.0 [facility] ([facility]) Erythrocyte distribution width [Ratio] by Automated count 12.9 % 11.6-13.7 [facility] ([facility] Platelets [#/volume] in Blood by Automated count 261 x10*3/UL 140-440 [facility] ([facility] Lymph % 24.4 % 10.0-58.5 [facility] ([facility]) Mid % 8.6 % 1.7-9.3 [facility] ([facility]) Neut % 67.0 % 37.0-92.0 [facility] ([facility]) Lymph # 2.0 x10*3/UL 0.6-4.1 [facility] ([facility]) Neut # 5.7 x10*3/UL 2.0-7.8 [facility] ([facility]) Mid # 0.8 x10*3/UL 0.1-0.6 [facility] ([facility]) ID Date Data Source [id number] 08/28/2020 02:27:00 PM EST [facility] ([facility] Name Value Range Interpretation Code Description Data Allie rce(s) Supporting Document(s) Hemoglobin A1c/Hemoglobin.total in Blood Laboratory test result [facility] ([facility] Thyrotropin [Units/volume] in Serum or Plasma by Detec tion limit <= 0.05 mIU/L Laboratory [facility] Procedure Social History No Information Vital Signs ID Date Data Source UNK Name Value Range Interpretation Code Description Data Source(s) Systolic blood pressure 130 mm[Hg] 130 mm[Hg] M [facility] ([facility]) Diastolic blood pressure 80 mm[Hg] 80 mm[Hg] [facility] ([facility]) Heart rate 82 /min 82 /min [facility] ([facility]) Body height 67 [in_i] 67 [in_i] [facility] ([facility]) 5'7" Body weight 149.00 [lb_av] 149.00 [lb_av] [facility] T ([facility]) Body mass index (BMI) [Ratio] 23.3 kg/m2 23.3 k g/m2 [facility] ([facility]) Body weight 163.00 [lb_av] 163.00 [lb_av] [facility] ([facility]) Heart rate 76 /min 76 /min [facility] ([facility]) Body mass index (BMI) [Ratio] 25.5 kg/m2 25.5 k g/m2 [facility] ([facility]) Body height 67 [in_i] 67 [in_i] [facility] ([facility]) 5'7" Systolic blood pressure 136 mm[Hg] 136 mm[Hg] [facility] Diastolic blood pressure 80 mm[Hg] 80 mm[Hg] [facility] ([facility]) Body weight 154.00 [lb_av] 154.00 [lb_av] [facility] T ([facility]) Body mass index (BMI) [Ratio] 24.1 kg/m2 24.1 k g/m2 [facility] ([facility]) Body height 67 [in_i] 67 [in_i] [facility] ([facility]) 5'7" Systolic blood pressure 138 mm[Hg] 138 mm[Hg] M ED[facility] ([facility]) Diastolic blood pressure 80 mm[Hg] 80 mm[Hg] [facility] ([facility]) Heart rate 72 /min 72 /min [facility] ([facility]) Systolic blood pressure 136 mm[Hg] 136 mm[Hg] M [facility] ([facility]) RT Arm Diastolic blood pressure 70 mm[Hg] 70 mm[Hg] [facility] ([facility]) RT Arm Heart rate 58 /min 58 /min [facility] ([facility]) Body weight 147.00 [lb_av] 147.00 [lb_av] [facility] T ([facility]) Oxygen saturation in Arterial blood by Pulse oximetry --post exerci se 97 % 97 % [facility] ([facility]) Air
[2021-05-21] MEDS ORDERED: CIPR-249 PO (21:07)
[2021-05-21] MEDS ORDERED: HOME MED LIST COMPLETE! XX SCH (21:10)
[2021-05-21 21:15] VITALS: BP 120/70
[2021-05-21] MEDS: LEVEMIR (INSULIN DETEMIR) 1 UNITS/0.01ML SC SCH (22:12)
[2021-05-21] MEDS: cefTRIAXone SOD 1 GM in D5W MINI-BAG PLUS 50 ML IV SCH (22:12)
[2021-05-22 05:37] VITALS: BP 115/53
[2021-05-22 06:39] LABS: BASO % 0.2 % (0.0-1.0); EOS % 0.1 % (0.0-3.0); HEMOGLOBIN 10.4 g/dl (12.0-15.5); LYMPH # 1.9 10^3/uL (1.5-5.0); LYMPH % 8.6 % (24.0-44.0); MEAN CORPUSCULAR HEMOGLOBIN 28.3 pg (27.0-33.0); MEAN CORPUSCULAR HGB CONC 31.5 g/dl (32.0-36.5); MEAN CORPUSCULAR VOLUME 89.9 fl (80.0-96.0); MONO # 1.9 10^3/uL (0.0-0.8); MONO % 8.6 % (2.0-8.0); NEUTROPHILS # 17.7 10^3/uL (1.5-8.5); NEUTROPHILS % 81.9 % (36.0-66.0); PLATELET COUNT, AUTOMATED 274 10^3/uL (150-450); RED BLOOD COUNT 3.67 10^6/uL (4.00-5.40); WHITE BLOOD COUNT 21.6 10^3/uL (4.0-10.0)
[2021-05-22 07:07] LABS: BLOOD UREA NITROGEN 16 MG/DL (7-18); CREATININE FOR GFR 0.77 MG/DL (0.55-1.30); GLUCOSE, FASTING 114 MG/DL (70-100)
[2021-05-22 07:08] LABS: CALCIUM LEVEL 8.3 MG/DL (8.8-10.2); CARBON DIOXIDE LEVEL 27 MEQ/L (21-32); CHLORIDE LEVEL 106 MEQ/L (98-107); GLOMERULAR FILTRATION RATE > 60.0 (>39); POTASSIUM SERUM 4.2 MEQ/L (3.5-5.1); SODIUM LEVEL 139 MEQ/L (136-145)
[2021-05-22] MEDS: LEVEMIR (INSULIN DETEMIR) 1 UNITS/0.01ML SC SCH ×2 (09:00→21:17)
--- NOTE | 2021-05-22 10:45 | IPNPDOC ---
Subjective Date Seen The patient was seen on 05/22/21. Subjective Chief Complaint/HPI Pleasantly confused mumbling few words and talking nonsensical sentences. Unable to have a conversation however does follow some commands. Poor oral intake. Patient demonstrated wincing when palpating the abdomen mainly on the right side and the lower abdomen. No fever or chills Objective Physical Examination General Exam: Positive: Alert, Other (Confused talking nonsensical words and sentences.) ENT Exam: Positive: Atraumatic, Mucous membr. moist/pink, Pharynx Normal Neck Exam: Positive: Supple; Negative: JVD, thyromegaly Chest Exam: Positive: Clear to auscultation, Normal air movement Heart Exam: Positive: Rate Normal, Regular Rhythm, Normal S1, Normal S2; Negative: Murmurs, Rubs Abdomen Exam: Positive: Normal bowel sounds, Soft; Negative: Tenderness Extremity Exam: Negative: Clubbing, Cyanosis, Edema Neuro Exam: Positive: Other (Moving all 4 extremities but does not follow commands. Speech is mostly mumbled garbled soft and nonsensical.) Psych Exam: Negative: Memory Intact, Oriented x 3 Assessment /Plan Assessment 71 yo F with a hx of advanced Alzheimer's dementia, DM2, HTN, history of falls with T12 compression fx. She lives at home with 24 hour care from home health agency was brought to the emergency room after a syncopal episode at home while she was sitting on the toilet having a bowel movement. She had slumped over and became nonresponsive home health aide called EMS. On arrival of the EMS they found her blood pressure to be in 60s patient was started on IV fluids and brought to the emergency. By the time she reached the emergency room she got a 1-1/2 L of fluid and her blood pressure had improved. Work-up in the ED showed elevated WBC and dirty UA. Patient was diagnosed with a UTI and given a dose of ciprofloxacin. The plan was to send her home with p.o. ciprofloxacin however on the process of being of going home she had 2 more syncopal episodes where she rolled up her eyes and became nonresponsive lasting for a few seconds. Blood pressure was again noted to be low in 80s. So the patient was admitted for syncope, hypotension and urinary tract infection. UTI We will give ceftriaxone Urine cultures and blood cultures are in progress Abdominal tenderness right will get CT abd and pelvis Vasovagal syncope vs orthostatic syncope While sitting on the toilet when the episode happened and her blood pressure was low as measured by EMS. Has had episodes of syncope since the age of 15 years as per chart review Diabetes We will continue with Levemir 10 units twice daily HTN Will hold home meds atenolol and ramipril as had documented hypotension with EMS and in the ED. HLD statin Alzheimer's Dementia: On sertraline and wellbutrin and Seroquel will continue Hypothyroid: Continue same Plan/VTE VTE Prophylaxis Ordered?: Yes VS, I&O, 24H, Fishbone Vital Signs/I&O Vital Signs Date Time Temp Pulse Resp B/P (MAP) Pulse Ox O2 Delivery O2 Flow Rate FiO2 05/22/21 06:43 97.9 05/22/21 05:37 77 18 115/53 (73) 96 Room Air I&O- Last 24 Hours up to 6 AM 05/22/21 06:00 Intake Total 750 ml Balance 750 ml Laboratory Data 24H LABS Laboratory Tests 2 05/21/21 13:00: Prothrombin Time 13.8, Prothromb Time International Ratio 1.02, Activated Partial Thromboplast Time 22.0L 05/21/21 13:09: Immature Granulocyte % (Auto) 0.3, Neutrophils (%) (Auto) 79.2H, Lymphocytes (%) (Auto) 10.4L, Monocytes (%) (Auto) 8.4H, Eosinophils (%) (Auto) 1.2, Basophils (%) (Auto) 0.5, Neutrophils # (Auto) 12.7H, Lymphocytes # (Auto) 1.7, Monocytes # (Auto) 1.3H, Eosinophils # (Auto) 0.2, Basophils # (Auto) 0.1, Nucleated Red Blood Cells % (auto) 0.0, Anion Gap 2L, Glomerular Filtration Rate 56.6, Lactic Acid Level 1.7, Calcium Level 8.9, Magnesium Level 2.0, Total Bilirubin 0.4, Direct Bilirubin 0.1, Aspartate Amino Transf (AST/SGOT) 12, Alanine Aminotransferase (ALT/SGPT) 19, Alkaline Phosphatase 99, Total Creatine Kinase 119, Creatine Kinase MB 1.5, Creatine Kinase MB Relative Index 1.26, Troponin I < 0.02, Total Protein 6.5, Albumin 3.1L, Albumin/Globulin Ratio 0.9L, Thyroid Stimulating Hormone (TSH) 0.917, Free Thyroxine 1.16, Salicylates Level < 1.7L, Acetaminophen Level 12.0, Ethyl Alcohol Level < 0.003 05/21/21 14:30: Urine Color YELLOW, Urine Appearance CLOUDYH, Urine pH 5.0, Urine Specific [place] 1.016, Urine Protein NEGATIVE, Urine Glucose (UA) 2+H, Urine Ketones NE GATIVE, Urine Blood NEGATIVE, Urine Nitrite POSITIVEH, Urine Bilirubin NEGATIVE, Urine Urobilinogen 0.2, Urine Leukocyte Esterase 3+H, Urine WBC (Auto) TNTCH, Urine RBC (Auto) 2, Urine Hyaline Casts (Auto) 0, Urine Bacteria (Auto) 1+H, Urine Squamous Epithelial Cells 0, Urine Mucus (Auto) SMALL, Urine Sperm (Auto) , Urine Opiates Screen NEGATIVE, Urine Methadone Screen NEGATIVE, Urine Barbiturates Screen NEGATIVE, Urine Phencyclidine Screen NEGATIVE, Urine Amphetamines Screen NEGATIVE, Urine Benzodiazepines Screen NEGATIVE, Urine Cocaine Metabolite Screen NEGATIVE, Urine Cannabinoids Screen NEGATIVE 05/21/21 17:30: Coronavirus (COVID-19)(PCR) NEGATIVE, Influenza Type A (RT-PCR) NEGATIVE, Influenza Type B (RT-PCR) NEGATIVE, Respiratory Syncytial Virus (PCR) NEGATIVE 05/21/21 19:54: Estimated Mean Plasma Glucose 154H, Hemoglobin A1c 7.0 05/21/21 22:06: Bedside Glucose ([facility] Panel) 159H 05/22/21 05:55: Immature Granulocyte % (Auto) 0.6, Neutrophils (%) (Auto) 81.9H, Lymphocytes (%) (Auto) 8.6L, Monocytes (%) (Auto) 8.6H, Eosinophils (%) (Auto) 0.1, Basophils (%) (Auto) 0.2, Neutrophils # (Auto) 17.7H, Lymphocytes # (Auto) 1.9, Monocytes # (Auto) 1.9H, Eosinophils # (Auto) 0.0, Basophils # (Auto) 0.0, Nucleated Red Blood Cells % (auto) 0.0, Anion Gap 6L, Glomerular Filtration Rate > 60.0, Calcium Level 8.3L CBC/BMP Laboratory Tests 05/21/21 13:09 05/22/21 05:55 Microbiology Microbiology 05/21/21 Urine Culture, Received Pending 05/21/21 Blood Culture, Received Pending 05/21/21 Blood Culture, Received Pending Adrianna Suarez MD May 22, 2021 10:45
[2021-05-22] MEDS ORDERED: ISOVUE-370 76% 100ML VIAL As Ordered ONE (11:47)
[2021-05-22] MEDS: QUEtiapine FUMARATE 12.5 MG HALF-TAB PO SCH (13:39)
[2021-05-22] MEDS: buPROPion **SR TABLET** (ZYBAN) 150MG PO SCH (13:39)
[2021-05-22] MEDS: ASPIRIN 81MG ENTERIC TABLET PO SCH (13:39)
[2021-05-22] MEDS: SERTRALINE HCL 50 MG TAB PO SCH (13:39)
[2021-05-22 15:43] VITALS: BP 127/67
[2021-05-22 21:08] VITALS: BP 133/84
[2021-05-22] MEDS: ACETAMINOPHEN TAB 650MG DOSE (2X325MG) PO PRN (21:17)
[2021-05-22] MEDS: QUEtiapine FUMARATE 25 MG TAB PO SCH (21:17)
[2021-05-22] MEDS: MEMANTINE 5MG TABLET (NAMENDA) PO SCH (21:17)
[2021-05-22] MEDS: cefTRIAXone SOD 1 GM in D5W MINI-BAG PLUS 50 ML IV SCH (21:17)
[2021-05-22] MEDS ORDERED: IBUPROFEN 400MG TAB PO ONE (22:35)
[2021-05-22 23:51] VITALS: BP 103/59
[2021-05-23 05:34] VITALS: BP 132/74
[2021-05-23] MEDS: ACETAMINOPHEN TAB 650MG DOSE (2X325MG) PO PRN ×3 (05:38→21:06)
[2021-05-23] MEDS: LEVOTHYROXINE 125MCG TABLET (0.125MG) PO SCH (05:38)
[2021-05-23 06:55] LABS: BASO # 0.1 10^3/uL (0.0-0.2); BASO % 0.2 % (0.0-1.0); EOS # 0.3 10^3/uL (0.0-0.5); EOS % 1.2 % (0.0-3.0); HEMATOCRIT 33.3 % (36.0-47.0); HEMOGLOBIN 10.7 g/dl (12.0-15.5); LYMPH # 1.4 10^3/uL (1.5-5.0); LYMPH % 5.9 % (24.0-44.0); MEAN CORPUSCULAR HEMOGLOBIN 28.8 pg (27.0-33.0); MEAN CORPUSCULAR HGB CONC 32.1 g/dl (32.0-36.5); MEAN CORPUSCULAR VOLUME 89.5 fl (80.0-96.0); MONO % 8.4 % (2.0-8.0); NEUTROPHILS # 19.4 10^3/uL (1.5-8.5); NEUTROPHILS % 83.6 % (36.0-66.0); PLATELET COUNT, AUTOMATED 280 10^3/uL (150-450); RED BLOOD COUNT 3.72 10^6/uL (4.00-5.40); WHITE BLOOD COUNT 23.2 10^3/uL (4.0-10.0)
[2021-05-23 07:27] LABS: BLOOD UREA NITROGEN 16 MG/DL (7-18); CALCIUM LEVEL 8.4 MG/DL (8.8-10.2); CARBON DIOXIDE LEVEL 26 MEQ/L (21-32); CHLORIDE LEVEL 106 MEQ/L (98-107); CREATININE FOR GFR 0.95 MG/DL (0.55-1.30); GLOMERULAR FILTRATION RATE > 60.0 (>39); GLUCOSE, FASTING 161 MG/DL (70-100); POTASSIUM SERUM 3.4 MEQ/L (3.5-5.1); SODIUM LEVEL 138 MEQ/L (136-145)
[2021-05-23] MEDS: LEVEMIR (INSULIN DETEMIR) 1 UNITS/0.01ML SC SCH ×2 (09:00→21:01)
--- NOTE | 2021-05-23 09:13 | REP ---
INDICATION: Dementia with persistent fever and rising WBC. COMPARISON: None TECHNIQUE: Axial noncontrast images from the thoracic inlet to the upper abdomen with coronal and sagittal reformations. This CT examination was performed using the following dose reduction techniques: Automated exposure control, adjustment of mA and/or kv according to the patient's size, and use of iterative reconstruction technique. FINDINGS: Lung jackson are relatively well aerated and mild pulmonary vascular congestion along with trace bibasilar atelectasis and small pleural reactions are noted. There is a 9 mm nodular density in the lingula (image 51). No significant adenopathy. Tracheobronchial tree is patent. The mediastinum demonstrates atherosclerotic changes to the thoracic aorta and coronary arteries without aortic aneurysm or cardiomegaly. No pericardial effusion. Musculoskeletal structures demonstrate age-related changes without acute process. Rim calcified bilateral breast implants noted with possible small extravasation along the superior aspect of the right breast implant. IMPRESSION: 1. Mild pulmonary vascular congestion is suggested along with trace bibasilar atelectasis and small pleural reactions. 2. A 9 mm nodule in the lingula warrants further investigation/follow-up. <Electronically signed by Dex Howell > 05/23/21 [id number]
--- NOTE | 2021-05-23 09:17 | REP ---
INDICATION: abdominal tenderness in patient with dementia. COMPARISON: None TECHNIQUE: Axial contrast-enhanced images from the lung bases to the pubic symphysis using 75 cc Isovue 370 intravenous contrast material. Coronal and sagittal reformations obtained. This CT examination was performed using the following dose reduction techniques: Automated exposure control, adjustment of mA and/or kv according to the patient's size, and the use of iterative reconstruction technique. FINDINGS: Evaluation is somewhat limited due to streak artifact secondary to having upper extremities along the abdominal sides. Liver, spleen, pancreas, gallbladder, bilateral adrenal glands and left kidney are normal. Right kidney demonstrates subtle streaky low-density areas suggesting the possibility of pyelonephritis. The enteric system is limited in evaluation and without evidence for obstruction. Scattered colonic and sigmoid diverticulosis are noted along with fecal impaction at the rectum distended to 9 cm maximal diameter. Element of enterocolitis cannot be excluded the appendix is poorly evaluated however mild prominence and enhancement cannot be excluded raising the possibility of subtle appendicitis (series 201; images 105-118). Pelvis demonstrates normal bladder and evidence for prior hysterectomy. No ascites. No free air. No intraperitoneal or retroperitoneal adenopathy. Abdominal aorta and vasculature appear normal. Musculoskeletal structures are intact and without acute osseous abnormality. IMPRESSION: 1. Right kidney findings as described above raise the possibility of acute pyelonephritis and correlation is required. 2. The appendix is poorly identified/evaluated and a mild appendicitis cannot be excluded requiring close clinical observation. 3. Fecal impaction at the rectum distended to 9 cm diameter. Associated enterocolitis cannot be excluded. <Electronically signed by Dex Howell > 05/23/21 0914
[2021-05-23] MEDS: MEMANTINE 5MG TABLET (NAMENDA) PO SCH ×2 (09:53→21:01)
[2021-05-23] MEDS: ASPIRIN 81MG ENTERIC TABLET PO SCH (09:53)
[2021-05-23] MEDS: QUEtiapine FUMARATE 12.5 MG HALF-TAB PO SCH (09:53)
[2021-05-23] MEDS: buPROPion **SR TABLET** (ZYBAN) 150MG PO SCH (09:53)
[2021-05-23] MEDS: SERTRALINE HCL 50 MG TAB PO SCH (09:53)
[2021-05-23] MEDS ORDERED: LEVEMIR (INSULIN DETEMIR) 1 UNITS/0.01ML SC ONE (10:15)
[2021-05-23] MEDS ORDERED: FLEET ENEMA PR ONE (13:25)
--- NOTE | 2021-05-23 13:32 | IPNPDOC ---
Subjective Date Seen The patient was seen on 05/23/21. Subjective Chief Complaint/HPI Patient has been febrile yesterday with a T-max of 101.4. This a.m. patient is afebrile however she refused breakfast. She did have a bowel movement yesterday night after her CT abdomen and pelvis. There does not seem to be any abdominal pain today. Objective Physical Examination General Exam: Positive: Alert, Other (Confused talking nonsensical words and sentences.) ENT Exam: Positive: Atraumatic, Mucous membr. moist/pink, Pharynx Normal Neck Exam: Positive: Supple; Negative: JVD, thyromegaly Chest Exam: Positive: Clear to auscultation, Normal air movement Heart Exam: Positive: Rate Normal, Regular Rhythm, Normal S1, Normal S2; Negative: Murmurs, Rubs Abdomen Exam: Positive: Normal bowel sounds, Soft; Negative: Tenderness Extremity Exam: Negative: Clubbing, Cyanosis, Edema Neuro Exam: Positive: Other (Moving all 4 extremities but does not follow commands. Speech is mostly mumbled garbled soft and nonsensical.) Psych Exam: Negative: Memory Intact, Oriented x 3 Assessment /Plan Assessment 71 yo F with a hx of advanced Alzheimer's dementia, DM2, HTN, history of falls with T12 compression fx. She lives at home with 24 hour care from home health agency was brought to the emergency room after a syncopal episode at home while she was sitting on the toilet having a bowel movement. She had slumped over and became nonresponsive home health aide called EMS. On arrival of the EMS they found her blood pressure to be in 60s patient was started on IV fluids and br ought to the emergency. By the time she reached the emergency room she got a 1- 1/2 L of fluid and her blood pressure had improved. Work-up in the ED showed elevated WBC and dirty UA. Patient was diagnosed with a UTI and given a dose of ciprofloxacin. The plan was to send her home with p.o. ciprofloxacin however on the process of being of going home she had 2 more syncopal episodes where she ro lled up her eyes and became nonresponsive lasting for a few seconds. Blood pressure was again noted to be low in 80s. So the patient was admitted for syncope, hypotension and urinary tract infection. UTI with right pyelonephritis Urine culture shows E. coli continue ceftriaxone blood cultures are negative till date Fecal impaction at the rectum with possible enterocolitis had a bowel movement at the night of 05/22/21 will give enema and dulcolax suppository. Vasovagal syncope vs orthostatic syncope While sitting on the toilet tryingto have a bowel movement when the episode happened and her blood pressure was low as measured by EMS. She has fecal impaction so likely was straining during the episode and likely had vasovagal syncope. Has had episodes of syncope since the age of 15 years as per chart review Diabetes We will continue with Levemir 10 units twice daily HTN Will hold home meds atenolol and ramipril as had documented hypotension with EMS and in the ED. HLD statin Alzheimer's Dementia: On sertraline and wellbutrin and Seroquel will continue Hypothyroid: Continue same Plan/VTE VTE Prophylaxis Ordered?: Yes VS, I&O, 24H, Fishbone Vital Signs/I&O Vital Signs Date Time Temp Pulse Resp B/P (MAP) Pulse Ox O2 Delivery O2 Flow Rate FiO2 05/23/21 05:34 99.9 94 16 132/74 (93) 94 Room Air I&O- Last 24 Hours up to 6 AM 05/23/21 05:59 Intake Total 180 ml Balance 180 ml Laboratory Data 24H LABS Laboratory Tests 2 05/22/21 20:58: Bedside Glucose (Misc Panel) 227H 05/23/21 06:25: Immature Granulocyte % (Auto) 0.7, Neutrophils (%) (Auto) 83.6H, Lymphocytes (%) (Auto) 5.9L, Monocytes (%) (Auto) 8.4H, Eosinophils (%) (Auto) 1.2, Basophils (%) (Auto) 0.2, Neutrophils # (Auto) 19.4H, Lymphocytes # (Auto) 1.4L, Monocytes # (Auto) 2.0H, Eosinophils # (Auto) 0.3, Basophils # (Auto) 0.1, Nucleated Red Blood Cells % (auto) 0.0, Anion Gap 6L, Glomerular Filtration Rate > 60.0, Calcium Level 8.4L CBC/BMP Laboratory Tests 05/23/21 06:25 Microbiology Microbiology 05/21/21 Urine Culture - Final, Complete Escherichia Coli 05/21/21 Blood Culture - Preliminary, Resulted No growth after 24 hours . All specim... 05/21/21 Blood Culture - Preliminary, Resulted No growth after 24 hours . All specim... Adrianna Suarez MD May 23, 2021 13:32
[2021-05-23] MEDS ORDERED: IBUPROFEN 400MG TAB PO ONE (19:20)
[2021-05-23 19:33] VITALS: BP 142/87
[2021-05-23] MEDS ORDERED: BISACODYL 10 MG SUPP PR SCH (21:00)
[2021-05-23] MEDS: QUEtiapine FUMARATE 25 MG TAB PO SCH (21:01)
[2021-05-23] MEDS: cefTRIAXone SOD 1 GM in D5W MINI-BAG PLUS 50 ML IV SCH (21:02)
[2021-05-24 06:00] VITALS: BP 130/76
[2021-05-24] MEDS: LEVOTHYROXINE 125MCG TABLET (0.125MG) PO SCH (06:16)
[2021-05-24] MEDS: ACETAMINOPHEN TAB 650MG DOSE (2X325MG) PO PRN (06:26)
[2021-05-24] MEDS ORDERED: NS 1,000 ML IV SCH (06:35)
[2021-05-24 07:05] LABS: BASO # 0.1 10^3/uL (0.0-0.2); BASO % 0.2 % (0.0-1.0); EOS # 0.5 10^3/uL (0.0-0.5); EOS % 2.7 % (0.0-3.0); HEMATOCRIT 36.2 % (36.0-47.0); HEMOGLOBIN 11.3 g/dl (12.0-15.5); LYMPH # 1.3 10^3/uL (1.5-5.0); LYMPH % 6.3 % (24.0-44.0); MEAN CORPUSCULAR HEMOGLOBIN 28.5 pg (27.0-33.0); MEAN CORPUSCULAR HGB CONC 31.2 g/dl (32.0-36.5); MEAN CORPUSCULAR VOLUME 91.2 fl (80.0-96.0); MONO # 1.7 10^3/uL (0.0-0.8); MONO % 8.5 % (2.0-8.0); NEUTROPHILS # 16.5 10^3/uL (1.5-8.5); NEUTROPHILS % 81.8 % (36.0-66.0); PLATELET COUNT, AUTOMATED 279 10^3/uL (150-450); RED BLOOD COUNT 3.97 10^6/uL (4.00-5.40); WHITE BLOOD COUNT 20.2 10^3/uL (4.0-10.0)
[2021-05-24 07:28] LABS: BLOOD UREA NITROGEN 17 MG/DL (7-18); CALCIUM LEVEL 8.8 MG/DL (8.8-10.2); CARBON DIOXIDE LEVEL 27 MEQ/L (21-32); CHLORIDE LEVEL 104 MEQ/L (98-107); CREATININE FOR GFR 0.66 MG/DL (0.55-1.30); GLOMERULAR FILTRATION RATE > 60.0 (>39); GLUCOSE, FASTING 162 MG/DL (70-100); POTASSIUM SERUM 3.6 MEQ/L (3.5-5.1); SODIUM LEVEL 138 MEQ/L (136-145)
[2021-05-24] MEDS: BISACODYL 10 MG SUPP PR SCH (09:00)
[2021-05-24] MEDS: SERTRALINE HCL 50 MG TAB PO SCH (10:25)
[2021-05-24] MEDS: QUEtiapine FUMARATE 12.5 MG HALF-TAB PO SCH (10:25)
[2021-05-24] MEDS: MEMANTINE 5MG TABLET (NAMENDA) PO SCH ×2 (10:25→21:34)
[2021-05-24] MEDS: ASPIRIN 81MG ENTERIC TABLET PO SCH (10:26)
[2021-05-24] MEDS: LEVEMIR (INSULIN DETEMIR) 1 UNITS/0.01ML SC SCH (10:26)
[2021-05-24] MEDS: buPROPion **SR TABLET** (ZYBAN) 150MG PO SCH (10:26)
--- NOTE | 2021-05-24 11:51 | IPNPDOC ---
Subjective Date Seen The patient was seen on 05/24/21. Subjective Chief Complaint/HPI Had fever again last evening with a T-max of 101.7, no fever this morning, patient is being fed breakfast. She has been ordered pured diet and thickened liquids which seemed that she is tolerating well and able to swallow without difficulties. Objective Physical Examination General Exam: Positive: Alert, Cooperative, Other (Confused talking nonsensical words and sentences.) ENT Exam: Positive: Atraumatic, Mucous membr. moist/pink, Pharynx Normal Neck Exam: Positive: Supple; Negative: JVD, thyromegaly Chest Exam: Positive: Clear to auscultation, Normal air movement Heart Exam: Positive: Rate Normal, Regular Rhythm, Normal S1, Normal S2; Negative: Murmurs, Rubs Abdomen Exam: Positive: Normal bowel sounds, Soft; Negative: Tenderness Extremity Exam: Negative: Clubbing, Cyanosis, Edema Neuro Exam: Positive: Other (Moving all 4 extremities but does not follow commands. Speech is mostly mumbled garbled soft and nonsensical.) Psych Exam: Negative: Memory Intact, Oriented x 3 Assessment /Plan Assessment 71 yo F with a hx of advanced Alzheimer's dementia, DM2, HTN, history of falls with T12 compression fx. She lives at home with 24 hour care from home health agency was brought to the emergency room after a syncopal episode at home while she was sitting on the toilet having a bowel movement. She had slumped over and became nonresponsive home health aide called EMS. On arrival of the EMS they found her blood pressure to be in 60s patient was started on IV fluids and brought to the emergency. By the time she reached the emergency room she got a 1-1/2 L of fluid and her blood pressure had improved. Work-up in the ED showed elevated WBC and dirty UA. Patient was diagnosed with a UTI and given a dose of ciprofloxacin. The plan was to send her home with p.o. ciprofloxacin however on the process of being of going home she had 2 more syncopal episodes where she rolled up her eyes and became nonresponsive lasting for a few seconds. Blood pressure was again noted to be low in 80s. So the patient was admitted for syncope, hypotension and urinary tract infection. UTI with right pyelonephritis Urine culture shows E. coli continue ceftriaxone blood cultures are negative till date Fecal impaction at the rectum with possible enterocolitis Now resolved Had several bowel movements Vasovagal syncope vs orthostatic syncope While sitting on the toilet tryingto have a bowel movement when the episode happened and her blood pressure was low as measured by EMS. She has fecal impaction so likely was straining during the episode and likely had vasovagal syncope. Has had episodes of syncope since the age of 15 years as per chart review Diabetes We will continue with Levemir 10 units twice daily HTN Will hold home meds atenolol and ramipril as had documented hypotension with EMS and in the ED. HLD statin Alzheimer's Dementia: On sertraline and wellbutrin and Seroquel will continue Hypothyroid: Continue same Plan/VTE VTE Prophylaxis Ordered?: Yes VS, I&O, 24H, Fishbone Vital Signs/I&O Vital Signs Date Time Temp Pulse Resp B/P (MAP) Pulse Ox O2 Delivery O2 Flow Rate FiO2 05/24/21 06:00 99.8 72 22 130/76 (94) 91 Room Air I&O- Last 24 Hours up to 6 AM 05/24/21 06:00 Intake Total 410 ml Balance 410 ml Laboratory Data 24H LABS Laboratory Tests 2 05/23/21 19:45: Bedside Glucose (Misc Panel) 161H 05/23/21 20:33: Bedside Glucose (Misc Panel) 165H 05/24/21 06:20: Immature Granulocyte % (Auto) 0.5, Neutrophils (%) (Auto) 81.8H, Lymphocytes (%) (Auto) 6.3L, Monocytes (%) (Auto) 8.5H, Eosinophils (%) (Auto) 2.7, Basophils (%) (Auto) 0.2, Neutrophils # (Auto) 16.5H, Lymphocytes # (Auto) 1.3L, Monocytes # (Auto) 1.7H, Eosinophils # (Auto) 0.5, Basophils # (Auto) 0.1, Nucleated Red Blood Cells % (auto) 0.0, Anion Gap 7L, Glomerular Filtration Rate > 60.0, Calcium Level 8.8 CBC/BMP Laboratory Tests 05/24/21 06:20 Microbiology Microbiology 05/21/21 Urine Culture - Final, Complete Escherichia Coli 05/21/21 Blood Culture - Preliminary, Resulted No Growth after 48 hours. All Specime... 05/21/21 Blood Culture - Preliminary, Resulted No Growth after 48 hours. All Specime... Adrianna Suarez MD May 24, 2021 11:51
[2021-05-24 14:00] VITALS: BP 130/64
[2021-05-24] MEDS: cefTRIAXone SOD 1 GM in D5W MINI-BAG PLUS 50 ML IV SCH (21:33)
[2021-05-24] MEDS: QUEtiapine FUMARATE 25 MG TAB PO SCH (21:34)
[2021-05-24 22:00] VITALS: BP 124/96
[2021-05-25 06:00] VITALS: BP 135/66
[2021-05-25] MEDS: LEVOTHYROXINE 125MCG TABLET (0.125MG) PO SCH (06:18)
[2021-05-25 06:47] LABS: BASO % 0.3 % (0.0-1.0); EOS # 0.5 10^3/uL (0.0-0.5); EOS % 3.1 % (0.0-3.0); HEMATOCRIT 34.1 % (36.0-47.0); HEMOGLOBIN 11.1 g/dl (12.0-15.5); LYMPH # 1.6 10^3/uL (1.5-5.0); LYMPH % 10.1 % (24.0-44.0); MEAN CORPUSCULAR HEMOGLOBIN 28.8 pg (27.0-33.0); MEAN CORPUSCULAR HGB CONC 32.6 g/dl (32.0-36.5); MEAN CORPUSCULAR VOLUME 88.6 fl (80.0-96.0); MONO # 1.7 10^3/uL (0.0-0.8); MONO % 10.5 % (2.0-8.0); NEUTROPHILS % 75.3 % (36.0-66.0); PLATELET COUNT, AUTOMATED 337 10^3/uL (150-450); RED BLOOD COUNT 3.85 10^6/uL (4.00-5.40); WHITE BLOOD COUNT 15.9 10^3/uL (4.0-10.0)
[2021-05-25 07:15] LABS: BLOOD UREA NITROGEN 13 MG/DL (7-18); CALCIUM LEVEL 8.3 MG/DL (8.8-10.2); CARBON DIOXIDE LEVEL 28 MEQ/L (21-32); CHLORIDE LEVEL 104 MEQ/L (98-107); CREATININE FOR GFR 0.71 MG/DL (0.55-1.30); GLOMERULAR FILTRATION RATE > 60.0 (>39); GLUCOSE, FASTING 157 MG/DL (70-100); POTASSIUM SERUM 3.7 MEQ/L (3.5-5.1); SODIUM LEVEL 138 MEQ/L (136-145)
[2021-05-25] MEDS: BISACODYL 10 MG SUPP PR SCH (09:00)
[2021-05-25] MEDS: ASPIRIN 81MG ENTERIC TABLET PO SCH (09:04)
[2021-05-25] MEDS: buPROPion **SR TABLET** (ZYBAN) 150MG PO SCH (09:04)
[2021-05-25] MEDS: LEVEMIR (INSULIN DETEMIR) 1 UNITS/0.01ML SC SCH (09:04)
[2021-05-25] MEDS: MEMANTINE 5MG TABLET (NAMENDA) PO SCH ×2 (09:05→22:02)
[2021-05-25] MEDS: QUEtiapine FUMARATE 12.5 MG HALF-TAB PO SCH (09:06)
[2021-05-25] MEDS: SERTRALINE HCL 50 MG TAB PO SCH (09:06)
[2021-05-25 14:00] VITALS: BP 126/72
[2021-05-25] MEDS ORDERED: CEFD1CAP8 PO (15:04)
--- NOTE | 2021-05-25 17:02 | IPNPDOC ---
Subjective Date Seen The patient was seen on 05/25/21. Subjective Chief Complaint/HPI No fever in the past 24 hours. As per nurses she has been eating OK. No acute events overnight. Objective Physical Examination General Exam: Positive: Alert, Cooperative, Other (pleasant and confused) ENT Exam: Positive: Atraumatic, Mucous membr. moist/pink, Pharynx Normal Neck Exam: Positive: Supple Chest Exam: Positive: Clear to auscultation, Normal air movement Heart Exam: Positive: Rate Normal, Regular Rhythm, Normal S1, Normal S2 Abdomen Exam: Positive: Normal bowel sounds, Soft Extremity Exam: Negative: Clubbing, Cyanosis, Edema Neuro Exam: Positive: Other Psych Exam: Negative: Memory Intact, Oriented x 3 Assessment /Plan Assessment 71 yo F with a hx of advanced Alzheimer's dementia, DM2, HTN, history of falls with T12 compression fx. She lives at home with 24 hour care from home health agency was brought to the emergency room after a syncopal episode at home while she was sitting on the toilet having a bowel movement. She had slumped over and became nonresponsive home health aide called EMS. On arrival of the EMS they found her blood pressure to be in 60s patient was started on IV fluids and brought to the emergency. By the time she reached the emergency room she got a 1-1/2 L of fluid and her blood pressure had improved. Work-up in the ED showed elevated WBC and dirty UA. Patient was diagnosed with a UTI and given a dose of ciprofloxacin. The plan was to send her home with p.o. ciprofloxacin however on the process of being of going home she had 2 more syncopal episodes where she rolled up her eyes and became nonresponsive lasting for a few seconds. Blood pressure was again noted to be low in 80s. So the patient was admitted for syncope, hypotension and urinary tract infection. UTI with right pyelonephritis Urine culture shows E. coli continue ceftriaxone blood cultures are negative till date Fecal impaction at the rectum with possible enterocolitis Now resolved Had several bowel movements Vasovagal syncope vs orthostatic syncope While sitting on the toilet tryingto have a bowel movement when the episode happened and her blood pressure was low as measured by EMS. She has fecal impaction so likely was straining during the episode and likely had vasovagal syncope. Has had episodes of syncope since the age of 15 years as per chart review Diabetes We will continue with Levemir 10 units twice daily HTN Will hold home meds atenolol and ramipril as had documented hypotension with EMS and in the ED. HLD statin Alzheimer's Dementia: On sertraline and wellbutrin and Seroquel will continue Hypothyroid: Continue same Plan/VTE VTE Prophylaxis Ordered?: Yes VS, I&O, 24H, Fishbone Vital Signs/I&O Vital Signs Date Time Temp Pulse Resp B/P (MAP) Pulse Ox O2 Delivery O2 Flow Rate FiO2 05/25/21 14:00 97.2 86 16 126/72 (90) 96 Room Air I&O- Last 24 Hours up to 6 AM 05/25/21 07:00 Intake Total 1900 ml Output Total 0 ml Balance 1900 ml Laboratory Data 24H LABS Laboratory Tests 2 05/25/21 05:59: Immature Granulocyte % (Auto) 0.7, Neutrophils (%) (Auto) 75.3H, Lymphocytes (%) (Auto) 10.1L, Monocytes (%) (Auto) 10.5H, Eosinophils (%) (Auto) 3.1H, Basophils (%) (Auto) 0.3, Neutrophils # (Auto) 12.0H, Lymphocytes # (Auto) 1.6, Monocytes # (Auto) 1.7H, Eosinophils # (Auto) 0.5, Basophils # (Auto) 0.0, Nucleated Red Blood Cells % (auto) 0.0, Anion Gap 6L, Glomerular Filtration Rate > 60.0, Calcium Level 8.3L CBC/BMP Laboratory Tests 05/25/21 05:59 Microbiology Microbiology 05/21/21 Urine Culture - Final, Complete Escherichia Coli 05/21/21 Blood Culture - Preliminary, Resulted No Growth after 72 hours. All specime... 05/21/21 Blood Culture - Preliminary, Resulted No Growth after 72 hours. All specime... Adrianna Suarez MD May 25, 2021 17:02
[2021-05-25 22:00] VITALS: BP 126/89
[2021-05-25] MEDS: QUEtiapine FUMARATE 25 MG TAB PO SCH (22:02)
[2021-05-25] MEDS: cefTRIAXone SOD 1 GM in D5W MINI-BAG PLUS 50 ML IV SCH (22:02)
[2021-05-26 06:00] VITALS: BP 144/84
[2021-05-26 06:22] LABS: BASO # 0.1 10^3/uL (0.0-0.2); BASO % 0.5 % (0.0-1.0); EOS # 0.7 10^3/uL (0.0-0.5); EOS % 5.3 % (0.0-3.0); HEMATOCRIT 34.1 % (36.0-47.0); HEMOGLOBIN 10.8 g/dl (12.0-15.5); LYMPH # 1.5 10^3/uL (1.5-5.0); LYMPH % 11.4 % (24.0-44.0); MEAN CORPUSCULAR HEMOGLOBIN 28.3 pg (27.0-33.0); MEAN CORPUSCULAR HGB CONC 31.7 g/dl (32.0-36.5); MEAN CORPUSCULAR VOLUME 89.3 fl (80.0-96.0); MONO # 1.5 10^3/uL (0.0-0.8); MONO % 11.3 % (2.0-8.0); NEUTROPHILS # 9.2 10^3/uL (1.5-8.5); NEUTROPHILS % 70.9 % (36.0-66.0); PLATELET COUNT, AUTOMATED 333 10^3/uL (150-450); RED BLOOD COUNT 3.82 10^6/uL (4.00-5.40); WHITE BLOOD COUNT 12.9 10^3/uL (4.0-10.0)
[2021-05-26] MEDS: LEVOTHYROXINE 125MCG TABLET (0.125MG) PO SCH (06:43)
[2021-05-26 06:46] LABS: BLOOD UREA NITROGEN 15 MG/DL (7-18); CALCIUM LEVEL 8.7 MG/DL (8.8-10.2); CARBON DIOXIDE LEVEL 27 MEQ/L (21-32); CHLORIDE LEVEL 106 MEQ/L (98-107); CREATININE FOR GFR 0.63 MG/DL (0.55-1.30); GLOMERULAR FILTRATION RATE > 60.0 (>39); GLUCOSE, FASTING 162 MG/DL (70-100); POTASSIUM SERUM 3.8 MEQ/L (3.5-5.1); SODIUM LEVEL 140 MEQ/L (136-145)
[2021-05-26] MEDS: BISACODYL 10 MG SUPP PR SCH (08:44)
[2021-05-26] MEDS: MEMANTINE 5MG TABLET (NAMENDA) PO SCH (08:48)
[2021-05-26] MEDS: LEVEMIR (INSULIN DETEMIR) 1 UNITS/0.01ML SC SCH (08:48)
[2021-05-26] MEDS: SERTRALINE HCL 50 MG TAB PO SCH (08:48)
[2021-05-26] MEDS: QUEtiapine FUMARATE 12.5 MG HALF-TAB PO SCH (08:48)
[2021-05-26] MEDS: buPROPion **SR TABLET** (ZYBAN) 150MG PO SCH (08:48)
[2021-05-26] MEDS: ASPIRIN 81MG ENTERIC TABLET PO SCH (08:48)
--- NOTE | 2021-06-09 21:52 | DS.PDOC ---
Discharge Summary General Date of Admission May 21, 2021 at 19:00 Date of Discharge 05/26/21 Discharge Summary PROCEDURES PERFORMED DURING STAY: [None]. DISCHARGE DIAGNOSES: Pyelonephritis Fecal impaction Vasovagal Syncope 9mm pulmonary nodule in lingula SECONDARY DIAGNOSIS: Alzheimer's dementia, DM2, HTN, Hypothyroid, Hyperlipidemia, History of falls with T12 compression fx, history of vasovagal syncopal episodes since age of 15, COMPLICATIONS/CHIEF COMPLAINT: Dementia, Uti. HOSPITAL COURSE: 71 yo F with a hx of advanced Alzheimer's dementia, DM2, HTN, history of falls with T12 compression fx. She lives at home with 24 hour care from home health agency was brought to the emergency room after a syncopal episode at home while she was sitting on the toilet having a bowel movement. She had slumped over and became nonresponsive home health aide called EMS. On arrival of the EMS they found her blood pressure to be in 60s patient was started on IV fluids and brought to the emergency. By the time she reached the emergency room she got a 1-1/2 L of fluid and her blood pressure had improved. Work-up in the ED showed elevated WBC and dirty UA. Patient was diagnosed with a UTI and given a dose of ciprofloxacin. The plan was to send her home with p.o. ciprofloxacin however on the process of being of going home she had 2 more syncopal episodes where she rolled up her eyes and became nonresponsive lasting for a few seconds. Blood pressure was again noted to be low in 80s. So the patient was admitted for syncope, hypotension and urinary tract infection. UTI with right pyelonephritis Urine culture shows E. coli finished ceftriaxone. discharged with cefdinir. blood cultures are negative. Fecal impaction at the rectum with possible enterocolitis Now resolved Had several bowel movements Vasovagal syncope vs orthostatic syncope While sitting on the toilet trying to have a bowel movement when the episode happened and her blood pressure was low as measured by EMS. She had fecal impaction so likely was straining during the episode and likely had vasovagal syncope. Has had episodes of syncope since the age of 15 years as per chart review Diabetes Continue on Levemir. HTN Continue home meds HLD statin Alzheimer's Dementia: On sertraline and wellbutrin and Seroquel will continue Hypothyroid: Continue synthroid DISCHARGE MEDICATIONS: Please see below. ALLERGIES: Please see below. PHYSICAL EXAMINATION ON DISCHARGE: VITAL SIGNS: Please see below. General Exam: Positive: Alert, Cooperative, Other (pleasant and confused) ENT Exam: Positive: Atraumatic, Mucous membr. moist/pink, Pharynx Normal Neck Exam: Positive: Supple Chest Exam: Positive: Clear to auscultation, Normal air movement Heart Exam: Positive: Rate Normal, Regular Rhythm, Normal S1, Normal S2 Abdomen Exam: Positive: Normal bowel sounds, Soft Extremity Exam: Negative: Clubbing, Cyanosis, Edema Neuro Exam: Positive: Other Psych Exam: Negative: Memory Intact, Oriented x 3 LABORATORY DATA: Please see below. IMAGING: FINDINGS: Evaluation is somewhat limited due to streak artifact secondary to having upper extremities along the abdominal sides. Liver, spleen, pancreas, gallbladder, bilateral adrenal glands and left kidney are normal. Right kidney demonstrates subtle streaky low-density areas suggesting the possi bility of pyelonephritis. The enteric system is limited in evaluation and without evidence for obstruction. Scattered colonic and sigmoid diverticulosis are noted along with fecal impaction at the rectum distended to 9 cm maximal diameter. Element of enterocolitis cannot be excluded the appendix is poorly evaluated however mild prominence and enhancement cannot be excluded raising the possibility of subtle appendicitis (series 201; images [id number]). Pelvis demonstrates normal bladder and evidence for prior hysterectomy. No ascites. No free air. No intraperitoneal or retroperitoneal adenopathy. Abdominal aorta and vasculature appear normal. Musculoskeletal structures are intact and without acute osseous abnormality. IMPRESSION: 1. Right kidney findings as described above raise the possibility of acute pyelonephritis and correlation is required. 2. The appendix is poorly identified/evaluated and a mild appendicitis cannot be excluded requiring close clinical observation. 3. Fecal impaction at the rectum distended to 9 cm diameter. Associated enterocolitis cannot be excluded. CT CHEST: FINDINGS: Lung jackson are relatively well aerated and mild pulmonary vascular congestion along with trace bibasilar atelectasis and small pleural reactions are noted. There is a 9 mm nodular density in the lingula (image 51). No significant adenopathy. Tracheobronchial tree is patent. The mediastinum demonstrates atherosclerotic changes to the thoracic aorta and coronary arteries without aortic aneurysm or cardiomegaly. No pericardial effusion. Musculoskeletal structures demonstrate age-related changes without acute process. Rim calcified bilateral breast implants noted with possible small extravasation along the superior aspect of the right breast implant. IMPRESSION: 1. Mild pulmonary vascular congestion is suggested along with trace bibasilar atelectasis and small pleural reactions. 2. A 9 mm nodule in the lingula warrants further investigation/follow-up. CT head: Brain: There is no acute intracranial hemorrhage, cerebral edema, or midline shift. Chronic microvascular ischemic changes are seen in the periventricular white matter. Age-related cerebral and cerebellar volume loss is present. Cerebral ventricles: Moderate ex vacuo dilation of the lateral and third ventricles is noted. Paranasal sinuses: There is no acute sinusitis. Mastoid air cells: The mastoid air cells are clear. Orbital cavity: The included orbital structures are unremarkable. Vasculature: Atherosclerotic calcifications are seen involving the cavernous carotid arteries. Bones/joints: No acute fracture. Soft tissues: Unremarkable. IMPRESSION: 1. No acute intracranial abnormality. 2. Atrophy and chronic deep white matter ischemic changes. ACTIVITY: [As tolerated]. DIET: As tolerated DISPOSITION: 01 Home, Self-Care. DISCHARGE INSTRUCTIONS: PMD in 2 week Follow up Lung Nodule with PMD. DISCHARGE CONDITION: [Stable]. TIME SPENT ON DISCHARGE: 35 minutes. Discharge Medications Scheduled Aspirin (Aspirin EC) 81 Mg Tablet.dr, 81 MG PO DAILY, (Reported) Atenolol (Atenolol) 25 Mg Tab, 25 MG PO DAILY, (Reported) Atorvastatin Calcium (Atorvastatin Calcium) 20 Mg Tab, 20 MG PO DAILY, (Reported) Bupropion Hcl (Bupropion HCl Sr) 150 Mg Tab.sr.12h, 150 MG PO DAILY, (Reported) Cefdinir (Cefdinir) 300 Mg Capsule, 1 CAP PO BID Insulin Detemir (Levemir Flextouch) 100 Unit/1 Ml Insuln.pen, 15 UNIT SC BID, (Reported) L.acidoph/L.bulg/B.bif/S.therm (Jennifer-Bid Caplet) 1 Each Tablet, 1 TAB PO Q2D, (Reported) Levothyroxine Sodium (Levoxyl) 125 Mcg Tablet, 125 MCG PO DAILY, (Reported) Memantine HCl (Memantine HCl ER) 28 Mg Cap.spr.24, 28 MG PO DAILY, (Reported) Quetiapine Fumarate (Quetiapine Fumarate) 25 Mg Tablet, 25 MG PO QHS, (Reported) Quetiapine Fumarate (Quetiapine Fumarate) 25 Mg Tablet, 12.5 MG PO DAILY, (Reported) Ramipril (Ramipril) 5 Mg Capsule, 5 MG PO DAILY, (Reported) Sertraline HCl (Sertraline HCl) 50 Mg Tablet, 50 MG PO DAILY, (Reported) Vitamin B Complex (Vitamin B Complex) 1 Each Capsule, 1 CAP PO DAILY, (Reported) Allergies Coded Allergies: Sulfa (Sulfonamide Antibiotics) (Verified Allergy, Unknown, 03/23/19) metformin (Verified Adverse Reaction, Mild, nausea, 03/23/19) Adrianna Suarez MD Jun 09, 2021 21:52
== END 2021-05-26 14:00 | disposition home or self-care (01) | DRG 690 ==
LOC: EDBD 12:47 → M ED 12:47 → M ED INP 19:00 → M MSPAV 21:15
PROVIDERS: ADMIT Internal Medicine Nephrology; ATTEND Internal Medicine Nephrology
DX: N10 Acute pyelonephritis (principal); I95.9 Hypotension, unspecified; N12 Tubulo-interstitial nephritis, not specified as acute or chronic; G30.9 Alzheimer's disease, unspecified; F02.80 Dementia in other diseases classified elsewhere, unspecified severity, without behavioral disturbance, psychotic disturbance, mood disturbance, and anxiety; E11.9 Type 2 diabetes mellitus without complications; I10 Essential (primary) hypertension; R29.6 Repeated falls; E78.5 Hyperlipidemia, unspecified; E03.9 Hypothyroidism, unspecified; R55 Syncope and collapse; B96.20 Unspecified Escherichia coli [E. coli] as the cause of diseases classified elsewhere; R91.1 Solitary pulmonary nodule; K56.41 Fecal impaction; Z20.822 Contact with and (suspected) exposure to COVID-19; Z66 Do not resuscitate; Z90.79 Acquired absence of other genital organ(s); Z98.82 Breast implant status; Z79.82 Long term (current) use of aspirin; Z79.4 Long term (current) use of insulin; Z79.899 Other long term (current) drug therapy; Z88.2 Allergy status to sulfonamides; Z88.8 Allergy status to other drugs, medicaments and biological substances; Z87.891 Personal history of nicotine dependence

== ENCOUNTER 2022-06-05 10:28 | Emergency (ER) | payer MEDICARE ==
[~2022-06-05] VITALS: Ht 167.6 cm; Wt 59.1 kg
[~2022-06-05 10:28] MED LIST changes: +BUPR-71 PO; -BUPR150T5 PO; +CEFD300C41 PO; +CIPR-249 PO; +CIPR500T39 PO
[2022-06-05] MEDS ORDERED: CIPR500T39 PO (11:04)
[2022-06-05] MEDS ORDERED: [UNRECOGNIZED DRUG - CODE] PO (11:04)
[2022-06-05] MEDS ORDERED: LEVO112T2 PO (11:04)
[2022-06-05 12:30] LABS: VENOUS BASE EXCESS 0.9 (-2.0-2.0); VENOUS HCO3 26.3 MEQ/L (23.0-27.0); VENOUS O2 SATURATION 77.3 % (60.0-80.0); VENOUS PARTIAL PRESSURE O2 40.7 mmHg (30.0-50.0); VENOUS PH 7.385 UNITS (7.330-7.430); VENOUS STANDARD HCO3 24.7 MEQ/L; VENOUS TOTAL CO2 27.7 MEQ/L (24.0-28.0)
[2022-06-05 12:33] LABS: BASO # 0.1 10^3/uL (0.0-0.2); BASO % 0.5 % (0.0-1.0); EOS # 0.3 10^3/uL (0.0-0.5); EOS % 1.5 % (0.0-3.0); HEMATOCRIT 43.3 % (36.0-47.0); HEMOGLOBIN 13.7 g/dl (12.0-15.5); LYMPH # 1.5 10^3/uL (1.5-5.0); MEAN CORPUSCULAR HEMOGLOBIN 29.4 pg (27.0-33.0); MEAN CORPUSCULAR HGB CONC 31.6 g/dl (32.0-36.5); MEAN CORPUSCULAR VOLUME 92.9 fl (80.0-96.0); MONO # 1.2 10^3/uL (0.0-0.8); MONO % 7.3 % (2.0-8.0); NEUTROPHILS # 13.4 10^3/uL (1.5-8.5); NEUTROPHILS % 81.2 % (36.0-66.0); PLATELET COUNT, AUTOMATED 316 10^3/uL (150-450); RED BLOOD COUNT 4.66 10^6/uL (4.00-5.40); WHITE BLOOD COUNT 16.5 10^3/uL (4.0-10.0)
[2022-06-05 13:07] LABS: RSV AMPLIFICATION NEGATIVE (NEGATIVE)
[2022-06-05 13:22] LABS: ACETAMINOPHEN LEVEL < 2.0 UG/ML (10.0-30.0); ALBUMIN 3.6 GM/DL (3.2-5.2); ALT/SGPT 38 U/L (12-78); BILIRUBIN,DIRECT 0.2 MG/DL (0.0-0.2); BILIRUBIN,TOTAL 0.5 MG/DL (0.2-1.0); BLOOD UREA NITROGEN 43 MG/DL (7-18); CALCIUM LEVEL 9.1 MG/DL (8.8-10.2); CARBON DIOXIDE LEVEL 26 MEQ/L (21-32); CHLORIDE LEVEL 117 MEQ/L (98-107); CK-MB VALUE MASS 2.7 NG/ML (<3.6); CREATININE FOR GFR 0.89 MG/DL (0.55-1.30); ETHYL ALCOHOL (ETHANOL) < 0.003 % (0.000-0.010); GLOMERULAR FILTRATION RATE > 60.0 (>39); GLUCOSE, FASTING 111 MG/DL (70-100); MB/CK RELATIVE INDEX 1.35 (< OR =4); POTASSIUM SERUM 4.2 MEQ/L (3.5-5.1); SALICYLATE LEVEL < 1.7 MG/DL (5.0-30.0); SODIUM LEVEL 151 MEQ/L (136-145); THYROID STIMULATING HORMONE 0.009 uIU/ML (0.358-3.740); TOTAL PROTEIN 6.9 GM/DL (6.4-8.2)
[2022-06-05 13:25] LABS: OSMOLALITY SERUM 321 MOSM/KG (280-301)
[2022-06-05 17:00] VITALS: BP 121/59
== END 2022-06-05 18:04 | disposition home or self-care (01) ==
LOC: M ED 10:28 → EDBD 10:28 → M ED 18:04
DX: S72.111A Displaced fracture of greater trochanter of right femur, initial encounter for closed fracture (principal); W19.XXXA Unspecified fall, initial encounter; Y92.002 Bathroom of unspecified non-institutional (private) residence as the place of occurrence of the external cause; R41.82 Altered mental status, unspecified; E11.9 Type 2 diabetes mellitus without complications; I10 Essential (primary) hypertension; G30.9 Alzheimer's disease, unspecified; Z87.891 Personal history of nicotine dependence; Z88.2 Allergy status to sulfonamides; Z88.8 Allergy status to other drugs, medicaments and biological substances; Z90.710 Acquired absence of both cervix and uterus; Z79.82 Long term (current) use of aspirin; Z79.890 Hormone replacement therapy; Z79.899 Other long term (current) drug therapy

== ENCOUNTER 2022-06-07 14:46 | Inpatient (IN) | payer MEDICARE ==
[~2022-06-07] VITALS: Ht 170.2 cm; Wt 55.5 kg
[~2022-06-07 14:46] MED LIST changes: +[UNRECOGNIZED DRUG - CODE] PO
[2022-06-07] MEDS ORDERED: VANCOMYCIN HCL 1,000 MG, VIAL MATE ADAPTER 1 EACH in NS 250 ML IV ONE (15:35)
[2022-06-07 15:43] LABS: BASO # 0.1 10^3/uL (0.0-0.2); BASO % 0.4 % (0.0-1.0); EOS # 0.3 10^3/uL (0.0-0.5); EOS % 1.8 % (0.0-3.0); HEMATOCRIT 43.7 % (36.0-47.0); HEMOGLOBIN 13.8 g/dl (12.0-15.5); LYMPH # 1.8 10^3/uL (1.5-5.0); LYMPH % 13.5 % (24.0-44.0); MEAN CORPUSCULAR HEMOGLOBIN 29.4 pg (27.0-33.0); MEAN CORPUSCULAR HGB CONC 31.6 g/dl (32.0-36.5); MEAN CORPUSCULAR VOLUME 93.2 fl (80.0-96.0); MONO # 1.3 10^3/uL (0.0-0.8); MONO % 9.6 % (2.0-8.0); NEUTROPHILS # 10.1 10^3/uL (1.5-8.5); NEUTROPHILS % 74.3 % (36.0-66.0); PLATELET COUNT, AUTOMATED 323 10^3/uL (150-450); RED BLOOD COUNT 4.69 10^6/uL (4.00-5.40); WHITE BLOOD COUNT 13.6 10^3/uL (4.0-10.0)
[2022-06-07 16:19] LABS: RSV AMPLIFICATION NEGATIVE (NEGATIVE)
[2022-06-07 16:21] LABS: ALBUMIN 3.3 GM/DL (3.2-5.2); BILIRUBIN,TOTAL 0.3 MG/DL (0.2-1.0); CALCIUM LEVEL 8.9 MG/DL (8.8-10.2); CREATININE FOR GFR 1.46 MG/DL (0.55-1.30); GLOMERULAR FILTRATION RATE 37.3 (>39); POTASSIUM SERUM 4.3 MEQ/L (3.5-5.1)
[2022-06-07] MEDS ORDERED: VANCOMYCIN HCL 1,000 MG, VIAL MATE ADAPTER 1 EACH in NS 250 ML IV SCH (16:55)
[2022-06-07] MEDS ORDERED: HOME MED LIST COMPLETE! XX SCH (17:10)
[2022-06-07 17:30] LABS: C REACTIVE PROTEIN QUANTITATIV 2.71 MG/DL (0.00-0.30)
[2022-06-07] MEDS: NS 1,000 ML IV SCH (17:31)
[2022-06-07 17:52] LABS: ERYTHROCYTE SEDIMENTATION RATE 32 mm/hr (0-30)
[2022-06-07] MEDS: CIPROFLOXACIN 500MG TABLET PO SCH (18:27)
[2022-06-07] MEDS: QUEtiapine FUMARATE 25 MG TAB PO SCH (20:58)
[2022-06-08] MEDS ORDERED: VANCOMYCIN HCL 750 MG, VIAL MATE ADAPTER 1 EACH in D5W 250 ML IV SCH (04:00)
[2022-06-08] MEDS ORDERED: PILL CUTTER 1 EACH XX ONE (05:52)
[2022-06-08 05:56] LABS: HEMATOCRIT 41.5 % (36.0-47.0); HEMOGLOBIN 12.8 g/dl (12.0-15.5); MEAN CORPUSCULAR HEMOGLOBIN 29.4 pg (27.0-33.0); MEAN CORPUSCULAR HGB CONC 30.8 g/dl (32.0-36.5); MEAN CORPUSCULAR VOLUME 95.4 fl (80.0-96.0); PLATELET COUNT, AUTOMATED 271 10^3/uL (150-450); RED BLOOD COUNT 4.35 10^6/uL (4.00-5.40); WHITE BLOOD COUNT 12.6 10^3/uL (4.0-10.0)
[2022-06-08] MEDS: CIPROFLOXACIN 500MG TABLET PO SCH (05:57)
[2022-06-08] MEDS: LEVOTHYROXINE 112MCG TABLET (0.112MG) PO SCH (06:03)
[2022-06-08 06:30] LABS: ERYTHROCYTE SEDIMENTATION RATE 36 mm/hr (0-30)
[2022-06-08 06:33] LABS: C REACTIVE PROTEIN QUANTITATIV 1.74 MG/DL (0.00-0.30); CALCIUM LEVEL 8.9 MG/DL (8.8-10.2); GLOMERULAR FILTRATION RATE 57.7 (>39); POTASSIUM SERUM 3.9 MEQ/L (3.5-5.1)
[2022-06-08] MEDS: ASPIRIN 81MG ENTERIC TABLET PO SCH (09:34)
[2022-06-08] MEDS: atenoloL 25 MG TAB PO SCH (09:35)
[2022-06-08] MEDS: SERTRALINE HCL 50 MG TAB PO SCH (09:35)
[2022-06-08] MEDS: NS 1,000 ML IV SCH ×2 (09:35→21:29)
[2022-06-08] MEDS: ceFAZolin SOD 2 GM in IV 1 EA IV SCH ×2 (09:35→17:48)
[2022-06-08] MEDS: lamoTRIgine 100MG TAB PO SCH (11:44)
[2022-06-08] MEDS: ramipriL 5 MG CAP PO SCH (11:45)
[2022-06-08 12:20] VITALS: BP 104/80
[2022-06-08] MEDS: MEMANTINE 5MG TABLET (NAMENDA) PO SCH ×2 (13:36→21:24)
[2022-06-08] MEDS: QUEtiapine FUMARATE 25 MG TAB PO SCH (21:24)
[2022-06-08 21:49] VITALS: BP 103/63
[2022-06-09] MEDS: ceFAZolin SOD 2 GM in IV 1 EA IV SCH ×3 (02:48→17:38)
[2022-06-09] MEDS: LEVOTHYROXINE 112MCG TABLET (0.112MG) PO SCH (05:57)
[2022-06-09 06:04] VITALS: BP 101/64
[2022-06-09] MEDS: atenoloL 25 MG TAB PO SCH ×2 (09:00→10:19)
[2022-06-09] MEDS: MEMANTINE 5MG TABLET (NAMENDA) PO SCH ×2 (10:17→20:58)
[2022-06-09] MEDS: SERTRALINE HCL 50 MG TAB PO SCH (10:17)
[2022-06-09] MEDS: lamoTRIgine 100MG TAB PO SCH (10:17)
[2022-06-09] MEDS: ASPIRIN 81MG ENTERIC TABLET PO SCH (10:17)
[2022-06-09] MEDS: LACTOBACILLUS ACIDOPHILUS CAP (BACID) PO SCH (10:17)
[2022-06-09] MEDS: ramipriL 5 MG CAP PO SCH (10:22)
[2022-06-09] MEDS: NS 1,000 ML IV SCH (12:20)
[2022-06-09 14:00] VITALS: BP 100/67
[2022-06-09] MEDS: ENOXAPARIN 40MG/0.4ML SYRINGE (J1650 PER 10MG) SC SCH (14:41)
[2022-06-09] MEDS: D5W 1,000 ML IV SCH (14:41)
[2022-06-09 20:43] VITALS: BP 99/65
[2022-06-09] MEDS: QUEtiapine FUMARATE 25 MG TAB PO SCH (20:58)
[2022-06-10] MEDS: ceFAZolin SOD 2 GM in IV 1 EA IV SCH (01:16)
[2022-06-10] MEDS: LEVOTHYROXINE 112MCG TABLET (0.112MG) PO SCH ×2 (05:34→05:42)
[2022-06-10] MEDS: D5W 1,000 ML IV SCH (05:35)
[2022-06-10 06:07] VITALS: BP 100/63
[2022-06-10 08:26] LABS: HEMATOCRIT 37.7 % (36.0-47.0); HEMOGLOBIN 11.4 g/dl (12.0-15.5); MEAN CORPUSCULAR HEMOGLOBIN 28.5 pg (27.0-33.0); MEAN CORPUSCULAR HGB CONC 30.2 g/dl (32.0-36.5); MEAN CORPUSCULAR VOLUME 94.3 fl (80.0-96.0); PLATELET COUNT, AUTOMATED 240 10^3/uL (150-450); WHITE BLOOD COUNT 10.4 10^3/uL (4.0-10.0)
[2022-06-10] MEDS: atenoloL 25 MG TAB PO SCH (09:00)
[2022-06-10 09:07] LABS: BLOOD UREA NITROGEN 15 MG/DL (7-18); CALCIUM LEVEL 8.3 MG/DL (8.8-10.2); CARBON DIOXIDE LEVEL 28 MEQ/L (21-32); CHLORIDE LEVEL 106 MEQ/L (98-107); CREATININE FOR GFR 0.71 MG/DL (0.55-1.30); GLOMERULAR FILTRATION RATE > 60.0 (>39); GLUCOSE, FASTING 192 MG/DL (70-100); POTASSIUM SERUM 4.2 MEQ/L (3.5-5.1); SODIUM LEVEL 139 MEQ/L (136-145)
[2022-06-10] MEDS ORDERED: DALV1SOL IV (09:26)
[2022-06-10 09:45] VITALS: BP 100/64
[2022-06-10] MEDS: ENOXAPARIN 40MG/0.4ML SYRINGE (J1650 PER 10MG) SC SCH (09:58)
[2022-06-10] MEDS: SERTRALINE HCL 50 MG TAB PO SCH (10:29)
[2022-06-10] MEDS: ASPIRIN 81MG ENTERIC TABLET PO SCH (10:30)
[2022-06-10] MEDS: MEMANTINE 5MG TABLET (NAMENDA) PO SCH ×2 (10:30→22:07)
[2022-06-10] MEDS: lamoTRIgine 100MG TAB PO SCH (10:31)
[2022-06-10 14:00] VITALS: BP 98/66
[2022-06-10] MEDS: QUEtiapine FUMARATE 25 MG TAB PO SCH (22:07)
[2022-06-11] MEDS: LEVOTHYROXINE 112MCG TABLET (0.112MG) PO SCH ×3 (05:44→09:19)
[2022-06-11 08:50] VITALS: BP 122/68
[2022-06-11 09:00] VITALS: BP 121/69
[2022-06-11] MEDS ORDERED: CEPHALEXIN 500 MG CAP PO SCH (09:00)
[2022-06-11] MEDS ORDERED: ASPIRIN 81 MG CHEW TABLET PEG SCH (09:00)
[2022-06-11] MEDS: atenoloL 25 MG TAB PO SCH (09:00)
[2022-06-11] MEDS: ENOXAPARIN 40MG/0.4ML SYRINGE (J1650 PER 10MG) SC SCH (09:18)
[2022-06-11] MEDS: LACTOBACILLUS ACIDOPHILUS CAP (BACID) PO SCH (09:19)
[2022-06-11] MEDS: lamoTRIgine 100MG TAB PO SCH (09:19)
[2022-06-11] MEDS: MEMANTINE 5MG TABLET (NAMENDA) PO SCH (09:20)
[2022-06-11] MEDS: SERTRALINE HCL 50 MG TAB PO SCH (09:20)
[2022-06-11] MEDS ORDERED: CEPH500C PO ×2 (13:02→13:32)
[2022-06-11] MEDS ORDERED: ASPI81CH8 PEG (13:41)
== END 2022-06-11 16:10 | disposition home or self-care (01) | DRG 872 ==
LOC: M ED 14:46 → M ED INP 16:53 → ENRESERV 06-08 11:45 → M MSPAV 06-08 12:19
PROVIDERS: ADMIT Internal Medicine; ATTEND Student in an Organized Health Care Education/Training Program
PROC: B246ZZZ Ultrasonography of Right and Left Heart (ICD-10-PCS; principal; 2022-06-08)
DX: R78.81 Bacteremia (principal); E87.0 Hyperosmolality and hypernatremia; N17.9 Acute kidney failure, unspecified; G30.9 Alzheimer's disease, unspecified; F02.80 Dementia in other diseases classified elsewhere, unspecified severity, without behavioral disturbance, psychotic disturbance, mood disturbance, and anxiety; E11.9 Type 2 diabetes mellitus without complications; I10 Essential (primary) hypertension; E03.9 Hypothyroidism, unspecified; E78.5 Hyperlipidemia, unspecified; R29.6 Repeated falls; Z90.79 Acquired absence of other genital organ(s); Z98.82 Breast implant status; Z20.822 Contact with and (suspected) exposure to COVID-19; Z79.82 Long term (current) use of aspirin; Z79.890 Hormone replacement therapy; Z79.899 Other long term (current) drug therapy; Z88.2 Allergy status to sulfonamides; Z88.8 Allergy status to other drugs, medicaments and biological substances; S72.114D Nondisplaced fracture of greater trochanter of right femur, subsequent encounter for closed fracture with routine healing; G40.909 Epilepsy, unspecified, not intractable, without status epilepticus; R32 Unspecified urinary incontinence; Z87.440 Personal history of urinary (tract) infections; I95.1 Orthostatic hypotension; Z85.828 Personal history of other malignant neoplasm of skin; F32.A Depression, unspecified; F41.9 Anxiety disorder, unspecified; Z87.891 Personal history of nicotine dependence; B95.61 Methicillin susceptible Staphylococcus aureus infection as the cause of diseases classified elsewhere

== ENCOUNTER 2022-10-11 12:24 | Emergency (ER) | payer MEDICARE ==
[~2022-10-11] VITALS: Ht 170.2 cm; Wt 42.0 kg
[~2022-10-11 12:24] MED LIST changes: +ASPI81CH8 PEG; +CEPH500C PO; +DALV1SOL IV; +INSU100I6 SC; -LEVE1INJ5 SC
[2022-10-11] MEDS ORDERED: NS 500 ML IV ONE (12:35)
[2022-10-11 12:58] LABS: HEMATOCRIT 45.8 % (36.0-47.0); HEMOGLOBIN 13.4 g/dl (12.0-15.5); MEAN CORPUSCULAR HEMOGLOBIN 29.9 pg (27.0-33.0); MEAN CORPUSCULAR HGB CONC 29.3 g/dl (32.0-36.5); MEAN CORPUSCULAR VOLUME 102.2 fl (80.0-96.0); PLATELET COUNT, AUTOMATED 284 10^3/uL (150-450); RED BLOOD COUNT 4.48 10^6/uL (4.00-5.40); WHITE BLOOD COUNT 22.3 10^3/uL (4.0-10.0)
[2022-10-11] MEDS ORDERED: LORazepam 2 MG/ML 1ML VIAL IV STA ×2 (13:01→14:19)
[2022-10-11] MEDS ORDERED: SCOPOLAMINE 1MG TRANSDERMAL PATCH TOP STA (13:01)
[2022-10-11 13:20] LABS: ATYPICAL LYMPH 3 % (0-5); LYMPHOCYTES 10 % (16-44); MONOCYTES 5 % (0-5); NEUTROPHILS 70 % (28-66); PLATELET CLUMPS SMALL AMT; PLATELET ESTIMATE NORMAL (NORMAL)
[2022-10-11 13:21] LABS: ANISOCYTOSIS 1+
[2022-10-11 13:23] LABS: OVALOCYTES 1+
[2022-10-11 13:27] LABS: ALBUMIN 2.4 G/DL (3.2-5.2); BILIRUBIN,DIRECT 0.1 MG/DL (<0.4); BILIRUBIN,TOTAL 0.3 MG/DL (0.3-1.2); CREATININE FOR GFR 4.78 MG/DL (0.55-1.30); GLOMERULAR FILTRATION RATE 9.5 (>39); POTASSIUM SERUM 5.1 MMOL/L (3.5-5.1); THYROID STIMULATING HORMONE 0.678 uIU/ML (0.55-4.78); TOTAL PROTEIN 5.4 G/DL (5.7-8.2)
[2022-10-11 13:34] LABS: RSV AMPLIFICATION NEGATIVE (NEGATIVE)
[2022-10-11] MEDS ORDERED: MORPHINE 2 MG/ML 1ML VIAL IV ONE (14:20)
[2022-10-11] MEDS ORDERED: MORP1SOL5 PO ×2 (15:25→15:28)
[2022-10-11] MEDS ORDERED: TRAN1DIS4 TOP (15:25)
[2022-10-11] MEDS ORDERED: ATIV1TAB10 PO ×2 (15:25→15:28)
== END 2022-10-11 15:47 | disposition home or self-care (01) ==
LOC: M ED 12:24 → EDBD 12:24 → M ED 15:47
DX: Z51.5 Encounter for palliative care (principal); Z66 Do not resuscitate; E11.9 Type 2 diabetes mellitus without complications; I10 Essential (primary) hypertension; G30.9 Alzheimer's disease, unspecified; G45.4 Transient global amnesia; F41.9 Anxiety disorder, unspecified; F32.9 Major depressive disorder, single episode, unspecified; Z79.899 Other long term (current) drug therapy; Z88.2 Allergy status to sulfonamides; Z88.8 Allergy status to other drugs, medicaments and biological substances
CPT/HCPCS: 80047; 80048; 80076; 82140; 83605; 84443; 85025; 87040; 87631; 93041; 94760; 96374; 96375; 96376; 99284; J2060; J2270